=== PATIENT | female | born 1960 | race Caucasian/White ===

== ENCOUNTER 2022-11-25 16:50 | Emergency (ER) | payer OTHER, SELFPAY ==
[2022-11-25 17:00] VITALS: BP 151/87; PULSE 75; RESP 16; TEMP 36.4; O2SAT 99
--- NOTE | 2022-11-25 17:19 | ED.URI ---
HPI - URI/Sore Throat General Chief Complaint: Upper Respiratory Infection Stated Complaint: uri Time Seen by Provider: 11/25/22 17:20 Source: patient and RN notes reviewed Mode of arrival: ambulatory Limitations: no limitations History of Present Illness HPI Narrative: 62-year-old female presented for complaints of headache, fatigue, and tingling in the sinuses , onset today. Patient had COVID exposure on 11/20. Patient is positive for COVID today At home. She denies shortness of breath, wheezing, nausea, vomiting, diarrhea, fevers or chills. She has not taken anything for symptoms. MD elicited complaint: cough Related Data Home Medications Medication Instructions Recorded Confirmed diltiazem HCl 360 mg 360 mg PO DAILY 11/25/22 11/25/22 capsule,extended release 24 hr metoprolol succinate 50 mg 50 mg PO DAILY 11/25/22 11/25/22 tablet,extended release 24 hr omeprazole 20 mg capsule,delayed 20 mg PO DAILY 11/25/22 11/25/22 release rivaroxaban 20 mg tablet (Xarelto) 20 mg PO DAILY 11/25/22 11/25/22 Allergies Allergy/AdvReac Type Severity Reaction Status Date / Time morphine Allergy Intermediate Confusion Verified 11/25/22 16:58 sulfamethoxazole Allergy Intermediate Rash Verified 11/25/22 16:58 trimethoprim Allergy Intermediate Rash Verified 11/25/22 16:58 Review of Systems Review of Systems: Per [facility] Past Medical History Medical History Myxoma Exam Narrative: GENERAL: mildly ill-appearing, nontoxic EYES: PERRLA, conjunctivae clear ENT: Mucous membranes moist. TM pearly díaz with dull light reflex bilaterally; no tragal tenderness. Oropharynx without lesions or exudate, no drooling, no hoarseness, no trismus, uvula midline. CHEST: Clear to auscultation, breath sounds equal. No wheezing, rhonchi, rales, or stridor. No respiratory distress, speaks in full sentences. HEART: Regular rate and rhythm. No murmur heard. SKIN: Warm, dry, no rash. NEURO: Alert and oriented x3. PSYCH: Normal mood and affect Course Course Emergency Course: Patient is aware of diagnosis, understands and agrees to treatment plan. Anticipatory guidance given. Patient agrees to follow-up as directed and is aware of reasons to seek care at the emergency department. Portions of this record may have been created with voice recognition software Level of Care: Express Care Visit Vital Signs Vital signs: Vital Signs Temperature 97.6 F 11/25/22 17:00 Pulse Rate 75 11/25/22 17:00 Respiratory Rate 16 11/25/22 17:00 Blood Pressure 151/87 H 11/25/22 17:00 Pulse Oximetry 99 11/25/22 17:00 Oxygen Delivery Room Air 11/25/22 17:00 Temperature 97.6 F 11/25/22 17:00 Pulse Rate 75 11/25/22 17:00 Respiratory Rate 16 11/25/22 17:00 Blood Pressure 151/87 H 11/25/22 17:00 Pulse Oximetry 99 11/25/22 17:00 Oxygen Delivery Room Air 11/25/22 17:00 reviewed MDM - URI/Sore Throat MDM Narrative Medical decision making narrative: discussed at length positive home COVID test is sufficient to warrant quarantine for 5 days per CDC guidelines. She states she thinks she did the test incorrectly. Advised based on her exposure, symptoms and the positive test, she needs to adhere to quarantine. She can contact her PCP regarding antiviral medication. Advised supportive measures and signs/symptoms to go to the ER. Pt is appropriate for outpt treatment and f/u. Differential Diagnosis Differential diagnosis: Likely upper respiratory infection, sinusitis and viral infection Discharge Plan Discharge Clinical Impression: Viral infection Patient Disposition: Home, Self-Care Condition: Stable Instructions: COVID-19 (Coronavirus Disease 2019) (ED) Additional Instructions: Your home COVID test was positive today. This is sufficient to observe the quarantine guidelines. The following recommendations have been made by the CDC and local
== END 2022-11-25 17:35 | disposition home or self-care (01) ==
PROVIDERS: Emergency Provider Nurse Practitioner Family
DX: B34.9 Viral infection, unspecified (principal); Z20.822 Contact with and (suspected) exposure to COVID-19
CPT/HCPCS: 87426; 99213; C9803; G0463

== ENCOUNTER 2023-11-27 14:30 | Emergency (ER) | payer OTHER, SELFPAY ==
--- NOTE | ~2023-11-27 | CT_ITS ---
EXAMINATION: CT abdomen pelvis w con DATE: 11/27/2023 17:27 INDICATION: Abdominal pain. TECHNIQUE: Computed tomography (CT) of the abdomen and pelvis was performed with 100 mL Omnipaque 350 intravenous contrast. Automated exposure control and iterative reconstruction technique were employe d. The dose-length product was 1146.11 mGy-cm. COMPARISON: None. FINDINGS: The visualized portions of the lung bases demonstrate mild atelectasis. No pleural effusion . The heart size is normal. No pericardial effusion. There are pacer wires in right atrium and right ventricle. There are cysts in the liver measuring up to 15 mm . Calcifications in the spleen are cons istent with old granulomatous disease. The gallbladder, pancreas, and adrenal glands are normal. Ther e is cortical thinning of the kidneys. There are cysts in right kidney measuring up to 7 mm . There a re no dilated loops of bowel. The appendix is not visualized. There are no pathologically enlarged ly mph nodes. There is no free intraperitoneal fluid. There is severe lumbar spondylosis. IMPRESSION: 1. No etiology for the patient's symptoms. Reviewed, dictated and finalized at location E. TRICAL PROJECT ENGINEER
[2023-11-27 14:53] VITALS: BP 146/66; PULSE 82; RESP 16; TEMP 36.8; O2SAT 99
[2023-11-27 15:52] VITALS: BP 163/73; PULSE 79; RESP 16; O2SAT 100
[2023-11-27 16:07] LABS: Basophils Percent Auto 0.5 % (0.2-1.2); Eosinophils Absolute Auto 0.3 K/mm3 (0-0.3); Eosinophils Percent Auto 3.1 % (0-4.4); Hemoglobin 11.5 g/dL (12.0-15.0); Immature Granulocyte Absolute 0.02 K/mm3 (0.00-0.031); Immature Granulocyte Percent A 0.2 % (0-0.5); Lymphocytes Absolute Auto 2.67 K/mm3 (0.9-3.2); Lymphocytes Percent Auto 31.9 % (18.3-44.2); Mean Corpuscular HGB Conc 31.1 g/dl (32-36); Mean Corpuscular Hemoglobin 25.6 pg (26-34); Mean Corpuscular Volume 82.4 fl (80-100); Mean Platelet Volume 8.9 fl (7.4-10.4); Monocytes Absolute Auto 0.5 K/mm3 (0.1-0.6); Neutrophils Absolute Auto 4.9 K/mm3 (1.3-6.7); Neutrophils Percent Auto 58.3 % (45.5-73.1); Platelet Count Result 225 k/mm3 (150-375); Red Blood Count 4.49 M/mm3 (4.2-5.4); Red Cell Distribution Width 14.3 % (11.5-14.5); White Blood Count 8.4 K/mm3 (4.5-10.0)
[2023-11-27 16:16] LABS: Alanine Aminotransferase 19 U/L (6-35); Albumin Level 4.3 g/dL (3.5-5.1); Alkaline Phosphatase 93 U/L (38-126); Anion Gap 8 mmol/L (8-16); Aspartate Amino Transferase 26 U/L (14-36); Bilirubin,Total 0.4 mg/dL (0.2-1.3); Blood Urea Nitrogen 13 mg/dL (7-17); Carbon Dioxide 26 mmol/L (22-30); Chloride 105 mmol/L (98-107); Estimated CRCL calculation 96 ml/min; Estimated Glomerular Filt Rate > 60; Glucose 122 mg/dL (65-110); Lipase 74 U/L (23-300); Potassium 3.4 mmol/L (3.4-5.0); Sodium 139 mmol/L (137-145)
[2023-11-27 16:54] LABS: Appearance Urine Clear (Clear); Bacteria Urine 3+ /hpf; Bilirubin Urine Negative (Negative); Blood Urine 2+ (Negative); Color Urine Yellow (Yellow); Glucose Urine UA Negative (Negative); Ketones Urine Negative (Negative); Leukocyte Esterase Ur 1+ LEU/UL (Negative); Nitrate Urine Positive (Negative); Non Pathogenic Casts 0-2; Protein Urine 1+ mg/dL (Negative); RBC Urine 0-2 /hpf (0-2); Specific Grav Ur 1.021 (1.001-1.035); Squamous Epithelial Cell Urine None seen /hpf (Few); Urobilinogen Urine 0.2 mg/dL (<2.0); WBC Urine 51-100 /hpf
[2023-11-27 17:03] LABS: Add Urine Microscopic? YES
--- NOTE | 2023-11-27 17:16 | ED.ABDPAIN ---
HPI - Abdominal Pain General Chief Complaint: Abdominal Pain Stated Complaint: abdominal pain Time Seen by Provider: 11/27/23 16:42 Source: patient Mode of arrival: ambulatory Limitations: no limitations History of Present Illness HPI narrative: This is a 63 year old female that presents to the ER for abdominal pain. Ongoing over the last couple of hours. Reports sharp epigastric pain. No associated symptoms. Denies fever, vomiting, diarrhea, or dysuria. Related Data Home Medications Medication Instructions Recorded Confirmed diltiazem HCl 360 mg 360 mg PO DAILY 11/25/22 11/25/22 capsule,extended release 24 hr metoprolol succinate 50 mg 50 mg PO DAILY 11/25/22 11/25/22 tablet,extended release 24 hr omeprazole 20 mg capsule,delayed 20 mg PO DAILY 11/25/22 11/25/22 release rivaroxaban 20 mg tablet (Xarelto) 20 mg PO DAILY 11/25/22 11/25/22 Allergies Allergy/AdvReac Type Severity Reaction Status Date / Time morphine Allergy Intermediate Confusion Verified 11/27/23 15:41 sulfamethoxazole Allergy Intermediate Rash Verified 11/27/23 15:41 trimethoprim Allergy Intermediate Rash Verified 11/27/23 15:41 Review of Systems Review of Systems: CONSTITUTIONAL: Denies fever GASTROINTESTINAL: Reports abdominal pain. Denies nausea, vomiting, or diarrhea. GENITOURINARY: Denies dysuria or hematuria. All systems reviewed & are unremarkable except as noted in HPI and below PMFSH Past Medical History Medical History (Updated 11/27/23 @ 18:03 by Sushila Orlando PA-C) History of gastroesophageal reflux (GERD) History of pacemaker Myxoma Social History Social History (Updated 11/27/23 @ 17:21 by Sushila Orlando PA-C) Smoking status: Never smoker Exam Narrative: GENERAL: Well-appearing, well-nourished, and in no acute distress. HEAD: Normocephalic, atraumatic. EYES: EOMI. CHEST: Clear to auscultation. No respiratory distress. No wheezes rales or rhonchi HEART: Regular rate and rhythm. No murmur heard. Normal peripheral pulses. ABDOMEN: Soft, nondistended, normal active bowel sounds. Tender to palpation in the epigastrium, without guarding EXTREMITIES: Normal range of motion. No edema. SKIN: Warm, dry, no rash. NEURO: No focal deficits. Alert and oriented x3. PSYCH: Normal mood and affect Course Course Emergency Course: Patient resting comfortably after Zofran and Protonix. Updated on her workup. Agrees with plan of care Vital Signs Vital signs: Vital Signs Temperature 98.2 F 11/27/23 14:53 Pulse Rate 82 11/27/23 14:53 Respiratory Rate 16 11/27/23 14:53 Blood Pressure 146/66 H 11/27/23 14:53 Pulse Oximetry 99 11/27/23 14:53 Oxygen Delivery Room Air 11/27/23 14:53 Temperature 98.2 F 11/27/23 14:53 Pulse Rate 82 11/27/23 18:07 Respiratory Rate 21 H 11/27/23 18:07 Blood Pressure 146/70 H 11/27/23 18:07 Pulse Oximetry 99 11/27/23 18:07 Oxygen Delivery Room Air 11/27/23 14:53 MDM - Abdominal Pain MDM Narrative Medical decision making narrative: Patient presents to the emergency department for abdominal pain present over the last several hours. She is afebrile and nontoxic appearing. Her vitals are stable. CBC shows normocytic anemia hemoglobin of 11.5. Metabolic panel and lipase without concerning findings. UA with evidence of infection. This will be sent for culture. Patient given dose of antibiotics IV in the ED. Will be continued on oral antibiotics. She also wanted to be treated prophylactically for vulvovaginal candidiasis. CT abdomen and pelvis without acute findings. Patient resting comfortably after Zofran and Protonix. Updated on her workup. Agrees with plan of care. She was given warnings to return to the ER Differential Diagnosis Differential diagnosis: Likely calculus of kidney, constipation, diverticulitis, pancreatitis and other (biliary colic, GERD, UTI) Lab Data Attestation: I reviewed the patient's lab results. 11/27/23 16
[2023-11-27] MEDS: SODIUM CHLORIDE 0.9% IV 500 ML 999 ML IV CONT (17:39)
[2023-11-27] MEDS: ONDANSETRON INJ 4 MG/2 ML VIAL IV PUSH (17:40)
[2023-11-27] MEDS: PANTOPRAZOLE SODIUM IV 40 MG VIAL IV PUSH (17:41)
[2023-11-27 17:44] VITALS: BP 155/72; PULSE 83; RESP 16; O2SAT 98
[2023-11-27 18:07] VITALS: BP 146/70; PULSE 82; RESP 21; O2SAT 99
[2023-11-27 18:14] LABS: Troponin I < 0.012 ng/mL (0.000-0.034)
[2023-11-27] MEDS: FLUCONAZOLE 150 MG TABLET PO (18:58)
== END 2023-11-27 19:03 | disposition home or self-care (01) ==
PROVIDERS: Emergency Medicine; Emergency Provider Physician Assistant
DX: N39.0 Urinary tract infection, site not specified (principal); K21.9 Gastro-esophageal reflux disease without esophagitis; D21.9 Benign neoplasm of connective and other soft tissue, unspecified; Z95.0 Presence of cardiac pacemaker; Z79.01 Long term (current) use of anticoagulants
CPT/HCPCS: 36415; 74177; 80053; 81001; 83690; 84484; 85025; 87077; 87086; 87186; 96365; 96375; 99284; A9270; C9113; J0696; J2405; J7030; J7040; Q9967

== ENCOUNTER 2024-12-22 12:45 | Emergency (ER) | payer OTHER, SELFPAY ==
--- NOTE | ~2024-12-22 | CT_ITS ---
CT abdomen pelvis wo con Ordering provider: Breezy Garcia MD History: 64 years Female with . hematuria . Comparison: November 27, 2023 Technique: CT abdomen and pelvis without IV and without oral contrast. Automated exposure control and iterative reconstruction technique were employed. The dose-length product was 1233.42 mGy-cm. Findings: VISUALIZED LOWER CHEST: Normal. UPPER ABDOMINAL ORGANS: Liver: Fat infiltration of the liver. Hypodensity in the left lobe of the liver measuring 1.5 cm unch anged from previous examination and most likely a cyst.. Gallbladder: Normal. Spleen: Normal. Benign calcifications. Stomach/duodenum: Normal. Pancreas: Normal. Adrenals: Normal. Kidneys: Normal. PELVIC ORGANS: The bladder is underfilled. BOWEL AND MESENTERY: Colon: No evidence of diverticulitis. The appendix is not demonstrated. Small Bowel: Normal. No obstruction. Peritoneum/mesentery: No free air or free fluid. No mesenteric lymphadenopathy. Panniculitis is seen in the upper abdomen. Mesenteric lymph nodes are seen with the largest measures 1.1 cm. RETROPERITONEUM: Mild atheromatous disease of the abdominal aorta. No retroperitoneal lymphadenopat hy. MUSCULOSKELETAL: Superficial soft tissues: Soft tissue density seen near to the umbilicus. Clinical evaluation advised . Otherwise, The superficial soft tissues are normal. Bones: Age appropriate degenerative changes of the spine. IMPRESSION: 1. No evidence of appendicitis, diverticulitis or intestinal obstruction. 2. No renal stones. 3. Panniculitis in the upper abdomen. 4. Fat infiltration of the liver with a stable cyst. Reviewed, dictated and finalized at location A. R VEHICLE CLERK
[2024-12-22 13:29] VITALS: BP 122/55; PULSE 88; RESP 16; TEMP 36.6; O2SAT 98
--- OUTSIDE RECORDS SUMMARY | 2024-12-22 13:57 | XMS_ITS | Clinical Summary ---
Author Organization [facility] [address] Address [address] [place] [address] Phone Care Team Providers Care Hospital Cleaning Specialist Name Role Phone Rolly Davis MD Primary Care Provider Unav ailable Allergies Active Allergy Reactions Criticality Noted Date Comments Adhesive Other (See Comments) Low 03/15/2021 Tape pulls skin off and causes bleeding at site Morphine Unknown 01/22/2017 Ty Ty Anaphylaxis High 04/16/2009 Ty Ty Sherbert- lips swelled up, eyes swelled up, couldn't breathe Sulfamethoxazole-Trim ethoprim Unknown 01/22/2017 Medications celecoxib (CeleBREX) 200 mg capsule 10/26/2016 Active losartan (COZAAR) 50 mg tablet 11/24/2016 Active methocarbamoL (ROBAXIN) 750 mg tablet Take 750 mg by mouth. 10/16/2022 Active Xarelto 20 mg Tablet 10/26/2023 Active omeprazole (PriLOSEC) 20 mg Capsule, Delayed Release(E.C.) 06/02/2024 Activ e metoprolol succinate (TOPROL XL) 50 mg Extended Release 24 hour tablet Take 50 mg by mouth daily. 06/30/2024 Active diltiaZEM (CARDIZEM CD) 360 mg Controlled Delivery 24 hour capsule Take 360 mg by mouth daily. 12/25/2023 Active cholecalciferol, vitamin D3, 1,000 unit Take 2,000 Units by mouth daily. Active ascorbic acid (VITAMIN C) 500 mg Tablet, Chewable Take 500 mg by mouth daily. Active Active Problems Problem Noted Date Diagnosed Date Sprain of ligaments of cervical spine 01/22/2017 Encounters Date Type Department Care Team Description 12/20/2024 External Device Data [facility] ABSTRACTION Provider, Abstract 12/06/2024 External Device Data [facility] ABSTRACTION Provider, Abstract 11/10/2024 External Device Data [facility] ABSTRACTION Provider, Abstract 11/08/2024 External Device Data [facility] ABSTRACTION Provider, Abstract 11/01/2024 External Device Data [facility] ABSTRACTION Provider, Abstract from Last 3 Months Family History Medical History Relation Name Comments Arthritis-osteo Father Diabetes Father Hypertension Father Arthritis-osteo Mother Cancer Mother Heart Disease Mother Hypertension Mother Relation Name Status Comments Father Mother Social History Tobacco Use Types Packs/Day Years Used Date Smoking Tobacco: Never Smokeless Tobacco: Never Alcohol Use Standard Drinks/Week Comments No 0 (1 standard drink = 0.6 oz pur e alcohol) Comments No Sex and Gender Information Value Date Recorded Sex Assigned at Not on file Legal Sex Female 2:34 PM CDT Gender Identity Not on file Sexual Orientation Not on file Last Filed Vital Signs Vital Sign Reading Time Taken Comments Blood Pressure 134/66 08/05/2024 2:16 PM CDT Pulse 70 03/19/2017 3:21 PM CDT Temperature - - Respiratory Rate - - Oxygen Saturation - - Inhaled Oxygen Concentration - - Weight 104.3 kg (230 lb) 08/05/2024 2:16 PM CDT Height 167.6 cm (5' 6 ) 08/05/2024 2:16 PM CDT Body Mass Index 37.12 08/05/2024 2:16 PM CDT Plan of Treatment Health Maintenance Due Date Last Done Comments Pre-Diabetes and Diabetes Screening 1960 COLORECTAL SCREENING 2004 Colorectal Cancer Screening 2004 FIT-DNA Q 3 years 2004 FIT/FOBT Q 1 year 2004 Flex Sig/CT Colonography Q 5 years 2004 ZOSTER VACCINE (1 of 2) 2009 OSTEOPOROSIS SCREENING 2024 BREAST CANCER SCREENING 07/15/2025 07/15/2024 DTAP/TDAP/TD VACCINES (3 - T d or Tdap) 06/06/2034 06/06/2024, 10/19/2020 RSV VACCINE (60+ or ) (1 - 1-dose 75+ series) 2034 PNEUMOCOCCAL VACCINE 50+ YEARS Completed 10/16/2022 INFLUENZA VACCINE Completed 07/08/2024, , 09/02/2022, Additional history exists Insurance [facility] Care Teams Hospital Cleaning Specialist Relationship Specialty Start Date End Date Rolly Davis MD PCP - General Internal Medicine 01/22/17
--- OUTSIDE RECORDS SUMMARY | 2024-12-22 13:57 | XMS_ITS | Continuity of Care Document ---
Author Organization [facility] Address [address] [place] [address] Phone Care Team Providers Care Command Post Craftsman Name Role Phone David Don MD Unavailable Unavailable Allergies, Adverse Reactions, Alerts Substance Reaction Status Criticality trimethoprim Hives Active No Information sulfamethoxazole Hives Active No Informat ion morphine Hallucinations Active No Informatio n Medications Medication Instructions Dosage Effective Dates (start - stop) Status Comments LOSARTAN POTASSIUM (unknown strength) Not Available - Active Prilosec OTC 20 mg tablet,delayed release - Active ASPIRIN (unknown strength) Not Available - Active CELEBREX (unknown strength) Not Available - Active Procedures Procedure Date OFFICE/OUTPATIENT VISIT EST OFFICE/OUTPATIENT VISIT EST RADEX KNE COMPL 4/MORE VIEWS OFFICE/OUTPATIENT VISIT EST POSTOP FOLLOW-UP VISIT POSTOP FOLLOW-UP VISIT RADEX KNE COMPL 4/MORE VIEWS OFFICE/OUTPATIENT VISIT EST OFFICE/OUTPATIENT VISIT EST RADEX KNE COMPL 4/MORE VIEWS OFFICE/OUTPATIENT VISIT EST RADEX KNE 1/2 VIEWS OFFICE/OUTPATIENT VISIT EST POSTOP FOLLOW-UP VISIT POSTOP FOLLOW-UP VISIT RADEX KNE COMPL 4/MORE VIEWS OFFICE CONSULTATION Advance Directives Directive Yes / No Effective Date File Name No Information Encounters Encounter Description Practice Location Reason(s) For Visit Diagnoses Date Provider Providers Copied on Encounter OFFICE/OUTPAT IENT VISIT EST [facility], [address] [address], [place], [address], [place] tel:[phone] [facility] Status post total left knee replacement 9 D[address] David. [address] , [place], [place], [id number] . tel: [phone] [facility], [address] [facility] [address] [address], [place], [address], [place] tel:[phone] [facility] Status post total left knee replacementLeft knee pain 8 Dusek David. [address] , [place], [place], [address] . tel: [phone] OFFICE/OUTPAT IENT VISIT EST [facility], [address] [address], [place], [address], [place] tel:[phone] [facility] Status post total left knee replacement 8 Herrman[address] Nuñez. [address], [id number] . tel: [phone] OFFICE/OUTPAT IENT VISIT EST [facility], [address] [facility] [address] [address], [place], [address], [place] tel:[phone] [facility] Status post total left knee replacementBody mass index (BMI) 33.0-33.9, adult 8 [address]. [address] , [place], [place], [id number] . tel: [phone] [facility], [address] [address], [place], [address], [place] tel:[phone] [facility] Status post total left knee replacementBody mass index (BMI) 33.0-33.9, adult 8 [address] Nuñ[address]. [address] [facility], [place], [place], [id number] . tel: [phone] Referring Provider: Rolly Lugo, [address], [place], [address] . tel:[phone] [facility], [address] [facility], [place], [address], [place] tel:[phone] [facility] Body mass index (BMI) 33.0-33.9, adultStatus post total left knee replacement [address] [facility]. [address] [facility], [place], [place], [id number] . tel: [phone] OFFICE/OUTPAT IENT VISIT EST [facility], [address] [facility] [address] [address], [place], [address], [place] tel:[phone] [facility] Primary osteoarthritis of left knee 3[address] Dus[address] David. [address] , [place], [place], [address] . tel: [phone] [facility], [address] [address], [place], [address], [place] tel:[phone] [facility] Primary osteoarthritis of left knee [phone] 7 [facility]. [address] [facility], [place], [place], [id number] . tel: [phone] [facility], [address], [address], [place] tel:[phone] [facility] Primary osteoarthritis of left knee 0201 [address]us[address] David. [address] , [place], [place], [id number] . tel: [phone] OFFICE/OUTPAT IENT VISIT EST [facility], [address] [facility] [address] [address], [place], [address], [place] tel:[phone] [facility] Primary osteoarthritis of left knee 6 7 Dus[address] David. [address] , [place], [place], [id number] . tel: [phone] OFFICE/OUTPAT IENT VISIT EST [facility], [address], [address], [place] tel:[phone] [facility] Body mass index (BMI) 33.0-33.9, adultPrimary osteoarthritis of left knee February-0 7 Herrman[address] Nuñez. [address] [facility], [place], [place], [id number] . tel: [phone] [facility], [address] [address], [place], [address], [place] tel:[phone] [facility] Primary osteoarthritis of left knee 6 [address] Nuñez. [address] [facility], [place], [place], [id number] . tel: [phone] [facility], [address] [address], [place], [address], [place] tel:[phone] [facility] Medial meniscus tear, left, subsequent encounterPrimary osteoarthritis of left knee 6 Dus[address] David. [address] [facility] [address] , [place], [place], [id number] . tel: [phone] OFFICE/OUTPAT IENT VISIT EST [facility], [address] [facility] [address] [address], [place], [address], [place] tel:[phone] [facility] Primary osteoarthritis of left knee 6 [address] David. [address] , [place], [place], [address] . tel: [phone] [facility], [address] [address], [place], [address], [place] tel:[phone] [facility] Medial meniscus tear, left, subsequent encounter 0 6 [address] David. [address] , [place], [place], [address] . tel: [phone] [facility], [address] [address], [place], [address], [place] tel:[phone] [facility] Primary osteoarthritis of left kneeMedial meniscus tear, left, subsequent encounter 9 6 Dus[address] David. [address] , [place], [place], [id number] . tel: [phone] OFFICE CONSULTATION [facility], [address], [place], [address], [place] tel:[phone] [facility] Left knee pain (chief complaint) Tear of medial meniscus of left knee, initial encounterPrimary osteoarthritis of left knee 6 Monte[address] Nuñez. [address], [place], [place], [address] . tel:[phone] Referring Provider: Rolly Lugo, [address], [place], [address] . tel:[phone] Family History Family Member Type Diagnosis Age At Onset Father Problem (finding) rheumatoid arthritis Problem (finding) Family history of osteo arthritis Mother Problem (finding) congestive heart failur e Father Problem (finding) gout Payers Payer name Insurance type Covered republican ID Authoriza tion(s) No Information Social History Type Description Quantity Date Captured Comments Alcohol Use Details Unknown Caffeine Use Details Unknown Tobacco Use Status No Information Smoking Status No Information Sex Female Chief Complaint And Reason For Visit No Information Reason For Referral Reason For Referral No Information Plan Of Treatment Date Type Action Status Referral Ordered: RADEX KNE 1/2 VIEWS ordered Referral Ordered: INJECTION LT knee ordered Referral Ordered: RADEX KNE COMPL 4/MORE VIEWS LT ordered Future Order: Lab Order Sed rate ([id number]), Ordered on: Ordered Future Order: Lab Order C-Reacti ve Protein, Quant ([id number]), Ordered on: Ordered History Of Present Illness Encounter Date Complaint History Of Prese nt Illness Left knee pain Functional Status Date Functional Assessmen t No Information Instructions Date Instruction Additional Infor lukeion Call for increase in pain Relate d to Status post total left knee replacement Take medication as directed. Rel ated to Status post total left knee replacement Call for increase in pain Relate d to Status post total left knee replacement Take medication as directed. Rel ated to Status post total left knee replacement Take medication as directed. Rel ated to Status post total left knee replacement Call for increase in pain Relate d to Status post total left knee replacement Take medication as directed. Rel ated to Status post total left knee replacement Discussed treatment options Rela mackenzie to Status post total left knee replacement Call for increase in pain Relate d to Status post total left knee replacement Rest, ice and elevate. Related t o Medial meniscus tear, left, subsequent encounter Take medication as directed. Rel ated to Medial meniscus tear, left, subsequent encounter Call for increase in pain Relate d to Medial meniscus tear, left, subsequent encounter Discussed surgical options Relat ed to Primary osteoarthritis of left knee Take medication/NSAID as directe d. Related to Primary osteoarthritis of left knee Take medication/NSAID as directe d. Related to Primary osteoarthritis of left knee Take medication/NSAID as directe d. Related to Primary osteoarthritis of left knee Take medication/NSAID as directe d. Related to Primary osteoarthritis of left knee Discussed surgical options Relat ed to Primary osteoarthritis of left knee Weight loss from baseline weight Related to Body mass index (BMI) 33.0-33.9, adult Take medication/NSAID as directe d. Related to Primary osteoarthritis of left knee Weight loss reduces stress on joints. Related to Primary osteoarthritis of left knee Benefits of Glucosamine/Chondroi tin Related to Primary osteoarthritis of left knee Take medication/NSAID as directe d. Related to Primary osteoarthritis of left knee Call for increase in pain Relate d to Medial meniscus tear, left, subsequent encounter Take medication as directed. Rel ated to Medial meniscus tear, left, subsequent encounter Take medication/NSAID as directe d. Related to Primary osteoarthritis of left knee Benefits of Glucosamine/Chondroi tin Related to Primary osteoarthritis of left knee Take medication as directed. Rel ated to Medial meniscus tear, left, subsequent encounter Home exercise program. Related t o Medial meniscus tear, left, subsequent encounter Rest, ice and elevate. Related t o Medial meniscus tear, left, subsequent encounter Call for increase in pain Relate d to Medial meniscus tear, left, subsequent encounter Discussed treatment options Rela mackenzie to Medial meniscus tear, left, subsequent encounter Call for increase in pain Relate d to Medial meniscus tear, left, subsequent encounter Take medication as directed. Rel ated to Medial meniscus tear, left, subsequent encounter Call for increase in pain Relate d to Tear of medial meniscus of left knee, initial encounter Discussed treatment options Rela mackenzie to Tear of medial meniscus of left knee, initial encounter Assessments Type Assessment Date assessment Status post total left knee repl acement Patient Care Teams Name Effective Dates (start - stop) Status Members No Information
--- OUTSIDE RECORDS SUMMARY | 2024-12-22 13:57 | XMS_ITS | Encounter Summary ---
Author Organization [employer] Address [address] [place] [address] Care Team Providers Care [employer] Name Role Phone Rloly Davis MD Primary Care Provider Unav ailable Encounter Details Date Type Department Care Team (Late st Contact Info) Description 12/20/2024 External Device Data [facility] ABSTRACTION Provider, Abstract NO ADDRESS ON FILE Social History Tobacco Use Types Packs/Day Years Used Date Smoking Tobacco: Never Smokeless Tobacco: Never Alcohol Use Standard Drinks/Week Comments No 0 (1 standard drink = 0.6 oz pur e alcohol) Comments No Sex and Gender Information Value Date Recorded Sex Assigned at Not on file Legal Sex Female 2:34 PM CDT Gender Identity Not on file Sexual Orientation Not on file documented as of this encounter Plan of Treatment Not on file documented as of this encounter Visit Diagnoses Not on filedocumented in this encounter Care Teams [employer] Relationship Specialty Start Date End Date Rolly Davis MD PCP - General Internal Medicine 01/22/17 documented as of this encounter
[2024-12-22 15:12] LABS: Appearance Urine Turbid (Clear); Color Urine Red (Yellow)
[2024-12-22 15:13] LABS: Protein Urine 3+ mg/dL (Negative); Specific Grav Ur 1.015 (1.001-1.035)
[2024-12-22 15:16] LABS: Blood Urine 3+ (Negative); Glucose Urine UA Negative (Negative)
[2024-12-22 15:17] LABS: Nitrate Urine Negative (Negative)
[2024-12-22 15:18] LABS: Add Urine Microscopic? YES; RBC Urine >100 /hpf (0-2); Squamous Epithelial Cell Urine Few /hpf (Few); WBC Urine 0-5 /hpf (0-3)
[2024-12-22 15:19] LABS: Amorphous Sediment Urine Moderate; Bacteria Urine Trace /hpf
[2024-12-22 16:19] VITALS: BP 114/69; PULSE 77; RESP 16; O2SAT 98
--- OUTSIDE RECORDS SUMMARY | 2024-12-22 17:44 | XMS_ITS | Referral Summary ---
Author Organization [facility] Address [address] [place] [address] Care Team Providers Care Striper Machine Name Role Phone Prasanth Falk MD Unavailable [phone] Abdiel Gibbons MD Unavailable Pablo Lay MD, Morteza Goldman Primary Care Provide r Andreas Montoya DO Unavailable [phone] Encounters Date Type Department Care Team Description 12/18/2024 Orders Only [facility] [address] [place] [address] Advanced Medicine 13th [place] [address] Liam Nathan MD PhD 12/16/2024 9:00 AM JOCKEY ROOM CUSTODIAN [facility] Advanced Medicine Gynecologic Oncology [facility] ([facility]) [address] [place] [address] Malignant neoplasm of left ovary (HCC) (Primary Dx) 12/16/2024 8:10 AM JOCKEY ROOM CUSTODIAN Office Visit [facility] [address] [place] [address] Advanced Medicine 13th [place] [address] Patti Preston MD Encounter for antineoplastic chemotherapy (Primary Dx); Ovarian cancer, bilateral (HCC); Peri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; Malignant neoplasm of left ovary (HCC) 12/15/2024 Orders Only [facility] [address] [place] [address] Medicine 13th [place] [address] Jeanna Garcia RN Malignant neoplasm of left ovary (HCC) (Primary Dx) 12/14/2024 Orders Only [facility] ON[facility] Patti Preston MD 12/13/2024 2:22 PM JOCKEY ROOM CUSTODIAN - 12/13/2024 11:59 PM JOCKEY ROOM CUSTODIAN Hospital Encounter [address] [address] Malignant neoplasm of left ovary (HCC) Discharge Disposition: Discharge to home or self care 12/13/2024 8:15 AM JOCKEY ROOM CUSTODIAN Lab [facility] Outpatient Lab at [address] [address] 12/08/2024 Telephone [facility] [address] [place], [place] [address]th [place] [address] Jeanna Garcia RN 12/07/2024 1:08 PM JOCKEY ROOM CUSTODIAN - 12/07/2024 11:59 PM JOCKEY ROOM CUSTODIAN Hospital Encounter [address] [address] Ovarian cancer, bilateral (HCC); Dysuria Discharge Disposition: Discharge to home or self care 12/07/2024 1:15 PM JOCKEY ROOM CUSTODIAN Lab [facility] Medical Group Outpatient Lab at [address] [address] 12/07/2024 Orders Only [facility] [address] [place] [address] 13th [place] [address] Jeanna Garcia RN Ovarian cancer, bilateral (HCC) (Primary Dx); Dysuria 12/04/2024 9:00 AM JOCKEY ROOM CUSTODIAN Ancillary Procedure [facility] [address] [facility] [address], [place] [id number] Pacemaker (Primary Dx); SSS (sick sinus syndrome) (HCC) 11/30/2024 Treatment [facility] [address] [place] [address] Medicine 13th [place] [address] Patti Preston MD 11/28/2024 Telephone [facility] [address] [facility] 13th [place] [address] Jeanna Garcia, KALYANI 11/25/2024 Documentation [facility] [address] [place] [address] 13th [place] [address] Jeanna Garcia RN 11/25/2024 Orders Only [facility] [address] [place] [address] 13th [place] [address] Jeanna Garcia RN Ovarian cancer, bilateral (HCC) (Primary Dx); Encounter for antineoplastic chemotherapy; Malignant neoplasm of left ovary (HCC) 11/25/2024 9:30 AM JOCKEY ROOM CUSTODIAN [facility] Gy[facility] [address] [place] [address] Malignant neoplasm of left ovary (HCC) (Primary Dx) 11/25/2024 8:20 AM JOCKEY ROOM CUSTODIAN Office Visit [facility] [address] [place], [place] [address]th [place] [address] Patti Preston MD Encounter for antineoplastic chemotherapy (Primary Dx); Ovarian cancer, bilateral (HCC); Malignant neoplasm of left ovary (HCC) 11/24/2024 Orders Only [facility] [address] [place], [place] [address]th [place] [address] Jeanna Garcia, RN Malignant neoplasm of left ovary (HCC) (Primary Dx) 11/04/2024 1:22 PM JOCKEY ROOM CUSTODIAN - 11/04/2024 11:59 PM JOCKEY ROOM CUSTODIAN Hospital Encounter [facility] Cardiac Testing [address] [place] [address] Leg pain, bilateral Discharge Disposition: Discharge to home or self care 11/03/2024 11:38 PM JOCKEY ROOM CUSTODIAN - 11/04/2024 2:52 AM JOCKEY ROOM CUSTODIAN Emergency [address] [place] [address] Froylan Burton MD Leg pain, bilateral (Primary Dx) Discharge Disposition: Discharge to home or self care 11/01/2024 Orders Only [facility] [address] [facility] 13th [place] [address] Jeanna Garcia RN Malignant neoplasm of left ovary (HCC) (Primary Dx) 11/01/2024 6:35 AM JOCKEY ROOM CUSTODIAN Lab [facility] ([facility]) [address] [place] [address] Malignant neoplasm of left ovary (HCC) 11/01/2024 8:30 AM JOCKEY ROOM CUSTODIAN Infusion [facility] Gynecologic Oncology [facility] ([facility]) [address] [place] [address] Malignant neoplasm of left ovary (HCC) (Primary Dx) 11/01/2024 7:50 AM JOCKEY ROOM CUSTODIAN Office Visit [facility] [address] [place] [address] 13th [place] [address] Azael Garcia MD Malignant neoplasm of left ovary (HCC) (Primary Dx); Encounter for antineoplastic chemotherapy; Peri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 10/31/2024 Telephone [facility] [address] [place] [address] 13th [place] [address] Chrissy Maxwell RN 10/17/2024 Telephone [facility] 13th [place] [address] Chrissy Maxwell RN 10/17/2024 Orders Only [facility] [address] [place] [address] [place] [address] Azael Garcia MD Malignant neoplasm of left ovary (HCC) (Primary Dx); Alopecia due to cytotoxic drug 10/13/2024 Telephone [facility] 13th [place] [address] Chrissy Maxwell, RN 10/07/2024 10:30 AM JOCKEY ROOM CUSTODIAN [facility] Advanced Medicine Gynecologic On[facility] ([facility]) [address] [place] [address] Malignant neoplasm of left ovary (HCC) (Primary Dx) 10/07/2024 6:03 AM JOCKEY ROOM CUSTODIAN - 10/07/2024 11:59 PM JOCKEY ROOM CUSTODIAN Hospital Encounter [facility] [address] [place] [address] Andreas Celestin PA Ovarian cancer, bilateral (HCC) Discharge Disposition: Discharge to home or self care 10/04/2024 Telephone [facility] Radiology [address] [place] [address] Erica Yoon RN 10/04/2024 Telephone [facility] [address] [place] [address] 13th [place] [address] Kelly Abel, RN Med Management 10/04/2024 Telephone [facility] Radiology [facility] [address] [place] [address] Tonya Liang RN 09/30/2024 Telephone [facility] 13th [place] [address] Chrissy Maxwell, RN 09/29/2024 Orders Only [facility] [address] [facility] 13th [place] [address] Chrissy Maxwell, RN Ovarian cancer, bilateral (HCC) (Primary Dx) 09/27/2024 6:53 PM JOCKEY ROOM CUSTODIAN - 09/27/2024 11:59 PM JOCKEY ROOM CUSTODIAN Hospital Encounter [address] [address] Ovarian cancer, bilateral (HCC) Discharge Disposition: Discharge to home or self care 09/27/2024 Telephone [facility] Medicine 13th [place] [address] Chrissy Maxwell RN 09/27/2024 Orders Only [facility] [address] [place] [address] 13th [place] [address] Kelly Abel RN 09/27/2024 Telephone [facility] Primary Care [address] [place] [phone] Morteza Shah Jr., MD Med Refill 09/27/2024 2:00 PM JOCKEY ROOM CUSTODIAN Office Visit [facility] [address] [place] [address] 13th [place] [address] Azael Garcia MD Ovarian cancer, bilateral (HCC) (Primary Dx) 09/26/2024 3:00 PM JOCKEY ROOM CUSTODIAN Office Visit [facility] [address] [place] [phone] Morteza Shah Jr., MD Preventative health care (Primary Dx); Gastroesophageal reflux disease with esophagitis without hemorrhage; Asymptomatic menopause; Chronic diastolic congestive heart failure (HCC); Other primary thrombocytopenia (HCC); Rheumatoid arthritis involving multiple sites with positive rheumatoid factor (HCC); SSS (sick sinus syndrome) (HCC); PAF (paroxysmal atrial fibrillation) (HCC); History of CVA (cerebrovascular accident); Need for vaccination; Malignant neoplasm of left ovary (HCC) 09/23/2024 Orders Only [facility] [address] [place] [address] Azael Garcia MD Malignant neoplasm of ovary, unspecified laterality (HCC) 09/23/2024 Telephone [facility] [address] [place] [phone] Morteza Shah Jr., MD Medication Request 09/23/2024 Orders Only [facility] [address] [place] [address] 13th [place] [address] Azael Garcia MD Malignant neoplasm of ovary, unspecified laterality (HCC) (Primary Dx) from Last 3 Months Allergies Active Allergy Reactions Criticality Noted Date Comments Adhesive Other (See comments) Low 03/15/2021 Tape pulls skin off and causes bleeding at site Morphine Other (See comments),Hallucinatio ns Medium 01/22/2017 Reaction: Unknown, , Bremer Anaphylaxis High 04/16/2009 Bremer Sherbert- lips swelled up, eyes swelled up, couldn't breathe Paclitaxel Shortness of breath,Flushing (skin),Nausea only High 10/07/2024 Sulfa (Sulfonamide Antibiotics) Hives,Shortness of breath High 01/16/2019 Medications ascorbic acid (VITAMIN C) 500 mg tablet,chewable Take 1 tablet/chew tab (500 mg total) by mouth daily Active cholecalciferol (VITAMIN D-3) 25 mcg (1,000 unit) tablet Take 2 tablets (2,000 Units total) by mouth daily Active lidocaine (LIDODERM) 5 %Indications:Lumba r pain Place 1 patch on the skin daily Remove & discard patch within 12 hours or as directed by MD. 30 patch 10/16/20 22 025 Active Additional Information Patient taking differently:1 patch transdermalAs needed, Remove & discard patch within 12 hours or as directed by MD., Reported on 12/16/2024 methocarbamoL (ROBAXIN) 750 mg tabletIndications: Lumbar pain Take 1 tablet (750 mg total) by mouth 4 (four) times a day as needed for muscle spasms Only takes occasionally 30 tablet 3 10/16/20 22 Active atorvastatin (LIPITOR) 40 mg tablet TAKE 1 TABLET NIGHTLY (NEED TO SCHEDULE AN APPOINTMENT. DUE FOR OFFICE VISIT IN JANUARY) 90 tablet 3 04/13/20 23 Active Xarelto 20 mg tabletIndications: Paroxysmal atrial fibrillation (HCC) TAKE 1 TABLET DAILY WITH DINNER 90 tablet 3 10/26/19 24 Active losartan (COZAAR) 50 mg tabletIndications: Primary hypertension Take 1 tablet (50 mg total) by mouth daily 90 tablet 3 11/20/19 24 Active celecoxib (CeleBREX) 200 mg capsuleIndications :Rheumatoid arthritis, involving unspecified site, unspecified whether rheumatoid factor present (HCC) Take 1 capsule (200 mg total) by mouth 2 (two) times a day 180 capsule 3 04/06/20 24 025 Active metoprolol XL (TOPROL-XL) 50 mg extended release tabletIndications: PAF (paroxysmal atrial fibrillation) (HCC) Take 1 tablet (50 mg total) by mouth daily 90 tablet 3 06/30/20 24 025 Active famotidine (PEPCID) 40 mg tabletIndications: Gastroesophageal reflux disease with esophagitis without hemorrhage Take 1 tablet (40 mg total) by mouth daily 90 tablet 3 09/26/20 24 025 Active aspirin 81 mg chewable tabletIndications: prevention of thrombosis Take 1 tablet (81 mg total) by mouth daily 90 tablet 3 09/26/20 24 025 Active dexAMETHasone (DECADRON) 4 mg tabletIndications: Malignant neoplasm of left ovary (HCC) Take 2 tablets (8 mg) by mouth once daily on Day 2, 3, and 4 of each cycle. 20 tablet 3 10/03/20 24 Active prochlorperazine (Compazine) 10 mg tabletIndications: Malignant neoplasm of left ovary (HCC) Take 1 tablet (10 mg total) by mouth every 6 (six) hours as needed for nausea or vomiting 30 tablet 3 10/03/20 24 Active ondansetron (ZOFRAN) 8 mg tabletIndications: Malignant neoplasm of left ovary (HCC) Take 1 tablet (8 mg total) by mouth every 8 (eight) hours as needed for nausea or vomiting 30 tablet 3 10/03/20 24 Active LORazepam (ATIVAN) 0.5 mg tabletIndications: Malignant neoplasm of left ovary (HCC) Place 1 tablet (0.5 mg total) under the tongue every 6 (six) hours as needed (nausea or vomiting) 30 tablet 10/03/20 24 Active lidocaine-prilocai ne creamIndications:A dministration of Local Anesthesia Apply topically as needed for pain Apply 1 hour prior to IV access and cover. 30 g 1 10/05/20 24 Active diltiaZEM CD (Cardizem CD) 360 mg 24 hr capsule Take 1 capsule (360 mg total) by mouth daily 90 capsule 1 10/14/20 24 025 Active HYDROcodone-acetam inophen (NORCO) 5-325 mg per tabletIndications: Pain Take 1 tablet by mouth every 8 (eight) hours as needed for pain 12 tablet 11/04/19 25 Active gabapentin (NEURONTIN) 300 mg capsuleIndications :Neuropathy Take 1 capsule (300 mg total) by mouth 3 (three) times a day 270 capsule 4 11/09/19 25 026 Active al & mag hydroxide with simethicone-diphen hydramine-lidocain e (MAGIC MOUTHWASH) suspension 5-7-6Xyhwnjoghof:C hemotherapy-Induce d Mucositis Swish and swallow 15 mL every 4 (four) hours as needed (mucositis) 500 mL 3 11/14/19 25 Active pyridoxine (VITAMIN B-6) 100 mg tabletIndications: Encounter for antineoplastic chemotherapy,Perip heral neuropathy due to chemotherapy Take 1 tablet (100 mg total) by mouth daily 30 tablet 11 11/14/19 25 026 Active alpha lipoic acid 600 mg capsuleIndications :Encounter for antineoplastic chemotherapy,Perip heral neuropathy due to chemotherapy Take 1 capsule (600 mg total) by mouth daily 30 capsule 3 11/14/[address] (CYMBALTA) 30 mg capsuleIndications :Peri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 Take 1 capsule (30 mg total) by mouth daily 30 capsule 11 11/28/19 25 026 Active pregabalin (LYRICA) 75 mg capsuleIndications :peripheral neuropathy Take 1 capsule (75 mg total) by mouth 2 (two) times a day 60 capsule 11/30/19 25 025 Active nitrofurantoin monohydrate (MACROBID) 100 mg capsule Take 1 capsule (100 mg total) by mouth 2 (two) times a day for 7 days 14 capsule 12/19/19 25 025 Active loperamide (IMODIUM A-D) 2 mg tabletIndications: Encounter for antineoplastic chemotherapy,Chemo therapy induced diarrhea Take 1 tablet (2 mg total) by mouth 4 (four) times a day as needed for diarrhea for up to 10 days 30 tablet 11/14/19 25 025 Active Problems Problem Noted Date Diagnosed Date Malignant neoplasm of left ovary 09/26/2024 Assessment & Plan (09/26/2024 3:43 PM JOCKEY ROOM CUSTODIAN): S/p resection Following hem/onc, appreciate recommendations Class 2 severe obesity due t o excess calories with serious comorbidity and body mass index (BMI) of 37.0 to 37.9 in adult 07/14/2023 Assessment & Plan (07/14/2023 12:32 PM CDT): Will look into resources for timothy Chronic diastolic congestive heart failure 07/11 Assessment & Plan (09/26/2024 3:41 PM JOCKEY ROOM CUSTODIAN): Chronic stable Well controlled Continue current prescribed medications losartan metorpolol at current dose Follows cardiology Assessment & Plan (10/16/2022 4:07 PM JOCKEY ROOM CUSTODIAN): Chronic stable Well controlled Continue current medications at current dose Precordial pain 05/12/2022 Restless legs 05/01/2022 Benign neoplasm 02/03/2022 Other primary thrombocytopenia 01/22/2022 Assessment & Plan (09/26/2024 3:41 PM JOCKEY ROOM CUSTODIAN): Monitor levels Pacemaker 03/04/2019 Overview (03/04/2019): [employer] DDD [place] MRI pacemaker implanted on 03/04/19 for SSS/Afib. [place] [facility] PAF (paroxysmal atrial fibrillation) 02/18/2019 Overview (12/11/2021): 2011 in March- had sob- had stress test and myxoma on L side of the heart in 2012- had resesction- they thought it was showering off and causing stroke. Every 6 months monitoring to make sure it wasn't growing back. Linq was placed as she was having syncope-need ppm Then started having afib - had cardioversion 08/02/2021 On xarelto Assessment & Plan (09/26/2024 3:42 PM JOCKEY ROOM CUSTODIAN): Follows cardiology Paul lopezporarti,dilta and xarelto Assessment & Plan (12/11/2021 7:24 PM JOCKEY ROOM CUSTODIAN): On xarelto Referral requested for cards- placed for Dr. Preciado On metop XL, rhythm and rate controlled since cardioversion Assessment & Plan (02/18/2019 1:16 PM CDT): Paroxysmal atrial fibrillation. Anticoagulation management encounter 02/18/2019 Assessment & Plan (02/18/2019 1:16 PM CDT): She currently remains on Xarelto 20 mg daily. She remains compliant with her anticoagulation and denies any issues with bleeding. SSS (sick sinus syndrome) 02/18/2019 Overview (02/18/2019): Added automatically from request for surgery [id number] Assessment & Plan (09/26/2024 3:42 PM JOCKEY ROOM CUSTODIAN): Follows cardiology Continue dilt and metoprolol Assessment & Plan (12/11/2021 7:24 PM JOCKEY ROOM CUSTODIAN): S/p ppm History of CVA (cerebrovascular accident) 2014 Overview (01/23/2017): Stroke Assessment & Plan (09/26/2024 3:41 PM JOCKEY ROOM CUSTODIAN): Continue lipitor and aspirin Assessment & Plan (12/11/2021 7:26 PM JOCKEY ROOM CUSTODIAN): Is on statin Needs lipids checked Assessment & Plan (02/18/2019 1:16 PM CDT): Recent right MCA infarct, cardioembolic Myxoma 12/26/2014 Overview (12/11/2021): Left atrial myxoma- resected in 2012 Assessment & Plan (02/18/2019 1:16 PM CDT): History of left atrial myxoma resection in 2012 Primary hypertension Assessment & Plan (12/11/2021 7:24 PM JOCKEY ROOM CUSTODIAN): Controlled, cont losartan Rheumatoid arthritis involvi ng multiple sites with positive rheumatoid factor Assessment & Plan (09/26/2024 3:44 PM JOCKEY ROOM CUSTODIAN): Takes celebrax, well controlled Assessment & Plan (12/11/2021 7:25 PM JOCKEY ROOM CUSTODIAN): Never on mtx, celebrex prn. She is unsure of the dx but thinks in the '70s was told this Ordering RA labs, exam is unremarkable for signs of RA Preventative health care Assessment & Plan (09/26/2024 3:41 PM JOCKEY ROOM CUSTODIAN): Reviewed previous labs and diagnostic test results. Chronic medical problems evaluated and management plans discussed with the patient. Prescription medications, supplements, vitamins and immunizations reviewed. Wear seatbelts. Use sunscreen. Discussed healthy diet and disease prevention and controlling portions including alcohol Discussed importance of scheduling recommended screening tests. Discussed importance of regular physical examinations for health maintenance. Discussed importance of a living will, advanced directives and establishing or updating healthcare power of vba developer document and providing our office with a copy. Assessment & Plan (10/16/2022 4:07 PM JOCKEY ROOM CUSTODIAN): Discussed vaccines Labs will get drawn in January Will come back for a weight check Assessment & Plan (12/11/2021 7:27 PM JOCKEY ROOM CUSTODIAN): Recommend shingrix Recommend flu shot utd on cscope- she will try to find date and get this to us utd on covid vax mammo ordered Resolved Problems Problem Noted Date Diagnosed Date Resolved Date Other thrombophilia 09/26/2024 09/26/20 24 Mass of uterine adnexa 08/25/202409/26 Class 2 obesity due to exces s calories without serious comorbidity with body mass index (BMI) of 38.0 to 38.9 in adult 10/16/2022 Assessment & Plan (10/16/2022 4:07 PM JOCKEY ROOM CUSTODIAN): Wants to start wegovy, understands supply issue, will become available next month Abnormal stress test 07/11/2022 024 Left shoulder pain 06/10/2022 Sleep apnea 05/01/2022 09/26/2024 Fatigue 05/01/2022 10/16/2022 Teeth grinding 05/01/2022 10/16/2022 Thrombocytopenia, unspecified 01/22/2022 09/26/2024 Ileus 08/06/2021 10/16/2022 Sinus node dysfunction ([facility]) 02/18/2019 10/16/2022 Assessment & Plan (02/18/2019 1:25 PM CDT): On interrogation of her implantable loop recorder today she is found to have multiple episodes of up to 5 second pauses likely prolonged sinus node recovery times. During those episodes she has complaints of near-syncope. Her metoprolol was discontinued today by Dr. Falk. At this time I have discussed options for management with the patient at this time will plan to place dual-chamber pacemaker for symptomatic bradycardia as well as facilitation for medical therapy of her atrial fibrillation. The risks and benefits have been explained to the patient and she is agreeable to proceed. Will also check with her neurologist on timing of the holding of her anticoagulation as she had a recent CVA. Acute ischemic stroke ([facility]) 01/18/2019 10/16/2022 Overview (01/18/2019): Right parietal area Sprain of ligaments of cervical spine 01/22/2017 10/16/2022 Dysphonia 05/25/2015 10/16/2022 Vocal cord atrophy 05/25/2015 Throat clearing 05/17/2015 10/16/2022 Lumbar pain 04/17/2009 09/26/2024 Right ankle swelling 022 Assessment & Plan (12/11/2021 7:27 PM JOCKEY ROOM CUSTODIAN): Likely dependent, recommend compression stockings Podiatry referral placed as pt requested BMI 39.0-39.9,adult 10/16/20 22 Assessment & Plan (12/11/2021 7:28 PM JOCKEY ROOM CUSTODIAN): Diet and excercise Immunizations Immunization Administration Dates Next Due Hep B Vaccine 09/08/2017,04/08/2017,03/05/2017 Influenza, Quadrivalent, Spl it, Preservative Free, Intramuscular 08/27/2023,09/23/2021,07/19/2020,07/20,08/27/2018,07/21/2017 Influenza, Trivalent, Cell Culture-based MDCK, Preservative Free, Antibiotic Free, Intramuscular 09/02/2022 Influenza, Trivalent, Preser vative Free, Intramuscular 07/08/2024,07/15/2016,08/14/2015 Influenza, Unspecified 09/21/2022,2015,08/17/2014,07/06 Pneumococcal Conjugate Pcv20 09/26/2024,10/16/20 22 Tdap 06/06/2024,10/19/2020 Social History Tobacco Use Types Packs/Day Years Used Date Smoking Tobacco: Never Smokeless Tobacco: Never Tobacco Cessation:Counseling Given: Not Answered Alcohol Use Standard Drinks/Week Comments No 0 (1 standard drink = 0.6 oz pur e alcohol) AUDIT-C Answer Date Recorded Frequency of Alcohol Consumption Not on file 05/12/2024 Q2: How many drinks containi ng alcohol do you have on a typical day when you are drinking? Patient does not drink Frequency of Binge Drinking Not on file 04/19 PHQ-2 Answer Date Recorded PHQ-2 Total Score (If total score is 3 or more points, staff should administer the PHQ-9) 0 09/26/2024 PHQ-9 Answer Date Recorded PHQ-9 Total Score 0 09/26/2024 Personal Safety Answer Date Recorded Have you ever been in or are you currently in a harmful physical or emotional relationship or is someone making you feel afraid or unsafe? 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 Not on file Not on file Not on file Last Filed Vital Signs Vital Sign Reading Time Taken Comments Blood Pressure 153/81 12/16/2024 8:00 AM JOCKEY ROOM CUSTODIAN Pulse 86 12/16/2024 8:00 AM JOCKEY ROOM CUSTODIAN Temperature 36.4 C (97.6 F) 12/16/2024 8:00 AM JOCKEY ROOM CUSTODIAN Respiratory Rate 20 12/16/2024 8:00 AM JOCKEY ROOM CUSTODIAN Oxygen Saturation 97% 12/16/2024 8:00 AM JOCKEY ROOM CUSTODIAN Inhaled Oxygen Concentration - - Weight 107.3 kg (236 lb 8 oz) 12/16/2024 8:00 AM JOCKEY ROOM CUSTODIAN Height 165.1 cm (5' 5 ) 11/25/2024 8:22 AM JOCKEY ROOM CUSTODIAN Body Mass Index 39.36 11/25/2024 8:22 AM JOCKEY ROOM CUSTODIAN Plan of Treatment Not on file Medical Devices Implanted Type Area Optical Element Coater Device Identifier Shelf Expiration Date Model / Serial / Lot [employer] Inc [id number] System 6-12fr Mvp Venous Closure Vascade - [id number] - [id number] Implanted:Qty: 1 on 08/02/2021 by Abdiel Gibbons MD at [facility] Collagen [employer] 05/20/2023 800-612C- 10U / [id number] / [id number] [employer] [id number] System 6-12fr Mvp Venous Closure Vascade - [id number] - [id number] Implanted:Qty: 1 on 08/02/2021 by Abdiel Gibbons MD at [facility] Collagen [employer] 05/20/2023 800-612C- 10U / [id number] [id number] / [id number] [employer] [id number] Vascade 6/7fr Bioabsorbable Vascular System Compression Collagen - [id number] - [id number] Implanted:Qty: 1 on 08/02/2021 by Abdiel Gibbons MD at [facility] Collagen [employer] 05/20/2023 [id number]- 05U / [id number] / [id number] [id number] [employer] [id number] System 6-12fr Mvp Venous Closure Vascade - [id number] - [id number] Implanted:Qty: 1 on 08/02/2021 by Abdiel Gibbons MD at [facility] Collagen [employer] Inc 04/17/2023 800-612C- 10U / [id number] [id number] / [id number] [id number] Medtronic Cardiac Rhythm Mgmt 5076-52 Capsurefix Novus 6.2fr 2mm 52cm Bipolar Screw In Implantable Latex Free - [id number] - [id number] Implanted:Qty: 1 on 03/04/2019 by Abdiel Gibbons MD at [facility] Lead Medtronic Cardiac Rhythm Mgmt [id number] 01/07/2021 5076-52 / [id number] / Medtronic Cardiac Rhythm Mgmt 5076-45 Capsurefix Novus Od6.2 Fr; Odsec2 Mm L45 Cm Bipolar; Screw In; Im - [id number] - [id number] Implanted:Qty: 1 on 03/04/2019 by Abdiel Gibbons MD at [facility] Lead Medtronic Cardiac Rhythm Mgmt [id number] 01/11/2021 5076-45 / [id number] / Medtronic Cardiac Rhythm Mgmt [id number] [place] S Mri Surescan 50.8x46.6mm 2 Chamber 7.4mm Pacemaker 22.5gm - [id number] - [id number] Implanted:Qty: 1 on 03/04/2019 by Abdiel Gibbons MD at [facility] Pacemaker Medtronic Cardiac Rhythm Mgmt [id number] 07/02/2020 [id number] / [id number] / Ang[employer] Xcela Power Port 8fr [id number] - [id number] Implanted:Qty: 1 on 10/07/2024 at [facility] Angio Dynamics 04/03/2029 [id number] / / [id number] Explanted Type Area Optical Element Coater Device Identifier Shelf Expiration Date Model / Serial / Lot Medtronic Cardiac Rhythm Mgmt Linqsys Reveal Linq Mycarelink Insertable Loop Recorder Automatic - [id number] - [id number] Implanted:Qty : 1 on 01/18/2019 at [facility] Explanted:Qty : 1 on 03/04/2019 at [facility] Implantable Loop Recorder Left: Chest Wall Medtronic Cardiac Rhythm Mgmt [id number] 11/15/2019 LINQSYS / [id number] / Procedures Procedure Name Priority Date/Time Associated Diagnosis Comments SCAN - PATHOLOGY 12/14/2024 4:26 PM [facility]OC[facility] ROOM CUSTODIAN EGFR Routine 12/13/2024 2:22 PM JOC[facility] ROOM CUSTODIAN Malignant neoplasm of left ovary (HCC) DIFFERENTIAL AUTO Routine 12/13/2024 2:2 2 PM [facility]OC[facility] ROOM CUSTODIAN Malignant neoplasm of left ovary (HCC) CA 125 Routine 12/13/2024 2:22 PM JOC[facility] ROOM CUSTODIAN Malignant neoplasm of left ovary (HCC) MAGNESIUM Routine 12/13/2024 2:22 PM JOCKEY ROOM CUSTODIAN Malignant neoplasm of left ovary (HCC) COMPREHENSIVE METABOLIC PANEL Routine 12/13/2024 2:22 PM JOC[facility] ROOM CUSTODIAN Malignant neoplasm of left ovary (HCC) CBC WITH AUTO DIFFERENTIAL Routine 12/13/2024 2:22 PM JOCKEY ROOM CUSTODIAN Malignant neoplasm of left ovary (HCC) URINALYSIS, MICROSCOPIC ONLY STAT 12/07/2024 1:08 PM JOCKEY ROOM CUSTODIAN Ovarian cancer, bilateral (HCC) Dysuria URINALYSIS AND REFLEX TO MICROSCOPIC AND CULTURE STAT 12/07/2024 1:08 PM JOCKEY ROOM CUSTODIAN Ovarian cancer, bilateral (HCC) Dysuria DEVICE CHECK - REMOTE Routine 12/04/2024 12:45 PM JOCKEY ROOM CUSTODIAN SSS (sick sinus syndrome) (HCC) [facility] CANCER SEEK + ADDITIONAL TESTS Routine 11/25/2024 8:28 AM JOCKEY ROOM CUSTODIAN Ovarian cancer, bilateral (HCC) Encounter for antineoplastic chemotherapy CA 125 Routine 11/18/2024 7:46 AM JOCKEY ROOM CUSTODIAN Malignant neoplasm of left ovary (HCC) MAGNESIUM Routine 11/18/2024 7:46 AM JOCKEY ROOM CUSTODIAN Malignant neoplasm of left ovary (HCC) COMPREHENSIVE METABOLIC PANEL Routine 11/18/2024 7:46 AM JOC[facility] ROOM CUSTODIAN Malignant neoplasm of left ovary (HCC) CBC WITH AUTO DIFFERENTIAL Routine 11/18/2024 7:46 AM JOCKEY ROOM CUSTODIAN Malignant neoplasm of left ovary (HCC) US VEIN DUPLEX LOWER EXTREMITY BILATERAL COMPLETE Schedule NINFA, Read NINFA (Appt Today, Awaiting Results) 11/04/2024 2:15 PM JOCKEY ROOM CUSTODIAN Leg pain, bilateral CT LUMBAR SPINE WO CONTRAST ED 11/04/2024 12:51 AM JOCKEY ROOM CUSTODIAN D-DIMER, QUANTITATIVE Add-On 11/04/2024 12:24 AM JOC[facility] ROOM CUSTODIAN EGFR STAT 11/03/2024 11:25 PM JOCKEY ROOM CUSTODIAN DIFFERENTIAL AUTO STAT 11/03/2024 11:25 PM JOC[facility] ROOM CUSTODIAN COMPREHENSIVE METABOLIC PANEL STAT 11/03/2024 11:25 PM JOCKEY ROOM CUSTODIAN CBC WITH AUTO DIFFERENTIAL STAT 11/03/2024 11:25 PM JOC[facility] ROOM CUSTODIAN EGFR Routine 11/01/2024 6:48 AM JOC[facility] ROOM CUSTODIAN Malignant neoplasm of left ovary (HCC) DIFFERENTIAL AUTO Routine 11/01/2024 6:4 8 AM JOC[facility] ROOM CUSTODIAN Malignant neoplasm of left ovary (HCC) CBC WITH AUTO DIFFERENTIAL Routine 11/01/2024 6:48 AM JOCKEY ROOM CUSTODIAN Malignant neoplasm of left ovary (HCC) COMPREHENSIVE METABOLIC PANEL Routine 11/01/2024 6:48 AM JOC[facility] ROOM CUSTODIAN Malignant neoplasm of left ovary (HCC) MAGNESIUM Routine 11/01/2024 6:48 AM JOCKEY ROOM CUSTODIAN Malignant neoplasm of left ovary (HCC) CA 125 Routine 11/01/2024 6:48 AM JOCKEY ROOM CUSTODIAN Malignant neoplasm of left ovary (HCC) PORT PLACEMENT CHEST >5 YEARS Schedule Routine, Read Routine (OP Routine) 10/07/2024 9:08 AM JOC[facility] ROOM CUSTODIAN Ovarian cancer, bilateral (HCC) EGFR Routine 09/27/2024 6:53 PM JOC[facility] ROOM CUSTODIAN Ovarian cancer, bilateral (HCC) DIFFERENTIAL AUTO Routine 09/27/2024 6:5 3 PM [facility]OC[facility] ROOM CUSTODIAN Ovarian cancer, bilateral (HCC) APTT Routine 09/27/2024 6:53 PM JOC[facility] ROOM CUSTODIAN Ovarian cancer, bilateral (HCC) PROTIME-INR Routine 09/27/2024 6:53 PM JOCKEY ROOM CUSTODIAN Ovarian cancer, bilateral (HCC) COMPREHENSIVE METABOLIC PANEL Routine 09/27/2024 6:53 PM JOC[facility] ROOM CUSTODIAN Ovarian cancer, bilateral (HCC) CBC WITH AUTO DIFFERENTIAL Routine 09/27/2024 6:53 PM JOCKEY ROOM CUSTODIAN Ovarian cancer, bilateral (HCC) CA 125 Routine 09/27/2024 6:53 PM JOCKEY ROOM CUSTODIAN Ovarian cancer, bilateral (HCC) MYRIAD BRACANALYSIS AND MYRISK / NOTE 2 TESTS Routine 09/27/2024 4:19 PM JOC[facility] ROOM CUSTODIAN Ovarian cancer, bilateral (HCC) SURGICAL PATHOLOGY Routine 09/23/2024 4: 06 PM JOC[facility] ROOM CUSTODIAN Malignant neoplasm of ovary, unspecified laterality (HCC) SCREENING MAMMOGRAM BILATERAL W ALPHONSO Schedule Routine, Read Routine (OP Routine) 07/15/2024 4:19 PM CDT Screening mammogram, encounter for HEPATITIS C ANTIBODY Routine 01/18/2022 9:34 AM CDT Preventative health care from Last 3 Months or Most Recently Relevant to Health Maintenance Results * SCAN - PATHOLOGY (12/14/2024 4:26 PM JOCKEY ROOM CUSTODIAN) us Patti Preston MD Final R esult * eGFR (12/13/2024 2:22 PM JOCKEY ROOM CUSTODIAN) eGFR >90 >=60 mL/min/1. 73 m2 Comment: Interpretive Data Reference Interval Normal >/= 90 mL/min/1.73m2 Mildly decreased* 60 - 89 mL/min/1.73m2 Mildly to moderately decreased 45 - 59 mL/min/1.73m2 Moderately to severely decreased 30 - 44 mL/min/1.73m2 Severely decreased 15 - 29 mL/min/1.73m2 Kidney Failure < 15 mL/min/1.73m2 *Relative to young adult level Estimated glomerular filtration rate is determined by the 2020 CKD-EPI equation recommended by the National Kidney Foundation (A Unifying Approach to GFR Estimation: Recommendations of the NKF-ASK Task Force on Reassessing the Inclusion of Race in Diagnosing Kidney Disease, JASN 2020). The CKD-EPI equation should not be used for patients with unstable renal function and has not been validated in children and those over 70. Current interpretive data was last reviewed 2021. Blood 12/13/2024 2:22 PM JOCKEY ROOM CUSTODIAN 12/13/2024 9:24 PM JOCKEY ROOM CUSTODIAN Patti Preston MD LAB BLOOD ORDERABLES Fi nal Result [facility] [address] Department of Laboratories [place], [place] [id number] * Differential, auto (12/13/2024 2:22 PM JOCKEY ROOM CUSTODIAN) Neutrophil abs 3.5 1.5 - 6.5 K/cumm Imm gran abs 0.1 0.0 - 0.1 K/cumm [facility] Lymphocyte abs 2.1 0.8 - 3.3 K/cumm [facility] Monocyte abs 0.4 0.2 - 0.8 K/cumm [facility] Eosinophil abs 0.2 0.0 - 0.5 K/cumm [facility] Basophil abs 0.0 0.0 - 0.1 K/cumm [facility] Neutrophil pct 55.7 % [facility] Comment: Interpretive Data Percent cell count reference ranges are not reported, since discordance with absolute values may lead to misinterpretation of CBC data. Current Interpretive Data was last revised on 2018. Imm gran pct 0.8 % [facility] Comment: Interpretive Data Percent cell count reference ranges are not reported, since discordance with absolute values may lead to misinterpretation of CBC data. Current Interpretive Data was last revised on 2018. Lymphocyte pct 33.5 % [facility] Comment: Interpretive Data Percent cell count reference ranges are not reported, since discordance with absolute values may lead to misinterpretation of CBC data. Current Interpretive Data was last revised on 2018. Monocyte pct 6.1 % [facility] Comment: Interpretive Data Percent cell count reference ranges are not reported, since discordance with absolute values may lead to misinterpretation of CBC data. Current Interpretive Data was last revised on 2018. Eosinophil pct 3.7 % [facility] Comment: Interpretive Data Percent cell count reference ranges are not reported, since discordance with absolute values may lead to misinterpretation of CBC data. Current Interpretive Data was last revised on 2018. Basophil pct 0.2 % [facility] Comment: Interpretive Data Percent cell count reference ranges are not reported, since discordance with absolute values may lead to misinterpretation of CBC data. Current Interpretive Data was last revised on 2018. Blood 12/13/2024 2:22 PM JOC[facility] ROOM CUSTODIAN 12/13/2024 9:15 PM JOCKEY ROOM CUSTODIAN Patti Preston MD LAB BLOOD ORDERABLES nal Result [facility] [address] Department [place] [address] * (ABNORMAL) CBC with auto differential (12/13/2024 2:22 PM JOCKEY ROOM CUSTODIAN) WBC 6.2 3.8 - 9.9 K/cumm Hgb 9.2(L) 11.9 - 15.5 g/dL [facility] Hct 30.4(L) 35.6 - 45.5 % [facility] Plt 135(L) 150 - 400 K/cumm [facility] MPV 9.3 9.1 - 12.3 fL [facility] RBC 3.29(L) 3.90 - 5.20 M/cumm [facility] MCV 92.4 81.3 - 96.4 fL [facility] MCH 28.0 27.1 - 33.3 pg [facility] MCHC 30.3(L) 32.3 - 35.7 g/dL [facility] CH RDW CV 15.8(H) 11.1 - 14.9 % [facility] RDW SD 51.6(H) 35.7 - 48.1 fL [facility] NRBC abs 0.00 0.00 - 0.01 K/cumm [facility] Blood 12/13/2024 2:22 PM JOC[facility] ROOM CUSTODIAN 12/13/2024 9:15 PM JOC[facility] ROOM CUSTODIAN Patti Preston MD LAB BLOOD ORDERABLES Fi nal Result Performing Organization Address [facility] de Phone Number VIKRAM [id number] [facility] [place] [address] * CA 125 (12/13/2024 2:22 PM JOCKEY ROOM CUSTODIAN) CA 125 ag 8.0 1.0 - 35.0 units/mL Comment: Interpretive Data The Cristhian CA 125 assay procedure was used. Results from different manufacturers or methods may not be comparable. Serial testing should be performed using the same method. Blood 12/13/2024 2:22 PM JOCKEY ROOM CUSTODIAN 12/13/2024 9:15 PM JOCKEY ROOM CUSTODIAN Patti Preston MD LAB BLOOD ORDERABLES Fi nal Result Performing Organization Address [facility] de Phone Number FARRAHJENNIFER [address] [facility] [place] [address] * (ABNORMAL) Magnesium (12/13/2024 2:22 PM JOCKEY ROOM CUSTODIAN) Magnesium 1.3(L) 1.4 - 2.5 mg/dL Blood 12/13/2024 2:22 PM JOCKEY ROOM CUSTODIAN 12/13/2024 9:15 PM JOCKEY ROOM CUSTODIAN Patti Preston MD LAB BLOOD ORDERABLES Fi nal Result Performing Organization Address [facility] de Phone Number VIKRAM OSMAN [address] Department [place] [address] * Comprehensive metabolic panel (12/13/2024 2:22 PM JOCKEY ROOM CUSTODIAN) Sodium 143 135 - 145 mmol/L Potassium, pl 3.7 3.3 - 4.9 mmol/L [facility] Chloride 105 97 - 110 mmol/L [facility] CO2 24 22 - 32 mmol/L [facility] Anion gap 14 2 - 15 mmol/L [facility] BUN 11 6 - 25 mg/dL [facility] Creatinine 0.72 0.60 - 1.10 mg/dL [facility] Glucose 123 70 - 199 mg/dL [facility] Comment: Interpretive Data Fasting glucose >/= 126 mg/dl is diagnostic for diabetes. Fasting is defined as no caloric intake for at least 8 hours. Fasting glucose between 100 mg/dl to 125 mg/dl is diagnostic of prediabetes. In a patient with classic symptoms of hyperglycemia or hyperglycemic crisis, a random glucose >/= 200 mg/dl is diagnostic for diabetes. In the absence of unequivocal hyperglycemia, results should be confirmed by repeat testing. The classification and Diagnosis of Diabetes Diabetes Care 202; 46: S19-S40. Current interpretive data was last revised 2022. Calcium 9.0 8.5 - 10.3 mg/dL [facility] Bilirubin, total 0.2 0.1 - 1.2 mg/dL [facility] Protein, pl 6.8 6.5 - 8.5 g/dL [facility] Albumin 3.9 3.5 - 5.0 g/dL [facility] Alk phos 77 40 - 130 Units/L [facility] ALT 24 7 - 45 Units/L [facility] AST 22 10 - 45 Units/L [facility] Blood 12/13/2024 2:22 PM JOCKEY ROOM CUSTODIAN 12/13/2024 9:15 PM JOCKEY ROOM CUSTODIAN us Patti Preston MD LAB BLOOD ORDERABLES Fi nal Result [facility] OSMAN [address] Department [place] [address] * (ABNORMAL) Urinalysis reflex to microscopic and culture Urine, bladder (12/07/2024 1:08 PM JOCKEY ROOM CUSTODIAN) Color, ur Yellow Yellow Clarity, ur Clear Clear [facility] Specific gravity, ur 1.019 1.003 - 1.030 [facility] pH, urine 5.0 [facility] Comment: Interpretive Data U rine pH is affected by diet, medications, systemic acid-base disturbances, and renal tubular function. pH may affect urinary stone formation. For example, urine pH below 6.0 may help reduce the tendency for calcium phosphate stones and pH greater than 6.0 may reduce the tendency for uric acid stone formation. Source: [facility] Current Interpretive Data was last revised on 2017 Protein, ur ql Trace Negative [facility] Glucose, ur ql Negative Negative [facility] Ketones, ur Negative Negative [facility] Bilirubin, ur Negative Negative [facility] Blood, ur 1+(A) Negative [facility] Urobilinogen, ur <2.0 <2.0 mg/dL [facility] Nitrite, ur Negative Negative [facility] Leukocyte esterase, ur Negative Negative [facility] UA reflex comment Reflex to microscopic UA will be performed. [facility] Urine, bladder 12/07/2024 1: 08 PM JOCKEY ROOM CUSTODIAN 12/07/2024 9:56 PM JOCKEY ROOM CUSTODIAN Patti Preston MD LAB MICROBIOLOGY - GENE [facility] ORDERABLES Final Result [facility] [address] Department [place] [address] * (ABNORMAL) Urinalysis, microscopic only (12/07/2024 1:08 PM JOCKEY ROOM CUSTODIAN) WBC, ur 0-5 0 - 5 /HPF RBC, ur 3-5(A) 0 - 2 /HPF [facility] Mucous, ur Present(A) [facility] Culture Reflex Comment Reflex conditions for urine culture (WBC >10) not met. [facility] Urine, bladder 12/07/2024 1: 08 PM JOCKEY ROOM CUSTODIAN 12/07/2024 9:56 PM JOCKEY ROOM CUSTODIAN us Patti Preston MD LAB URINE ORDERABLES Fi nal Result [facility] OSMAN [address] Department [place] [address] * DEVICE CHECK - REMOTE (12/04/2024 12:45 PM JOCKEY ROOM CUSTODIAN) Anatomical Region Laterality Modality Other Narrative 12/07/2024 12:10 PM JOCKEY ROOM CUSTODIAN Table formatting from the original result was not included. PM CHECK (REMOTE) Patient ID: Esperanza Benavides is a 64 y.o. female This patient received a Medtronic Pacemaker. They had a routine remote transmission on 12/04/2024. Device implant indications: SSS, AF Interrogation of the patient's device demonstrates the following: Presenting EGM: A paced V sense @ 77 bpm Original Device Settings Right Atrium Right Ventricle Sensitivity (mV) 0.3 mV 1.2 mV Pacing Outputs 1.5 V @ 0.4 ms 2.0 V @ 0.4 ms Testing Measurements Right Atrium Right Ventricle Sensitivity (mV) 2 mV 9.9 mV Impedence (Ohms) 361 ohms 399 ohms Pace Threshold 0.625 V @ 0.4 ms 0.75 V @ 0.4 ms Pacing % 54.5 % <0.1 % Battery Status: 8.8 years to JUANITA Episodes last 90 days/Comments: AF [place] 0 % Fourteen ventricular episodes 1 episode appears to be nonsustained VT for 1 second at 162 beats per minute. All other reviewed EGMs show dual tachycardia in the 160s to 170s with the longest lasting 8 seconds. NORMAL DEVICE FUNCTION PROGRAMMED MEDICATIONS: Anti-coagulant(s): Aspirin 81 mg, Xarelto 20 mg daily Anti-arrhythmic(s): Toprol-XL 50 mg daily PLAN: 1) Medtronic Pacemaker evaluation 2) Medtronic remote transmission scheduled in 3 months. 3) Programming appropriate for device measurements Kelly Quiles RN us Abdiel Gibbons MD CV CARDIAC SERVICES PRO CEDURES Final Result * [facility] [place] Cancer Seek??? + Additional Tests (11/25/2024 8:28 AM JOCKEY ROOM CUSTODIAN) Pathologist [facility] CARIS PD-L1 (22C3) Negative 2024 12:23 PM JOCKEY ROOM CUSTODIAN CARIS [employer] CARIS Genomic Loss of Heterozygosity - [place] Low 9% 12/14/2024 12:23 PM JOCKEY ROOM CUSTODIAN [facility] [employer] CARIS Microsatellite Instability - [place] Stable 12/14/2024 12:23 PM JOCKEY ROOM CUSTODIAN [employer] CARIS Tumor Mutational [place] - Exome Low 2 per Mb 12/14/2024 12:23 PM JOCKEY ROOM CUSTODIAN [employer] CARIS Estrogen Receptor Negative 12/14/2024 12:23 PM JOCKEY ROOM CUSTODIAN CARIS [employer] CARIS Her2/Pricila Negative 12/14/2024 12:23 PM JOCKEY ROOM CUSTODIAN CARIS [employer] CARIS Progesterone Receptor Negative 12/14/2024 12:23 PM JOCKEY ROOM CUSTODIAN CARIS [employer] CARIS HLA-A - [place] -,A*02:01 12/14/2024 12:23 PM JOCKEY ROOM CUSTODIAN [employer] CARIS HLA-B - [place] -,B*07:02 12/14/2024 12:23 PM JOCKEY ROOM CUSTODIAN [employer] CARIS HLA-C - [place] -,C*07:02 12/14/2024 12:23 PM JOCKEY ROOM CUSTODIAN [employer] CARIS FOLR1 - [place] Positive 12/14/2024 12:23 PM JOCKEY ROOM CUSTODIAN [employer] CARIS HRD- [place] Negative 12/14/19 12:23 PM JOCKEY ROOM CUSTODIAN [employer] Tissue 11/25/2024 8:28 AM JOCKEY ROOM CUSTODIAN 12/01/2024 5:49 PM JOCKEY ROOM CUSTODIAN Narrative This result has genomic variants that were not included in this document. Patti Preston MD LAB GENETIC TESTING Fin al Result [employer] [address] [place] [address], [facility] [phone] * (ABNORMAL) CBC with auto differential (11/18/2024 7:46 AM JOCKEY ROOM CUSTODIAN) Pathologist [facility] WBC 7.1 3.8 - 10.8 Thousand/u L [facility] RBC, POC 3.36(L) 3.80 - 5.10 Million/uL [facility] Hgb 9.4(L) 11.7 - 15.5 g/dL [facility] Hct 30.4(L) 35.0 - 45.0 % [facility] MCV 90.5 80.0 - 100.0 fL [facility] MCH 28.0 27.0 - 33.0 pg [facility] MCHC 30.9(L) 32.0 - 36.0 g/dL [facility] Comment: For adults, a slight decrease in the calculated MCHC value (in the range of 30 to 32 g/dL) is most likely not clinically significant; however, it should be interpreted with caution in correlation with other red cell parameters and the patient's clinical condition. Rdw 15.0 11.0 - 15.0 % [facility] Platelets 150 140 - 400 Thousand/u L [facility] MPV 8.8 7.5 - 12.5 fL [facility] Neutrophils, abs 4,651 1,500 - 7,800 cells/uL [facility] Lymphocytes, abs 2,016 850 - 3,900 cells/uL [facility] Monocyte abs 348 200 - 950 cells/uL [facility] Eosinophils, abs 57 15 - 500 cells/uL [facility] Basophils, abs 28 0 - 200 cells/uL [facility] Neutrophils 65.5 % [facility] Lymphocyte pct 28.4 % [facility] Monocytes 4.9 % [facility] Eosinophils 0.8 % [facility] Basophils 0.4 % [facility] Blood 11/18/2024 7:46 AM JOCKEY ROOM CUSTODIAN 11/18/2024 7:47 AM JOCKEY ROOM CUSTODIAN us Patti Preston MD LAB BLOOD ORDERABLES Fi nal Result [facility] [address] [place] [address] * CA 125 (11/18/2024 7:46 AM JOCKEY ROOM CUSTODIAN) CA 125 ag 9 <35 U/mL [facility] Comment: This test was performed using the Siemens Chemiluminescent method. Values obtained from different assay methods cannot be used interchangeably. CA 125 levels, regardless of value, should not be interpreted as absolute evidence of the presence or absence of disease. Blood 11/18/2024 7:46 AM JOCKEY ROOM CUSTODIAN 11/18/2024 7:47 AM JOCKEY ROOM CUSTODIAN Patti Preston MD LAB BLOOD ORDERABLES Fi nal Result Performing Organization Address City/[facility]/ZIP Co de Phone Number [facility] [address] [address] [facility] [place] [address] * Magnesium (11/18/2024 7:46 AM JOCKEY ROOM CUSTODIAN) [facility] Magnesium 1.5 1.5 - 2.5 mg/dL [facility] Blood 11/18/2024 7:46 AM JOCKEY ROOM CUSTODIAN 11/18/2024 7:47 AM JOCKEY ROOM CUSTODIAN Patti Preston MD LAB BLOOD ORDERABLES Fi nal Result Performing Organization Address [facility] Co de Phone Number [facility] [address] [place] [address] * (ABNORMAL) Comprehensive metabolic panel (11/18/2024 7:46 AM JOCKEY ROOM CUSTODIAN) Glucose 121(H) 65 - 99 mg/dL [facility] Comment: Fasting reference interval For someone without known diabetes, a glucose value between 100 and 125 mg/dL is consistent with prediabetes and should be confirmed with a follow-up test. BUN 11 7 - 25 mg/dL [facility] Creatinine 0.58 0.50 - 1.05 mg/dL [facility] eGFR 100 > OR = 60 mL/min/1.7 3m2 [facility] BUN/creat ratio SEE NOTE: 6 22 (calc) [facility] Comment: Not Reported: BUN and Creatinine are within reference range. Sodium 141 135 - 146 mmol/L [facility] Potassium, pl 3.9 3.5 - 5.3 mmol/L [facility] Chloride 105 98 - 110 mmol/L [facility] CO2 27 20 - 32 mmol/L [facility] Calcium 8.6 8.6 - 10.4 mg/dL [facility] Protein, sr 6.0(L) 6.1 - 8.1 g/dL [facility] Albumin 3.7 3.6 - 5.1 g/dL [facility] GLOBULIN 2.3 1.9 - 3.7 g/dL (calc) [facility] Alb/glob ratio 1.6 1.0 - 2.5 (calc) [facility] Bilirubin, total 0.2 0.2 - 1.2 mg/dL [facility] [facility] Alk phos 67 37 - 153 U/L [facility] AST 16 10 - 35 U/L [facility] ALT (SGPT) 21 6 - 29 U/L [facility] Blood 11/18/2024 7:46 AM JOCKEY ROOM CUSTODIAN 11/18/2024 7:47 AM JOCKEY ROOM CUSTODIAN us Patti Preston MD LAB BLOOD ORDERABLES Fi nal Result [facility] [address] [place] [address] * Vein Duplex Lower Extremity Bilateral Complete (11/04/2024 2:15 PM JOCKEY ROOM CUSTODIAN) Anatomical Region Laterality Modality Vascular Bilateral Ultrasound 11/04/2024 Narrative 11/10/2024 7:09 AM JOCKEY ROOM CUSTODIAN [employer] Job ID: [id number] Ins[employer] Document ID: [id number] Dictated date/time: [id number] BILATERAL LOWER EXTREMITY VENOUS DUPLEX REASON FOR EXAM Edema. FINDINGS ON THE RIGHT The right common femoral, femoral, popliteal, posterior tibial, peroneal, and greater saphenous demonstrate spontaneous phasic flow that augment and are compressible. FINDINGS ON THE LEFT The left common femoral, femoral, popliteal, posterior tibial, peroneal, and greater saphenous demonstrate spontaneous phasic flow that augment and are compressible. INTERPRETATION No evidence of deep or superficial venous thrombosis in bilateral lower extremity. Job ID/Internal Job ID: [id number] us Froylan Burton MD [facility] [place] PROCEDURES Final Result * CT Lumbar Spine WO Contrast (11/04/2024 12:51 AM JOCKEY ROOM CUSTODIAN) Anatomical Region Laterality Modality Spine N/A Computed Tomogra phy 11/04/2024 12:5 4 AM JOCKEY ROOM CUSTODIAN Narrative 11/04/2024 12:59 AM JOCKEY ROOM CUSTODIAN EXAM DESCRIPTION: CT LUMBAR SPINE WO CONTRAST REASON FOR STUDY: Low back pain, increased fracture risk Esperanza Benavides is a 64 y.o. female w/ PMHx including CVA, TIA, paroxysmal A-fib, pacemaker in place, HTN, CHF, RA, ovarian CA and other PMHx as below presenting to the ED w/ c/o BLE pain. Pt states she recently had a new chemotherapy treatment, reports she is currently on abraxane. Pt notes this chemotherapy treatment was 2x days ago and had no complains immediately after. The following day, pt states she went to sleep and woke up w/ pain from the waste down. Pt describes that the entirety of her lower extremities are painful. Pt notes of a stinging/burning sensation that is prevalent in her knees bilaterally. Pt reports that the pain has progressively worsened, and notes the pain is particularly bad w/ ambulation. Pt notes of some mild-moderate intermittent nausea. Pt denies fever, chills, vomiting. Pt denies any fall, trauma, or injury. Pt denies bladder or bowel incontinence. TECHNIQUE: Axial images acquired through the lumbar spine without intravenous contrast. Reconstructed coronal and sagittal MPR images reviewed. All images stored on PACS. Automated exposure control was used as a dose optimization technique for this examination. COMPARISON: 11/12/2009 FINDINGS: SEGMENTATION: No transitional anatomy. The lowest well-developed disc space is labeled L5-S1. ALIGNMENT: Normal. VERTEBRAE: No fracture. Vertebral heights well-maintained. DISC HEIGHT: Diffuse intervertebral disc narrowing is evident. HARDWARE: None in the spine. INDIVIDUAL DISC LEVELS: Canal contents are not well seen by CT. Moderate circumferential bulging is seen L1-L2, L2-L3 and L4-L5 with some canal narrowing. Mild neural foraminal crowding is seen at these levels particularly at L4-L5. L5-S1 is relatively well preserved. Mild circumferential bulging is seen at L3-L4. VISUALIZED RIBS: No fractures. SOFT TISSUES: No significant or acute finding in adjacent soft tissues. OTHER: No other significant finding. IMPRESSION: No acute osseous abnormalities. Moderate diffuse degenerative changes. Canal contents are not well seen by CT. There is moderate circumferential bulging at L1-L2, L2-L3, and L4-L5 with some canal narrowing. Mild neural foraminal crowding is seen at these levels particularly at L4-L5. THIS IS AN ELECTRONICALLY VERIFIED FINAL REPORT 11/04/2024 12:59 AM - Electronically signed by Mane Méndez M.D. T: Report ID: [id number] Reading Location: [id number] Procedure Note Mane Méndez MD - 11/04/2024 EXAM DESCRIPTION: CT LUMBAR SPINE WO CONTRAST REASON FOR STUDY: Low back pain, increased fracture risk Esperanza Benavides is a 64 y.o. female w/ PMHx including CVA, TIA, paroxysmal A-fib, pacemaker in place, HTN, CHF, RA, ovarian CA and other PMHx asbelow presenting to the ED w/ c/o BLE pain. Pt states she recently had a new chemotherapy treatment, reports she is currently on abraxane. Pt notesthis chemotherapy treatment was 2x days ago and had no complains immediatelyafter. The following day, pt states she went to sleep and woke up w/ pain fromthe waste down. Pt describes that the entirety of her lower extremities are painful. Pt notes of a stinging/burning sensation that is prevalent in her knees bilaterally. Pt reports that the pain has progressively worsened,and notes the pain is particularly bad w/ ambulation. Pt notes of some mild-moderate intermittent nausea. Pt denies fever, chills, vomiting. Pt denies any fall, trauma, or injury. Pt denies bladder or bowelincontinence. TECHNIQUE: Axial images acquired through the lumbar spine withoutintravenous contrast. Reconstructed coronal and sagittal MPR images reviewed. Allimages stored on PACS. Automated exposure control was used as a dose optimization technique forthis examination. COMPARISON: 11/12/2009 FINDINGS: SEGMENTATION: No transitional anatomy. The lowestwell-developed disc space is labeled L5-S1. ALIGNMENT: Normal. VERTEBRAE: No fracture. Vertebral heights well-maintained. DISC HEIGHT: Diffuse intervertebral disc narrowing is evident. HARDWARE: None in the spine. INDIVIDUAL DISC LEVELS: Canal contents are not well seen by CT. Moderate circumferential bulgingis seen L1-L2, L2-L3 and L4-L5 with some canal narrowing. Mild neuralforaminal crowding is seen at these levels particularly at L4-L5. L5-S1 isrelatively well preserved. Mild circumferential bulging is seen at L3-L4. VISUALIZED RIBS: No fractures. SOFT TISSUES: No significant or acute finding in adjacent soft tissues. OTHER: No other significant finding. IMPRESSION: No acute osseous abnormalities. Moderate diffuse degenerative changes. Canal contents are not well seen by CT. There is moderate circumferential bulging at L1-L2, L2-L3, and L4-L5 with some canal narrowing. Mild neural foraminal crowding is seen at these levels particularly at L4-L5. THIS IS AN ELECTRONICALLY VERIFIED FINAL REPORT 11/04/2024 12:59 AM - Electronically signed by Mane Méndez M.D. T: Report ID: [id number] Reading Location: [place] [address] Froylan Burton MD [facility] [place] PROCEDURES Final Result * (ABNORMAL) D-dimer, quantitative (11/04/2024 12:24 AM JOCKEY ROOM CUSTODIAN) D-Dimer 960(H) <=499 ng/mL FEU Comment: Interpretive data FDA approved the D-dimer, in conjunction with a low or moderate pretest probability score, to exclude venous thromboembolic events (VTE) (PE and DVT) in outpatients when the D-dimer result is < 500 ng/ml FEU. Evidence supports using an age-adjusted D-dimer cut-off for outpatients older than 50 (age x 10) to improve specificity without sacrificing sensitivity. Example: age 68, VTE cut-off 680 ng/ml FEU. References; Carlos HT et al. Brit Med J. 2013;346:f2492. Kb et al. Annals Int Med. 2015;163:701-11. Current interpretive data was last revised on 2019. Blood 11/04/2024 12:2 4 AM JOCKEY ROOM CUSTODIAN 11/04/2024 12:26 AM JOCKEY ROOM CUSTODIAN us Froylan Burton MD LAB BLOOD ORDERABLES Final Resul t [facility] [address] [place] [address] * eGFR (11/03/2024 11:25 PM JOCKEY ROOM CUSTODIAN) Pathologist [facility] eGFR 71 >=60 mL/min/1. 73 m2 Comment: Interpretive Data Reference Interval Normal >/= 90 mL/min/1.73m2 Mildly decreased* 60 - 89 mL/min/1.73m2 Mildly to moderately decreased 45 - 59 mL/min/1.73m2 Moderately to severely decreased 30 - 44 mL/min/1.73m2 Severely decreased 15 - 29 mL/min/1.73m2 Kidney Failure < 15 mL/min/1.73m2 *Relative to young adult level Estimated glomerular filtration rate is determined by the 2020 CKD-EPI equation recommended by the National Kidney Foundation (A Unifying Approach to GFR Estimation: Recommendations of the NKF-ASK Task Force on Reassessing the Inclusion of Race in Diagnosing Kidney Disease, JASN 2020). The CKD-EPI equation should not be used for patients with unstable renal function and has not been validated in children and those over 70. Current interpretive data was last reviewed 2021. Blood 11/03/2024 11:2 5 PM JOCKEY ROOM CUSTODIAN 11/03/2024 11:29 PM JOCKEY ROOM CUSTODIAN us Kati KINGSLEY LAB BLOOD ORDERABLES Final Result [facility] [address] [place] [address] * (ABNORMAL) Differential, auto (11/03/2024 11:25 PM JOCKEY ROOM CUSTODIAN) [facility] Neutrophil abs 3.5 1.5 - 6.5 K/cumm Imm gran abs 0.0 0.0 - 0.1 K/cumm [facility] Lymphocyte abs 2.3 0.8 - 3.3 K/cumm [facility] Monocyte abs 0.1(L) 0.2 - 0.8 K/cumm [facility] Eosinophil abs 0.0 0.0 - 0.5 K/cumm [facility] Basophil abs 0.0 0.0 - 0.1 K/cumm [facility] Neutrophil pct 59.1 % [facility] Comment: Interpretive Data Percent cell count reference ranges are not reported, since discordance with absolute values may lead to misinterpretation of CBC data. Current Interpretive Data was last revised on 2018. Imm gran pct 0.2 % [facility] Comment: Interpretive Data Percent cell count reference ranges are not reported, since discordance with absolute values may lead to misinterpretation of CBC data. Current Interpretive Data was last revised on 2018. Lymphocyte pct 37.8 % [facility] Comment: Interpretive Data Percent cell count reference ranges are not reported, since discordance with absolute values may lead to misinterpretation of CBC data. Current Interpretive Data was last revised on 2018. Monocyte pct 2.2 % [facility] Comment: Interpretive Data Percent cell count reference ranges are not reported, since discordance with absolute values may lead to misinterpretation of CBC data. Current Interpretive Data was last revised on 2018. Eosinophil pct 0.5 % [facility] Comment: Interpretive Data Percent cell count reference ranges are not reported, since discordance with absolute values may lead to misinterpretation of CBC data. Current Interpretive Data was last revised on 2018. Basophil pct 0.2 % [facility] Comment: Interpretive Data Percent cell count reference ranges are not reported, since discordance with absolute values may lead to misinterpretation of CBC data. Current Interpretive Data was last revised on 2018. Blood 11/03/2024 11:2 5 PM JOCKEY ROOM CUSTODIAN 11/03/2024 11:29 PM JOCKEY ROOM CUSTODIAN Kati KINGSLEY LAB BLOOD ORDERABLES Final Result [facility] [address] [facility] [place] [address] * (ABNORMAL) CBC with auto differential (11/03/2024 11:25 PM JOCKEY ROOM CUSTODIAN) [facility] WBC 6.0 3.8 - 9.9 K/cumm Hgb 11.2(L) 11.9 - 15.5 g/dL [facility] Hct 33.6(L) 35.6 - 45.5 % [facility] Plt 260 150 - 400 K/cumm [facility] MPV 8.8(L) 9.1 - 12.3 fL [facility] RBC 4.08 3.90 - 5.20 M/cumm [facility] MCV 82.4 81.3 - 96.4 fL [facility] MCH 27.5 27.1 - 33.3 pg [facility] MCHC 33.3 32.3 - 35.7 g/dL [facility] RDW CV 14.6 11.1 - 14.9 % [facility] RDW SD 42.8 35.7 - 48.1 fL [facility] NRBC abs 0.00 0.00 - 0.01 K/cumm [facility] Blood 11/03/2024 11:2 5 PM JOCKEY ROOM CUSTODIAN 11/03/2024 11:29 PM JOCKEY ROOM CUSTODIAN Kati KINGSLEY LAB BLOOD ORDERABLES Final Result [facility] [address] [facility] [place] [address] * Comprehensive metabolic panel (11/03/2024 11:25 PM JOCKEY ROOM CUSTODIAN) [facility] Sodium 135 135 - 145 mmol/L Potassium, pl 3.4 3.3 - 4.9 mmol/L [facility] Chloride 99 97 - 110 mmol/L [facility] CO2 25 22 - 32 mmol/L [facility] Anion gap 11 2 - 15 mmol/L [facility] BUN 23 6 - 25 mg/dL [facility] Creatinine 0.90 0.60 - 1.10 mg/dL [facility] Glucose 114 70 - 199 mg/dL [facility] Comment: Interpretive Data Fasting glucose >/= 126 mg/dl is diagnostic for diabetes. Fasting is defined as no caloric intake for at least 8 hours. Fasting glucose between 100 mg/dl to 125 mg/dl is diagnostic of prediabetes. In a patient with classic symptoms of hyperglycemia or hyperglycemic crisis, a random glucose >/= 200 mg/dl is diagnostic for diabetes. In the absence of unequivocal hyperglycemia, results should be confirmed by repeat testing. The classification and Diagnosis of Diabetes Diabetes Care 202; 46: S19-S40. Current interpretive data was last revised 2022. Calcium 9.2 8.5 - 10.3 mg/dL [facility] Bilirubin, total 0.6 0.1 - 1.2 mg/dL [facility] Protein, pl 7.0 6.5 - 8.5 g/dL [facility] Albumin 4.0 3.5 - 5.0 g/dL [facility] Alk phos 82 40 - 130 Units/L [facility] ALT 45 7 - 45 Units/L [facility] AST 31 10 - 45 Units/L [facility] Blood 11/03/2024 11:2 5 PM JOCKEY ROOM CUSTODIAN 11/03/2024 11:29 PM JOCKEY ROOM CUSTODIAN Kati KINGSLEY LAB BLOOD ORDERABLES Final Result [facility] [address] [facility] [place] [address] * eGFR (11/01/2024 6:48 AM JOCKEY ROOM CUSTODIAN) eGFR 87 >=60 mL/min/1. 73 m2 Comment: Interpretive Data Reference Interval Normal >/= 90 mL/min/1.73m2 Mildly decreased* 60 - 89 mL/min/1.73m2 Mildly to moderately decreased 45 - 59 mL/min/1.73m2 Moderately to severely decreased 30 - 44 mL/min/1.73m2 Severely decreased 15 - 29 mL/min/1.73m2 Kidney Failure < 15 mL/min/1.73m2 *Relative to young adult level Estimated glomerular filtration rate is determined by the 2020 CKD-EPI equation recommended by the National Kidney Foundation (A Unifying Approach to GFR Estimation: Recommendations of the NKF-ASK Task Force on Reassessing the Inclusion of Race in Diagnosing Kidney Disease, JASN 2020). The CKD-EPI equation should not be used for patients with unstable renal function and has not been validated in children and those over 70. Current interpretive data was last reviewed 2021. Blood 11/01/2024 6:48 AM JOCKEY ROOM CUSTODIAN 11/01/2024 7:55 AM JOCKEY ROOM CUSTODIAN Azael Garcia MD LAB BLOOD ORDERABLES Final Result [facility] [address] [facility] [place] [address] * Differential, auto (11/01/2024 6:48 AM JOCKEY ROOM CUSTODIAN) Neutrophil abs 2.1 1.5 - 6.5 K/cumm Imm gran abs 0.0 0.0 - 0.1 K/cumm [facility] Lymphocyte abs 1.6 0.8 - 3.3 K/cumm [facility] Monocyte abs 0.5 0.2 - 0.8 K/cumm [facility] Eosinophil abs 0.2 0.0 - 0.5 K/cumm [facility] Basophil abs 0.0 0.0 - 0.1 K/cumm [facility] Neutrophil pct 46.8 % [facility] Comment: Interpretive Data Percent cell count reference ranges are not reported, since discordance with absolute values may lead to misinterpretation of CBC data. Current Interpretive Data was last revised on 2018. Imm gran pct 0.5 % [facility] Comment: Interpretive Data Percent cell count reference ranges are not reported, since discordance with absolute values may lead to misinterpretation of CBC data. Current Interpretive Data was last revised on 2018. Lymphocyte pct 37.0 % [facility] Comment: Interpretive Data Percent cell count reference ranges are not reported, since discordance with absolute values may lead to misinterpretation of CBC data. Current Interpretive Data was last revised on 2018. Monocyte pct 10.7 % [facility] Comment: Interpretive Data Percent cell count reference ranges are not reported, since discordance with absolute values may lead to misinterpretation of CBC data. Current Interpretive Data was last revised on 2018. Eosinophil pct 4.3 % [facility] Comment: Interpretive Data Percent cell count reference ranges are not reported, since discordance with absolute values may lead to misinterpretation of CBC data. Current Interpretive Data was last revised on 2018. Basophil pct 0.7 % [facility] Comment: Interpretive Data Percent cell count reference ranges are not reported, since discordance with absolute values may lead to misinterpretation of CBC data. Current Interpretive Data was last revised on 2018. Blood 11/01/2024 6:48 AM JOCKEY ROOM CUSTODIAN 11/01/2024 7:06 AM JOCKEY ROOM CUSTODIAN us Azael Garcia MD LAB BLOOD ORDERABLES Final Result [facility] [address] [facility] Department [place] [address] * (ABNORMAL) CBC with auto differential (11/01/2024 6:48 AM JOCKEY ROOM CUSTODIAN) WBC 4.4 3.8 - 9.9 K/cumm Hgb 10.3(L) 11.9 - 15.5 g/dL [facility] Hct 32.1(L) 35.6 - 45.5 % [facility] Plt 259 150 - 400 K/cumm [facility] MPV 8.8(L) 9.1 - 12.3 fL [facility] RBC 3.71(L) 3.90 - 5.20 M/cumm [facility] MCV 86.5 81.3 - 96.4 fL [facility] MCH 27.8 27.1 - 33.3 pg [facility] MCHC 32.1(L) 32.3 - 35.7 g/dL [facility] RDW CV 14.8 11.1 - 14.9 % [facility] RDW SD 46.3 35.7 - 48.1 fL [facility] NRBC abs 0.00 0.00 - 0.01 K/cumm [facility] Blood 11/01/2024 6:48 AM JOCKEY ROOM CUSTODIAN 11/01/2024 7:06 AM JOCKEY ROOM CUSTODIAN Azael Garcia MD LAB BLOOD ORDERABLES Final Result Performing Organization Address [facility] [place] [address] * CA 125 (11/01/2024 6:48 AM JOCKEY ROOM CUSTODIAN) [facility] CA 125 ag 8.1 0.0 - 38.1 units/mL Comment: Interpretive Data [employer] CA 125 assay procedure was used. Results from different manufacturers or methods may not be comparable. Serial testing should be performed using the same method. Blood 11/01/2024 6:48 AM JOCKEY ROOM CUSTODIAN 11/01/2024 7:06 AM JOCKEY ROOM CUSTODIAN Azael Garcia MD LAB BLOOD ORDERABLES Final Result Performing Organization Address [facility] [place] [place] [address] * Magnesium (11/01/2024 6:48 AM JOCKEY ROOM CUSTODIAN) [facility] Magnesium 1.5 1.4 - 2.5 mg/dL Blood 11/01/2024 6:48 AM JOCKEY ROOM CUSTODIAN 11/01/2024 7:06 AM JOCKEY ROOM CUSTODIAN Azael Garcia MD LAB BLOOD ORDERABLES Final Result Performing Organization Address [facility] Co de Phone Number [facility] [place] [address] * Comprehensive metabolic panel (11/01/2024 6:48 AM JOCKEY ROOM CUSTODIAN) [facility] Sodium 140 135 - 145 mmol/L Potassium, pl 3.7 3.3 - 4.9 mmol/L [facility] Chloride 105 97 - 110 mmol/L [facility] CO2 25 22 - 32 mmol/L [facility] Anion gap 10 2 - 15 mmol/L [facility] BUN 13 6 - 25 mg/dL [facility] Creatinine 0.76 0.60 - 1.10 mg/dL [facility] Glucose 90 70 - 199 mg/dL [facility] Comment: Interpretive Data Fasting glucose >/= 126 mg/dl is diagnostic for diabetes. Fasting is defined as no caloric intake for at least 8 hours. Fasting glucose between 100 mg/dl to 125 mg/dl is diagnostic of prediabetes. In a patient with classic symptoms of hyperglycemia or hyperglycemic crisis, a random glucose >/= 200 mg/dl is diagnostic for diabetes. In the absence of unequivocal hyperglycemia, results should be confirmed by repeat testing. The classification and Diagnosis of Diabetes Diabetes Care 202; 46: S19-S40. Current interpretive data was last revised 2022. Calcium 8.8 8.5 - 10.3 mg/dL [facility] Bilirubin, total 0.3 0.1 - 1.2 mg/dL [facility] Protein, pl 6.8 6.5 - 8.5 g/dL [facility] Albumin 3.8 3.5 - 5.0 g/dL [facility] Alk phos 83 40 - 130 Units/L [facility] ALT 25 7 - 45 Units/L [facility] AST 21 10 - 45 Units/L [facility] Blood 11/01/2024 6:48 AM JOCKEY ROOM CUSTODIAN 11/01/2024 7:06 AM JOCKEY ROOM CUSTODIAN Azael Garcia MD LAB BLOOD ORDERABLES Final Result [facility] [address] [facility] Department [place] [address] * IR Port Placement Chest > 5 Years (10/07/2024 9:08 AM JOCKEY ROOM CUSTODIAN) Anatomical Region Laterality Modality Chest N/A Radio Fluoroscop y 10/07/2024 10:3 1 AM JOCKEY ROOM CUSTODIAN Impressions 10/07/2024 10:31 AM JOCKEY ROOM CUSTODIAN Successful chest wall port placement. PLAN: The catheter is ready for immediate use. Please note that a power injectable port was placed. When treatment is completed, removal can be scheduled by calling [facility] - [phone] [facility] - [phone] Electronically signed by: Andreas Celestin PA-C Narrative 10/07/2024 10:31 AM JOCKEY ROOM CUSTODIAN EXAMINATION: PORT PLACEMENT USING ULTRASOUND GUIDANCE (STD TECHNIQUE) HISTORY: 64-year-old female with history of ovarian cancer presents for port please made for initiation of chemotherapy. PROVIDER PRESENCE: Andreas Celestin PA-C was present from the beginning to the end of the procedure. SEDATION: Conscious sedation was used for the procedure. TECHNIQUE: The risks, benefits and alternatives were discussed and informed consent was obtained. Prior to beginning the procedure, [place] Protocol was used to confirm the patient's identity and planned procedure. Fluoroscopy time has been recorded in the electronic medical record. Prior to the procedure, the central veins were evaluated by ultrasound, an image recorded and placed in the patient's chart. Maximum sterile barriers including cap, mask, hand hygiene, sterile gloves, sterile gown, large sterile drape and 2% chlorhexidine for cutaneous antisepsis were used. The patient's breast tissue and chest wall were taped down to provide a field that approximated the affect of gravity. The skin over the right internal jugular vein was sterilely prepped, draped and infiltrated with 1% buffered lidocaine. The vein was accessed with a 21 gauge needle using realtime ultrasound guidance. A guidewire and catheter were then passed centrally using fluoroscopic guidance. The intravascular length from the access site to the right atrium was then measured. After infiltrating the skin in the subclavicular region with 1% buffered lidocaine, a short transverse incision was made and the pocket for the power injectable reservoir was formed by blunt dissection. The catheter was tunneled to the IJ access site, cut to the appropriate length and inserted through a peel-away sheath. The catheter was flushed with 100U/ml heparin and the access needle removed or left in place. The deep tissues were approximated using 4-0 Monocryl and the incision closed using skin glue. The incision in the lower neck was closed in a similar fashion. ESTIMATED BLOOD LOSS: Minimal. CONDITION: Stable DISCHARGED TO: outpatient recovery. FINDINGS: Ultrasound image shows a patent vein in the lower neck. The final fluoroscopic image demonstrates the catheter with its tip at the cavoatrial junction. No complications are seen. Procedure Note Andreas Celestin PA - 10/07/2024 EXAMINATION: PORT PLACEMENT USING ULTRASOUND GUIDANCE (STD TECHNIQUE) HISTORY: 64-year-old female with history of ovarian cancer presents for port please made for initiation of chemotherapy. PROVIDER PRESENCE: Andreas Celestin PA-C was present from the beginning to the end of the procedure. SEDATION: Conscious sedation was used for the procedure. TECHNIQUE: The risks, benefits and alternatives were discussed and informed consent was obtained. Prior to beginning the procedure, [place] Protocol was used to confirm the patient's identity and planned procedure. Fluoroscopy time has been recorded in the electronic medical record. Prior to the procedure, the central veins were evaluated by ultrasound, an image recorded and placed in the patient's chart. Maximum sterile barriers including cap, mask, hand hygiene, sterile gloves, sterile gown, large sterile drape and 2% chlorhexidine for cutaneous antisepsis were used. The patient's breast tissue and chest wall were taped down to provide a field that approximated the affect of gravity. The skin over the right internal jugular vein was sterilely prepped, draped and infiltrated with 1% buffered lidocaine. The vein was accessed with a 21 gauge needle using realtime ultrasound guidance. A guidewire and catheter were then passed centrally using fluoroscopic guidance. The intravascular length from the access site to the right atrium was then measured. After infiltrating the skin in the subclavicular region with 1% buffered lidocaine, a short transverse incision was made and the pocket for the power injectable reservoir was formed by blunt dissection. The catheter was tunneled to the IJ access site, cut to the appropriate length and inserted through a peel-away sheath. The catheter was flushed with 100U/ml heparin and the access needle removed or left in place. The deep tissues were approximated using 4-0 Monocryl and the incision closed using skin glue. The incision in the lower neck was closed in a similar fashion. ESTIMATED BLOOD LOSS: Minimal. CONDITION: Stable DISCHARGED TO: outpatient recovery. FINDINGS: Ultrasound image shows a patent vein in the lower neck. The final fluoroscopic image demonstrates the catheter with its tip at the cavoatrial junction. No complications are seen. IMPRESSION: Successful chest wall port placement. PLAN: The catheter is ready for immediate use. Please note that a power injectable port was placed. When treatment is completed, removal can be scheduled by calling [facility] - [phone] [place] [address] - [phone] Electronically signed by: Andreas Celestin PA-C Azael Garcia MD IMG IR PROCEDURES Final Res ult * eGFR (09/27/2024 6:53 PM JOCKEY ROOM CUSTODIAN) eGFR >90 >=60 mL/min/1. 73 m2 Comment: Interpretive Data Reference Interval Normal >/= 90 mL/min/1.73m2 Mildly decreased* 60 - 89 mL/min/1.73m2 Mildly to moderately decreased 45 - 59 mL/min/1.73m2 Moderately to severely decreased 30 - 44 mL/min/1.73m2 Severely decreased 15 - 29 mL/min/1.73m2 Kidney Failure < 15 mL/min/1.73m2 *Relative to young adult level Estimated glomerular filtration rate is determined by the 2020 CKD-EPI equation recommended by the National Kid[employer] (A Unifying Approach to GFR Estimation: Recommendations of the NKF-ASK Task Force on Reassessing the Inclusion of Race in Diagnosing Kidney Disease, JASN 2020). The CKD-EPI equation should not be used for patients with unstable renal function and has not been validated in children and those over 70. Current interpretive data was last reviewed 2021. Blood 09/27/2024 6:53 PM JOCKEY ROOM CUSTODIAN 09/27/2024 8:06 PM JOCKEY ROOM CUSTODIAN Azael Garcia MD LAB BLOOD ORDERABLES Final Result [facility] Department [place] [address] * Differential, auto (09/27/2024 6:53 PM JOCKEY ROOM CUSTODIAN) Neutrophil abs 4.9 1.5 - 6.5 K/cumm Imm gran abs 0.0 0.0 - 0.1 K/cumm [facility] Lymphocyte abs 2.5 0.8 - 3.3 K/cumm [facility] Monocyte abs 0.6 0.2 - 0.8 K/cumm [facility] Eosinophil abs 0.5 0.0 - 0.5 K/cumm [facility] Basophil abs 0.1 0.0 - 0.1 K/cumm [facility] Neutrophil pct 57.6 % [facility] Comment: Interpretive Data Percent cell count reference ranges are not reported, since discordance with absolute values may lead to misinterpretation of CBC data. Current Interpretive Data was last revised on 2018. Imm gran pct 0.2 % [facility] Comment: Interpretive Data Percent cell count reference ranges are not reported, since discordance with absolute values may lead to misinterpretation of CBC data. Current Interpretive Data was last revised on 2018. Lymphocyte pct 28.9 % [facility] Comment: Interpretive Data Percent cell count reference ranges are not reported, since discordance with absolute values may lead to misinterpretation of CBC data. Current Interpretive Data was last revised on 2018. Monocyte pct 7.0 % [facility] Comment: Interpretive Data Percent cell count reference ranges are not reported, since discordance with absolute values may lead to misinterpretation of CBC data. Current Interpretive Data was last revised on 2018. Eosinophil pct 5.7 % [facility] Comment: Interpretive Data Percent cell count reference ranges are not reported, since discordance with absolute values may lead to misinterpretation of CBC data. Current Interpretive Data was last revised on 2018. Basophil pct 0.6 % [facility] Comment: Interpretive Data Percent cell count reference ranges are not reported, since discordance with absolute values may lead to misinterpretation of CBC data. Current Interpretive Data was last revised on 2018. Blood 09/27/2024 6:53 PM JOCKEY ROOM CUSTODIAN 09/27/2024 8:01 PM JOCKEY ROOM CUSTODIAN us Azael Garcia MD LAB BLOOD ORDERABLES Final Result [facility] [place] [address] * (ABNORMAL) CBC with auto differential (09/27/2024 6:53 PM JOCKEY ROOM CUSTODIAN) WBC 8.6 3.8 - 9.9 K/cumm Hgb 12.0 11.9 - 15.5 g/dL [facility] Hct 37.8 35.6 - 45.5 % [facility] Plt 243 150 - 400 K/cumm [facility] MPV 9.6 9.1 - 12.3 fL [facility] RBC 4.46 3.90 - 5.20 M/cumm [facility] MCV 84.8 81.3 - 96.4 fL [facility] MCH 26.9(L) 27.1 - 33.3 pg [facility] MCHC 31.7(L) 32.3 - 35.7 g/dL [facility] RDW CV 14.4 11.1 - 14.9 % [facility] RDW SD 44.1 35.7 - 48.1 fL [facility] NRBC abs 0.00 0.00 - 0.01 K/cumm [facility] Blood 09/27/2024 6:53 PM JOCKEY ROOM CUSTODIAN 09/27/2024 8:01 PM JOCKEY ROOM CUSTODIAN Azael Garcia MD LAB BLOOD ORDERABLES Final Result Performing Organization Address City/[facility]/ZIP Co de Phone Number [facility] [place] [address] * (ABNORMAL) aPTT (09/27/2024 6:53 PM JOCKEY ROOM CUSTODIAN) aPTT 48(H) 28 - 38 sec Comment: Interpretive Data Heparin therapeutic range: 66.0 - 100.0 seconds. Range based on correlation with therapeutic heparin activity range of 0.3 - 0.7 Units/mL. Current interpretive data was last revised on 2023. Blood 09/27/2024 6:53 PM JOCKEY ROOM CUSTODIAN 09/27/2024 8:01 PM JOCKEY ROOM CUSTODIAN Azael Garcia MD LAB BLOOD ORDERABLES Final Result [facility] [place] [address] * (ABNORMAL) Protime-INR (09/27/2024 6:53 PM JOCKEY ROOM CUSTODIAN) Pathologist [facility] PT 15.9(H) 9.7 - 13.0 sec INR 1.46(H) 0.90 - 1.20 [facility] Comment: Interpretive data Oral anticoagulant therapeutic ranges: Venous thromboembolism prophylaxis or treatment: 2.0-3.0 CARDIOLOGY Standard range: 2.0-3.0 High-intensity range: 2.5-3.5 Refer to indication-specific guidelines for appropriate target ranges for prosthetic heart valve replacement. Current interpretive data was last revised on 2019. Blood 09/27/2024 6:53 PM JOCKEY ROOM CUSTODIAN 09/27/2024 8:01 PM JOCKEY ROOM CUSTODIAN Azael Garcia MD LAB BLOOD ORDERABLES Final Result Performing Organization Address [facility] Co de Phone Number [facility] [place] [address] * CA 125 (09/27/2024 6:53 PM JOCKEY ROOM CUSTODIAN) Pathologist [facility] CA 125 ag 13.6 0.0 - 38.1 units/mL Comment: Interpretive Data The [employer] CA 125 assay procedure was used. Results from different manufacturers or methods may not be comparable. Serial testing should be performed using the same method. Blood 09/27/2024 6:53 PM JOCKEY ROOM CUSTODIAN 09/27/2024 8:01 PM JOCKEY ROOM CUSTODIAN Azael Garcia MD LAB BLOOD ORDERABLES Final Result Performing Organization Address [facility] Co de Phone Number [facility] [place] [address] * Comprehensive metabolic panel (09/27/2024 6:53 PM JOCKEY ROOM CUSTODIAN) [facility] Sodium 141 135 - 145 mmol/L Potassium, pl 4.0 3.3 - 4.9 mmol/L [facility] Chloride 104 97 - 110 mmol/L [facility] CO2 25 22 - 32 mmol/L [facility] Anion gap 12 2 - 15 mmol/L [facility] BUN 15 6 - 25 mg/dL [facility] Creatinine 0.68 0.60 - 1.10 mg/dL [facility] Glucose 94 70 - 199 mg/dL [facility] Comment: Interpretive Data Fasting glucose >/= 126 mg/dl is diagnostic for diabetes. Fasting is defined as no caloric intake for at least 8 hours. Fasting glucose between 100 mg/dl to 125 mg/dl is diagnostic of prediabetes. In a patient with classic symptoms of hyperglycemia or hyperglycemic crisis, a random glucose >/= 200 mg/dl is diagnostic for diabetes. In the absence of unequivocal hyperglycemia, results should be confirmed by repeat testing. The classification and Diagnosis of Diabetes Diabetes Care 2021; 46: S19-S40. Current interpretive data was last revised 2022. Calcium 9.6 8.5 - 10.3 mg/dL [facility] Bilirubin, total 0.2 0.1 - 1.2 mg/dL [facility] Protein, pl 7.6 6.5 - 8.5 g/dL [facility] Albumin 4.4 3.5 - 5.0 g/dL [facility] Alk phos 81 40 - 130 Units/L [facility] ALT 18 7 - 45 Units/L [facility] AST 23 10 - 45 Units/L [facility] Blood 09/27/2024 6:53 PM JOCKEY ROOM CUSTODIAN 09/27/2024 8:01 PM JOCKEY ROOM CUSTODIAN Azael Garcia MD LAB BLOOD ORDERABLES Final Result [facility] [place] [address] * [facility] BRACAnalysis and MyRisk / Note 2 Tests (M0001) (09/27/2024 4:19 PM JOCKEY ROOM CUSTODIAN) [facility] Bracanalysis and Myrisk / Note 2 Tests No Significant Finding 10/10/2024 10:52 AM JOCKEY ROOM CUSTODIAN [facility] Comment: BRACANALYSIS AND MYRISK / NOTE 2 TESTS See PDF for complete results. No Significant Genetic or Clinical History Finding NO VARIANT(S) OF UNCERTAIN SIGNIFICANCE (VUS) IDENTIFIED Blood specimen (specimen) Venous blood specimen / Unknown 09/27/2024 4:19 PM JOCKEY ROOM CUSTODIAN 09/28/2024 9:36 AM JOCKEY ROOM CUSTODIAN us Azael Garcia MD LAB GENETIC TESTING Final R esult [facility] [address] [place] [address] * Surgical pathology (09/23/2024 4:06 PM JOCKEY ROOM CUSTODIAN) Tissue (Miscellaneous) 09/23/2024 4:06 PM JOCKEY ROOM CUSTODIAN 09/23/2024 4:06 PM JOCKEY ROOM CUSTODIAN Narrative [facility] - 09/27/2024 12:29 PM JOCKEY ROOM CUSTODIAN EPIC results best viewed via link to PDF [facility] Pathology Consult Service [facility] [address], [address], [place] [address] Note to Patients: This report may contain a detailed description of human tissue sent by a health care provider to the laboratory for pathologic evaluation. The content of this report is essential for diagnosis and may provide important critical findings. This information may be unfamiliar to patients to review without a medical professional present. It is advised that the patient review this report in the presence of a health care provider who can answer questions and explain the details. SURGICAL PATHOLOGY REPORT * Consult Report * [facility] is providing an additional review of previously collected tissue. FINAL Patient Name: ESPERANZA BENAVIDES Address: [address] [place] [id number] Gender: F : 1960 (Age: 64) Hospital #: [id number] Patient Type: GWENDOLYN Location: UNKNOWN Taken: 09/23/2024 Received: 09/23/2024 Accessioned: 09/26/2024 Reported: 09/27/2024 Physician(s): Azael Garcia M.D. [facility] Department of Pathology [address] [place] [id number] P: [phone] F: [phone] Diagnosis: Consult material received from [place], [place] (OSC: [id number]; 2024) A. Ovary and fallopian tube, left, salpingo-oophorectomy - Fragments of high-grade serous carcinoma, 5 cm in aggregate per report - Fallopian tube with detached fragments of high-grade serous carcinoma - See comment B. Mesentery, rectosigmoid, biopsy (per report, slides not received for review) - No evidence of malignancy C. Peritoneum, left pelvic sidewall, excision - Metastatic high-grade serous carcinoma D. 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 Omentum, excision (per report, slides not received for review) - No evidence of carcinoma in three lymph nodes (0/3) - No evidence of malignancy sy/09/26/2024 16:38 By this signature, I attest that the above diagnosis is based upon my personal examination of the slides(and/or other material indicated in the diagnosis). Andrew Flannery M.D., Ph.D. Report Electronically Reviewed and Signed Out By Andrew Flannery M.D., Ph.D. 09/27/2024 12:29:10 Microscopic Description and Comment: Microscopic examination substantiates the above cited diagnosis. Part A: Per report, the left fallopian tube and left ovary are fragmented. One section representing the left tube shows detached fragments of carcinoma but these may be carryover rather than true involvement. Immunostains are performed at the outside institution and received for review. The tumor cells are positive for WT1, ER (10%, weak), KS (10%, weak), and GATA3 (weak focal) with mutant-type overexpression of p53, while negative for TTF1, napsin, and SF1. Part D: Per report, the right fallopian tube serosa is intact. Sections of the right fallopian tube show high-grade serous carcinoma involving the mucosal surface and stroma of the fallopian tube, with similar morphology to that seen in parts A and C. Outside immunostains received for review show these tumor cells as positive for WT1 with mutant overexpression of p53. Given the presence of a potential in situ component in the right tube, this cancer may be a right tubal cancer. Per report, the peritoneal fluid cytology is positive for malignant cells ([id number]). The overall findings would confer staging of pT2b, pN0, FIGO stage IIB (irrespective of whether tube or ovary is assigned as the primary site). Anai Waldron M.D. History: The patient is a 64-year-old woman with history of malignant neoplasm of ovary, unspecified laterality. Materials Received: Received for review are twenty-two slides labeled [id number], accompanied by a corresponding pathology report. The material originates from [facility], [place], [place]. Selected slide(s) may be digitally scanned for our files, and all materials are returned to the referring institution, along with a copy of our final report. Any testing required for diagnostic purposes was performed in the Department of Pathology and Immunology at [facility], [address] [place] [address] CLIA # [id number] The performance characteristics of the testing cited in this report (if any) were determined by the [facility] Department of Pathology and Immunology [facility], as part of an ongoing air quality manager program and in compliance with federally mandated regulations drawn from the Clinical Laboratory Improvement Act of 1988 (CLIA '88). Some of these tests rely on the use of analyte specific reagents (ASR) and are subject to specific labeling requirements by the US Food and Drug Administration. Such diagnostic tests may only be performed in a facility that is certified by the Department of Health and Human Services as a high complexity laboratory under CLIA '88. The FDA has determined that such clearance or approval is not necessary. ASRs should not be regarded as investigational or for research. ASRs were developed and the performance characteristics determined by the [facility], [facility] Department of Pathology and Immunology. It has not been cleared or approved by the U.S. Food and Drug Administration. Any test designated as LDT was developed and its performance characteristics determined by [facility]. It has not been cleared or approved by the FDA. This test is used for clinical purposes and should not be regarded as investigational or for research. Report images and/or scanned reports, if included, only viewable in PDF version of report. Azael Garcia MD LAB PATHOLOGY ORDERABLES Fi nal Result [facility] [address] [place] [address] * Screening Mammogram Bilateral W Alphonso (07/15/2024 4:19 PM CDT) Anatomical Region Laterality Modality Breast Bilateral Mammography Impressions 07/19/2024 1:14 PM CDT BI-RADS ATLAS category (overall): 1 - Negative There is no mammographic evidence of malignancy. A 1 year screening mammogram is recommended. The patient has been or will be contacted. We recommend annual screening mammography for women at average risk of breast cancer beginning at age 40, based on guidelines of the [employer] (ACR Practice Parameter for the Performance of Screening and Diagnostic Mammography) and [employer]. For women with and elevated risk of breast cancer, please refer to the ACR Practice Parameter for specific screening recommendations. The patient will be entered into a reminder system with a target due date of 1 year for her next screening exam. Narrative 07/19/2024 1:14 PM CDT Screening Mammogram Bilateral W Alphonso: 07/15/24 The study was acquired using full field digital technology and interpreted from soft copy. 2D digital mammographic views, as well as 3D digital tomosynthesis were performed in the CC and MLO projections. CLINICAL: Screening mammogram, encounter for. No relevant medical history has been documented for this patient. History of breast cancer in Mother. COMPARISONS: 01/24/2022 Breast Imaging Screening Outside Reference BREAST TISSUE: There are scattered areas of fibroglandular density. FINDINGS: There is no new suspicious finding in either breast on mammogram. us Self Screening Mammogram IMG MAMMO PROCEDURES Fi nal Result * Hepatitis C antibody (01/18/2022 9:34 AM CDT) Hep C Ab Nonreactive Nonreactive [facility] Comment: Interpretive Data Nonreactive: Antibodies to HCV not detected. Does NOT exclude the possibility of recent exposure to HCV. Equivocal: Equivocal for HCV antibodies. Supplemental molecular testing will be automatically performed to determine infection status in accordance with current CDC screening recommendations. Reactive: Positive for HCV antibodies. This may represent current or past HCV infection. Supplemental molecular testing will be automatically performed to determine current infection status in accordance with current CDC screening recommendations. Interpretive data was last revised on 2020. Blood 01/18/2022 9:34 AM CDT 01/18/2022 12:23 PM CDT Stephany Rosales MD LAB MICROBIOLOGY - GENERAL CASSANDRA LOVE Final Result [facility] [address] [facility] [place] [address] from Last 3 Months or Most Recently Relevant to Health Maintenance Insurance MEDICARE SOL[employer]IONS [employer] MEDICARE SOL[employer]IONS FOR LIFE FOR LIFE Advance Directives For more information, please contact: [phone] * Full Code (Latest Code Status on File) Date Activated Date Inactivated Comments 10/07/2024 7:34 AM 10/08/2024 5:09 AM * Full Code Date Activated Date Inactivated Comments 08/06/2021 7:32 AM 08/06/2021 1:54 PM * Full Code Date Activated Date Inactivated Comments 01/18/2019 9:07 AM 01/19/2019 8:13 PM * Full Code Date Activated Date Inactivated Comments 01/16/2019 2:40 PM 01/18/2019 9:07 AM Care Teams Striper Machine Relationship Specialty Start Date End Date Morteza Shah Jr., MD [address] [place] [id number] PCP - General Internal Medicine 08/01/22 Prasanth Falk MD Cardiology 01/19/19 Abdiel Gibbons MD Consulting Physician Cardiology 01/19/19 Andreas Montoya DO [address] [place] [id number] Consulting Physician Gastroenterology 10/16/22
--- OUTSIDE RECORDS SUMMARY | 2024-12-22 17:44 | XMS_ITS | Clinical Summary ---
Author Organization [facility] [address] [place] [address] Phone Care Team Providers Care Presser Automatic Name Role Phone Rolly Davis MD Primary Care Provider Unav ailable Allergies Active Allergy Reactions Criticality Noted Date Comments Adhesive Other (See Comments) Low 03/15/2021 Tape pulls skin off and causes bleeding at site Morphine Unknown 01/22/2017 [place] Anaphylaxis High 04/16/2009 [place] Sherbert- lips swelled up, eyes swelled up, [...] 07/08/2024, , 09/02/2022, Additional history exists Insurance [facility] Care Teams Presser Automatic Relationship Specialty Start Date End Date Rolly Davis MD PCP - General Internal Medicine 01/22/17
--- OUTSIDE RECORDS SUMMARY | 2024-12-22 17:44 | XMS_ITS ---
Author Organization [facility] Address [address] [place] [address] Care Team Providers Care Access Control Specialist Name Role Phone Prasanth Falk MD Unavailable [phone] Abdiel Gibbons MD Unavailable [phone] Pablo Lay MD, Morteza Goldman Primary Care Provide r Andreas Montoya DO Unavailable Active Problems Problem Noted Date Diagnosed Date Malignant neoplasm of left ovary 09/26/2024 Assessment & Plan (09/26/2024 3:43 PM BAIL ATTACHER): S/p resection Following hem/onc, appreciate recommendations Class 2 severe obesity due t o excess calories with serious comorbidity and body mass index (BMI) of 37.0 to 37.9 in adult 07/14/2023 Assessment & Plan (07/14/2023 12:32 PM CDT): Will look into resources for wegovy Chronic diastolic congestive heart failure 07/11 Assessment & Plan (09/26/2024 3:41 PM BAIL ATTACHER): Chronic stable Well controlled Continue current prescribed medications losartan metorpolol at current dose Follows cardiology Assessment & Plan (10/16/2022 4:07 PM BAIL ATTACHER): Chronic stable Well controlled Continue current medications at current dose Precordial pain 05/12/2022 Restless legs 05/01/2022 Benign neoplasm 02/03/2022 Other primary thrombocytopenia 01/22/2022 Assessment & Plan (09/26/2024 3:41 PM BAIL ATTACHER): Monitor levels Pacemaker 03/04/2019 Overview (03/04/2019): [employer] DDD Stephanie MRI pacemaker implanted on 03/04/19 for SSS/Afib. [place] - [facility] PAF (paroxysmal atrial fibrillation) 02/18/2019 Overview (12/11/2021): 2010 in March- had sob- had stress test [...] xarelto Assessment & Plan (09/26/2024 3:42 PM BAIL ATTACHER): Follows cardiology Paul lopezporlol,dilta and xarelto Assessment & Plan (12/11/2021 7:24 PM BAIL ATTACHER): On xarelto Referral requested for cards- placed [...] [id number] Assessment & Plan (09/26/2024 3:42 PM BAIL ATTACHER): Follows cardiology Continue dilt and metoprolol Assessment & Plan (12/11/2021 7:24 PM BAIL ATTACHER): S/p ppm History of CVA (cerebrovascular accident) 2014 Overview (01/23/2017): Stroke Assessment & Plan (09/26/2024 3:41 PM BAIL ATTACHER): Continue lipitor and aspirin Assessment & Plan (12/11/2021 7:26 PM BAIL ATTACHER): Is on statin Needs lipids checked Assessment & Plan (02/18/2019 1:16 PM CDT): Recent right MCA infarct, cardioembolic Myxoma 12/26/2014 Overview (12/11/2021): Left atrial myxoma- resected in 2012 Assessment & Plan (02/18/2019 1:16 PM CDT): History of left atrial myxoma resection in 2012 Primary hypertension Assessment & Plan (12/11/2021 7:24 PM BAIL ATTACHER): Controlled, cont losartan Rheumatoid arthritis involvi ng multiple sites with positive rheumatoid factor Assessment & Plan (09/26/2024 3:44 PM BAIL ATTACHER): Takes celebrax, well controlled Assessment & Plan (12/11/2021 7:25 PM BAIL ATTACHER): Never on mtx, celebrex prn. She is unsure of the dx but thinks in the '70s was told this Ordering RA labs, exam is unremarkable for signs of RA Preventative health care Assessment & Plan (09/26/2024 3:41 PM BAIL ATTACHER): Reviewed previous labs and diagnostic test results. [...] and establishing or updating healthcare power of computer science teacher document and providing our office with a copy. Assessment & Plan (10/16/2022 4:07 PM BAIL ATTACHER): Discussed vaccines Labs will get drawn in January Will come back for a weight check Assessment & Plan (12/11/2021 7:27 PM BAIL ATTACHER): Recommend shingrix Recommend flu shot utd on cscope- she will try to find date and get this to us utd on covid vax mammo ordered Current Treatment and Therapy Plans Albumin-bound PACLItaxel (Abraxane) / CARBOplatin 21 Day Cycles - PORT PATROL OFFICER* Plan Start Date:10/31/2024 Plan Provider:Patti Preston MD Linked Problems Malignant neoplasm of left o vary (HCC) Treatment Medications Current Day (Day 1 , Cycle 5 - Planned for 01/06/2025) Next Day (Day 1, Cycle 6 - Planned for 01/27/2025) albumin-bound PACLItaxel (ABRAXANE)albumin-bound PACLItaxel (ABRAXANE) 5 mg/mLCARBOplatin (by AUC:GOG) (PARAPLATIN)CARBOplatin (PARAPLATIN) IVPB in 250 mL (by AUC: GOG) albumin-bound PACLItaxel (ABRAXANE) 5 mg/mL IVPB in empty container 435 mgCARBOplatin (PARAPLATIN) 588 mg in sodium chloride 0.9% 250 mL IVPB (BY AUC GOG) albumin-bound PACLItaxel (ABRAXANE) 5 mg/mL IVPB in empty container 435 mgCARBOplatin (PARAPLATIN) 601 mg in sodium chloride 0.9% 250 mL IVPB (BY AUC GOG) IV Maintenance Therapy Plan* Plan Start Date:10/07/2024 Plan Provider:Aisha Peres RN Linked Problems Malignant neoplasm of left o vary (HCC) Treatment Medications No medications scheduled. Past Treatment and Therapy Plans Oncology Chemotherapy Treatment Plan Name Start Date Discontinue Date Treatment Medications Discontinue Reason Plan Provider Cycles PACLItaxel / CARBOplatin (AUC 5) 21 Day Cycles - PORT PATROL OFFICER 10/04/20 24 10/17/2024 CARBOplatin (by AUC:GOG) (PARAPLATIN)CA RBOplatin (PARAPLATIN) IVPB in 250 mL (by AUC: GOG)PACLitaxel (TAXOL)PACLIta xel (TAXOL) IVPB in 500 mL Change in Level of Care Azael Garcia MD 1 of 6 cycles started Lifetime Dose Tracking * Chemical Lifetime Dose Automatic Entry Manual Entr y Fluoro Time 0.4 minutes 0.4 minutes 0 minutes Air kerma at the reference point (Ka,r) 700.87 mGy 2 mGy 698.87 mGy DLP 1,748 mGycm 1,748 mGycm 0 mGycm Resolved Problems Problem Noted Date Diagnosed Date Resolved Date Other thrombophilia 09/26/2024 09/26/20 24 Mass of uterine adnexa 08/25/202409/26 Class 2 obesity due to exces s calories without serious comorbidity with body mass index (BMI) of 38.0 to 38.9 in adult 10/16/2022 Assessment & Plan (10/16/2022 4:07 PM BAIL ATTACHER): Wants to start timothy, understands supply issue, will become available next month Abnormal stress test 07/11/2022 024 Left shoulder pain 06/10/2022 Sleep apnea 05/01/2022 09/26/2024 Fatigue 05/01/2022 10/16/2022 Teeth grinding 05/01/2022 10/16/2022 Thrombocytopenia, unspecified 01/22/2022 09/26/2024 Ileus 08/06/2021 10/16/2022 Sinus node dysfunction (CMS/HCC) 02/18/2019 10/16/2022 Assessment & Plan (02/18/2019 1:25 [...] had a recent CVA. 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
--- OUTSIDE RECORDS SUMMARY | 2024-12-22 17:44 | XMS_ITS | Encounter Summary ---
Author Organization [facility] [employer] Address [address] [place] [address] Care Team Providers Care Financial Reporting Specialist Name Role Phone Rolly Davis MD [...] on filedocumented in this encounter Care Teams Financial Reporting Specialist Relationship Specialty Start Date End Date Rolly Davis MD PCP - General Internal Medicine 01/22/17 documented as of this encounter
--- OUTSIDE RECORDS SUMMARY | 2024-12-22 17:44 | XMS_ITS | Encounter Summary ---
Author Organization [facility] Address [address] [place] [address] Phone Care Team Providers Care Weight Engineer Name Role Phone Prasanth Falk MD Unavailable [phone] Abdiel Gibbons MD Unavailable Pablo Lay MD, Moretza Goldman Primary Care Provide r Andreas Montoya DO Unavailable [phone] Encounter Details Date Type Department Care Team (Late st Contact Info) Description 11/30/2024 Treatment [facility] Obstetrics and Gynecology [address] [facility] [address] [place] [address] [place] [id number] Patti Preston MD [address] [place] [id number] [place] [address] Social History Tobacco Use Types Packs/Day Years [...] on file Legal Sex Female 2:56 AM 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 Gender Identity Female 03/07/2021 1:17 PM CDT Sexual Orientation Straight 03/07/2021 1: 17 PM CDT 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 Not on file Not on file Not on file documented as of this encounter Ordered Prescriptions Prescription Sig Dispense Quantity Refills Last Filled Start Date End Date pregabalin (LYRICA) 75 mg capsuleIndications :peripheral neuropathy Take 1 capsule (75 mg total) by mouth 2 (two) times a day 60 capsule 11/30/2024 5 documented in this encounter Plan of Treatment Not on file documented as of this encounter Visit Diagnoses Not on filedocumented in this encounter Care Teams Weight Engineer Relationship Specialty Start Date End Date Morteza Shah Jr., MD [address] [place] [id number] PCP - General Internal Medicine 08/01/22 Prasanth Falk MD Cardiology 01/19/19 Abdiel Gibbons MD Consulting Physician Cardiology 01/19/19 Andreas Montoya DO [address] [place] [id number] Consulting Physician Gastroenterology 10/16/22 documented as of this encounter
--- OUTSIDE RECORDS SUMMARY | 2024-12-22 17:44 | XMS_ITS | Clinical Summary ---
Author Organization [facility] Address [address] [place] [address] Care Team Providers Care Chief Design Engineer Name Role Phone Prasanth Falk MD Unavailable [phone] Abdiel Gibbons MD Unavailable Pablo Lay MD, Morteza Goldman Primary Care Provide r Andreas Montoya DO Unavailable [phone] Allergies Active Allergy Reactions Criticality Noted Date Comments Adhesive Other (See comments) Low 03/15/2021 Tape pulls skin off and causes bleeding at site Morphine Other (See comments),Hallucinatio ns Medium 01/22/2017 Reaction: Unknown, , Chambers Anaphylaxis High 04/16/2009 Chambers Sherbert- lips swelled up, eyes swelled up, [...] within 12 hours or as directed by . 30 patch 10/16/20 22 025 Active Additional [...] with simethicone-diphen hydramine-lidocain e (MAGIC MOUTHWASH) suspension 9-3-8Tcbkxqrnoxz:C hemotherapy-Induce d Mucositis Swish and swallow 15 [...] 09/26/2024 Assessment & Plan (09/26/2024 3:43 PM AIRPORT OPERATIONS SUPERVISOR): S/p resection Following hem/onc, appreciate recommendations Class 2 severe obesity due t o excess calories with serious comorbidity and body mass index (BMI) of 37.0 to 37.9 in adult 07/14/2023 Assessment & Plan (07/14/2023 12:32 PM CDT): Will look into resources for wegovy Chronic diastolic congestive heart failure 07/11 Assessment & Plan (09/26/2024 3:41 PM AIRPORT OPERATIONS SUPERVISOR): Chronic stable Well controlled Continue current prescribed medications losartan metorpolol at current dose Follows cardiology Assessment & Plan (10/16/2022 4:07 PM AIRPORT OPERATIONS SUPERVISOR): Chronic stable Well controlled Continue current medications at current dose Precordial pain 05/12/2022 Restless legs 05/01/2022 Benign neoplasm 02/03/2022 Other primary thrombocytopenia 01/22/2022 Assessment & Plan (09/26/2024 3:41 PM AIRPORT OPERATIONS SUPERVISOR): Monitor levels Pacemaker 03/04/2019 Overview (03/04/2019): Medtronic [...] xarelto Assessment & Plan (09/26/2024 3:42 PM AIRPORT OPERATIONS SUPERVISOR): Follows cardiology Paul dean,dilta and xarelto Assessment & Plan (12/11/2021 7:24 PM AIRPORT OPERATIONS SUPERVISOR): On xarelto Referral requested for cards- placed [...] [id number] Assessment & Plan (09/26/2024 3:42 PM AIRPORT OPERATIONS SUPERVISOR): Follows cardiology Continue dilt and metoprolol Assessment & Plan (12/11/2021 7:24 PM AIRPORT OPERATIONS SUPERVISOR): S/p ppm History of CVA (cerebrovascular accident) 2014 Overview (01/23/2017): Stroke Assessment & Plan (09/26/2024 3:41 PM AIRPORT OPERATIONS SUPERVISOR): Continue lipitor and aspirin Assessment & Plan (12/11/2021 7:26 PM AIRPORT OPERATIONS SUPERVISOR): Is on statin Needs lipids checked Assessment & Plan (02/18/2019 1:16 PM CDT): Recent right MCA infarct, 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 She is unsure of the dx but thinks in the '70s was told this Ordering RA labs, exam is unremarkable for signs of RA Preventative health care Assessment & Plan (09/26/2024 3:41 PM AIRPORT OPERATIONS SUPERVISOR): Reviewed previous labs and diagnostic test results. [...] and establishing or updating healthcare power of claims adjuster document and providing our office with a copy. Assessment & Plan (10/16/2022 4:07 PM AIRPORT OPERATIONS SUPERVISOR): Discussed vaccines Labs will get drawn in January Will come back for a weight check Assessment & Plan (12/11/2021 7:27 PM AIRPORT OPERATIONS SUPERVISOR): Recommend shingrix Recommend flu shot utd on [...] 10/16/2022 Assessment & Plan (10/16/2022 4:07 PM AIRPORT OPERATIONS SUPERVISOR): Wants to start wegovy, understands supply issue, [...] had a recent CVA. Acute ischemic stroke (CMS/HCC) 01/18/2019 10/16/2022 Overview (01/18/2019): Right parietal area Sprain of ligaments of cervical spine 01/22/2017 10/16/2022 Dysphonia 05/25/2015 10/16/2022 Vocal cord atrophy 05/25/2015 Throat clearing 05/17/2015 10/16/2022 Lumbar pain 04/17/2009 09/26/2024 Right ankle swelling 022 Assessment & Plan (12/11/2021 7:27 PM AIRPORT OPERATIONS SUPERVISOR): Likely dependent, recommend compression stockings Podiatry referral placed as pt requested BMI 39.0-39.9,adult 10/16/20 22 Assessment & Plan (12/11/2021 7:28 PM AIRPORT OPERATIONS SUPERVISOR): Diet and excercise Encounters Date Type Department Care Team Description 12/18/2024 Orders Only [facility] Obstetrics and Gynecology [address] [place] [address] Advanced Medicine 13th [place] [address] Liam Nathan MD PhD 12/16/2024 9:00 AM AIRPORT OPERATIONS SUPERVISOR Infusion [facility] Advanced Medicine Gynecologic Oncology [facility] ([facility] [address] [place] [address] Malignant neoplasm of left ovary (HCC) (Primary Dx) 12/16/2024 8:10 AM AIRPORT OPERATIONS SUPERVISOR Office Visit [facility] Obstetrics and Gynecology [address] [place] [address] Advanced Medicine 13th [place] [address] Patti Preston MD Encounter for antineoplastic chemotherapy (Primary Dx); Ovarian cancer, bilateral (HCC); Peri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; Malignant neoplasm of left ovary (HCC) 12/15/2024 Orders Only [facility] Obstetrics and Gynecology [facility] Advanced Medicine 13th [place] [address] Franey, Jeanna M., RN Malignant neoplasm of left ovary (HCC) (Primary Dx) 12/14/2024 Orders Only [facility] ONCOLOGY Patti Preston MD 12/13/2024 2:22 PM AIRPORT OPERATIONS SUPERVISOR - 12/13/2024 11:59 PM AIRPORT OPERATIONS SUPERVISOR Hospital Encounter [address] [phone] Malignant neoplasm of left ovary (HCC) Discharge Disposition: Discharge to home or self care 12/13/2024 8:15 AM AIRPORT OPERATIONS SUPERVISOR Lab [facility] Outpatient Lab at [address] [address] 12/08/2024 Telephone [facility] Obstetrics and Gynecology [address] [place] [address] 13th [place] [phone] Jeanna Garcia RN 12/07/2024 1:15 PM AIRPORT OPERATIONS SUPERVISOR Lab [facility] Outpatient Lab at [address] [address] 12/07/2024 1:08 PM AIRPORT OPERATIONS SUPERVISOR - 12/07/2024 11:59 PM AIRPORT OPERATIONS SUPERVISOR Hospital Encounter [address] [address] Ovarian cancer, bilateral (HCC); Dysuria Discharge Disposition: Discharge to home or self care 12/07/2024 Orders Only [facility] Obstetrics and Gynecology [address] [place] [address] 13th [place] [phone] Jeanna Garcia RN Ovarian cancer, bilateral (HCC) (Primary Dx); Dysuria 12/04/2024 9:00 AM AIRPORT OPERATIONS SUPERVISOR Ancillary Procedure [facility] [address] [facility] [address], [place] [phone] Pacemaker (Primary Dx); SSS (sick sinus syndrome) (HCC) 11/30/2024 Treatment [facility] Obstetrics and Gynecology [address] [place] [address] Advanced Medicine 13th [place] [phone] Patti Preston MD 11/28/2024 Telephone [facility] Obstetrics and Gynecology [address] [place] [address] Medicine 13th [place] [address] Jeanna Garcia RN 11/25/2024 9:30 AM AIRPORT OPERATIONS SUPERVISOR [facility] Gy[facility] Oncology [facility] Advanced [facility] ([facility]) [address] [place] [address] Malignant neoplasm of left ovary (HCC) (Primary Dx) 11/25/2024 8:20 AM AIRPORT OPERATIONS SUPERVISOR Office Visit [facility] Obstetrics and Gynecology [address] [place] [address] 13th [place] [address] Patti Preston MD Encounter for antineoplastic chemotherapy (Primary Dx); Ovarian cancer, bilateral (HCC); Malignant neoplasm of left ovary (HCC) 11/25/2024 Documentation [facility] Obstetrics and Gynecology [address] [place], [place] [address]th [place] [address] Jeanna Garcia RN 11/25/2024 Orders Only [facility] Obstetrics and Gynecology [address] [place], [place] [address]th [place] [address] Jeanna Garcia RN Ovarian cancer, bilateral (HCC) (Primary Dx); Encounter for antineoplastic chemotherapy; Malignant neoplasm of left ovary (HCC) 11/24/2024 Orders Only [facility] Obstetrics and Gynecology [address] [place], [place] [address]th [place] [address] Jeanna Garcia, RN Malignant neoplasm of left ovary (HCC) (Primary Dx) 11/04/2024 1:22 PM AIRPORT OPERATIONS SUPERVISOR - 11/04/2024 11:59 PM AIRPORT OPERATIONS SUPERVISOR Hospital Encounter [facility] Cardiac Testing [address] [place] [address] Leg pain, bilateral Discharge Disposition: Discharge to home or self care 11/03/2024 11:38 PM AIRPORT OPERATIONS SUPERVISOR - 11/04/2024 2:52 AM AIRPORT OPERATIONS SUPERVISOR Emergency [address] [address] Froylan Burton MD Leg pain, bilateral (Primary Dx) Discharge Disposition: Discharge to home or self care 11/01/2024 8:30 AM AIRPORT OPERATIONS SUPERVISOR Infusion [facility] Advanced Medicine Gynecologic [facility] ([facility]) [address] [place] [address] Malignant neoplasm of left ovary (HCC) (Primary Dx) 11/01/2024 7:50 AM AIRPORT OPERATIONS SUPERVISOR Office Visit [facility] Obstetrics and Gynecology [address] [facility] Advanced Medicine 13th [place] [address] Azael Garcia MD Malignant neoplasm of left ovary (HCC) (Primary Dx); Encounter for antineoplastic chemotherapy; Peri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 11/01/2024 6:35 AM AIRPORT OPERATIONS SUPERVISOR Lab [facility] Advanced Medicine ([facility]) [address] [place] [phone] Malignant neoplasm of left ovary (HCC) 11/01/2024 Orders Only [facility] Obstetrics and Gynecology [address] [place] [address] 13th [place] [address] Jeanna Garcia RN Malignant neoplasm of left ovary (HCC) (Primary Dx) 10/31/2024 Telephone [facility] Obstetrics and Gynecology [address] [facility] 13th [place] [address] Chrissy Maxwell RN 10/17/2024 Telephone [facility] Obstetrics and Gynecology [address] [place] [address] 13th [place] [address] hCrissy Maxwell RN 10/17/2024 Orders Only [facility] Obstetrics and Gynecology [address] [place] [address] Advanced Medicine 13th [place] [address] Azael Garcia MD Malignant neoplasm of left ovary (HCC) (Primary Dx); Alopecia due to cytotoxic drug 10/13/2024 Telephone [facility] Obstetrics and Gynecology [address] [facility] 13th [place] [address] Chrissy Maxwell RN 10/07/2024 10:30 AM AIRPORT OPERATIONS SUPERVISOR Infusion [facility] Advanced [facility] Gynecologic Oncology [facility] ([facility]) [address] [place] [address] Malignant neoplasm of left ovary (HCC) (Primary Dx) 10/07/2024 6:03 AM AIRPORT OPERATIONS SUPERVISOR - 10/07/2024 11:59 PM AIRPORT OPERATIONS SUPERVISOR Hospital Encounter [facility] [address] [place] [address] Andreas Celestin PA Ovarian cancer, bilateral (HCC) Discharge Disposition: Discharge to home or self care 10/04/2024 Telephone [facility] Radiology [address] [place] [address] Erica Yoon, KALYANI 10/04/2024 Telephone [facility] Obstetrics and Gynecology [facility] Advanced Medicine 13th [place] [address] Kelly Abel, RN Med Management 10/04/2024 Telephone [facility] Radiology [facility] [address] [place] [address] Tonya Liang RN 09/30/2024 Telephone [facility] Obstetrics and Gynecology [address] [place] [address] 13th [place] [phone] Chrissy Maxwell, KALYANI 09/29/2024 Orders Only [facility] Obstetrics and Gynecology [address] [place] [address] 13th [place] [address] Chrissy Maxwell, RN Ovarian cancer, bilateral (HCC) (Primary Dx) 09/27/2024 6:53 PM AIRPORT OPERATIONS SUPERVISOR - 09/27/2024 11:59 PM AIRPORT OPERATIONS SUPERVISOR Hospital Encounter [address] [address] Ovarian cancer, bilateral (HCC) Discharge Disposition: Discharge to home or self care 09/27/2024 2:00 PM AIRPORT OPERATIONS SUPERVISOR Office Visit [facility] Obstetrics and Gynecology [address] [facility] 13th [place] [address] Azael Garcia MD Ovarian cancer, bilateral (HCC) (Primary Dx) 09/27/2024 Telephone [facility] Obstetrics and Gynecology [facility] 13th [place] [address] Chrissy Maxwell, KALYANI 09/27/2024 Orders Only [facility] Obstetrics and Gynecology [facility] 13th [place] [address] Kelly Abel, KALYANI 09/27/2024 Telephone [facility] Primary Care [address] [place] [phone] Morteza Shah Jr., MD Med Refill 09/26/2024 3:00 PM AIRPORT OPERATIONS SUPERVISOR Office Visit [facility] Care [address] [place] [phone] Morteza Shah Jr., MD [facility] care (Primary Dx); Gastroesophageal reflux disease with esophagitis without hemorrhage; Asymptomatic menopause; Chronic diastolic congestive heart failure (HCC); Other primary thrombocytopenia (HCC); Rheumatoid arthritis involving multiple sites with positive rheumatoid factor (HCC); SSS (sick sinus syndrome) (HCC); PAF (paroxysmal atrial fibrillation) (HCC); History of CVA (cerebrovascular accident); Need for vaccination; Malignant neoplasm of left ovary (HCC) 09/23/2024 Orders Only [facility] [address] [address] Azael Garcia MD Malignant neoplasm of ovary, unspecified laterality (HCC) 09/23/2024 Telephone [facility] Care [address] [place] [phone] Morteza Shah Jr., MD Medication Request 09/23/2024 Orders Only [facility] Obstetrics and Gynecology [facility] 13th [place] [address] Azael Garcia MD Malignant neoplasm of ovary, unspecified laterality (HCC) (Primary Dx) from Last 3 Months Immunizations Immunization Administration Dates Next Due Hep B Vaccine 09/08/2017,04/08/2017,03/05/2017 Influenza, Quadrivalent, Spl it, Preservative Free, Intramuscular 08/27/2023,09/23/2021,07/19/2020,07/20,08/27/2018,07/21/2017 Influenza, Trivalent, Cell Culture-based MDCK, Preservative Free, Antibiotic Free, Intramuscular 09/02/2022 Influenza, Trivalent, Preser vative Free, Intramuscular 07/08/2024,07/15/2016,08/14/2015 Influenza, Unspecified 09/21/2022,2015,08/17/2014,07/06 Pneumococcal Conjugate Pcv20 09/26/2024,10/16/20 22 Tdap 06/06/2024,10/19/2020 Surgical History Surgery Date Site/Laterality Comments APPENDECTOMY Appendectomy TONSILLECTOMY Tonsillectomy HYSTERECTOMY hysterectomy HEART SURGERY open heart surgery BACK SURGERY back surgery SECTION JOINT REPLACEMENT SPINE SURGERY ABDOMINAL SURGERY 2024 OOPHORECTOMY PORT PLACEMENT CHEST >5 YEARS 10/07/2024 N/A Medical History Medical History Date Comments Rheumatoid arthritis (HCC) Benign tumor of heart Hypertension TIA (transient ischemic attack) Atrial fibrillation (HCC) Osteoarthritis Heart disease Ovarian cancer (HCC) Family History Medical History Relation Name Comments Cancer Brother Stanleyviji Obrien Jr Heart disease Brother Stanleyviji Obrien Jr Arthritis Father Stanley Micah Diabetes Father Stanley Micah Gout Father Stanley Obrien Hearing loss Father Stanley Micah Hypertension Father Stanley Obrien Learning disabilities Father Stanley Obrien Memory loss Father Stanley Micah Prostate cancer Father Stanley Obrien Vision loss Father Stanley Obrien Cancer Maternal Grandfather Costa francois Arthritis Mother Hood Obrien Breast cancer Mother Hood Obrien CHF Mother Hood Westler Cancer Mother Hood Obrien Depression Mother Hood Obrien Heart disease Mother Hood Westler Heart failure Mother Hood Obrien Family hist ory of congestive heart failure - (Added by TW Conv) Hypertension Mother Waunedeandra Obrien Osteoporosis Mother Hood Obrien Thyroid disease Mother Hood Obrien Varicose Veins Mother Hood Obrien Cancer Mother's Brother Damir Alessandro Cancer Mother's Sister Miley Johnson Cancer Other Family history of Cancer, unknown; Stroke Paternal Grandmother Melanie Ambrose Mental illness Sister Jyoti Smart Asthma Son Jeffry sosa Relation Name Status Comments Brother Stanley Micah Jr Father Stanley Micah Alive Maternal Grandfather Costa alessandro Mother Hood Obrien Alive Mother's Brother Damir Alessandro Mother's Sister Miley Johnson Other Paternal Grandmother Melanie Ambrose Sister Jyoti Benavides Son Jeffry sosa Social History Tobacco Use Types Packs/Day Years [...] on file Legal Sex Female 2:56 AM AIRPORT OPERATIONS SUPERVISOR Gender Identity Female 03/07/2021 1:17 PM CDT Sexual Orientation Straight 03/07/2021 1: 17 PM CDT 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 Not on file Not on file Not on file Obstetrics History Para Term AB IAB SAB Ectopic Multiple Livin g Live Births 4 2 2 1 1 2 Date Outcome GA Total Labor Labor/2nd/3rd Weight Sex Type Anes PTL Haley A1 A5 Name Clin Term Term SAB Last Filed Vital Signs Vital Sign Reading Time Taken Comments Blood Pressure 153/81 12/16/2024 8:00 AM AIRPORT OPERATIONS SUPERVISOR Pulse 86 12/16/2024 8:00 AM AIRPORT OPERATIONS SUPERVISOR Temperature 36.4 C (97.6 F) 12/16/2024 8:00 AM AIRPORT OPERATIONS SUPERVISOR Respiratory Rate 20 12/16/2024 8:00 AM AIRPORT OPERATIONS SUPERVISOR Oxygen Saturation 97% 12/16/2024 8:00 AM AIRPORT OPERATIONS SUPERVISOR Inhaled Oxygen Concentration - - Weight 107.3 kg (236 lb 8 oz) 12/16/2024 8:00 AM AIRPORT OPERATIONS SUPERVISOR Height 165.1 cm (5' 5 ) 11/25/2024 8:22 AM AIRPORT OPERATIONS SUPERVISOR Body Mass Index 39.36 11/25/2024 8:22 AM AIRPORT OPERATIONS SUPERVISOR Plan of Treatment Health Maintenance Due Date Last Done Comments Osteoporosis Screening-Bone Density Scan 1959 Zoster Vaccine (1 of 2) 1978 Breast Cancer Screening-Mammogram 07/15/2025 024, 01/24/2022 Depression Screening 09/26/2025 09/26/2024, 08/19/2024, 05/12/2024, Additional history exists Well Visit 65+ 09/26/2025 09/26/2024, 10/16/2022 Fall Risk Assessment 10/07/2025 10/07/2024, 09/26/20 Colon Cancer Screening-Colonoscopy 10/02/20302019 DTaP/Tdap/Td Vaccine (3 - Td or Tdap) 06/06/2034 06/06/2024, 10/19/2020 Hepatitis B Screening Completed 09/08/2017 , 04/08/2017, 03/05/2017 Hepatitis C Screening Completed 01/18/2022 Influenza Vaccine Completed 07/08/2024, , 09/21/2022, Additional history exists Pneumococcal vaccine 65+ Completed 09/26/2024, 09/19 Medical Devices Implanted Type Area Small Appliance Assembly Supervisor Device Identifier Shelf Expiration Date Model / Serial / Lot [employer] [id number] System 6-12fr Mvp Venous Closure Vascade - [id number] - [id number] Implanted:Qty: 1 on 08/02/2021 by Abdiel Gibbons MD at [facility] Collagen [employer] 05/20/2023 800-612C- 10U / [id number] 09A / [id number] 09A [employer] [id number] System 6-12fr Mvp Venous Closure Vascade - [id number] - [id number] Implanted:Qty: 1 on 08/02/2021 by Abdiel Gibbons MD at [facility] Collagen [employer] 05/20/2023 800-612C- 10U / [id number] 09A / [id number] 09A [employer] [id number] Vascade 6/7fr Bioabsorbable Vascular System Compression Collagen - [id number] - [id number] Implanted:Qty: 1 on 08/02/2021 by Abdiel Gibbons MD at [facility] Collagen [employer] 05/20/2023 700-580I- 05U / [id number] 04A / [id number] [employer] [id number] System 6-12fr Mvp Venous Closure Vascade - [id number] - [id number] Implanted:Qty: 1 on 08/02/2021 by Abdiel Gibbons MD at [facility] Collagen [employer] 04/17/2023 800-612C- 10U / [id number] 07A / [id number] 07A Medtronic Cardiac Rhythm Mgmt 5076-52 Capsurefix Novus 6.2fr 2mm 52cm Bipolar Screw In Implantable Latex Free - [id number] - [id number] Implanted:Qty: 1 on 03/04/2019 by Abdiel Gibbons MD at [facility] Lead Medtronic Cardiac Rhythm Mgmt [id number] 01/07/2021 5076-52 / [id number] / Medtronic Cardiac Rhythm Mgmt 5076-45 Capsurefix Novus Od6.2 Fr; Odsec2 Mm L45 Cm Bipolar; Screw In; Im - [id number] - [id number] Implanted:Qty: 1 on 03/04/2019 by Abdiel Gibbons MD at [facility] Lead Medtronic Cardiac Rhythm Mgmt [id number] 01/11/2021 5076-45 / [id number] / Medtronic Cardiac Rhythm Mgmt [id number] Acequia S Mri Surescan 50.8x46.6mm 2 Chamber 7.4mm Pacemaker 22.5gm - [id number] - [id number] Implanted:Qty: 1 on 03/04/2019 by Abdiel Gibbons MD at [facility] Pacemaker Medtronic Cardiac Rhythm Mgmt [id number] 07/02/2020 [id number] / [id number] / [employer] Xcela Power Port 8fr [id number] - [id number] Implanted:Qty: 1 on 10/07/2024 at [facility] Ang[employer] 04/03/2029 [id number] / / [id number] Explanted Type Area Small Appliance Assembly Supervisor Device Identifier Shelf Expiration Date Model / Serial / Lot Medtronic Cardiac Rhythm Mgmt Linqsys Reveal Linq Mycarelink Insertable Loop Recorder Automatic - [id number] - [id number] Implanted:Qty : 1 on 01/18/2019 at [facility] Explanted:Qty : 1 on 03/04/2019 at [facility] Implantable Loop Recorder Left: Chest Wall Medtronic Cardiac Rhythm Mgmt [id number] 11/15/2019 LINQSYS / [id number] / Procedures Procedure Name Priority Date/Time Associated Diagnosis Comments SCAN - PATHOLOGY 12/14/2024 4:26 PM AIRPORT OPERATIONS SUPERVISOR EGFR Routine 12/13/2024 2:22 PM AIRPORT OPERATIONS SUPERVISOR Malignant neoplasm of left ovary (HCC) DIFFERENTIAL AUTO Routine 12/13/2024 2:2 2 PM AIRPORT OPERATIONS SUPERVISOR Malignant neoplasm of left ovary (HCC) CA 125 Routine 12/13/2024 2:22 PM AIRPORT OPERATIONS SUPERVISOR Malignant neoplasm of left ovary (HCC) MAGNESIUM Routine 12/13/2024 2:22 PM AIRPORT OPERATIONS SUPERVISOR Malignant neoplasm of left ovary (HCC) COMPREHENSIVE METABOLIC PANEL Routine 12/13/2024 2:22 PM AIRPORT OPERATIONS SUPERVISOR Malignant neoplasm of left ovary (HCC) CBC WITH AUTO DIFFERENTIAL Routine 12/13/2024 2:22 PM AIRPORT OPERATIONS SUPERVISOR Malignant neoplasm of left ovary (HCC) URINALYSIS, MICROSCOPIC ONLY STAT 12/07/2024 1:08 PM AIRPORT OPERATIONS SUPERVISOR Ovarian cancer, bilateral (HCC) Dysuria URINALYSIS AND REFLEX TO MICROSCOPIC AND CULTURE STAT 12/07/2024 1:08 PM AIRPORT OPERATIONS SUPERVISOR Ovarian cancer, bilateral (HCC) Dysuria DEVICE CHECK - REMOTE Routine 12/04/2024 12:45 PM AIRPORT OPERATIONS SUPERVISOR SSS (sick sinus syndrome) (HCC) LUISITO KAMARA CANCER SEEK + ADDITIONAL TESTS Routine 11/25/2024 8:28 AM AIRPORT OPERATIONS SUPERVISOR Ovarian cancer, bilateral (HCC) Encounter for antineoplastic chemotherapy CA 125 Routine 11/18/2024 7:46 AM AIRPORT OPERATIONS SUPERVISOR Malignant neoplasm of left ovary (HCC) MAGNESIUM Routine 11/18/2024 7:46 AM AIRPORT OPERATIONS SUPERVISOR Malignant neoplasm of left ovary (HCC) COMPREHENSIVE METABOLIC PANEL Routine 11/18/2024 7:46 AM AIRPORT OPERATIONS SUPERVISOR Malignant neoplasm of left ovary (HCC) CBC WITH AUTO DIFFERENTIAL Routine 11/18/2024 7:46 AM AIRPORT OPERATIONS SUPERVISOR Malignant neoplasm of left ovary (HCC) US VEIN DUPLEX LOWER EXTREMITY BILATERAL COMPLETE Schedule NINFA, Read NINFA (Appt Today, Awaiting Results) 11/04/2024 2:15 PM AIRPORT OPERATIONS SUPERVISOR Leg pain, bilateral CT LUMBAR SPINE WO CONTRAST ED 11/04/2024 12:51 AM AIRPORT OPERATIONS SUPERVISOR D-DIMER, QUANTITATIVE Add-On 11/04/2024 12:24 AM AIRPORT OPERATIONS SUPERVISOR EGFR STAT 11/03/2024 11:25 PM AIRPORT OPERATIONS SUPERVISOR DIFFERENTIAL AUTO STAT 11/03/2024 11:25 PM AIRPORT OPERATIONS SUPERVISOR COMPREHENSIVE METABOLIC PANEL STAT 11/03/2024 11:25 PM AIRPORT OPERATIONS SUPERVISOR CBC WITH AUTO DIFFERENTIAL STAT 11/03/2024 11:25 PM AIRPORT OPERATIONS SUPERVISOR EGFR Routine 11/01/2024 6:48 AM AIRPORT OPERATIONS SUPERVISOR Malignant neoplasm of left ovary (HCC) DIFFERENTIAL AUTO Routine 11/01/2024 6:4 8 AM AIRPORT OPERATIONS SUPERVISOR Malignant neoplasm of left ovary (HCC) CBC WITH AUTO DIFFERENTIAL Routine 11/01/2024 6:48 AM AIRPORT OPERATIONS SUPERVISOR Malignant neoplasm of left ovary (HCC) COMPREHENSIVE METABOLIC PANEL Routine 11/01/2024 6:48 AM AIRPORT OPERATIONS SUPERVISOR Malignant neoplasm of left ovary (HCC) MAGNESIUM Routine 11/01/2024 6:48 AM AIRPORT OPERATIONS SUPERVISOR Malignant neoplasm of left ovary (HCC) CA 125 Routine 11/01/2024 6:48 AM AIRPORT OPERATIONS SUPERVISOR Malignant neoplasm of left ovary (HCC) PORT PLACEMENT CHEST >5 YEARS Schedule Routine, Read Routine (OP Routine) 10/07/2024 9:08 AM AIRPORT OPERATIONS SUPERVISOR Ovarian cancer, bilateral (HCC) EGFR Routine 09/27/2024 6:53 PM AIRPORT OPERATIONS SUPERVISOR Ovarian cancer, bilateral (HCC) DIFFERENTIAL AUTO Routine 09/27/2024 6:5 3 PM AIRPORT OPERATIONS SUPERVISOR Ovarian cancer, bilateral (HCC) APTT Routine 09/27/2024 6:53 PM AIRPORT OPERATIONS SUPERVISOR Ovarian cancer, bilateral (HCC) PROTIME-INR Routine 09/27/2024 6:53 PM AIRPORT OPERATIONS SUPERVISOR Ovarian cancer, bilateral (HCC) COMPREHENSIVE METABOLIC PANEL Routine 09/27/2024 6:53 PM AIRPORT OPERATIONS SUPERVISOR Ovarian cancer, bilateral (HCC) CBC WITH AUTO DIFFERENTIAL Routine 09/27/2024 6:53 PM AIRPORT OPERATIONS SUPERVISOR Ovarian cancer, bilateral (HCC) CA 125 Routine 09/27/2024 6:53 PM AIRPORT OPERATIONS SUPERVISOR Ovarian cancer, bilateral (HCC) MYRIAD BRACANALYSIS AND MYRISK / NOTE 2 TESTS Routine 09/27/2024 4:19 PM AIRPORT OPERATIONS SUPERVISOR Ovarian cancer, bilateral (HCC) SURGICAL PATHOLOGY Routine 09/23/2024 4: 06 PM AIRPORT OPERATIONS SUPERVISOR Malignant neoplasm of ovary, unspecified laterality (HCC) SCREENING MAMMOGRAM BILATERAL W ALPHONSO Schedule Routine, Read Routine (OP Routine) 07/15/2024 4:19 PM CDT Screening mammogram, encounter for HEPATITIS C ANTIBODY Routine 01/18/2022 9:34 AM CDT Preventative health care from Last 3 Months or Most Recently Relevant to Health Maintenance Results * SCAN - PATHOLOGY (12/14/2024 4:26 PM AIRPORT OPERATIONS SUPERVISOR) us Patti Preston MD Final R esult * eGFR (12/13/2024 2:22 PM AIRPORT OPERATIONS SUPERVISOR) eGFR >90 >=60 mL/min/1. 73 m2 Comment: [...] last reviewed 2021. Blood 12/13/2024 2:22 PM AIRPORT OPERATIONS SUPERVISOR 12/13/2024 9:24 PM AIRPORT OPERATIONS SUPERVISOR us Patti Preston MD LAB BLOOD ORDERABLES Fi nal Result VIKRAM [address] [address] [place] [address] * Differential, auto (12/13/2024 2:22 PM AIRPORT OPERATIONS SUPERVISOR) Neutrophil abs 3.5 1.5 - 6.5 K/cumm Imm gran abs 0.1 0.0 - 0.1 K/cumm [facility] Lymphocyte abs 2.1 0.8 - 3.3 K/cumm [facility] Monocyte abs 0.4 0.2 - 0.8 K/cumm [facility] Eosinophil abs 0.2 0.0 - 0.5 K/cumm [facility] Basophil abs 0.0 0.0 - 0.1 K/cumm [facility] Neutrophil pct 55.7 % [facility] Comment: Interpretive Data Percent cell count reference ranges are not reported, since discordance with absolute values may lead to misinterpretation of CBC data. Current Interpretive Data was last revised on 2018. Imm gran pct 0.8 % [facility] Comment: Interpretive Data Percent cell count reference ranges are not reported, since discordance with absolute values may lead to misinterpretation of CBC data. Current Interpretive Data was last revised on 2018. Lymphocyte pct 33.5 % [facility] Comment: Interpretive Data Percent cell count reference ranges are not reported, since discordance with absolute values may lead to misinterpretation of CBC data. Current Interpretive Data was last revised on 2018. Monocyte pct 6.1 % [facility] Comment: Interpretive Data Percent cell count reference ranges are not reported, since discordance with absolute values may lead to misinterpretation of CBC data. Current Interpretive Data was last revised on 2018. Eosinophil pct 3.7 % [facility] Comment: Interpretive Data Percent cell count reference ranges are not reported, since discordance with absolute values may lead to misinterpretation of CBC data. Current Interpretive Data was last revised on 2018. Basophil pct 0.2 % [facility] Comment: Interpretive Data Percent cell count reference ranges are not reported, since discordance with absolute values may lead to misinterpretation of CBC data. Current Interpretive Data was last revised on 2018. Blood 12/13/2024 2:22 PM AIRPORT OPERATIONS SUPERVISOR 12/13/2024 9:15 PM AIRPORT OPERATIONS SUPERVISOR Patti Preston MD LAB BLOOD ORDERABLES Fi nal Result Performing Organization Address City/[facility] Co de Phone Number VIKRAM [address] [place] [address] * (ABNORMAL) CBC with auto differential (12/13/2024 2:22 PM AIRPORT OPERATIONS SUPERVISOR) [facility] WBC 6.2 3.8 - 9.9 K/cumm Hgb 9.2(L) 11.9 - 15.5 g/dL [facility] Hct 30.4(L) 35.6 - 45.5 % [facility] Plt 135(L) 150 - 400 K/cumm [facility] MPV 9.3 9.1 - 12.3 fL [facility] RBC 3.29(L) 3.90 - 5.20 M/cumm [facility] MCV 92.4 81.3 - 96.4 fL [facility] MCH 28.0 27.1 - 33.3 pg [facility] MCHC 30.3(L) 32.3 - 35.7 g/dL [facility] CH RDW CV 15.8(H) 11.1 - 14.9 % [facility] CH RDW SD 51.6(H) 35.7 - 48.1 fL [facility] NRBC abs 0.00 0.00 - 0.01 K/cumm [facility] Blood 12/13/2024 2:22 PM AIRPORT OPERATIONS SUPERVISOR 12/13/2024 9:15 PM AIRPORT OPERATIONS SUPERVISOR Patti Preston MD LAB BLOOD ORDERABLES Fi nal Result VIKRAM OSMAN [address] [address] [facility] [place] [address] * CA 125 (12/13/2024 2:22 PM AIRPORT OPERATIONS SUPERVISOR) [facility] CA 125 ag 8.0 1.0 - 35.0 units/mL Comment: Interpretive Data [employer] CA 125 assay procedure was used. Results from different manufacturers or methods may not be comparable. Serial testing should be performed using the same method. Blood 12/13/2024 2:22 PM AIRPORT OPERATIONS SUPERVISOR 12/13/2024 9:15 PM AIRPORT OPERATIONS SUPERVISOR Patti Preston MD LAB BLOOD ORDERABLES Fi nal Result Performing Organization Address City/[facility]/ZIP Co de Phone Number VIKRAM OSMAN [address] [address] [facility] [place] [address] * (ABNORMAL) Magnesium (12/13/2024 2:22 PM AIRPORT OPERATIONS SUPERVISOR) Pathologist [facility] Magnesium 1.3(L) 1.4 - 2.5 mg/dL Blood 12/13/2024 2:22 PM AIRPORT OPERATIONS SUPERVISOR 12/13/2024 9:15 PM AIRPORT OPERATIONS SUPERVISOR Patti Preston MD LAB BLOOD ORDERABLES Fi nal Result Performing Organization Address [facility] de Phone Number VIKRAM OSMAN [address] [address] [place] [address] * Comprehensive metabolic panel (12/13/2024 2:22 PM AIRPORT OPERATIONS SUPERVISOR) Pathologist [facility] Sodium 143 135 - 145 mmol/L Potassium, pl 3.7 3.3 - 4.9 mmol/L [facility] Chloride 105 97 - 110 mmol/L [facility] CO2 24 22 - 32 mmol/L [facility] Anion gap 14 2 - 15 mmol/L [facility] BUN 11 6 - 25 mg/dL [facility] Creatinine 0.72 0.60 - 1.10 mg/dL [facility] Glucose 123 70 - 199 mg/dL [facility] Comment: Interpretive Data Fasting glucose >/= [...] Units/L [facility] Blood 12/13/2024 2:22 PM AIRPORT OPERATIONS SUPERVISOR 12/13/2024 9:15 PM AIRPORT OPERATIONS SUPERVISOR us Patti Preston MD LAB [place]LOOD [place] [address] [address] Department [place] [address] * (ABNORMAL) Urinalysis reflex to microscopic and culture Urine, bladder (12/07/2024 1:08 PM AIRPORT OPERATIONS SUPERVISOR) Color, ur Yellow Yellow Clarity, ur Clear Clear [facility] Specific gravity, ur 1.019 1.003 - 1.030 [...] tendency for uric acid stone formation. Source: [facility] Current Interpretive Data was last revised on [...] to microscopic UA will be performed. [facility] Urine, bladder 12/07/2024 1: 08 PM AIRPORT OPERATIONS SUPERVISOR 12/07/2024 9:56 PM AIRPORT OPERATIONS SUPERVISOR Patti Preston MD LAB MICROBIOLOGY - GENE RAL ORDERABLES Final Result Performing Organization Address [facility] Co de Phone Number VIKRAM OSMAN [address] [address] [facility] [place] [address] * (ABNORMAL) Urinalysis, microscopic only (12/07/2024 1:08 PM AIRPORT OPERATIONS SUPERVISOR) WBC, ur 0-5 0 - 5 /HPF RBC, ur 3-5(A) 0 - 2 /HPF [facility] Mucous, ur Present(A) [facility] Culture Reflex Comment Reflex conditions for urine culture (WBC >10) not met. [facility] Urine, bladder 12/07/2024 1: 08 PM AIRPORT OPERATIONS SUPERVISOR 12/07/2024 9:56 PM AIRPORT OPERATIONS SUPERVISOR Patti Preston MD LAB URINE ORDERABLES Fi nal Result Performing Organization Address [facility] Co de Phone Number VIKRAM OSMAN [address] [address] [facility] [place] [address] * DEVICE CHECK - REMOTE (12/04/2024 12:45 PM AIRPORT OPERATIONS SUPERVISOR) Anatomical Region Laterality Modality Other Narrative 12/07/2024 12:10 PM AIRPORT OPERATIONS SUPERVISOR Table formatting from the original result was [...] to JUANITA Episodes last 90 days/Comments: AF [place] 0 % Fourteen ventricular episodes 1 episode [...] SERVICES PRO CEDURES Final Result * [facility] [place] Cancer Se[facility]??? + Additional Tests (11/25/2024 8:28 AM AIRPORT OPERATIONS SUPERVISOR) CARIS PD-L1 (22C3) Negative 2024 12:23 PM AIRPORT OPERATIONS SUPERVISOR [employer] CARIS Genomic Loss of Heterozygosity - [place] Low 9% 12/14/2024 12:23 PM AIRPORT OPERATIONS SUPERVISOR [employer] CARIS Microsatellite Instability - [place] Stable 12/14/2024 12:23 PM AIRPORT OPERATIONS SUPERVISOR [employer] CARIS Tumor Mutational [place] - [place] Low 2 per Mb 12/14/2024 12:23 PM AIRPORT OPERATIONS SUPERVISOR [employer] CARIS Estrogen Receptor Negative 12/14/2024 12:23 PM AIRPORT OPERATIONS SUPERVISOR [employer] CARIS Her2/Pricila Negative 12/14/2024 12:23 PM AIRPORT OPERATIONS SUPERVISOR [employer] CARIS Progesterone Receptor Negative 12/14/2024 12:23 PM AIRPORT OPERATIONS SUPERVISOR [employer] CARIS HLA-A - [place] -,A*02:01 12/14/2024 12:23 PM AIRPORT OPERATIONS SUPERVISOR [employer] CARIS HLA-B - [place] -,B*07:02 12/14/2024 12:23 PM AIRPORT OPERATIONS SUPERVISOR [employer] CARIS HLA-C - [place] -,C*07:02 12/14/2024 12:23 PM AIRPORT OPERATIONS SUPERVISOR [employer] CARIS FOLR1 - [place] Positive 12/14/2024 12:23 PM AIRPORT OPERATIONS SUPERVISOR [employer] CARIS HRD- [place] Negative 12/14/19 12:23 PM AIRPORT OPERATIONS SUPERVISOR [employer] Tissue 11/25/2024 8:28 AM AIRPORT OPERATIONS SUPERVISOR 12/01/2024 5:49 PM AIRPORT OPERATIONS SUPERVISOR Narrative This result has genomic variants that were not included in this document. Patti Preston MD LAB GENETIC TESTING Fin al Result [employer] [id number], [facility] [phone] * (ABNORMAL) CBC with auto differential (11/18/2024 7:46 AM AIRPORT OPERATIONS SUPERVISOR) WBC 7.1 3.8 - 10.8 Thousand/u L [...] 140 - 400 Thousand/u L [facility] MPV 8.8 7.5 - 12.5 fL [...] [facility] Blood 11/18/2024 7:46 AM AIRPORT OPERATIONS SUPERVISOR 11/18/2024 7:47 AM AIRPORT OPERATIONS SUPERVISOR Patti Preston MD LAB BLOOD ORDERABLES Fi nal Result [facility] [address] [place] [address] * CA 125 (11/18/2024 7:46 AM AIRPORT OPERATIONS SUPERVISOR) CA 125 ag 9 <35 U/mL [facility] Comment: This test was performed using the Siemens Chemiluminescent method. Values obtained from different assay methods cannot be used interchangeably. CA 125 levels, regardless of value, should not be interpreted as absolute evidence of the presence or absence of disease. Blood 11/18/2024 7:46 AM AIRPORT OPERATIONS SUPERVISOR 11/18/2024 7:47 AM AIRPORT OPERATIONS SUPERVISOR Patti Preston MD LAB BLOOD ORDERABLES Fi nal Result Performing Organization Address City/[facility]/ZIP Co de Phone Number [facility] [address] [place] [address] * Magnesium (11/18/2024 7:46 AM AIRPORT OPERATIONS SUPERVISOR) Pathologist [facility] Magnesium 1.5 1.5 - 2.5 mg/dL [facility] Blood 11/18/2024 7:46 AM AIRPORT OPERATIONS SUPERVISOR 11/18/2024 7:47 AM AIRPORT OPERATIONS SUPERVISOR Patti Preston MD LAB BLOOD ORDERABLES Fi nal Result Performing Organization Address City/[facility]/ZIP Co de Phone Number [facility] [employer] [facility] [address] [place] [address] * (ABNORMAL) Comprehensive metabolic panel (11/18/2024 7:46 AM AIRPORT OPERATIONS SUPERVISOR) Glucose 121(H) 65 - 99 mg/dL [facility] Comment: Fasting reference interval For someone without known diabetes, a glucose value between 100 and 125 mg/dL is consistent with prediabetes and should be confirmed with a follow-up test. BUN 11 7 - 25 mg/dL [facility] Creatinine 0.58 0.50 - 1.05 mg/dL [facility] eGFR 100 > OR = 60 mL/min/1.7 3m2 [facility] BUN/creat ratio SEE NOTE: 6 - 22 (calc) [facility] Comment: Not Reported: BUN and Creatinine are within reference range. Sodium 141 135 - 146 mmol/L [facility] [facility] Potassium, pl 3.9 3.5 - 5.3 mmol/L [facility] [employer] [facility] Chloride 105 98 - 110 mmol/L [facility] [facility] CO2 27 20 - 32 mmol/L [facility] [employer] [facility] Calcium 8.6 8.6 - 10.4 mg/dL [facility] Protein, sr 6.0(L) 6.1 - 8.1 g/dL [facility] Albumin 3.7 3.6 - 5.1 g/dL [facility] GLOBULIN 2.3 1.9 - 3.7 g/dL (calc) [facility] [employer] [facility] Alb/glob ratio 1.6 1.0 - 2.5 (calc) [facility] Bilirubin, total 0.2 0.2 - 1.2 mg/dL [facility] Alk phos 67 37 - 153 U/L [facility] AST 16 10 - 35 U/L [facility] ALT (SGPT) 21 6 - 29 U/L [facility] Blood 11/18/2024 7:46 AM AIRPORT OPERATIONS SUPERVISOR 11/18/2024 7:47 AM AIRPORT OPERATIONS SUPERVISOR us Patti Preston MD LAB BLOOD ORDERABLES Fi nal Result [facility] [address] [place] [address] * [place] Vein Duplex Lower Extremity Bilateral Complete (11/04/2024 2:15 PM AIRPORT OPERATIONS SUPERVISOR) Anatomical Region Laterality Modality Vascular Bilateral Ultrasound 11/04/2024 Narrative 11/10/2024 7:09 AM AIRPORT OPERATIONS SUPERVISOR [employer] Job ID: [id number] [employer] Document ID: [id number] Dictated date/time: [id number] BILATERAL LOWER EXTREMITY VENOUS DUPLEX REASON FOR [...] bilateral lower extremity. Job ID/Internal Job ID: [id number] Froylan Burton MD [facility] PROCEDURES Final Result * CT Lumbar Spine WO Contrast (11/04/2024 12:51 AM AIRPORT OPERATIONS SUPERVISOR) Anatomical Region Laterality Modality Spine N/A Computed Tomogra phy 11/04/2024 12:5 4 AM AIRPORT OPERATIONS SUPERVISOR Narrative 11/04/2024 12:59 AM AIRPORT OPERATIONS SUPERVISOR EXAM DESCRIPTION: CT LUMBAR SPINE WO CONTRAST [...] by Mane Méndez M.D. T: Report ID: [id number] Reading Location: [id number] Procedure Note Mane Méndez MD - 11/04/2024 [...] by Mane Méndez M.D. T: Report ID: [id number] Reading Location: [place] [address] us Froylan Burton MD IMG CT PROCEDURES Final Result * (ABNORMAL) D-dimer, quantitative (11/04/2024 12:24 AM AIRPORT OPERATIONS SUPERVISOR) D-Dimer 960(H) <=499 ng/mL FEU Comment: Interpretive [...] 68, VTE cut-off 680 ng/ml FEU. References; Schouten HT et al. Brit Med J. 2013;346:f2492. Kb et al. Annals Int Med. 2015;163:701-11. Current interpretive data was last revised on 2019. Blood 11/04/2024 12:2 4 AM AIRPORT OPERATIONS SUPERVISOR 11/04/2024 12:26 AM AIRPORT OPERATIONS SUPERVISOR us Froylan Burton MD LAB BLOOD ORDERABLES Final Resul t [facility] [address] [facility] Department [place] [address] * eGFR (11/03/2024 11:25 PM AIRPORT OPERATIONS SUPERVISOR) eGFR 71 >=60 mL/min/1. 73 m2 Comment: [...] reviewed 2021. Blood 11/03/2024 11:2 5 PM AIRPORT OPERATIONS SUPERVISOR 11/03/2024 11:29 PM AIRPORT OPERATIONS SUPERVISOR Kati KINGSLEY LAB BLOOD ORDERABLES Final Result [facility] [address] [facility] Department [place] [address] * (ABNORMAL) Differential, auto (11/03/2024 11:25 PM AIRPORT OPERATIONS SUPERVISOR) Pathologist [facility] Neutrophil abs 3.5 1.5 - 6.5 K/cumm Imm gran abs 0.0 0.0 - 0.1 K/cumm [facility] Lymphocyte abs 2.3 0.8 - 3.3 K/cumm [facility] Monocyte abs 0.1(L) 0.2 - 0.8 K/cumm [facility] Eosinophil abs 0.0 0.0 - 0.5 K/cumm [facility] Basophil abs 0.0 0.0 - 0.1 K/cumm [facility] Neutrophil pct 59.1 % [facility] Comment: Interpretive Data Percent cell count reference ranges are not reported, since discordance with absolute values may lead to misinterpretation of CBC data. Current Interpretive Data was last revised on 2018. Imm gran pct 0.2 % [facility] Comment: Interpretive Data Percent cell count reference ranges are not reported, since discordance with absolute values may lead to misinterpretation of CBC data. Current Interpretive Data was last revised on 2018. Lymphocyte pct 37.8 % [facility] Comment: Interpretive Data Percent cell count reference ranges are not reported, since discordance with absolute values may lead to misinterpretation of CBC data. Current Interpretive Data was last revised on 2018. Monocyte pct 2.2 % [facility] Comment: Interpretive Data Percent cell count reference ranges are not reported, since discordance with absolute values may lead to misinterpretation of CBC data. Current Interpretive Data was last revised on 2018. Eosinophil pct 0.5 % [facility] Comment: Interpretive Data Percent cell count reference ranges are not reported, since discordance with absolute values may lead to misinterpretation of CBC data. Current Interpretive Data was last revised on 2018. Basophil pct 0.2 % [facility] Comment: Interpretive Data Percent cell count reference ranges are not reported, since discordance with absolute values may lead to misinterpretation of CBC data. Current Interpretive Data was last revised on 2018. Blood 11/03/2024 11:2 5 PM AIRPORT OPERATIONS SUPERVISOR 11/03/2024 11:29 PM AIRPORT OPERATIONS SUPERVISOR Kati KINGSLEY LAB BLOOD ORDERABLES Final Result [place] [id number] [facility] Department [place] [address] * (ABNORMAL) CBC with auto differential (11/03/2024 11:25 PM AIRPORT OPERATIONS SUPERVISOR) WBC 6.0 3.8 - 9.9 K/cumm Hgb 11.2(L) 11.9 - 15.5 g/dL [facility] Hct 33.6(L) 35.6 - 45.5 % [facility] Plt 260 150 - 400 K/cumm [facility] MPV 8.8(L) 9.1 - 12.3 fL [facility] RBC 4.08 3.90 - 5.20 M/cumm [facility] MCV 82.4 81.3 - 96.4 fL [facility] MCH 27.5 27.1 - 33.3 pg [facility] MCHC 33.3 32.3 - 35.7 g/dL [facility] RDW CV 14.6 11.1 - 14.9 % [facility] RDW SD 42.8 35.7 - 48.1 fL [facility] NRBC abs 0.00 0.00 - 0.01 K/cumm [facility] Blood 11/03/2024 11:2 5 PM AIRPORT OPERATIONS SUPERVISOR 11/03/2024 11:29 PM AIRPORT OPERATIONS SUPERVISOR Kati KINGSLEY LAB BLOOD ORDERABLES Final Result Performing Organization Address City/[facility]/ZIP Co de Phone Number VIKRAM [address] [facility] [employer] [place] [address] * Comprehensive metabolic panel (11/03/2024 11:25 PM AIRPORT OPERATIONS SUPERVISOR) Sodium 135 135 - 145 mmol/L Potassium, pl 3.4 3.3 - 4.9 mmol/L [facility] Chloride 99 97 - 110 mmol/L [facility] CO2 25 22 - 32 mmol/L [facility] Anion gap 11 2 - 15 mmol/L [facility] BUN 23 6 - 25 mg/dL [facility] Creatinine 0.90 0.60 - 1.10 mg/dL [facility] Glucose 114 70 - 199 mg/dL [facility] Comment: Interpretive Data Fasting glucose >/= 126 [...] 2022. Calcium 9.2 8.5 - 10.3 mg/dL [facility] Bilirubin, total 0.6 0.1 - 1.2 mg/dL [facility] Protein, pl 7.0 6.5 - 8.5 g/dL [facility] Albumin 4.0 3.5 - 5.0 g/dL [facility] Alk phos 82 40 - 130 Units/L [facility] ALT 45 7 - 45 Units/L [facility] AST 31 10 - 45 Units/L [facility] Blood 11/03/2024 11:2 5 PM AIRPORT OPERATIONS SUPERVISOR 11/03/2024 11:29 PM AIRPORT OPERATIONS SUPERVISOR Kati KINGSLEY LAB BLOOD ORDERABLES Final Result Performing Organization Address City/[facility]/ZIP Co de Phone Number VIKRAM [address] [facility] [place] [address] * eGFR (11/01/2024 6:48 AM AIRPORT OPERATIONS SUPERVISOR) Pathologist [facility] eGFR 87 >=60 mL/min/1. 73 m2 Comment: [...] last reviewed 2021. Blood 11/01/2024 6:48 AM AIRPORT OPERATIONS SUPERVISOR 11/01/2024 7:55 AM AIRPORT OPERATIONS SUPERVISOR us Azael Garcia MD LAB BLOOD ORDERABLES Final Result [facility] [address] [facility] [place] [address] * Differential, auto (11/01/2024 6:48 AM AIRPORT OPERATIONS SUPERVISOR) [facility] Neutrophil abs 2.1 1.5 - 6.5 K/cumm Imm gran abs 0.0 0.0 - 0.1 K/cumm [facility] Lymphocyte abs 1.6 0.8 - 3.3 K/cumm [facility] Monocyte abs 0.5 0.2 - 0.8 K/cumm [facility] Eosinophil abs 0.2 0.0 - 0.5 K/cumm [facility] Basophil abs 0.0 0.0 - 0.1 K/cumm [facility] Neutrophil pct 46.8 % [facility] Comment: Interpretive Data Percent cell count reference ranges are not reported, since discordance with absolute values may lead to misinterpretation of CBC data. Current Interpretive Data was last revised on 2018. Imm gran pct 0.5 % [facility] Comment: Interpretive Data Percent cell count reference ranges are not reported, since discordance with absolute values may lead to misinterpretation of CBC data. Current Interpretive Data was last revised on 2018. Lymphocyte pct 37.0 % [facility] Comment: Interpretive Data Percent cell count reference ranges are not reported, since discordance with absolute values may lead to misinterpretation of CBC data. Current Interpretive Data was last revised on 2018. Monocyte pct 10.7 % [facility] Comment: Interpretive Data Percent cell count reference ranges are not reported, since discordance with absolute values may lead to misinterpretation of CBC data. Current Interpretive Data was last revised on 2018. Eosinophil pct 4.3 % [facility] Comment: Interpretive Data Percent cell count reference ranges are not reported, since discordance with absolute values may lead to misinterpretation of CBC data. Current Interpretive Data was last revised on 2018. Basophil pct 0.7 % [facility] Comment: Interpretive Data Percent cell count reference ranges are not reported, since discordance with absolute values may lead to misinterpretation of CBC data. Current Interpretive Data was last revised on 2018. Blood 11/01/2024 6:48 AM AIRPORT OPERATIONS SUPERVISOR 11/01/2024 7:06 AM AIRPORT OPERATIONS SUPERVISOR us Azael Garcia MD LAB BLOOD ORDERABLES Final Result [facility] [place] [address] * (ABNORMAL) CBC with auto differential (11/01/2024 6:48 AM AIRPORT OPERATIONS SUPERVISOR) WBC 4.4 3.8 - 9.9 K/cumm Hgb 10.3(L) 11.9 - 15.5 g/dL [facility] Hct 32.1(L) 35.6 - 45.5 % [facility] Plt 259 150 - 400 K/cumm [facility] MPV 8.8(L) 9.1 - 12.3 fL [facility] RBC 3.71(L) 3.90 - 5.20 M/cumm [facility] MCV 86.5 81.3 - 96.4 fL [facility] MCH 27.8 27.1 - 33.3 pg [facility] MCHC 32.1(L) 32.3 - 35.7 g/dL [facility] RDW CV 14.8 11.1 - 14.9 % [facility] RDW SD 46.3 35.7 - 48.1 fL [facility] NRBC abs 0.00 0.00 - 0.01 K/cumm [facility] Blood 11/01/2024 6:48 AM AIRPORT OPERATIONS SUPERVISOR 11/01/2024 7:06 AM AIRPORT OPERATIONS SUPERVISOR Azael Garcia MD LAB BLOOD ORDERABLES Final Result Performing Organization Address City/[facility] Co de Phone Number [facility] [place] [address] * CA 125 (11/01/2024 6:48 AM AIRPORT OPERATIONS SUPERVISOR) CA 125 ag 8.1 0.0 - 38.1 units/mL Comment: Interpretive Data [employer] CA 125 assay procedure was used. Results from different manufacturers or methods may not be comparable. Serial testing should be performed using the same method. Blood 11/01/2024 6:48 AM AIRPORT OPERATIONS SUPERVISOR 11/01/2024 7:06 AM AIRPORT OPERATIONS SUPERVISOR Azael Garcia MD LAB BLOOD ORDERABLES Final Result [facility] [place] [address] * Magnesium (11/01/2024 6:48 AM AIRPORT OPERATIONS SUPERVISOR) Magnesium 1.5 1.4 - 2.5 mg/dL Blood 11/01/2024 6:48 AM AIRPORT OPERATIONS SUPERVISOR 11/01/2024 7:06 AM AIRPORT OPERATIONS SUPERVISOR us Azael Garcia MD LAB BLOOD ORDERABLES Final Result [facility] Department [place] [address] * Comprehensive metabolic panel (11/01/2024 6:48 AM AIRPORT OPERATIONS SUPERVISOR) Sodium 140 135 - 145 mmol/L Potassium, pl 3.7 3.3 - 4.9 mmol/L [facility] Chloride 105 97 - 110 mmol/L [facility] CO2 25 22 - 32 mmol/L [facility] Anion gap 10 2 - 15 mmol/L [facility] BUN 13 6 - 25 mg/dL [facility] Creatinine 0.76 0.60 - 1.10 mg/dL [facility] Glucose 90 70 - 199 mg/dL [facility] Comment: Interpretive Data Fasting glucose >/= [...] 2022. Calcium 8.8 8.5 - 10.3 mg/dL [facility] Bilirubin, total 0.3 0.1 - 1.2 mg/dL [facility] Protein, pl 6.8 6.5 - 8.5 g/dL [facility] Albumin 3.8 3.5 - 5.0 g/dL [facility] Alk phos 83 40 - 130 Units/L [facility] ALT 25 7 - 45 Units/L [facility] AST 21 10 - 45 Units/L [facility] Blood 11/01/2024 6:48 AM AIRPORT OPERATIONS SUPERVISOR 11/01/2024 7:06 AM AIRPORT OPERATIONS SUPERVISOR us Azael Garcia MD LAB BLOOD ORDERABLES Final Result [facility] Department [place] [address] * IR Port Placement Chest > 5 Years (10/07/2024 9:08 AM AIRPORT OPERATIONS SUPERVISOR) Anatomical Region Laterality Modality Chest N/A Radio Fluoroscop y 10/07/2024 10:3 1 AM AIRPORT OPERATIONS SUPERVISOR Impressions 10/07/2024 10:31 AM AIRPORT OPERATIONS SUPERVISOR Successful chest wall port placement. PLAN: The catheter is ready for immediate use. Please note that a power injectable port was placed. When treatment is completed, removal can be scheduled by calling [facility] - [phone] [facility] - [phone] Electronically signed by: Andreas Celestin PA-C Narrative 10/07/2024 10:31 AM AIRPORT OPERATIONS SUPERVISOR EXAMINATION: PORT PLACEMENT USING ULTRASOUND GUIDANCE (STD [...] was obtained. Prior to beginning the procedure, [place] Protocol was used to confirm the patient's [...] was obtained. Prior to beginning the procedure, [place] Protocol was used to confirm the patient's [...] completed, removal can be scheduled by calling [facility] - [phone] [facility] - [phone] Electronically signed by: Andreas Celestin PA-C us Azael Garcia MD IMG IR PROCEDURES Final Res ult * eGFR (09/27/2024 6:53 PM AIRPORT OPERATIONS SUPERVISOR) eGFR >90 >=60 mL/min/1. 73 m2 Comment: [...] last reviewed 2021. Blood 09/27/2024 6:53 PM AIRPORT OPERATIONS SUPERVISOR 09/27/2024 8:06 PM AIRPORT OPERATIONS SUPERVISOR us Azael Garcia MD LAB BLOOD ORDERABLES Final Result [facility] Department [place] [address] * Differential, auto (09/27/2024 6:53 PM AIRPORT OPERATIONS SUPERVISOR) Neutrophil abs 4.9 1.5 - 6.5 K/cumm Imm gran abs 0.0 0.0 - 0.1 K/cumm [facility] Lymphocyte abs 2.5 0.8 - 3.3 K/cumm [facility] Monocyte abs 0.6 0.2 - 0.8 K/cumm [facility] Eosinophil abs 0.5 0.0 - 0.5 K/cumm [facility] Basophil abs 0.1 0.0 - 0.1 K/cumm [facility] Neutrophil pct 57.6 % [facility] Comment: Interpretive Data Percent cell count reference ranges are not reported, since discordance with absolute values may lead to misinterpretation of CBC data. Current Interpretive Data was last revised on 2018. Imm gran pct 0.2 % [facility] Comment: Interpretive Data Percent cell count reference ranges are not reported, since discordance with absolute values may lead to misinterpretation of CBC data. Current Interpretive Data was last revised on 2018. Lymphocyte pct 28.9 % [facility] Comment: Interpretive Data Percent cell count reference ranges are not reported, since discordance with absolute values may lead to misinterpretation of CBC data. Current Interpretive Data was last revised on 2018. Monocyte pct 7.0 % [facility] Comment: Interpretive Data Percent cell count reference ranges are not reported, since discordance with absolute values may lead to misinterpretation of CBC data. Current Interpretive Data was last revised on 2018. Eosinophil pct 5.7 % [facility] Comment: Interpretive Data Percent cell count reference ranges are not reported, since discordance with absolute values may lead to misinterpretation of CBC data. Current Interpretive Data was last revised on 2018. Basophil pct 0.6 % [facility] Comment: Interpretive Data Percent cell count reference ranges are not reported, since discordance with absolute values may lead to misinterpretation of CBC data. Current Interpretive Data was last revised on 2018. Blood 09/27/2024 6:53 PM AIRPORT OPERATIONS SUPERVISOR 09/27/2024 8:01 PM AIRPORT OPERATIONS SUPERVISOR Azael Garcia MD LAB BLOOD ORDERABLES Final Result Performing Organization Address City/[facility]/ZIP Co de Phone Number [facility] Department [place] [address] * (ABNORMAL) CBC with auto differential (09/27/2024 6:53 PM AIRPORT OPERATIONS SUPERVISOR) WBC 8.6 3.8 - 9.9 K/cumm Hgb 12.0 11.9 - 15.5 g/dL [facility] Hct 37.8 35.6 - 45.5 % [facility] Plt 243 150 - 400 K/cumm [facility] MPV 9.6 9.1 - 12.3 fL [facility] RBC 4.46 3.90 - 5.20 M/cumm [facility] MCV 84.8 81.3 - 96.4 fL [facility] MCH 26.9(L) 27.1 - 33.3 pg [facility] MCHC 31.7(L) 32.3 - 35.7 g/dL [facility] RDW CV 14.4 11.1 - 14.9 % [facility] RDW SD 44.1 35.7 - 48.1 fL [facility] NRBC abs 0.00 0.00 - 0.01 K/cumm [facility] Blood 09/27/2024 6:53 PM AIRPORT OPERATIONS SUPERVISOR 09/27/2024 8:01 PM AIRPORT OPERATIONS SUPERVISOR Azael Garcia MD LAB BLOOD ORDERABLES Final Result Performing Organization Address City/[facility]/ZIP Co de Phone Number [facility] Department [place] [address] * (ABNORMAL) aPTT (09/27/2024 6:53 PM AIRPORT OPERATIONS SUPERVISOR) aPTT 48(H) 28 - 38 sec Comment: Interpretive Data Heparin therapeutic range: 66.0 - 100.0 seconds. Range based on correlation with therapeutic heparin activity range of 0.3 - 0.7 Units/mL. Current interpretive data was last revised on 2023. Blood 09/27/2024 6:53 PM AIRPORT OPERATIONS SUPERVISOR 09/27/2024 8:01 PM AIRPORT OPERATIONS SUPERVISOR Azael Garcia MD LAB BLOOD ORDERABLES Final Result Performing Organization Address [facility] de [place] [address] * (ABNORMAL) Protime-INR (09/27/2024 6:53 PM AIRPORT OPERATIONS SUPERVISOR) PT 15.9(H) 9.7 - 13.0 sec INR 1.46(H) 0.90 - 1.20 [facility] Comment: Interpretive data Oral anticoagulant therapeutic ranges: Venous thromboembolism prophylaxis or treatment: 2.0-3.0 CARDIOLOGY Standard range: 2.0-3.0 High-intensity range: 2.5-3.5 Refer to indication-specific guidelines for appropriate target ranges for prosthetic heart valve replacement. Current interpretive data was last revised on 2019. Blood 09/27/2024 6:53 PM AIRPORT OPERATIONS SUPERVISOR 09/27/2024 8:01 PM AIRPORT OPERATIONS SUPERVISOR Azael Garcia MD LAB BLOOD ORDERABLES Final Result Performing Organization Address [facility] [place] [address] * CA 125 (09/27/2024 6:53 PM AIRPORT OPERATIONS SUPERVISOR) CA 125 ag 13.6 0.0 - 38.1 units/mL Comment: Interpretive Data [employer] CA 125 assay procedure was used. Results from different manufacturers or methods may not be comparable. Serial testing should be performed using the same method. Blood 09/27/2024 6:53 PM AIRPORT OPERATIONS SUPERVISOR 09/27/2024 8:01 PM AIRPORT OPERATIONS SUPERVISOR us Azael Garcia MD LAB BLOOD ORDERABLES Final Result [facility] Department [place] [address] * Comprehensive metabolic panel (09/27/2024 6:53 PM AIRPORT OPERATIONS SUPERVISOR) Sodium 141 135 - 145 mmol/L Potassium, pl 4.0 3.3 - 4.9 mmol/L [facility] Chloride 104 97 - 110 mmol/L [facility] CO2 25 22 - 32 mmol/L [facility] Anion gap 12 2 - 15 mmol/L [facility] BUN 15 6 - 25 mg/dL [facility] Creatinine 0.68 0.60 - 1.10 mg/dL [facility] Glucose 94 70 - 199 mg/dL [facility] Comment: Interpretive Data Fasting glucose >/= [...] 2022. Calcium 9.6 8.5 - 10.3 mg/dL [facility] Bilirubin, total 0.2 0.1 - 1.2 mg/dL [facility] Protein, pl 7.6 6.5 - 8.5 g/dL [facility] Albumin 4.4 3.5 - 5.0 g/dL [facility] Alk phos 81 40 - 130 Units/L [facility] ALT 18 7 - 45 Units/L [facility] AST 23 10 - 45 Units/L [facility] Blood 09/27/2024 6:53 PM AIRPORT OPERATIONS SUPERVISOR 09/27/2024 8:01 PM AIRPORT OPERATIONS SUPERVISOR Azael Garcia MD LAB BLOOD ORDERABLES Final Result Performing Organization Address [facility] Co de Phone Number [facility] Department [place] [address] * [employer] BRACAnalysis and MyRisk / Note 2 Tests (M0001) (09/27/2024 4:19 PM AIRPORT OPERATIONS SUPERVISOR) Bracanalysis and Myrisk / Note 2 Tests No Significant Finding 10/10/2024 10:52 AM AIRPORT OPERATIONS SUPERVISOR [facility] Comment: BRACANALYSIS AND MYRISK / NOTE 2 TESTS See PDF for complete results. No Significant Genetic or Clinical History Finding NO VARIANT(S) OF UNCERTAIN SIGNIFICANCE (VUS) IDENTIFIED Blood specimen (specimen) Venous blood specimen / Unknown 09/27/2024 4:19 PM AIRPORT OPERATIONS SUPERVISOR 09/28/2024 9:36 AM AIRPORT OPERATIONS SUPERVISOR Azael Garcia MD LAB GENETIC TESTING Final R esult Performing Organization Address City/[facility] Co de Phone Number [facility] [address] [place] [address] * Surgical pathology (09/23/2024 4:06 PM AIRPORT OPERATIONS SUPERVISOR) Tissue (Miscellaneous) 09/23/2024 4:06 PM AIRPORT OPERATIONS SUPERVISOR 09/23/2024 4:06 PM AIRPORT OPERATIONS SUPERVISOR Narrative [facility] - 09/27/2024 12:29 PM AIRPORT OPERATIONS SUPERVISOR EPIC results best viewed via link to PDF [facility] Pathology Consult Service [address], [place] [address] Note to Patients: This report may contain [...] SURGICAL PATHOLOGY REPORT * Consult Report * [facility] is providing an additional review of previously collected tissue. FINAL Patient Name: ESPERANZA BENAVIDES Address: [address] [place], [place] [id number] Gender: F : 1960 (Age: 64) [facility] #: [id number] Patient Type: YULISSA Location: UNKNOWN Taken: 09/23/2024 Received: 09/23/2024 Accessioned: 09/26/2024 Reported: 09/27/2024 Physician(s): Azael Garcia M.D. [facility] Department of Pathology [address] [place] [address] P: [phone] F: [phone] Diagnosis: Consult material received from [place], [place] (OSC: [id number]; 2024) A. Ovary and [...] nodes (0/3) - No evidence of malignancy syja/09/26/2024 16:38 By this signature, I attest that [...] are positive for WT1, ER (10%, weak), AK (10%, weak), and GATA3 (weak focal) with [...] fluid cytology is positive for malignant cells ([id number]). The overall findings would confer staging of [...] report. The material originates from [facility], [place], [place]. Selected slide(s) may be digitally scanned for our files, and all materials are returned to the referring institution, along with a copy of our final report. Any testing required for diagnostic purposes was performed in the Department of Pathology and Immunology at [facility], [address] [place] [address] [place] [address] CLIA # [id number] The performance characteristics of the testing cited in this report (if any) were determined by the [facility] Department of Pathology and Immunology [facility], as part of an ongoing senior quality manager program and in compliance with [...] and the performance characteristics determined by the [facility], [facility] Department of Pathology and Immunology. It has not been cleared or approved by the U.S. Food and Drug Administration. Any test designated as LDT was developed and its performance characteristics determined by [facility]. It has not been cleared or approved by the FDA. This test is used for clinical purposes and should not be regarded as investigational or for research. Report images and/or scanned reports, if included, only viewable in PDF version of report. us Azael Garcia MD LAB PATHOLOGY ORDERABLES nal Result [facility] [address] [address] * Screening Mammogram Bilateral W Alphonso (07/15/2024 [...] age 39, based on guidelines of the [employer] (ACR Practice Parameter for the Performance of Screening and Diagnostic Mammography) and [employer] [employer]. For women [...] suspicious finding in either breast on mammogram. Self Screening Mammogram IMG MAMMO PROCEDURES Fi [...] CDT Stephany Rosales MD LAB MICROBIOLOGY - [facility] Final Result [facility] [address] [facility] Department [place] [address] from Last 3 Months or Most Recently Relevant to Health Maintenance Insurance MED[employer]ARE [employer] FOR LIFE MED[employer]ARE [employer] LIFE FOR LIFE Advance Directives For more information, please contact: [phone] * Full Code (Latest Code Status on File) Date Activated Date Inactivated Comments 10/07/2024 7:34 AM 10/08/2024 5:09 AM * Full Code Date Activated Date Inactivated Comments 08/06/2021 7:32 AM 08/06/2021 1:54 PM * Full Code Date Activated Date Inactivated Comments 01/18/2019 9:07 AM 01/19/2019 8:13 PM * Full Code Date Activated Date Inactivated Comments 01/16/2019 2:40 PM 01/18/2019 9:07 AM Care Teams Chief Design Engineer Relationship Specialty Start Date End Date Morteza Shah Jr., MD [address] [place] [id number] PCP - General Internal Medicine 08/01/22 Prasanth Falk MD Cardiology 01/19/19 Abdiel Gibbons MD Consulting Physician Cardiology 01/19/19 Andreas Montoya DO [address] [place] [id number] Consulting Physician Gastroenterology 10/16/22
--- OUTSIDE RECORDS SUMMARY | 2024-12-22 17:44 | XMS_ITS | Encounter Summary ---
Author Organization [facility] Address [address] [place] [address] Phone Care Team Providers Care Legal Secretary Name Role Phone Prasanth Falk MD Unavailable [phone] Abdiel Gibbons MD Unavailable Pablo Lay MD, Morteza Goldman Primary Care Provide r Andreas Montoya DO Unavailable [phone] Encounter Details Date Type Department Care Team (Late st Contact Info) Description 12/18/2024 Orders Only [facility] Obstetrics and Gynecology [address] [facility] Advanced Medicine 13th [place] [address] [place] [id number] Liam Nathan MD PhD [address] [address] Social History Tobacco Use Types Packs/Day Years [...] on file Legal Sex Female 2:56 AM EXPERIMENTAL PSYCHOLOGIST Gender Identity Female 03/07/2021 1:17 PM CDT Sexual Orientation Straight 03/07/2021 1: 17 PM CDT 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 Not on file Not on file Not on file documented as of this encounter Ordered Prescriptions Prescription Sig Dispense Quantity Refills Last Filled Start Date End Date nitrofurantoin monohydrate (MACROBID) 100 mg capsule Take 1 capsule (100 mg total) by mouth 2 (two) times a day for 7 days 14 capsule 12/18/2024 5 documented in this encounter Plan of Treatment Not on file documented as of this encounter Visit Diagnoses Not on filedocumented in this encounter Care Teams Legal Secretary Relationship Specialty Start Date End Date Morteza Shah Jr., MD [address] [place] [id number] PCP - General Internal Medicine 08/01/22 Prasanth Falk MD Cardiology 01/19/19 Abdiel Gibbons MD Consulting Physician Cardiology 01/19/19 Andreas Montoya DO [address] [place] [address] Consulting Physician Gastroenterology 10/16/22 documented as of this encounter
--- OUTSIDE RECORDS SUMMARY | 2024-12-22 17:44 | XMS_ITS | Continuity of Care Document ---
Author Organization [facility] Address [address] [place] [address] Phone Care Team Providers Care Enterprise Engineer Name Role Phone David Don MD Unavailable [...] OFFICE/OUTPAT IENT VISIT EST [facility], [address] [address], [place], [address], [place] tel:[phone] [facility] Status post total left knee replacement 9 D[address]. [address] , [place], [place], [id number] . tel: [phone] [facility], [address] [facility] [address] [address], [place], [address], [place] tel:[phone] [facility] Status post total left knee replacementLeft knee pain 8 Dus[address] David. [address] , [place], [place], [id number] . tel: [phone] OFFICE/OUTPAT IENT VISIT EST [facility], [address] [address], [place], [address], [place] tel:[phone] [facility] Status post total left knee replacement 8 Herrmanneugene Nuñez. [address], [id number] . tel: [phone] OFFICE/OUTPAT IENT VISIT EST [facility], [address] [facility] [address] [address], [place], [address], [place] tel:[phone] [facility] Status post total left knee replacementBody mass index (BMI) 33.0-33.9, adult 8 [address]. [address] , [place], [place], [id number] . tel: [phone] [facility], [address] [address], [place], [address], [place] tel:[phone] [facility] Status post total left knee replacementBody mass index (BMI) 33.0-33.9, adult 8 [address] Nu[address]. [address] [facility], [place], [place], [id number] . tel: [phone] Referring Provider: Rolly Lugo, [address], [place], [address] . tel:[phone] [facility], [address] [facility], [place], [address], [place] tel:[phone] [facility] Body mass index (BMI) 33.0-33.9, adultStatus post total left knee replacement 4201 7 [facility]. [address] [facility], [place], [place], [id number] . tel: [phone] OFFICE/OUTPAT IENT VISIT EST [facility], [address] [facility] [address] [address], [place], [address], [place] tel:[phone] [facility] Primary osteoarthritis of left knee 3201 7 Dus[address] David. [address] , [place], [place], [id number] . tel: [phone] [facility], [address] [address], [place], [address], [place] tel:[phone] [facility] Primary osteoarthritis of left knee 7-201 7 [facility]. [address] [facility], [place], [place], [id number] . tel: [phone] [facility], [address], [address], [place] tel:[phone] [facility] Primary osteoarthritis of left knee 0201 7 Dus[address] David. [address] , [place], [place], [id number] . tel: [phone] OFFICE/OUTPAT IENT VISIT EST [facility], [address] [facility] [address] [address], [place], [address], [place] tel:[phone] [facility] Primary osteoarthritis of left knee 6 7 Dus[address] David. [address] , [place], [place], [id number] . tel: [phone] OFFICE/OUTPAT IENT VISIT EST [facility], [address], [address], [place] tel:[phone] [facility] Body mass index (BMI) 33.0-33.9, adultPrimary osteoarthritis of left knee February-0 7 Herr[address] Nuñez. [address] [facility], [place], [place], [id number] . tel: [phone] [facility], [address] [address], [place], [address], [place] tel:[phone] [facility] Primary osteoarthritis of left knee 6 Herr[address] Nuñez. [address] [facility], [place], [place], [address] . tel: [phone] [facility], [address] [address], [place], [address], [place] tel:[phone] [facility] Medial meniscus tear, left, subsequent encounterPrimary osteoarthritis of left knee 6 D[address] David. [address] [facility] [address] , [place], [place], [address] . tel: [phone] OFFICE/OUTPAT IENT VISIT EST [facility], [address] [facility] [address] [address], [place], [address], [place] tel:[phone] [facility] Primary osteoarthritis of left knee 6 [address]. [address] , [place], [place], [address] . tel: [phone] [facility], [address] [address], [place], [address], [place] tel:[phone] [facility] Medial meniscus tear, left, subsequent encounter 0 6 [address] David. [address] , [place], [place], [address] . tel: [phone] [facility], [address] [address], [place], [address], [place] tel:[phone] [facility] Primary osteoarthritis of left kneeMedial meniscus tear, left, subsequent encounter 9 6 [address]us[address] David. [address] , [place], [place], [address] . tel: [phone] OFFICE CONSULTATION [facility], [address], [place], [address], [place] tel:[phone] [facility] Left knee pain (chief complaint) Tear of medial meniscus of left knee, initial encounterPrimary osteoarthritis of left knee 6 Monte[address] Nuñez. [address], [place], [place], [id number] . tel:[phone] Referring Provider: Rolly Lugo, [address], [place], [address] . tel:[phone] Family History Family Member Type Diagnosis Age At Onset Father Problem (finding) rheumatoid arthritis Problem (finding) Family history of osteo arthritis Mother Problem (finding) congestive heart failur e Father Problem (finding) gout Payers Payer name Insurance type Covered democrat ID Authoriza tion(s) No Information Social History [...] ordered Future Order: Lab Order Sed rate ([id number]), Ordered on: Ordered Future Order: Lab Order C-Reacti ve Protein, Quant ([id number]), Ordered on: Ordered History Of Present Illness Encounter Date Complaint History Of Prese nt Illness Left knee pain Functional Status Date Functional Assessmen t No Information Instructions Date Instruction Additional Infor mation Take medication as directed. Rel ated to [...] Related to Primary osteoarthritis of left knee Rest, ice and elevate. Related t o Medial meniscus tear, left, subsequent encounter Home [...] medial meniscus of left knee, initial encounter Call for increase in pain Relate d to Tear of medial meniscus of left knee, initial encounter Assessments Type Assessment Date assessment Status post total left knee repl acement Patient Care Teams Name Effective Dates (start - stop) Status Members No Information
[2024-12-22 18:08] LABS: Basophils Percent Auto 0.5 % (0.2-1.2); Eosinophils Absolute Auto 0.1 K/mm3 (0-0.3); Eosinophils Percent Auto 2.3 % (0-4.4); Hematocrit 27.1 % (37.0-47.0); Hemoglobin 8.9 g/dL (12.0-15.0); Immature Granulocyte Absolute 0.03 K/mm3 (0.00-0.031); Immature Granulocyte Percent A 0.7 % (0-0.5); Lymphocytes Absolute Auto 2.22 K/mm3 (0.9-3.2); Lymphocytes Percent Auto 50.7 % (18.3-44.2); Mean Corpuscular HGB Conc 32.8 g/dl (32-36); Mean Corpuscular Hemoglobin 28.4 pg (26-34); Mean Corpuscular Volume 86.6 fl (80-100); Mean Platelet Volume 9.6 fl (7.4-10.4); Monocytes Absolute Auto 0.1 K/mm3 (0.1-0.6); Monocytes Percent Auto 2.5 % (2.6-8.5); Neutrophils Absolute Auto 1.9 K/mm3 (1.3-6.7); Neutrophils Percent Auto 43.3 % (45.5-73.1); Platelet Count Result 121 k/mm3 (150-375); Red Blood Count 3.13 M/mm3 (4.2-5.4); White Blood Count 4.4 K/mm3 (4.5-10.0)
[2024-12-22 18:18] LABS: Alanine Aminotransferase 43 U/L (6-35); Albumin Level 4.1 g/dL (3.5-5.1); Alkaline Phosphatase 78 U/L (38-126); Anion Gap 12 mmol/L (4-12); Aspartate Amino Transferase 26 U/L (14-36); Bilirubin,Total 0.6 mg/dL (0.2-1.3); Blood Urea Nitrogen 24 mg/dL (7-17); Calcium 8.6 mg/dL (8.4-10.2); Carbon Dioxide 25 mmol/L (22-30); Chloride 100 mmol/L (98-107); Estimated CRCL calculation 75 ml/min; Estimated Glomerular Filt Rate > 60; Glucose 103 mg/dL (65-110); Potassium 3.8 mmol/L (3.4-5.0); Sodium 137 mmol/L (137-145)
--- NOTE | 2024-12-22 18:29 | ED_ITS ---
HPI - General Adult General Chief complaint: Urogenital-Female Stated complaint: DARK URINE TREATING FOR UTI Time Seen by Provider: 12/22/24 17:05 History of Present Illness HPI narrative: 64-year-old female being treated for urinary tract infection will also being treated for ovarian cancer presents the emergency department for evaluation for hematuria. Patient does complain of increased urinary symptoms and did have a darkening of her urine today. Patient is being followed by Oncology for low platelets. Patient has been on of Macrobid for the past 2 days Patient's recent labs as outpatient showed hemoglobin of 9.2, platelets of 135 and a creatinine clearance of 0.72 Related Data Home Medications ?Medication ?Instructions ?Recorded ?Confirmed ?Last Taken ?Type diltiazem HCl 360 mg 360 mg PO DAILY 11/25/22 07/19/24 Unknown History capsule,extended release 24 hr metoprolol succinate 50 mg 50 mg PO DAILY 11/25/22 07/19/24 Unknown History tablet,extended release 24 hr rivaroxaban 20 mg tablet (Xarelto) 20 mg PO DAILY 11/25/22 07/19/24 Unknown History ascorbic acid (vitamin C) 500 mg mg PO DAILY 07/19/24 07/19/24 Unknown History capsule celecoxib 200 mg capsule 200 mg PO BID 07/19/24 07/19/24 Unknown History cholecalciferol (vitamin D3) 62.5 mcg PO DAILY 07/19/24 07/19/24 Unknown History mcg (2,500 unit) capsule losartan 50 mg tablet 50 mg PO DAILY 07/19/24 07/19/24 Unknown History Allergies Allergy/AdvReac Type Severity Reaction Status Date / Time morphine Allergy Intermediate Confusion Verified 12/22/24 12:46 sulfamethoxazole Allergy Intermediate Rash Verified 12/22/24 12:46 trimethoprim Allergy Intermediate Rash Verified 12/22/24 12:46 Review of Systems 2 Review of Systems: All systems reviewed & are unremarkable except as noted in HPI and below PMFSH Past Medical History Medical History History of gastroesophageal reflux (GERD) History of pacemaker Myxoma Social History Social History Smoking status: Never smoker Exam 2 Narrative: APPEARANCE: Well appearing, no pain, no distress, well-nourished. HEAD: normocephalic, atraumatic. EYES: PERRLA/EOMI, conjunctivae clear. NOSE: Normal no drainage EARS:TMS clear with good light reflex. THROAT: Pharynx clear, no exudate. NECK: Supple. No adenopathy, no masses. RESPIRATORY: Airway patent, respirations nonlabored. Clear to auscultation bilaterally, no rales, rhonchi, wheezing. CARDIOVASCULAR: Regular rate and rhythm without murmurs rubs or gallops. ABDOMINAL: Soft, nontender, nondistended, normal bowel sounds MUSCULOSKELETAL: Moves all extremities. Strength/ROM intact, No edema, No calf tenderness. NEURO: Alert. Cranial nerves II through XII intact. SKIN: Warm, dry. Normal Color Course Vital Signs Vital signs: Vital Signs Temperature 97.9 F 12/22/24 13:29 Pulse Rate 88 12/22/24 13:29 Respiratory Rate 16 12/22/24 13:29 Blood Pressure 122/55 L 12/22/24 13:29 Pulse Oximetry 98 12/22/24 13:29 Oxygen Delivery Room Air 12/22/24 13:29 Temperature 97.9 F 12/22/24 13:29 Pulse Rate 72 12/22/24 18:58 Respiratory Rate 15 12/22/24 18:58 Blood Pressure 118/62 12/22/24 18:58 Pulse Oximetry 100 12/22/24 18:58 Oxygen Delivery Room Air 12/22/24 13:29 Medical Decision Making MDM Narrative Medical decision making narrative: Patient's hemoglobin was 9.2 and is down to 8.9, patient's platelets were 135 and are 121, patient's creatinine clearance was 0.72 is now 0.77. UA was negative for infection but did show hematuria. CT scan showed no acute abnormalities no hematoma and the bladder and no evidence of ureteral calculi. Patient was advised to continue her antibiotic and also advised have close follow-up with her physicians for recheck of her labs. Suspect the hematuria may be secondary to the urinary tract infection but patient was advised that she will need to have close follow-up Differential Diagnosis Differential Diagnosis: Hematuria, colitis, diverticulitis, ureteral calculi Vital Signs Vital Signs: Vital Signs Temperature 97.9 F 12/22/24 13:29 Pulse Rate 88 12/22/24 13:29 Respiratory Rate 16 12/22/24 13:29 Blood Pressure 122/55 L 12/22/24 13:29 Pulse Oximetry 98 12/22/24 13:29 Oxygen Delivery Room Air 12/22/24 13:29 Temperature 97.9 F 12/22/24 13:29 Pulse Rate 72 12/22/24 18:58 Respiratory Rate 15 12/22/24 18:58 Blood Pressure 118/62 12/22/24 18:58 Pulse Oximetry 100 12/22/24 18:58 Oxygen Delivery Room Air 12/22/24 13:29 Lab Data Lab results reviewed: Yes I reviewed the patient's lab results. 12/22/24 18:00 12/22/24 18:00 Labs: Lab Results 12/22/24 12/22/24 Range/Units 14:36 18:00 WBC 4.4 L (4.5-10.0) K/mm3 RBC 3.13 L (4.2-5.4) M/mm3 Hgb 8.9 L (12.0-15.0) g/dL Hct 27.1 L (37.0-47.0) % MCV 86.6 (80-100) fl MCH 28.4 (26-34) pg MCHC 32.8 (32-36) g/dl RDW 15.0 H (11.5-14.5) % Plt Count 121 L (150-375) k/mm3 MPV 9.6 (7.4-10.4) fl Immature Gran % (Auto) 0.7 H (0-0.5) % Neut % (Auto) 43.3 L (45.5-73.1) % Lymph % (Auto) 50.7 H (18.3-44.2) % [place] % (Auto) 2.5 L (2.6-8.5) % Eos % (Auto) 2.3 (0-4.4) % Baso % (Auto) 0.5 (0.2-1.2) % Lymph # (Auto) 2.22 (0.9-3.2) K/mm3 [place] # (Auto) 0.1 (0.1-0.6) K/mm3 Eos # (Auto) 0.1 (0-0.3) K/mm3 Baso # (Auto) 0.0 (0.0-0.1) K/mm3 Abs Immat Gran (auto) 0.03 (0.00-0.031) K/mm3 Absolute Neuts (auto) 1.9 (1.3-6.7) K/mm3 Absolute Nucleated RBC 0.000 (0.0-0.012) K/mm3 Nucleated RBC % 0.0 (0.0-0.2) % Sodium 137 (137-145) mmol/L Potassium 3.8 (3.4-5.0) mmol/L Chloride 100 (98-107) mmol/L Carbon Dioxide 25 (22-30) mmol/L Anion Gap 12 (4-12) mmol/L BUN 24 H D (7-17) mg/dL Creatinine 0.77 (0.7-1.0) mg/dL Estim Creat Clear Calc 75 ml/min Estimated GFR > 60 (59 - ) Glucose 103 (65-110) mg/dL Calcium 8.6 (8.4-10.2) mg/dL Total Bilirubin 0.6 (0.2-1.3) mg/dL AST 26 (14-36) U/L ALT 43 H (6-35) U/L Alkaline Phosphatase 78 (38-126) U/L Total Protein 7.0 (6.3-8.2) g/dL Albumin 4.1 (3.5-5.1) g/dL Urine Color Red H (Yellow) Urine Appearance Turbid H (Clear) Urine pH 5.0 (5.0-9.0) Ur Specific [place] 1.015 (1.001-1.035) Urine Protein 3+ H (Negative) mg/dL Urine Glucose (UA) Negative (Negative) mg/dL Urine Ketones TNP Ur Blood (Man) 3+ H (Negative) Urine Nitrate Negative (Negative) Urine Bilirubin TNP Urine Urobilinogen TNP Leukocyte Esterase Rfl TNP Urine RBC >100 H (0-2) /hpf Urine WBC 0-5 (0-3) /hpf Ur Squamous Epith Cells Few (Few) /hpf Amorphous Sediment Moderate H (None) Urine Bacteria Trace (None) /hpf Imaging Data Radiologist's impression: Impressions Abdomen/Pelvis CT 12/22/24 17:29 IMPRESSION: 1. No evidence of appendicitis, diverticulitis or intestinal obstruction. 2. No renal stones. 3. Panniculitis in the upper abdomen. 4. Fat infiltration of the liver with a stable cyst. Discharge Plan Discharge Clinical Impression: Hematuria Patient Disposition: Home, Self-Care Condition: Stable Instructions: Antibiotic Form Additional Instructions: Your hemoglobin today was decreased to 8.9, your platelets were decreased to 121. Urine showed no evidence of a urinary tract infection but did show hematuria. Have close follow-up with Urology and with your primary care physician. If you have any worsening symptoms then please call or return to the emergency department. Patient Language: Divehi Prescriptions: No Action metoprolol succinate 50 mg tablet extended release 24 hr 50 mg PO DAILY diltiazem HCl 360 mg capsule,extended release 24hr 360 mg PO DAILY Xarelto 20 mg tablet 20 mg PO DAILY losartan 50 mg tablet 50 mg PO DAILY celecoxib 200 mg capsule 200 mg PO BID ascorbic acid (vitamin C) 500 mg capsule PO DAILY cholecalciferol (vitamin D3) 62.5 mcg (2,500 unit) capsule PO DAILY eszopiclone [Lunesta] 2 mg tablet 2 mg PO ONCE Qty: 1 0RF Rx Instructions: Take with you to sleep lab on the night of sleep study. Follow-up/Referrals: Saul Olivares MD [Physician] - [facility],Morteza Goldman Jr., MD [Primary Care Provider] -
[2024-12-22 18:58] VITALS: BP 118/62; PULSE 72; RESP 15; O2SAT 100
== END 2024-12-22 18:59 | disposition home or self-care (01) ==
PROVIDERS: Emergency Medicine; Emergency Provider Emergency Medicine; PCP Hospitalist
DX: R31.9 Hematuria, unspecified (principal); C56.9 Malignant neoplasm of unspecified ovary; D69.6 Thrombocytopenia, unspecified; K76.0 Fatty (change of) liver, not elsewhere classified; K76.89 Other specified diseases of liver; M79.3 Panniculitis, unspecified; K21.9 Gastro-esophageal reflux disease without esophagitis
CPT/HCPCS: 36415; 74176; 80053; 81001; 85025; 99284

== ENCOUNTER 2024-12-30 13:45 | Outpatient (CLI) | payer MEDICARE, OTHER, SELFPAY ==
--- NOTE | ~2024-12-30 | CT_ITS ---
CT of the Abdomen and Pelvis: Indication: Hematuria Technique: 2.5 mm axial scans were obtained through the abdomen and pelvis following intravenous adm inistration of 100 cc of Omnipaque 350. Dose reduction technique was used on this scan by utilizing a utomated exposure control and iterative reconstruction technique. The dose-length product (DLP) was 3 015.25 mGy-cm. COMPARISON: 12/22/2024 Findings: Scans through the lung bases are unremarkable. Probable cardiomegaly. There is diffuse hepatic steatosis. The spleen, pancreas, gallbladder, adrenals and kidneys are withi n normal limits. There are atherosclerotic calcifications of the aorta. No lymphadenopathy. No bowel obstruction or bowel wall thickening. There is no evidence to suggest acute appendicitis. Th ere is haziness in the central mesentery with shotty lymph nodes, compatible with mesenteric pannicul itis. Images through the pelvis were performed. Urinary bladder unremarkable. No pelvic mass seen. No ascit es. Impression: No etiology for hematuria identified. Mesenteric panniculitis. Diffuse hepatic steatosis. Reviewed, dictated and finalized at [facility]. Impression: No etiology for hematuria identified. Mesenteric panniculitis. Diffuse hepatic steatosis.
--- OUTSIDE RECORDS SUMMARY | 2024-12-30 13:47 | XMS_ITS | Encounter Summary ---
Author Organization [facility] Address [address] [place] [address] Phone Care Team Providers Care Product Grader Name Role Phone Prasanth Falk MD Unavailable [phone] Abdiel Gibbons MD Unavailable [phone] Pablo Lay MD, Morteza Goldman Primary Care Provide r Andreas Montoya DO Unavailable [phone] Encounter Details Date Type Department Care Team (Late st Contact Info) Description 11/30/2024 Treatment [facility] Obstetrics and Gynecology [address] [facility] 13th [place] [address] [place] [id number] Patti Preston MD [address] [place] [id number] [place] [address] Social History Tobacco Use Types [...] on file Legal Sex Female 2:56 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 CLERK Gender Identity Female 03/07/2021 1:17 PM CDT Sexual Orientation Straight 03/07/2021 1: 17 PM CDT 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
--- OUTSIDE RECORDS SUMMARY | 2024-12-30 13:47 | XMS_ITS | Referral Summary ---
Author Organization [facility] Address [address] [place] [address] Care Team Providers Care Certified Ophthalmic Medical Technician Name Role Phone Prasanth Falk MD Unavailable [phone] Abdiel Gibbons MD Unavailable Pablo Lay MD, Morteza Goldman Primary Care Provide r Andreas Montoya DO Unavailable [phone] Encounters Date Type Department Care Team Description 12/22/2024 Orders Only [facility] Health Information Management [address] [place] [id number] Scanning, Provider 12/18/2024 Orders Only [facility] Obstetrics and Gynecology [address] [place] [address] Advanced Medicine 13th [place] [address] Liam Nathan MD PhD 12/16/2024 9:00 AM MARKET SURVEY REPRESENTATIVE Infusion [facility] Advanced Medicine Gynecologic Oncology [place] [facility] ([facility]) [address] [place] [address] Malignant neoplasm of left ovary (HCC) (Primary Dx) 12/16/2024 8:10 AM MARKET SURVEY REPRESENTATIVE Office Visit [facility] Obstetrics and Gynecology [address] [place] [address] Advanced Medicine 13th [place] [address] Patti Preston MD Encounter for antineoplastic chemotherapy (Primary Dx); Ovarian cancer, bilateral (HCC); Peri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; Malignant neoplasm of left ovary (HCC) 12/15/2024 Orders Only [facility] Obstetrics and Gynecology [address] [place] [address] Advanced Medicine 13th [place] [address] Jeanna Garcia RN Malignant neoplasm of left ovary (HCC) (Primary Dx) 12/14/2024 Orders Only [facility] ONCOLOGY Patti Preston MD 12/13/2024 2:22 PM MARKET SURVEY REPRESENTATIVE - 12/13/2024 11:59 PM MARKET SURVEY REPRESENTATIVE Hospital Encounter [address] [address] Malignant neoplasm of left ovary (HCC) Discharge Disposition: Discharge to home or self care 12/13/2024 8:15 AM MARKET SURVEY REPRESENTATIVE Lab [facility] Outpatient Lab at [address] [address] 12/08/2024 Telephone [facility] Obstetrics and Gynecology [address] [place] [address] 13th [place] [address] Jeanna Garcia RN 12/07/2024 1:08 PM MARKET SURVEY REPRESENTATIVE - 12/07/2024 11:59 PM MARKET SURVEY REPRESENTATIVE Hospital Encounter [address] [address] Ovarian cancer, bilateral (HCC); Dysuria Discharge Disposition: Discharge to home or self care 12/07/2024 1:15 PM MARKET SURVEY REPRESENTATIVE Lab [facility] Medical [facility] Outpatient Lab at [address] [address] 12/07/2024 Orders Only [facility] Obstetrics and Gynecology [address] [place] [address] Advanced Medicine 13th [place] [address] Jeanna Garcia RN Ovarian cancer, bilateral (HCC) (Primary Dx); Dysuria 12/04/2024 9:00 AM MARKET SURVEY REPRESENTATIVE Ancillary Procedure [facility] [address] [facility] [address], [place] [id number] Pacemaker (Primary Dx); SSS (sick sinus syndrome) (HCC) 11/30/2024 Treatment [facility] Obstetrics and Gynecology [address] [facility] Advanced Medicine 13th [place] [address] Patti Preston MD 11/28/2024 Telephone [facility] Obstetrics and Gynecology [address] [facility] 13th [place] [address] Jeanna Garcia RN 11/25/2024 Documentation [facility] Obstetrics and Gynecology [address] [facility] Advanced Medicine 13th [place] [address] Jeanna Garcia RN 11/25/2024 Orders Only [facility] Obstetrics and Gynecology [address] [place] [address] 13th [place] [address] Jeanna Garcia RN Ovarian cancer, bilateral (HCC) (Primary Dx); Encounter for antineoplastic chemotherapy; Malignant neoplasm of left ovary (HCC) 11/25/2024 9:30 AM MARKET SURVEY REPRESENTATIVE [facility] Gynecologic On[facility] [address] [place] [address] Malignant neoplasm of left ovary (HCC) (Primary Dx) 11/25/2024 8:20 AM MARKET SURVEY REPRESENTATIVE Office Visit [facility] Obstetrics and Gynecology [address] [place] [address] 13th [place] [address] Patti Preston MD Encounter for antineoplastic chemotherapy (Primary Dx); Ovarian cancer, bilateral (HCC); Malignant neoplasm of left ovary (HCC) 11/24/2024 Orders Only [facility] Obstetrics and Gynecology [address] [place] [address] 13th [place] [address] Jeanna Garcia RN Malignant neoplasm of left ovary (HCC) (Primary Dx) 11/04/2024 1:22 PM MARKET SURVEY REPRESENTATIVE - 11/04/2024 11:59 PM MARKET SURVEY REPRESENTATIVE Hospital Encounter [facility] Cardiac Testing [address] [place] [address] Leg pain, bilateral Discharge Disposition: Discharge to home or self care 11/03/2024 11:38 PM MARKET SURVEY REPRESENTATIVE - 11/04/2024 2:52 AM MARKET SURVEY REPRESENTATIVE Emergency [address] [address] Froylan Burton MD Leg pain, bilateral (Primary Dx) Discharge Disposition: Discharge to home or self care 11/01/2024 Orders Only [facility] Obstetrics and Gynecology [address] [place] [address] 13th [place] [address] Jeanna Garcia RN Malignant neoplasm of left ovary (HCC) (Primary Dx) 11/01/2024 6:35 AM MARKET SURVEY REPRESENTATIVE [facility] Advanced [facility] ([facility]) [address] [place] [address] Malignant neoplasm of left ovary (HCC) 11/01/2024 8:30 AM MARKET SURVEY REPRESENTATIVE [facility] Gynecologic Oncology [facility] ([facility]) [address] [place] [address] Malignant neoplasm of left ovary (HCC) (Primary Dx) 11/01/2024 7:50 AM MARKET SURVEY REPRESENTATIVE Office Visit [facility] Obstetrics and Gynecology [address] [place] [address] 13th [place] [address] Azael Garcia MD Malignant neoplasm of left ovary (HCC) (Primary Dx); Encounter for antineoplastic chemotherapy; Peri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 10/31/2024 Telephone [facility] Obstetrics and Gynecology [address] [place] [address] Advanced [facility] 13th [place] [address] Chrissy Maxwell RN 10/17/2024 Telephone [facility] Obstetrics and Gynecology [address] [place] [address] 13th [place] [address] Chrissy Maxwell RN 10/17/2024 Orders Only [facility] Obstetrics and Gynecology [address] [place] [address] 13th [place] [address] Azael Garcia MD Malignant neoplasm of left ovary (HCC) (Primary Dx); Alopecia due to cytotoxic drug 10/13/2024 Telephone [facility] Obstetrics and Gynecology [address] [facility] Advanced Medicine 13th [place] [phone] Chrissy Maxwell RN 10/07/2024 10:30 AM MARKET SURVEY REPRESENTATIVE Infusion [facility] Advanced Medicine Gynecologic Oncology [facility] ([facility]) [address] [place] [address] Malignant neoplasm of left ovary (HCC) (Primary Dx) 10/07/2024 6:03 AM MARKET SURVEY REPRESENTATIVE - 10/07/2024 11:59 PM MARKET SURVEY REPRESENTATIVE Hospital Encounter [facility] [address] [place] [address] Andreas Celestin PA Ovarian cancer, bilateral (HCC) Discharge Disposition: Discharge to home or self care 10/04/2024 Telephone [facility] Radiology [address] [place] [address] Erica Yoon RN 10/04/2024 Telephone [facility] Obstetrics and Gynecology [address] [facility] Advanced Medicine 13th [place] [address] Kelly Abel, KALYANI Med Management 10/04/2024 Telephone [facility] Radiology [facility] [address] [place] [address] Tonya Liang RN from Last 3 Months Allergies Active Allergy Reactions Criticality Noted Date Comments Adhesive Other (See comments) Low 03/15/2021 Tape pulls skin off and causes bleeding at site Morphine Other (See comments),Hallucinatio ns Medium 01/22/2017 Reaction: Unknown, , [place] Anaphylaxis High 04/16/2009 [place] Sherbert- lips swelled up, eyes swelled up, [...] by mouth daily Active lidocaine (LIDODERM) 5 %Indications:Lumb ar pain Place 1 patch on the skin daily Remove & discard patch within 12 hours or as directed by . 30 patch 022 2024 Active Additional Information Patient taking differently:1 patch transdermalAs needed, Remove & discard patch within 12 hours or as directed by ., Reported on 12/16/2024 methocarbamoL (ROBAXIN) 750 mg tabletIndications :Lumbar pain Take 1 tablet (750 mg total) by mouth 4 (four) times a day as needed for muscle spasms Only takes occasionally 30 tablet 3 022 Active atorvastatin (LIPITOR) 40 mg tablet TAKE 1 TABLET NIGHTLY (NEED TO SCHEDULE AN APPOINTMENT. DUE FOR OFFICE VISIT IN JANUARY) 90 tablet 3 023 Active Xarelto 20 mg tabletIndications :Paroxysmal atrial fibrillation (HCC) TAKE 1 TABLET DAILY WITH DINNER 90 tablet 3 024 Active losartan (COZAAR) 50 mg tabletIndications :Primary hypertension Take 1 tablet (50 mg total) by mouth daily 90 tablet 3 024 Active celecoxib (CeleBREX) 200 mg capsuleIndication s:Rheumatoid arthritis, involving unspecified site, unspecified whether rheumatoid factor present (HCC) Take 1 capsule (200 mg total) by mouth 2 (two) times a day 180 capsule 3 024 2024 Active metoprolol XL (TOPROL-XL) 50 mg extended release tabletIndications :PAF (paroxysmal atrial fibrillation) (HCC) Take 1 tablet (50 mg total) by mouth daily 90 tablet 3 024 2024 Active famotidine (PEPCID) 40 mg tabletIndications :Gastroesophageal reflux disease with esophagitis without hemorrhage Take 1 tablet (40 mg total) by mouth daily 90 tablet 3 024 2024 Active aspirin 81 mg chewable tabletIndications :prevention of thrombosis Take 1 tablet (81 mg total) by mouth daily 90 tablet 3 024 2024 Active dexAMETHasone (DECADRON) 4 mg tabletIndications :Malignant neoplasm of left ovary (HCC) Take 2 tablets (8 mg) by mouth once daily on Day 2, 3, and 4 of each cycle. 20 tablet 3 024 Active prochlorperazine (Compazine) 10 mg tabletIndications :Malignant neoplasm of left ovary (HCC) Take 1 tablet (10 mg total) by mouth every 6 (six) hours as needed for nausea or vomiting 30 tablet 3 024 Active ondansetron (ZOFRAN) 8 mg tabletIndications :Malignant neoplasm of left ovary (HCC) Take 1 tablet (8 mg total) by mouth every 8 (eight) hours as needed for nausea or vomiting 30 tablet 3 024 Active LORazepam (ATIVAN) 0.5 mg tabletIndications :Malignant neoplasm of left ovary (HCC) Place 1 tablet (0.5 mg total) under the tongue every 6 (six) hours as needed (nausea or vomiting) 30 tablet 024 Active lidocaine-priloca ine creamIndications: Administration of Local Anesthesia Apply topically as needed for pain Apply 1 hour prior to IV access and cover. 30 g 1 024 Active diltiaZEM CD (Cardizem CD) 360 mg 24 hr capsule Take 1 capsule (360 mg total) by mouth daily 90 capsule 1 024 2024 Active HYDROcodone-aceta minophen (NORCO) 5-325 mg per tabletIndications :Pain Take 1 tablet by mouth every 8 (eight) hours as needed for pain 12 tablet Active gabapentin (NEURONTIN) 300 mg capsuleIndication s:Neuropathy Take 1 capsule (300 mg total) by mouth 3 (three) times a day 270 capsule 4 025 2025 Active al & mag hydroxide with simethicone-diphe nhydramine-lidoca ine (MAGIC MOUTHWASH) suspension [id number]: Chemotherapy-Ilana ramon Mucositis Swish and swallow 15 mL every 4 (four) hours as needed (mucositis) 500 mL 3 Active pyridoxine (VITAMIN B-6) 100 mg tabletIndications :Encounter for antineoplastic chemotherapy,Claudia 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 Take 1 tablet (100 mg total) by mouth daily 30 tablet 11 025 2025 Active alpha lipoic acid 600 mg capsuleIndication s:Encounter for antineoplastic chemotherapy,Claudia 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 Take 1 capsule (600 mg total) by mouth daily 30 capsule [address] (CYMBALTA) 30 mg capsuleIndication s:Peri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 Take 1 capsule (30 mg total) by mouth daily 30 capsule 11 025 2025 Active pregabalin (LYRICA) 75 mg capsuleIndication s:chemotherapy asscociated peripheral neuropathy Take 1 capsule (75 mg total) by mouth 2 (two) times a day 60 capsule 3 025 Active pregabalin (LYRICA) 75 mg capsuleIndication s:peripheral neuropathy Take 1 capsule (75 mg total) by mouth 2 (two) times a day 60 capsule 025 2024 Discontinued nitrofurantoin monohydrate (MACROBID) 100 mg capsule Take 1 capsule (100 mg total) by mouth 2 (two) times a day for 7 days 14 capsule 025 2024 pregabalin (LYRICA) 75 mg capsule TAKE 1 CAPSULE(75 MG) BY MOUTH TWICE DAILY 60 capsule 3 025 2024 Discontinued(R eorder) pregabalin (LYRICA) 75 mg capsuleIndication s:chemotherapy asscociated peripheral neuropathy Take 1 capsule (75 mg total) by mouth 2 (two) times a day 60 capsule 3 025 2024 Discontinued(R eorder) Active Problems Problem Noted Date Diagnosed Date Malignant neoplasm of left ovary 09/26/2024 Assessment & Plan (09/26/2024 3:43 PM MARKET SURVEY REPRESENTATIVE): S/p resection Following hem/onc, appreciate recommendations Class 2 severe obesity due t o excess calories with serious comorbidity and body mass index (BMI) of 37.0 to 37.9 in adult 07/14/2023 Assessment & Plan (07/14/2023 12:32 PM CDT): Will look into resources for wegovy Chronic diastolic congestive heart failure 07/11 Assessment & Plan (09/26/2024 3:41 PM MARKET SURVEY REPRESENTATIVE): Chronic stable Well controlled Continue current prescribed medications losartan metorpolol at current dose Follows cardiology Assessment & Plan (10/16/2022 4:07 PM MARKET SURVEY REPRESENTATIVE): Chronic stable Well controlled Continue current medications at current dose Precordial pain 05/12/2022 Restless legs 05/01/2022 Benign neoplasm 02/03/2022 Other primary thrombocytopenia 01/22/2022 Assessment & Plan (09/26/2024 3:41 PM MARKET SURVEY REPRESENTATIVE): Monitor levels Pacemaker 03/04/2019 Overview (03/04/2019): Medtronic [...] xarelto Assessment & Plan (09/26/2024 3:42 PM MARKET SURVEY REPRESENTATIVE): Follows cardiology Paul lopezporarti,dilta and xarelto Assessment & Plan (12/11/2021 7:24 PM MARKET SURVEY REPRESENTATIVE): On xarelto Referral requested for cards- placed [...] [id number] Assessment & Plan (09/26/2024 3:42 PM MARKET SURVEY REPRESENTATIVE): Follows cardiology Continue dilt and metoprolol Assessment & Plan (12/11/2021 7:24 PM MARKET SURVEY REPRESENTATIVE): S/p ppm History of CVA (cerebrovascular accident) 2014 Overview (01/23/2017): Stroke Assessment & Plan (09/26/2024 3:41 PM MARKET SURVEY REPRESENTATIVE): Continue lipitor and aspirin Assessment & Plan (12/11/2021 7:26 PM MARKET SURVEY REPRESENTATIVE): Is on statin Needs lipids checked Assessment & Plan (02/18/2019 1:16 PM CDT): Recent right MCA infarct, 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 She is unsure of the dx but thinks in the '70s was told this Ordering RA labs, exam is unremarkable for signs of RA Preventative health care Assessment & Plan (09/26/2024 3:41 PM MARKET SURVEY REPRESENTATIVE): Reviewed previous labs and diagnostic test results. [...] and establishing or updating healthcare power of assistant county attorney document and providing our office with a copy. Assessment & Plan (10/16/2022 4:07 PM MARKET SURVEY REPRESENTATIVE): Discussed vaccines Labs will get drawn in January Will come back for a weight check Assessment & Plan (12/11/2021 7:27 PM MARKET SURVEY REPRESENTATIVE): Recommend shingrix Recommend flu shot utd on [...] 10/16/2022 Assessment & Plan (10/16/2022 4:07 PM MARKET SURVEY REPRESENTATIVE): Wants to start wegovy, understands supply issue, [...] had a recent CVA. Acute ischemic stroke ([facility]) 01/18/2019 10/16/2022 Overview (01/18/2019): Right parietal area Sprain of ligaments of cervical spine 01/22/2017 10/16/2022 Dysphonia 05/25/2015 10/16/2022 Vocal cord atrophy 05/25/2015 Throat clearing 05/17/2015 10/16/2022 Lumbar pain 04/17/2009 09/26/2024 Right ankle swelling 022 Assessment & Plan (12/11/2021 7:27 PM MARKET SURVEY REPRESENTATIVE): Likely dependent, recommend compression stockings Podiatry referral placed as pt requested BMI 39.0-39.9,adult 10/16/20 22 Assessment & Plan (12/11/2021 7:28 PM MARKET SURVEY REPRESENTATIVE): Diet and excercise Immunizations Immunization Administration Dates [...] on file Legal Sex Female 2:56 AM MARKET SURVEY REPRESENTATIVE Gender Identity Female 03/07/2021 1:17 PM CDT Sexual Orientation Straight 03/07/2021 1: 17 PM CDT 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 Not on file Not on file Not on file Last Filed Vital Signs Vital Sign Reading Time Taken Comments Blood Pressure 153/81 12/16/2024 8:00 AM MARKET SURVEY REPRESENTATIVE Pulse 86 12/16/2024 8:00 AM MARKET SURVEY REPRESENTATIVE Temperature 36.4 C (97.6 F) 12/16/2024 8:00 AM MARKET SURVEY REPRESENTATIVE Respiratory Rate 20 12/16/2024 8:00 AM MARKET SURVEY REPRESENTATIVE Oxygen Saturation 97% 12/16/2024 8:00 AM MARKET SURVEY REPRESENTATIVE Inhaled Oxygen Concentration - - Weight 107.3 kg (236 lb 8 oz) 12/16/2024 8:00 AM MARKET SURVEY REPRESENTATIVE Height 165.1 cm (5' 5 ) 11/25/2024 8:22 AM MARKET SURVEY REPRESENTATIVE Body Mass Index 39.36 11/25/2024 8:22 AM MARKET SURVEY REPRESENTATIVE Plan of Treatment Not on file Medical Devices Implanted Type Area Animal Rehabilitator Device Identifier Shelf Expiration Date Model / Serial / Lot [employer] [id number] System 6-12fr Mvp Venous Closure Vascade - [id number] - [id number] Implanted:Qty: 1 on 08/02/2021 by Abdiel Gibbons MD at [facility] Collagen [employer] 05/20/2023 800-612C- 10U / [id number] / [id number] [employer] [id number] System 6-12fr Mvp Venous Closure Vascade - [id number] - [id number] Implanted:Qty: 1 on 08/02/2021 by Abdiel Gibbons MD at [facility] Collagen [employer] 05/20/2023 800-612C- 10U / [id number] [id number] / [id number] [employer] [id number] Vascade 6/7fr Bioabsorbable Vascular System Compression Collagen - [id number] - [id number] Implanted:Qty: 1 on 08/02/2021 by Abdiel Gibbons MD at [facility] Collagen [employer] 05/20/2023 700-580I- 05U / [id number] / [id number] [employer] [id number] System 6-12fr Mvp Venous Closure Vascade - [id number] - [id number] Implanted:Qty: 1 on 08/02/2021 by Abdiel Gibbons MD at [facility] Collagen [employer] 04/17/2023 800-612C- 10U / [id number] [id number] / [id number] Medtronic Cardiac Rhythm Mgmt 5076-52 Capsurefix Novus 6.2fr 2mm 52cm Bipolar Screw In Implantable Latex Free - [id number] - [id number] Implanted:Qty: 1 on 03/04/2019 by Abdiel Gibbons MD at [facility] Lead Medtronic Cardiac Rhythm Mgmt [id number] 01/07/2021 5076-52 / [id number] / Medtronic Cardiac Rhythm Mgmt 5076-45 Capsurefix Novus Od6.2 Fr; Odsec2 Mm L45 Cm Bipolar; Screw In; Im - [id number] - [id number] Implanted:Qty: 1 on 03/04/2019 by Abdiel Gibbons MD at [facility] Lead Medtronic Cardiac Rhythm Mgmt [id number] 01/11/2021 5076-45 / [id number] / Medtronic Cardiac Rhythm Mgmt [id number] [place] S Mri Surescan 50.8x46.6mm 2 Chamber 7.4mm Pacemaker 22.5gm - [id number] - [id number] Implanted:Qty: 1 on 03/04/2019 by Abdiel Gibbons MD at [facility] Pacemaker Medtronic Cardiac Rhythm Mgmt [id number] 07/02/2020 W3DR01 / [id number] / [employer] Xcela Power Port 8fr [id number] - [id number] Implanted:Qty: 1 on 10/07/2024 at [facility] Ang[employer] 04/03/2029 [id number] / / [id number] Explanted Type Area Animal Rehabilitator Device Identifier Shelf Expiration Date Model / Serial / Lot Medtronic Cardiac Rhythm Mgmt Linqsys Reveal Linq Mycarelink Insertable Loop Recorder Automatic - [id number] - [id number] Implanted:Qty : 1 on 01/18/2019 at [facility] Explanted:Qty : 1 on 03/04/2019 at [facility] Implantable Loop Recorder Left: Chest Wall Medtronic Cardiac Rhythm Mgmt [id number] 11/15/2019 LINQSYS / [id number] / Procedures Procedure Name Priority Date/Time Associated Diagnosis Comments SCAN - RADIOLOGY/IMAGING 12/22/2024 SCAN - PATHOLOGY 12/14/2024 4:26 PM MARKET SURVEY REPRESENTATIVE EGFR Routine 12/13/2024 2:22 PM MARKET SURVEY REPRESENTATIVE Malignant neoplasm of left ovary (HCC) DIFFERENTIAL AUTO Routine 12/13/2024 2:2 2 PM MARKET SURVEY REPRESENTATIVE Malignant neoplasm of left ovary (HCC) CA 125 Routine 12/13/2024 2:22 PM MARKET SURVEY REPRESENTATIVE Malignant neoplasm of left ovary (HCC) MAGNESIUM Routine 12/13/2024 2:22 PM MARKET SURVEY REPRESENTATIVE Malignant neoplasm of left ovary (HCC) COMPREHENSIVE METABOLIC PANEL Routine 12/13/2024 2:22 PM MARKET SURVEY REPRESENTATIVE Malignant neoplasm of left ovary (HCC) CBC WITH AUTO DIFFERENTIAL Routine 12/13/2024 2:22 PM MARKET SURVEY REPRESENTATIVE Malignant neoplasm of left ovary (HCC) URINALYSIS, MICROSCOPIC ONLY STAT 12/07/2024 1:08 PM MARKET SURVEY REPRESENTATIVE Ovarian cancer, bilateral (HCC) Dysuria URINALYSIS AND REFLEX TO MICROSCOPIC AND CULTURE STAT 12/07/2024 1:08 PM MARKET SURVEY REPRESENTATIVE Ovarian cancer, bilateral (HCC) Dysuria DEVICE CHECK - REMOTE Routine 12/04/2024 12:45 PM MARKET SURVEY REPRESENTATIVE SSS (sick sinus syndrome) (HCC) [facility] CANCER SEEK + ADDITIONAL TESTS Routine 11/25/2024 8:28 AM MARKET SURVEY REPRESENTATIVE Ovarian cancer, bilateral (HCC) Encounter for antineoplastic chemotherapy CA 125 Routine 11/18/2024 7:46 AM MARKET SURVEY REPRESENTATIVE Malignant neoplasm of left ovary (HCC) MAGNESIUM Routine 11/18/2024 7:46 AM MARKET SURVEY REPRESENTATIVE Malignant neoplasm of left ovary (HCC) COMPREHENSIVE METABOLIC PANEL Routine 11/18/2024 7:46 AM MARKET SURVEY REPRESENTATIVE Malignant neoplasm of left ovary (HCC) CBC WITH AUTO DIFFERENTIAL Routine 11/18/2024 7:46 AM MARKET SURVEY REPRESENTATIVE Malignant neoplasm of left ovary (HCC) US VEIN DUPLEX LOWER EXTREMITY BILATERAL COMPLETE Schedule NINFA, Read NINFA (Appt Today, Awaiting Results) 11/04/2024 2:15 PM MARKET SURVEY REPRESENTATIVE Leg pain, bilateral CT LUMBAR SPINE WO CONTRAST ED 11/04/2024 12:51 AM MARKET SURVEY REPRESENTATIVE D-DIMER, QUANTITATIVE Add-On 11/04/2024 12:24 AM MARKET SURVEY REPRESENTATIVE EGFR STAT 11/03/2024 11:25 PM MARKET SURVEY REPRESENTATIVE DIFFERENTIAL AUTO STAT 11/03/2024 11:25 PM MARKET SURVEY REPRESENTATIVE COMPREHENSIVE METABOLIC PANEL STAT 11/03/2024 11:25 PM MARKET SURVEY REPRESENTATIVE CBC WITH AUTO DIFFERENTIAL STAT 11/03/2024 11:25 PM MARKET SURVEY REPRESENTATIVE EGFR Routine 11/01/2024 6:48 AM MARKET SURVEY REPRESENTATIVE Malignant neoplasm of left ovary (HCC) DIFFERENTIAL AUTO Routine 11/01/2024 6:4 8 AM MARKET SURVEY REPRESENTATIVE Malignant neoplasm of left ovary (HCC) CBC WITH AUTO DIFFERENTIAL Routine 11/01/2024 6:48 AM MARKET SURVEY REPRESENTATIVE Malignant neoplasm of left ovary (HCC) COMPREHENSIVE METABOLIC PANEL Routine 11/01/2024 6:48 AM MARKET SURVEY REPRESENTATIVE Malignant neoplasm of left ovary (HCC) MAGNESIUM Routine 11/01/2024 6:48 AM MARKET SURVEY REPRESENTATIVE Malignant neoplasm of left ovary (HCC) CA 125 Routine 11/01/2024 6:48 AM MARKET SURVEY REPRESENTATIVE Malignant neoplasm of left ovary (HCC) PORT PLACEMENT CHEST >5 YEARS Schedule Routine, Read Routine (OP Routine) 10/07/2024 9:08 AM MARKET SURVEY REPRESENTATIVE Ovarian cancer, bilateral (HCC) SCREENING MAMMOGRAM BILATERAL W ALPHONSO Schedule Routine, Read Routine (OP Routine) 07/15/2024 4:19 PM CDT Screening mammogram, encounter for HEPATITIS C ANTIBODY Routine 01/18/2022 9:34 AM CDT Preventative health care from Last 3 Months or Most Recently Relevant to Health Maintenance Results * SCAN - RADIOLOGY/IMAGING (12/22/2024) Anatomical Region Laterality Modality Other Provider Scanning Final Result * SCAN - PATHOLOGY (12/14/2024 4:26 PM MARKET SURVEY REPRESENTATIVE) Patti Preston MD Final R esult * eGFR (12/13/2024 2:22 PM MARKET SURVEY REPRESENTATIVE) eGFR >90 >=60 mL/min/1. 73 m2 Comment: [...] last reviewed 2021. Blood 12/13/2024 2:22 PM MARKET SURVEY REPRESENTATIVE 12/13/2024 9:24 PM MARKET SURVEY REPRESENTATIVE Patti Preston MD LAB BLOOD ORDERABLES Fi nal Result VIKRAM [address] Department [place] [address] * Differential, auto (12/13/2024 2:22 PM MARKET SURVEY REPRESENTATIVE) Neutrophil abs 3.5 1.5 - 6.5 K/cumm Imm gran abs 0.1 0.0 - 0.1 K/cumm [facility] Lymphocyte abs 2.1 0.8 - 3.3 K/cumm [facility] Monocyte abs 0.4 0.2 - 0.8 K/cumm [facility] Eosinophil abs 0.2 0.0 - 0.5 K/cumm [facility] Basophil abs 0.0 0.0 - 0.1 K/cumm [facility] Neutrophil pct 55.7 % [facility] Comment: Interpretive Data Percent cell count reference ranges are not reported, since discordance with absolute values may lead to misinterpretation of CBC data. Current Interpretive Data was last revised on 2018. Imm gran pct 0.8 % [facility] [place] Comment: Interpretive Data Percent cell count reference ranges are not reported, since discordance with absolute values may lead to misinterpretation of CBC data. Current Interpretive Data was last revised on 2018. Lymphocyte pct 33.5 % [facility] Comment: Interpretive Data Percent cell count reference ranges are not reported, since discordance with absolute values may lead to misinterpretation of CBC data. Current Interpretive Data was last revised on 2018. Monocyte pct 6.1 % [facility] Comment: Interpretive Data Percent cell count reference ranges are not reported, since discordance with absolute values may lead to misinterpretation of CBC data. Current Interpretive Data was last revised on 2018. Eosinophil pct 3.7 % [facility] Comment: Interpretive Data Percent cell count reference ranges are not reported, since discordance with absolute values may lead to misinterpretation of CBC data. Current Interpretive Data was last revised on 2018. Basophil pct 0.2 % [facility] Comment: Interpretive Data Percent cell count reference ranges are not reported, since discordance with absolute values may lead to misinterpretation of CBC data. Current Interpretive Data was last revised on 2018. Blood 12/13/2024 2:22 PM MARKET SURVEY REPRESENTATIVE 12/13/2024 9:15 PM MARKET SURVEY REPRESENTATIVE us Patti Preston MD LAB BLOOD ORDERABLES Fi nal Result VIKRAM [id number] [place] [place] [address] * (ABNORMAL) CBC with auto differential (12/13/2024 2:22 PM MARKET SURVEY REPRESENTATIVE) [facility] WBC 6.2 3.8 - 9.9 K/cumm Hgb 9.2(L) 11.9 - 15.5 g/dL [facility] Hct 30.4(L) 35.6 - 45.5 % [facility] Plt 135(L) 150 - 400 K/cumm [facility] MPV 9.3 9.1 - 12.3 fL [facility] RBC 3.29(L) 3.90 - 5.20 M/cumm [facility] MCV 92.4 81.3 - 96.4 fL [facility] MCH 28.0 27.1 - 33.3 pg [facility] MCHC 30.3(L) 32.3 - 35.7 g/dL [facility] RDW CV 15.8(H) 11.1 - 14.9 % [facility] RDW SD 51.6(H) 35.7 - 48.1 fL [facility] NRBC abs 0.00 0.00 - 0.01 K/cumm [facility] Blood 12/13/2024 2:22 PM MARKET SURVEY REPRESENTATIVE 12/13/2024 9:15 PM MARKET SURVEY REPRESENTATIVE Patti Preston MD LAB BLOOD ORDERABLES Fi nal Result [facility] [address] Department [place] [address] * CA 125 (12/13/2024 2:22 PM MARKET SURVEY REPRESENTATIVE) [facility] CA 125 ag 8.0 1.0 - 35.0 units/mL Comment: Interpretive Data The [employer] CA 125 assay procedure was used. Results from different manufacturers or methods may not be comparable. Serial testing should be performed using the same method. Blood 12/13/2024 2:22 PM MARKET SURVEY REPRESENTATIVE 12/13/2024 9:15 PM MARKET SURVEY REPRESENTATIVE Patti Preston MD LAB BLOOD ORDERABLES Fi nal Result VIKRAM OSMAN [address] Department [place] [place] [address] * (ABNORMAL) Magnesium (12/13/2024 2:22 PM MARKET SURVEY REPRESENTATIVE) Magnesium 1.3(L) 1.4 - 2.5 mg/dL Blood 12/13/2024 2:22 PM MARKET SURVEY REPRESENTATIVE 12/13/2024 9:15 PM MARKET SURVEY REPRESENTATIVE us Patti Preston MD LAB BLOOD ORDERABLES Fi nal Result Performing Organization Address City/[facility] Co de Phone Number VIKRAM OSMAN [address] Department [place] [place] [address] * Comprehensive metabolic panel (12/13/2024 2:22 PM MARKET SURVEY REPRESENTATIVE) Sodium 143 135 - 145 mmol/L Potassium, pl 3.7 3.3 - 4.9 mmol/L [facility] Chloride 105 97 - 110 mmol/L [facility] CO2 24 22 - 32 mmol/L [facility] Anion gap 14 2 - 15 mmol/L [facility] BUN 11 6 - 25 mg/dL [facility] [place] Creatinine 0.72 0.60 - 1.10 mg/dL [facility] Glucose 123 70 - 199 mg/dL [facility] Comment: Interpretive Data Fasting glucose >/= 126 [...] Units/L [facility] Blood 12/13/2024 2:22 PM MARKET SURVEY REPRESENTATIVE 12/13/2024 9:15 PM MARKET SURVEY REPRESENTATIVE Patti Preston MD LAB BLOOD ORDERABLES Fi nal Result Performing Organization Address City/[facility]/ZIP Co de Phone Number [facility] [address] Department [place] [address] * (ABNORMAL) Urinalysis reflex to microscopic and culture Urine, bladder (12/07/2024 1:08 PM MARKET SURVEY REPRESENTATIVE) Color, ur Yellow Yellow Clarity, ur Clear [...] tendency for uric acid stone formation. Source: [facility] Current Interpretive Data was last revised on [...] CH Urine, bladder 12/07/2024 1: 08 PM MARKET SURVEY REPRESENTATIVE 12/07/2024 9:56 PM MARKET SURVEY REPRESENTATIVE Patti Preston MD LAB MICROBIOLOGY - GENE RAL ORDERABLES Final Result [facility] [address] Department [place] [address] * (ABNORMAL) Urinalysis, microscopic only (12/07/2024 1:08 PM MARKET SURVEY REPRESENTATIVE) WBC, ur 0-5 0 - 5 /HPF RBC, ur 3-5(A) 0 - 2 /HPF [facility] Mucous, ur Present(A) [facility] Culture Reflex Comment Reflex conditions for urine culture (WBC >10) not met. [facility] Urine, bladder 12/07/2024 1: 08 PM MARKET SURVEY REPRESENTATIVE 12/07/2024 9:56 PM MARKET SURVEY REPRESENTATIVE Patti Preston MD LAB URINE ORDERABLES Fi nal Result Performing Organization Address City/State/[facility] Co de Phone Number VIKRAM [address] [address] Department [place] [address] * DEVICE CHECK - REMOTE (12/04/2024 12:45 PM MARKET SURVEY REPRESENTATIVE) Anatomical Region Laterality Modality Other Narrative 12/07/2024 12:10 PM MARKET SURVEY REPRESENTATIVE Table formatting from the original result was [...] to JUANITA Episodes last 90 days/Comments: AF Faison 0 % Fourteen ventricular episodes 1 episode [...] SERVICES PRO CEDURES Final Result * [facility] [place] [facility]??? + Additional Tests (11/25/2024 8:28 AM MARKET SURVEY REPRESENTATIVE) CARIS PD-L1 (22C3) Negative 2024 12:23 PM [facility] [employer] CARIS Genomic Loss of Heterozygosity - [place] Low 9% 12/14/2024 12:23 PM [facility] [employer] CARIS Microsatellite Instability - [place] Stable 12/14/2024 12:23 PM MARKET SURVEY REPRESENTATIVE [employer] CARIS Tumor Mutational Faison - [place] Low 2 per Mb 12/14/2024 12:23 PM MARKET SURVEY REPRESENTATIVE [employer] CARIS Estrogen Receptor Negative 12/14/2024 12:23 PM MARKET SURVEY REPRESENTATIVE [employer] CARIS Her2/Pricila Negative 12/14/2024 12:23 PM MARKET SURVEY REPRESENTATIVE [employer] CARIS Progesterone Receptor Negative 12/14/2024 12:23 PM MARKET SURVEY REPRESENTATIVE [employer] CARIS HLA-A - [place] -,A*02:01 12/14/2024 12:23 PM MARKET SURVEY REPRESENTATIVE [employer] CARIS HLA-B - [place] -,B*07:02 12/14/2024 12:23 PM MARKET SURVEY REPRESENTATIVE [employer] CARIS HLA-C - [place] -,C*07:02 12/14/2024 12:23 PM MARKET SURVEY REPRESENTATIVE [employer] CARIS FOLR1 - [place] Positive 12/14/2024 12:23 PM MARKET SURVEY REPRESENTATIVE [employer] CARIS HRD- [place] Negative 12/14/19 12:23 PM MARKET SURVEY REPRESENTATIVE [employer] Tissue 11/25/2024 8:28 AM MARKET SURVEY REPRESENTATIVE 12/01/2024 5:49 PM MARKET SURVEY REPRESENTATIVE Narrative This result has genomic variants that were not included in this document. Patti Preston MD LAB GENETIC TESTING Fin al Result [facility] [employer] [id number], [facility] [phone] * (ABNORMAL) CBC with auto differential (11/18/2024 7:46 AM MARKET SURVEY REPRESENTATIVE) Pathologist [facility] WBC 7.1 3.8 - 10.8 Thousand/u L [...] [facility] Blood 11/18/2024 7:46 AM MARKET SURVEY REPRESENTATIVE 11/18/2024 7:47 AM MARKET SURVEY REPRESENTATIVE Patti Preston MD LAB BLOOD ORDERABLES Fi nal Result Performing Organization Address City/[facility]/ZIP Co de Phone Number [facility] [address] [place] [address] * CA 125 (11/18/2024 7:46 AM MARKET SURVEY REPRESENTATIVE) CA 125 ag 9 <35 U/mL [facility] Comment: This test was performed using the Siemens Chemiluminescent method. Values obtained from different assay methods cannot be used interchangeably. CA 125 levels, regardless of value, should not be interpreted as absolute evidence of the presence or absence of disease. Blood 11/18/2024 7:46 AM MARKET SURVEY REPRESENTATIVE 11/18/2024 7:47 AM MARKET SURVEY REPRESENTATIVE Patti Preston MD LAB BLOOD ORDERABLES Fi nal Result Performing Organization Address City/[facility] Co de Phone Number [facility] [address] [place] [address] * Magnesium (11/18/2024 7:46 AM MARKET SURVEY REPRESENTATIVE) Magnesium 1.5 1.5 - 2.5 mg/dL [facility] Blood 11/18/2024 7:46 AM MARKET SURVEY REPRESENTATIVE 11/18/2024 7:47 AM MARKET SURVEY REPRESENTATIVE Patti Preston MD LAB BLOOD ORDERABLES Fi nal Result Performing Organization Address City/[facility] Co de Phone Number [facility] [address] [place] [address] * (ABNORMAL) Comprehensive metabolic panel (11/18/2024 7:46 AM MARKET SURVEY REPRESENTATIVE) Glucose 121(H) 65 - 99 mg/dL [facility] Comment: Fasting reference interval For someone without known diabetes, a glucose value between 100 and 125 mg/dL is consistent with prediabetes and should be confirmed with a follow-up test. BUN 11 7 - 25 mg/dL [facility] Creatinine 0.58 0.50 - 1.05 mg/dL [facility] eGFR 100 > OR = 60 mL/min/1.7 3m2 [facility] BUN/creat ratio SEE NOTE: 6 - 22 (calc) [facility] Comment: Not Reported: BUN and Creatinine are within reference range. Sodium 141 135 - 146 mmol/L [facility] Potassium, pl 3.9 3.5 - 5.3 mmol/L [facility] Chloride 105 98 - 110 mmol/L [facility] CO2 27 20 - 32 mmol/L [facility] Calcium 8.6 8.6 - 10.4 mg/dL [facility] Protein, sr 6.0(L) 6.1 - 8.1 g/dL [facility] Albumin 3.7 3.6 - 5.1 g/dL [facility] GLOBULIN 2.3 1.9 - 3.7 g/dL (calc) [facility] Alb/glob ratio 1.6 1.0 - 2.5 (calc) [facility] Bilirubin, total 0.2 0.2 - 1.2 mg/dL [facility] Alk phos 67 37 - 153 U/L [facility] AST 16 10 - 35 U/L [facility] ALT (SGPT) 21 6 - 29 U/L [facility]go[facility] Blood 11/18/2024 7:46 AM MARKET SURVEY REPRESENTATIVE 11/18/2024 7:47 AM MARKET SURVEY REPRESENTATIVE us Patti Preston MD LAB BLOOD ORDERABLES Fi nal Result K[facility]ILA [facility]ila [facility] [address] [place] [address] * US Vein Duplex Lower Extremity Bilateral Complete (11/04/2024 2:15 PM MARKET SURVEY REPRESENTATIVE) Anatomical Region Laterality Modality Vascular Bilateral Ultrasound 11/04/2024 Narrative 11/10/2024 7:09 AM MARKET SURVEY REPRESENTATIVE [employer] Job ID: [id number] [employer] Document ID: [id number] Dictated date/time: [id number] BILATERAL LOWER EXTREMITY VENOUS DUPLEX REASON FOR [...] bilateral lower extremity. Job ID/Internal Job ID: [id number] us Froylan Burton MD IMG US PROCEDURES Final Result * CT Lumbar Spine WO Contrast (11/04/2024 12:51 AM MARKET SURVEY REPRESENTATIVE) Anatomical Region Laterality Modality Spine N/A Computed Tomogra phy 11/04/2024 12:5 4 AM MARKET SURVEY REPRESENTATIVE Narrative 11/04/2024 12:59 AM MARKET SURVEY REPRESENTATIVE EXAM DESCRIPTION: CT LUMBAR SPINE WO CONTRAST [...] by Mane Méndez M.D. T: Report ID: [id number] Reading Location: [place] [address] Procedure Note Mane Méndez MD - 11/04/2024 [...] by Mane Méndez M.D. T: Report ID: [id number] Reading Location: [id number] us Froylan Burton MD [facility] [place] PROCEDURES Final Result * (ABNORMAL) D-dimer, quantitative (11/04/2024 12:24 AM MARKET SURVEY REPRESENTATIVE) D-Dimer 960(H) <=499 ng/mL FEU Comment: Interpretive [...] on 2019. Blood 11/04/2024 12:2 4 AM MARKET SURVEY REPRESENTATIVE 11/04/2024 12:26 AM MARKET SURVEY REPRESENTATIVE us Froylan Burton MD LAB BLOOD ORDERABLES Final Resul t [facility] [address] [facility] Department of Laboratories [place], [place] [id number] * eGFR (11/03/2024 11:25 PM MARKET SURVEY REPRESENTATIVE) eGFR 71 >=60 mL/min/1. 73 m2 Comment: [...] reviewed 2021. Blood 11/03/2024 11:2 5 PM MARKET SURVEY REPRESENTATIVE 11/03/2024 11:29 PM MARKET SURVEY REPRESENTATIVE Kati KINGSLEY LAB BLOOD ORDERABLES Final Result [facility] [address] [facility] Department [place] [address] * (ABNORMAL) Differential, auto (11/03/2024 11:25 PM MARKET SURVEY REPRESENTATIVE) Pathologist [facility] Neutrophil abs 3.5 1.5 - 6.5 K/cumm Imm gran abs 0.0 0.0 - 0.1 K/cumm [facility] Lymphocyte abs 2.3 0.8 - 3.3 K/cumm [facility] Monocyte abs 0.1(L) 0.2 - 0.8 K/cumm [facility] Eosinophil abs 0.0 0.0 - 0.5 K/cumm [facility] Basophil abs 0.0 0.0 - 0.1 K/cumm [facility] Neutrophil pct 59.1 % [facility] Comment: Interpretive Data Percent cell count reference ranges are not reported, since discordance with absolute values may lead to misinterpretation of CBC data. Current Interpretive Data was last revised on 2018. Imm gran pct 0.2 % [facility] Comment: Interpretive Data Percent cell count reference ranges are not reported, since discordance with absolute values may lead to misinterpretation of CBC data. Current Interpretive Data was last revised on 2018. Lymphocyte pct 37.8 % [facility] Comment: Interpretive Data Percent cell count reference ranges are not reported, since discordance with absolute values may lead to misinterpretation of CBC data. Current Interpretive Data was last revised on 2018. Monocyte pct 2.2 % [facility] Comment: Interpretive Data Percent cell count reference ranges are not reported, since discordance with absolute values may lead to misinterpretation of CBC data. Current Interpretive Data was last revised on 2018. Eosinophil pct 0.5 % [facility] Comment: Interpretive Data Percent cell count reference ranges are not reported, since discordance with absolute values may lead to misinterpretation of CBC data. Current Interpretive Data was last revised on 2018. Basophil pct 0.2 % [facility] Comment: Interpretive Data Percent cell count reference ranges are not reported, since discordance with absolute values may lead to misinterpretation of CBC data. Current Interpretive Data was last revised on 2018. Blood 11/03/2024 11:2 5 PM MARKET SURVEY REPRESENTATIVE 11/03/2024 11:29 PM MARKET SURVEY REPRESENTATIVE Kati KINGSLEY LAB BLOOD ORDERABLES Final Result Performing Organization Address [facility] de Phone Number [address] [place] [address] * (ABNORMAL) CBC with auto differential (11/03/2024 11:25 PM MARKET SURVEY REPRESENTATIVE) Pathologist [facility] WBC 6.0 3.8 - 9.9 K/cumm Hgb 11.2(L) 11.9 - 15.5 g/dL [facility] Hct 33.6(L) 35.6 - 45.5 % [facility] Plt 260 150 - 400 K/cumm [facility] MPV 8.8(L) 9.1 - 12.3 fL [facility] RBC 4.08 3.90 - 5.20 M/cumm [facility] MCV 82.4 81.3 - 96.4 fL [facility] MCH 27.5 27.1 - 33.3 pg [facility] MCHC 33.3 32.3 - 35.7 g/dL [facility] RDW CV 14.6 11.1 - 14.9 % [facility] RDW SD 42.8 35.7 - 48.1 fL [facility] NRBC abs 0.00 0.00 - 0.01 K/cumm [facility] Blood 11/03/2024 11:2 5 PM MARKET SURVEY REPRESENTATIVE 11/03/2024 11:29 PM MARKET SURVEY REPRESENTATIVE Kati KINGSLEY LAB BLOOD ORDERABLES Final Result Performing Organization Address [facility] de Phone Number [address] [place] [address] * Comprehensive metabolic panel (11/03/2024 11:25 PM MARKET SURVEY REPRESENTATIVE) Sodium 135 135 - 145 mmol/L Potassium, pl 3.4 3.3 - 4.9 mmol/L [facility] Chloride 99 97 - 110 mmol/L [facility] CO2 25 22 - 32 mmol/L [facility] Anion gap 11 2 - 15 mmol/L [facility] BUN 23 6 - 25 mg/dL [facility] Creatinine 0.90 0.60 - 1.10 mg/dL [facility] Glucose 114 70 - 199 mg/dL [facility] Comment: Interpretive Data Fasting glucose >/= [...] 2022. Calcium 9.2 8.5 - 10.3 mg/dL [facility] Bilirubin, total 0.6 0.1 - 1.2 mg/dL [facility] Protein, pl 7.0 6.5 - 8.5 g/dL [facility] Albumin 4.0 3.5 - 5.0 g/dL [facility] Alk phos 82 40 - 130 Units/L [facility] ALT 45 7 - 45 Units/L [facility] AST 31 10 - 45 Units/L [facility] Blood 11/03/2024 11:2 5 PM MARKET SURVEY REPRESENTATIVE 11/03/2024 11:29 PM MARKET SURVEY REPRESENTATIVE us Kati KINGSLEY LAB BLOOD ORDERABLES Final Result [facility] [address] [facility] Department of Laboratories [place], [place] [id number] * eGFR (11/01/2024 6:48 AM MARKET SURVEY REPRESENTATIVE) Pathologist [facility] eGFR 87 >=60 mL/min/1. 73 m2 Comment: [...] last reviewed 2021. Blood 11/01/2024 6:48 AM MARKET SURVEY REPRESENTATIVE 11/01/2024 7:55 AM MARKET SURVEY REPRESENTATIVE Azael Garcia MD LAB BLOOD ORDERABLES Final Result [facility] Department [place] [address] * Differential, auto (11/01/2024 6:48 AM MARKET SURVEY REPRESENTATIVE) Neutrophil abs 2.1 1.5 - 6.5 K/cumm Imm gran abs 0.0 0.0 - 0.1 K/cumm [facility] Lymphocyte abs 1.6 0.8 - 3.3 K/cumm [facility] Monocyte abs 0.5 0.2 - 0.8 K/cumm [facility] Eosinophil abs 0.2 0.0 - 0.5 K/cumm [facility] Basophil abs 0.0 0.0 - 0.1 K/cumm [facility] Neutrophil pct 46.8 % [facility] Comment: Interpretive Data Percent cell count reference ranges are not reported, since discordance with absolute values may lead to misinterpretation of CBC data. Current Interpretive Data was last revised on 2018. Imm gran pct 0.5 % [facility] Comment: Interpretive Data Percent cell count reference ranges are not reported, since discordance with absolute values may lead to misinterpretation of CBC data. Current Interpretive Data was last revised on 2018. Lymphocyte pct 37.0 % [facility] Comment: Interpretive Data Percent cell count reference ranges are not reported, since discordance with absolute values may lead to misinterpretation of CBC data. Current Interpretive Data was last revised on 2018. Monocyte pct 10.7 % [facility] Comment: Interpretive Data Percent cell count reference ranges are not reported, since discordance with absolute values may lead to misinterpretation of CBC data. Current Interpretive Data was last revised on 2018. Eosinophil pct 4.3 % [facility] Comment: Interpretive Data Percent cell count reference ranges are not reported, since discordance with absolute values may lead to misinterpretation of CBC data. Current Interpretive Data was last revised on 2018. Basophil pct 0.7 % [facility] Comment: Interpretive Data Percent cell count reference ranges are not reported, since discordance with absolute values may lead to misinterpretation of CBC data. Current Interpretive Data was last revised on 2018. Blood 11/01/2024 6:48 AM MARKET SURVEY REPRESENTATIVE 11/01/2024 7:06 AM MARKET SURVEY REPRESENTATIVE us Azael Garcia MD LAB BLOOD ORDERABLES Final Result [facility] Department [place] [address] * (ABNORMAL) CBC with auto differential (11/01/2024 6:48 AM MARKET SURVEY REPRESENTATIVE) WBC 4.4 3.8 - 9.9 K/cumm Hgb 10.3(L) 11.9 - 15.5 g/dL [facility] Hct 32.1(L) 35.6 - 45.5 % [facility] Plt 259 150 - 400 K/cumm [facility] MPV 8.8(L) 9.1 - 12.3 fL [facility] RBC 3.71(L) 3.90 - 5.20 M/cumm [facility] MCV 86.5 81.3 - 96.4 fL [facility] MCH 27.8 27.1 - 33.3 pg [facility] MCHC 32.1(L) 32.3 - 35.7 g/dL [facility] RDW CV 14.8 11.1 - 14.9 % [facility] RDW SD 46.3 35.7 - 48.1 fL [facility] NRBC abs 0.00 0.00 - 0.01 K/cumm [facility] Blood 11/01/2024 6:48 AM MARKET SURVEY REPRESENTATIVE 11/01/2024 7:06 AM MARKET SURVEY REPRESENTATIVE Azael Garcia MD LAB BLOOD ORDERABLES Final Result Performing Organization Address [facility] de Phone Number [facility] [place] [address] * CA 125 (11/01/2024 6:48 AM MARKET SURVEY REPRESENTATIVE) CA 125 ag 8.1 0.0 - 38.1 units/mL Comment: Interpretive Data [employer] CA 125 assay procedure was used. Results from different manufacturers or methods may not be comparable. Serial testing should be performed using the same method. Blood 11/01/2024 6:48 AM MARKET SURVEY REPRESENTATIVE 11/01/2024 7:06 AM MARKET SURVEY REPRESENTATIVE Azael Garcia MD LAB BLOOD ORDERABLES Final Result Performing Organization Address [facility] de Phone Number [facility] [facility] [place] [address] * Magnesium (11/01/2024 6:48 AM MARKET SURVEY REPRESENTATIVE) Magnesium 1.5 1.4 - 2.5 mg/dL Blood 11/01/2024 6:48 AM MARKET SURVEY REPRESENTATIVE 11/01/2024 7:06 AM MARKET SURVEY REPRESENTATIVE Azael Garcia MD LAB BLOOD ORDERABLES Final Result [facility] Department [place] [address] * Comprehensive metabolic panel (11/01/2024 6:48 AM MARKET SURVEY REPRESENTATIVE) Sodium 140 135 - 145 mmol/L Potassium, pl 3.7 3.3 - 4.9 mmol/L [facility] Chloride 105 97 - 110 mmol/L [facility] CO2 25 22 - 32 mmol/L [facility] Anion gap 10 2 - 15 mmol/L [facility] BUN 13 6 - 25 mg/dL [facility] Creatinine 0.76 0.60 - 1.10 mg/dL [facility] Glucose 90 70 - 199 mg/dL [facility] Comment: Interpretive Data Fasting glucose >/= [...] 2022. Calcium 8.8 8.5 - 10.3 mg/dL [facility] Bilirubin, total 0.3 0.1 - 1.2 mg/dL [facility] Protein, pl 6.8 6.5 - 8.5 g/dL [facility] Albumin 3.8 3.5 - 5.0 g/dL [facility] Alk phos 83 40 - 130 Units/L [facility] ALT 25 7 - 45 Units/L [facility] AST 21 10 - 45 Units/L [facility] Blood 11/01/2024 6:48 AM MARKET SURVEY REPRESENTATIVE 11/01/2024 7:06 AM MARKET SURVEY REPRESENTATIVE us Azael Garcia MD LAB BLOOD ORDERABLES Final Result [facility] [place] [address] * IR Port Placement Chest > 5 Years (10/07/2024 9:08 AM MARKET SURVEY REPRESENTATIVE) Anatomical Region Laterality Modality Chest N/A Radio Fluoroscop y 10/07/2024 10:3 1 AM MARKET SURVEY REPRESENTATIVE Impressions 10/07/2024 10:31 AM MARKET SURVEY REPRESENTATIVE Successful chest wall port placement. PLAN: The catheter is ready for immediate use. Please note that a power injectable port was placed. When treatment is completed, removal can be scheduled by calling [facility] - [phone] [facility] - [phone] Electronically signed by: Andreas Celestin PA-C Narrative 10/07/2024 10:31 AM MARKET SURVEY REPRESENTATIVE EXAMINATION: PORT PLACEMENT USING ULTRASOUND GUIDANCE (STD [...] was obtained. Prior to beginning the procedure, [place] Protocol was used to confirm the patient's [...] was obtained. Prior to beginning the procedure, [place] Protocol was used to confirm the patient's [...] completed, removal can be scheduled by calling [facility] - [phone] [facility] - [phone] Electronically signed by: Andreas Celestin PA-C us Azael Garcia MD IMG IR PROCEDURES Final Res ult * Screening Mammogram Bilateral W Alphonso (07/15/2024 [...] age 39, based on guidelines of the [place] [employer] (ACR Practice Parameter for the Performance of Screening and Diagnostic Mammography) and [place] [employer]. For women [...] - GENERAL CASSANDRA LOVE Final Result [facility] [address] [facility] Department [place] [address] from Last 3 Months or Most Recently Relevant to Health Maintenance [place] [address] [facility]ICARE [facility]IC[facility] Address: [facility] [address] [place] [address] FOR LIFE MEDICARE [facility] MEDICARE Address: [address] [address] [place] [address] [place] [address] FOR LIFE Advance Directives For more information, please contact: [phone] * Full Code (Latest Code Status on File) Date Activated Date Inactivated Comments 10/07/2024 7:34 AM 10/08/2024 5:09 AM * Full Code Date Activated Date Inactivated Comments 08/06/2021 7:32 AM 08/06/2021 1:54 PM * Full Code Date Activated Date Inactivated Comments 01/18/2019 9:07 AM 01/19/2019 8:13 PM * Full Code Date Activated Date Inactivated Comments 01/16/2019 2:40 PM 01/18/2019 9:07 AM Care Teams Certified Ophthalmic Medical Technician Relationship Specialty Start Date End Date Morteza Shah Jr., MD [address] [place] [id number] PCP - General Internal Medicine 08/01/22 Prasanth Falk MD Cardiology 01/19/19 Abdiel Gibbons MD Consulting Physician Cardiology 01/19/19 Andreas Montoya DO [address] [place] [id number] Consulting Physician Gastroenterology 10/16/22
--- OUTSIDE RECORDS SUMMARY | 2024-12-30 13:47 | XMS_ITS | Continuity of Care Document ---
Author Organization [facility] Address [address] [place] [address] [place] [address] Phone Care Team Providers Care Feed Mill Manager Name Role Phone David Don MD Unavailable [...] OFFICE/OUTPAT IENT VISIT EST [facility], [address] [place] [address] [address], [place], [address], [place] tel:[phone] [facility] Status post total left knee replacement [address]. [address] , [place], [place], [address] . tel: [phone] [facility], [address] [facility] [address] [address], [place], [address], [place] tel:[phone] [facility] Status post total left knee replacementLeft knee pain 8 [address]. [address] , [place], [place], [address] . tel: [phone] OFFICE/OUTPAT IENT VISIT EST [facility], [address] [address], [place], [address], [place] tel:[phone] [facility] Status post total left knee replacement 8 [address] Nu[address]ez. [address], [id number] . tel: [phone] OFFICE/OUTPAT IENT VISIT EST [facility], [address] [facility] [address] [address], [place], [address], [place] tel:[phone] [facility] Status post total left knee replacementBody mass index (BMI) 33.0-33.9, adult [address]. [address] , [place], [place], [id number] . tel: [phone] [facility], [address] [address], [place], [address], [place] tel:[phone] [facility] Status post total left knee replacementBody mass index (BMI) 33.0-33.9, adult 8 [address]. [address] [facility], [place], [place], [address] . tel: [phone] Referring Provider: Rolly Lugo, [address], [place], [address] . tel:[phone] [facility], [address] [facility], [place], [address], [place] tel:[phone] [facility] Body mass index (BMI) 33.0-33.9, adultStatus post total left knee replacement 4201 7 [facility]. [address] [facility], [place], [place], [address] . tel: [phone] OFFICE/OUTPAT IENT VISIT EST [facility], [address] [facility] [address] [address], [place], [address], [place] tel:[phone] [facility] Primary osteoarthritis of left knee 3[address]. [address] , [place], [place], [address] . tel: [phone] [facility], [address] [address], [place], [address], [place] tel:[phone] [facility] Primary osteoarthritis of left knee 7-201 7 [facility]. [address] [facility], [place], [place], [address] . tel: [phone] [facility], [address], [address], [place] tel:[phone] [facility] Primary osteoarthritis of left knee [address]. [address] , [place], [place], [address] . tel: [phone] OFFICE/OUTPAT IENT VISIT EST [facility], [address] [facility] [address] [address], [place], [address], [place] tel:[phone] [facility] Primary osteoarthritis of left knee 6 7 [address]. [address] , [place], [place], [address] . tel: [phone] OFFICE/OUTPAT IENT VISIT EST [facility], [address], [address], [place] tel:[phone] [facility] Body mass index (BMI) 33.0-33.9, adultPrimary osteoarthritis of left knee February-0 7 [address] Nu[address]ez. [address] [facility], [place], [place], [address] . tel: [phone] [facility], [address] [address], [place], [address], [place] tel:[phone] [facility] Primary osteoarthritis of left knee 6 [address]. [address] [facility], [place], [place], [address] . tel: [phone] [facility], [address] [address], [place], [address], [place] tel:[phone] [facility] Medial meniscus tear, left, subsequent encounterPrimary osteoarthritis of left knee 6 [address] David. [address] [facility] [address] , [place], [place], [address] . tel: [phone] OFFICE/OUTPAT IENT VISIT EST [facility], [address] [facility] [address] [address], [place], [address], [place] tel:[phone] [facility] Primary osteoarthritis of left knee 6 [address]. [address] , [place], [place], [address] . tel: [phone] [facility], [address] [address], [place], [address], [place] tel:[phone] [facility] Medial meniscus tear, left, subsequent encounter 0 6 [address]. [address] , [place], [place], [address] . tel: [phone] [facility], [address] [address], [place], [address], [place] tel:[phone] [facility] Primary osteoarthritis of left kneeMedial meniscus tear, left, subsequent encounter 9 6 [address]. [address] , [place], [place], [address] . tel: [phone] OFFICE CONSULTATION [facility], [address], [place], [address], [place] tel:[phone] [facility] Left knee pain (chief complaint) Tear of medial meniscus of left knee, initial encounterPrimary osteoarthritis of left knee 6 [address] Nu[address]ez. [address], [place], [place], [address] . tel:[phone] Referring Provider: Rolly Lugo, [address], [place], [address] . tel:[phone] Family History Family Member Type Diagnosis Age At Onset Father Problem (finding) rheumatoid arthritis Problem (finding) Family history of osteo arthritis Mother Problem (finding) congestive heart failur e Father Problem (finding) gout Payers Payer name Insurance type Covered alliance party ID Authoriza tion(s) No Information Social History [...] ordered Future Order: Lab Order Sed rate ([id number]), Ordered on: Ordered Future Order: Lab Order C-Reacti ve Protein, Quant ([id number]), Ordered on: Ordered History Of Present Illness [...]
--- OUTSIDE RECORDS SUMMARY | 2024-12-30 13:47 | XMS_ITS | Clinical Summary ---
Author Organization [facility] [address] Address [address] [place] [address] Phone Care Team Providers Care Pediatrics Hospitalist Name Role Phone Rolly Davis MD Primary Care Provider Unav ailable Allergies Active Allergy Reactions Criticality Noted Date Comments Adhesive Other (See Comments) Low 03/15/2021 Tape pulls skin off and causes bleeding at site Morphine Unknown 01/22/2017 [facility] Anaphylaxis High 04/16/2009 [facility] Sherbert- lips swelled up, eyes swelled up, [...] Encounters Date Type Department Care Team Description 12/24/2024 External Device Data [facility] Provider, Abstract 12/23/2024 External Device Data [facility] Provider, Abstract 12/20/2024 External Device Data [facility] Provider, [...] 07/08/2024, , 09/02/2022, Additional history exists Insurance [facility] Care Teams Pediatrics Hospitalist Relationship Specialty Start Date End Date Rolly Davis MD PCP - General Internal Medicine 01/22/17
--- OUTSIDE RECORDS SUMMARY | 2024-12-30 13:47 | XMS_ITS | Clinical Summary ---
Author Organization [facility] Address [address] [place] [address] Care Team Providers Care Broadcast News Producer Name Role Phone Prasanth Falk MD Unavailable [phone] Abdiel Gibbons MD Unavailable Pablo Lay MD, Morteza Goldman Primary Care Provide r Andreas Montoya DO Unavailable [phone] Allergies Active Allergy Reactions Criticality Noted Date Comments Adhesive Other (See comments) Low 03/15/2021 Tape pulls skin off and causes bleeding at site Morphine Other (See comments),Hallucinatio ns Medium 01/22/2017 Reaction: Unknown, , [place] Anaphylaxis High 04/16/2009 [place] Sherbert- lips swelled up, eyes swelled up, [...] 4 of each cycle. 20 tablet 3 Active prochlorperazine (Compazine) 10 mg tabletIndications :Malignant [...] as needed (nausea or vomiting) 30 tablet Active lidocaine-priloca ine creamIndications: Administration of Local Anesthesia Apply topically as needed for pain Apply 1 hour prior to IV access and cover. 30 g 1 Active diltiaZEM CD (Cardizem CD) 360 mg [...] with simethicone-diphe nhydramine-lidoca ine (MAGIC MOUTHWASH) suspension 4-6-9Bwtoiwkoevw: Chemotherapy-Ilana ramon Mucositis Swish and swallow 15 [...] 09/26/2024 Assessment & Plan (09/26/2024 3:43 PM AGITATOR OPERATOR): S/p resection Following hem/onc, appreciate recommendations Class 2 severe obesity due t o excess calories with serious comorbidity and body mass index (BMI) of 37.0 to 37.9 in adult 07/14/2023 Assessment & Plan (07/14/2023 12:32 PM CDT): Will look into resources for wegovy Chronic diastolic congestive heart failure 07/11 Assessment & Plan (09/26/2024 3:41 PM AGITATOR OPERATOR): Chronic stable Well controlled Continue current prescribed medications losartan metorpolol at current dose Follows cardiology Assessment & Plan (10/16/2022 4:07 PM AGITATOR OPERATOR): Chronic stable Well controlled Continue current medications at current dose Precordial pain 05/12/2022 Restless legs 05/01/2022 Benign neoplasm 02/03/2022 Other primary thrombocytopenia 01/22/2022 Assessment & Plan (09/26/2024 3:41 PM AGITATOR OPERATOR): Monitor levels Pacemaker 03/04/2019 Overview (03/04/2019): Medtronic DDD [place] MRI pacemaker implanted on 03/04/19 for SSS/Afib. [...] xarelto Assessment & Plan (09/26/2024 3:42 PM AGITATOR OPERATOR): Follows cardiology Cotn[place]ue metporlol,dilta and xarelto Assessment & Plan (12/11/2021 7:24 PM AGITATOR OPERATOR): On xarelto Referral requested for cards- placed [...] [id number] Assessment & Plan (09/26/2024 3:42 PM AGITATOR OPERATOR): Follows cardiology Continue dilt and metoprolol Assessment & Plan (12/11/2021 7:24 PM AGITATOR OPERATOR): S/p ppm History of CVA (cerebrovascular accident) 2014 Overview (01/23/2017): Stroke Assessment & Plan (09/26/2024 3:41 PM AGITATOR OPERATOR): Continue lipitor and aspirin Assessment & Plan (12/11/2021 7:26 PM AGITATOR OPERATOR): Is on statin Needs lipids checked Assessment & Plan (02/18/2019 1:16 PM CDT): Recent right MCA infarct, cardioembolic Myxoma 12/26/2014 Overview (12/11/2021): Left atrial myxoma- resected in 2012 Assessment & Plan (02/18/2019 1:16 PM CDT): History of left atrial myxoma resection in 2012 Primary hypertension Assessment & Plan (12/11/2021 7:24 PM AGITATOR OPERATOR): Controlled, cont losartan Rheumatoid arthritis involvi ng multiple sites with positive rheumatoid factor Assessment & Plan (09/26/2024 3:44 PM AGITATOR OPERATOR): Takes celebrax, well controlled Assessment & Plan (12/11/2021 7:25 PM AGITATOR OPERATOR): Never on mtx, celebrex prn. She is unsure of the dx but thinks in the '70s was told this Ordering RA labs, exam is unremarkable for signs of RA Preventative health care Assessment & Plan (09/26/2024 3:41 PM AGITATOR OPERATOR): Reviewed previous labs and diagnostic test results. [...] and establishing or updating healthcare power of tax attorney document and providing our office with a copy. Assessment & Plan (10/16/2022 4:07 PM AGITATOR OPERATOR): Discussed vaccines Labs will get drawn in January Will come back for a weight check Assessment & Plan (12/11/2021 7:27 PM AGITATOR OPERATOR): Recommend shingrix Recommend flu shot utd on [...] 10/16/2022 Assessment & Plan (10/16/2022 4:07 PM AGITATOR OPERATOR): Wants to start wegovy, understands supply issue, [...] 022 Assessment & Plan (12/11/2021 7:27 PM AGITATOR OPERATOR): Likely dependent, recommend compression stockings Podiatry referral placed as pt requested BMI 39.0-39.9,adult 10/16/20 22 Assessment & Plan (12/11/2021 7:28 PM AGITATOR OPERATOR): Diet and excercise Encounters Date Type Department Care Team Description 12/22/2024 Orders Only [facility] [place] Management [address] [place] [address] Scanning, Provider 12/18/2024 Orders Only [facility] Obstetrics and Gynecology [address] [facility] 13th [place] [address] [place] [address] Liam Nathan MD PhD 12/16/2024 9:00 AM AGITATOR OPERATOR Infusion [facility] Gynecologic Oncology [facility] [address] [place] [address] Malignant neoplasm of left ovary (HCC) (Primary Dx) 12/16/2024 8:10 AM AGITATOR OPERATOR Office Visit [facility] Obstetrics and Gynecology [address] [facility] 13th [place] [address] Patti Preston MD Encounter for antineoplastic chemotherapy (Primary Dx); Ovarian cancer, bilateral (HCC); Peri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; Malignant neoplasm of left ovary (HCC) 12/15/2024 Orders Only [facility] Obstetrics and Gynecology [address] [facility] 13th [place] [address] Jeanna Garcia RN Malignant neoplasm of left ovary (HCC) (Primary Dx) 12/14/2024 Orders Only [facility] ONCOLOGY Patti Preston MD 12/13/2024 2:22 PM AGITATOR OPERATOR - 12/13/2024 11:59 PM AGITATOR OPERATOR Hospital Encounter [address] [address] Malignant neoplasm of left ovary (HCC) Discharge Disposition: Discharge to home or self care 12/13/2024 8:15 AM AGITATOR OPERATOR Lab [facility] Outpatient Lab at [address] [phone] 12/08/2024 Telephone [facility] Obstetrics and Gynecology [address] [place] [address] Medicine 13th [place] [address] Jeanna Garcia RN 12/07/2024 1:15 PM AGITATOR OPERATOR Lab [facility] Outpatient Lab at [address] [address] 12/07/2024 1:08 PM AGITATOR OPERATOR - 12/07/2024 11:59 PM AGITATOR OPERATOR Hospital Encounter [address] [address] Ovarian cancer, bilateral (HCC); Dysuria Discharge Disposition: Discharge to home or self care 12/07/2024 Orders Only [facility] Obstetrics and Gynecology [facility] Medicine 13th [place] [address] Jeanna Garcia RN Ovarian cancer, bilateral (HCC) (Primary Dx); Dysuria 12/04/2024 9:00 AM AGITATOR OPERATOR Ancillary Procedure [facility] [address] [facility] [address], [place] [address] Pacemaker (Primary Dx); SSS (sick sinus syndrome) (HCC) 11/30/2024 Treatment [facility] Obstetrics and Gynecology [address] [place] [address] 13th [place] [address] Patti Preston MD 11/28/2024 Telephone [facility] Obstetrics and Gynecology [address] [place], [place] [address]th [place] [address] Jeanna Garcia RN 11/25/2024 9:30 AM AGITATOR OPERATOR Infusion [facility] Gynecologic Oncology [facility] ([facility]) [address] [place] [address] Malignant neoplasm of left ovary (HCC) (Primary Dx) 11/25/2024 8:20 AM AGITATOR OPERATOR Office Visit [facility] Obstetrics and Gynecology [address] [place] [address] [place] [address] Patti Preston MD Encounter for antineoplastic chemotherapy (Primary Dx); Ovarian cancer, bilateral (HCC); Malignant neoplasm of left ovary (HCC) 11/25/2024 Documentation [facility] Obstetrics and Gynecology [address] [place] [address] [place] [address] Jeanna Garcia RN 11/25/2024 Orders Only [facility] Obstetrics and Gynecology [address] [place] [address] [place] [address] Jeanna Garcia RN Ovarian cancer, bilateral (HCC) (Primary Dx); Encounter for antineoplastic chemotherapy; Malignant neoplasm of left ovary (HCC) 11/24/2024 Orders Only [facility] Obstetrics and Gynecology [address] [place] [address] [place] [address] Jeanna Garcia RN Malignant neoplasm of left ovary (HCC) (Primary Dx) 11/04/2024 1:22 PM AGITATOR OPERATOR - 11/04/2024 11:59 PM AGITATOR OPERATOR Hospital Encounter [facility] Cardiac Testing [address] [place] [address] Leg pain, bilateral Discharge Disposition: Discharge to home or self care 11/03/2024 11:38 PM AGITATOR OPERATOR - 11/04/2024 2:52 AM AGITATOR OPERATOR Emergency [address] [address] Froylan Burton MD Leg pain, bilateral (Primary Dx) Discharge Disposition: Discharge to home or self care 11/01/2024 8:30 AM AGITATOR OPERATOR [facility] Gynecologic Oncology [facility] [address] [place] [address] Malignant neoplasm of left ovary (HCC) (Primary Dx) 11/01/2024 7:50 AM AGITATOR OPERATOR Office Visit [facility] Obstetrics and Gynecology [address] [facility] 13th [place] [address] Azael Garcia MD Malignant neoplasm of left ovary (HCC) (Primary Dx); Encounter for antineoplastic chemotherapy; Peri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 11/01/2024 6:35 AM AGITATOR OPERATOR Lab [facility] ([facility]) [address] [place] [address] Malignant neoplasm of left ovary (HCC) 11/01/2024 Orders Only [facility] Obstetrics and Gynecology [facility] 13th [place] [address] Jeanna Garcia, RN Malignant neoplasm of left ovary (HCC) (Primary Dx) 10/31/2024 Telephone [facility] Obstetrics and Gynecology [address] [facility] 13th [place] [address] Chrissy Maxwell, KALYANI 10/17/2024 Telephone [facility] Obstetrics and Gynecology [address] [facility] 13th [place] [address] Chrissy Maxwell RN 10/17/2024 Orders Only [facility] Obstetrics and Gynecology [address] [facility] 13th [place] [address] Azael Garcia MD Malignant neoplasm of left ovary (HCC) (Primary Dx); Alopecia due to cytotoxic drug 10/13/2024 Telephone [facility] Obstetrics and Gynecology [address] [facility] Medicine 13th [place] [address] Chrissy Maxwell RN 10/07/2024 10:30 AM AGITATOR OPERATOR Infusion [facility] Gynecologic Oncology [facility] [address] [place] [address] Malignant neoplasm of left ovary (HCC) (Primary Dx) 10/07/2024 6:03 AM AGITATOR OPERATOR - 10/07/2024 11:59 PM [facility] [address] [place] [address] Andreas Celestin PA Ovarian cancer, bilateral (HCC) Discharge Disposition: Discharge to home or self care 10/04/2024 Telephone [facility] Radiology [address] [place] [address] Erica Yoon RN 10/04/2024 Telephone [facility] Obstetrics and Gynecology [facility] 13th [place] [address] Kelly Abel, RN Med Management 10/04/[address] [address] Tonya Liang RN from Last 3 Months Immunizations Immunization Administration [...] Medical History Relation Name Comments Cancer Brother Stanley Micah Jr Heart disease Brother Stanley Micah Jr Arthritis Father Stanley Micah Diabetes Father Stanley Micah Gout Father Satnley Micah Hearing loss Father Stanley Micah Hypertension Father Stanleyviji Obrien Learning disabilities Father Stanley Obrien Memory loss Father Stanley Obrien Prostate cancer Father Stanley Micah Vision loss Father Stanley Obrien Cancer Maternal Grandfather Costa francois Arthritis Mother Hood Obrien Breast cancer Mother Hood Obrien CHF Mother Hood Obrien Cancer Mother Hood Ob[place] Depression Mother Hood Ob[place] Heart disease Mother Joséunedeandra Westler Heart failure Mother Hood Obrien Family hist ory of congestive heart failure - (Added by TW Conv) Hypertension Mother Waunedeandra Obrien Osteoporosis Mother Waunedeandra Obrien Thyroid disease Mother [place] Varicose Veins Mother [place] Cancer Mother's Brother Damir Francois Cancer Mother's Sister Miley Johnson Cancer Other Family history of Cancer, unknown; Stroke Paternal Grandmother Melanie Ambrose Mental illness Sister Jyoti Smart Asthma Son Jeffry sosa Relation Name Status Comments Brother Stanley Obrien Jr Father Stanley Obrien Alive Maternal Grandfather Costa alessandro Mother Hood Obrien Alive Mother's Brother Damir Alessandro Mother's Sister Miley Johnson Other Paternal Grandmother Melanie Ambrose Sister Jyoti Smart Son Jeffry sosa Social History Tobacco Use [...] on file Legal Sex Female 2:56 AM AGITATOR OPERATOR Gender Identity Female 03/07/2021 1:17 PM CDT Sexual Orientation Straight 03/07/2021 1: 17 PM CDT 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 Not on file Not on file [...] Comments Blood Pressure 153/81 12/16/2024 8:00 AM AGITATOR OPERATOR Pulse 86 12/16/2024 8:00 AM AGITATOR OPERATOR Temperature 36.4 C (97.6 F) 12/16/2024 8:00 AM AGITATOR OPERATOR Respiratory Rate 20 12/16/2024 8:00 AM AGITATOR OPERATOR Oxygen Saturation 97% 12/16/2024 8:00 AM AGITATOR OPERATOR Inhaled Oxygen Concentration - - Weight 107.3 kg (236 lb 8 oz) 12/16/2024 8:00 AM AGITATOR OPERATOR Height 165.1 cm (5' 5 ) 11/25/2024 8:22 AM AGITATOR OPERATOR Body Mass Index 39.36 11/25/2024 8:22 AM AGITATOR OPERATOR Plan of Treatment Health Maintenance Due Date [...] 09/26/2024, 09/19 Medical Devices Implanted Type Area Mold Finisher Device Identifier Shelf Expiration Date Model / Serial / Lot [employer] [id number]-10m System 6-12fr Mvp Venous Closure Vascade - [id number] - [id number] Implanted:Qty: 1 on 08/02/2021 by Abdiel Gibbons MD at [facility] Collagen [employer] 05/20/2023 800-612C- 10U / [id number] / [id number] [employer] [id number]-05u System 6-12fr Mvp Venous Closure Vascade - [id number] - [id number] Implanted:Qty: 1 on 08/02/2021 by Abdiel Gibbons MD at [facility] Collagen [employer] 05/20/2023 800-612C- 10U / [id number] 09A / [id number] [employer] 942-600x-60m Vascade 6/7fr Bioabsorbable Vascular System Compression Collagen - [id number] - [id number] Implanted:Qty: 1 on 08/02/2021 by Abdiel Gibbons MD at [facility] Collagen [employer] 05/20/2023 700-580I- 05U / [id number] [id number] / [id number] [employer] 934-027h-60v System 6-12fr Mvp Venous Closure Vascade - [id number] - [id number] Implanted:Qty: 1 on 08/02/2021 by Abdiel Gibbons MD at [facility] Collagen [employer] 04/17/2023 800-612C- 10U / [id number] [id number] / [id number] Medtronic Cardiac Rhythm Mgmt 5076-52 Capsurefix Novus 6.2fr 2mm 52cm Bipolar Screw In Implantable Latex Free - [id number] - [id number] Implanted:Qty: 1 on 03/04/2019 by Abdiel Gibbons MD at [facility] Lead Medtronic Cardiac Rhythm Mgmt [id number] 01/07/2021 5076-52 / [id number] / Medtronic Cardiac Rhythm Mgmt 5076-45 Capsurefix Novus Od6.2 Fr; Odsec2 Mm L45 Cm Bipolar; Screw In; Im - [id number] - [id number] Implanted:Qty: 1 on 03/04/2019 by Abdiel Gibbons MD at [facility] Lead Medtronic Cardiac Rhythm Mgmt [id number] 01/11/2021 5076-45 / [id number] / Medtronic Cardiac Rhythm Mgmt [id number] [place] S Mri Surescan 50.8x46.6mm 2 Chamber 7.4mm Pacemaker 22.5gm - [id number] - [id number] Implanted:Qty: 1 on 03/04/2019 by Abdiel Gibbons MD at [facility] Pacemaker Medtronic Cardiac Rhythm Mgmt [id number] 07/02/2020 W3DR01 / [id number] / [employer] Xcela Power Port 8fr [id number] - [id number] Implanted:Qty: 1 on 10/07/2024 at [facility] Ang[employer] 04/03/2029 [id number] / / [id number] Explanted Type Area Mold Finisher Device Identifier Shelf Expiration Date Model / Serial / Lot Medtronic Cardiac Rhythm Mgmt Linqsys Reveal Linq Mycarelink Insertable Loop Recorder Automatic - [id number] - [id number] Implanted:Qty : 1 on 01/18/2019 at [facility] Explanted:Qty : 1 on 03/04/2019 at [facility] Implantable Loop Recorder Left: Chest Wall Medtronic Cardiac Rhythm Mgmt [id number] 11/15/2019 LINQSYS / [id number] / Procedures Procedure Name Priority Date/Time Associated Diagnosis Comments SCAN - RADIOLOGY/IMAGING 12/22/2024 SCAN - PATHOLOGY 12/14/2024 4:26 PM AGITATOR OPERATOR EGFR Routine 12/13/2024 2:22 PM AGITATOR OPERATOR Malignant neoplasm of left ovary (HCC) DIFFERENTIAL AUTO Routine 12/13/2024 2:2 2 PM AGITATOR OPERATOR Malignant neoplasm of left ovary (HCC) CA 125 Routine 12/13/2024 2:22 PM AGITATOR OPERATOR Malignant neoplasm of left ovary (HCC) MAGNESIUM Routine 12/13/2024 2:22 PM AGITATOR OPERATOR Malignant neoplasm of left ovary (HCC) COMPREHENSIVE METABOLIC PANEL Routine 12/13/2024 2:22 PM AGITATOR OPERATOR Malignant neoplasm of left ovary (HCC) CBC WITH AUTO DIFFERENTIAL Routine 12/13/2024 2:22 PM AGITATOR OPERATOR Malignant neoplasm of left ovary (HCC) URINALYSIS, MICROSCOPIC ONLY STAT 12/07/2024 1:08 PM AGITATOR OPERATOR Ovarian cancer, bilateral (HCC) Dysuria URINALYSIS AND REFLEX TO MICROSCOPIC AND CULTURE STAT 12/07/2024 1:08 PM AGITATOR OPERATOR Ovarian cancer, bilateral (HCC) Dysuria DEVICE CHECK - REMOTE Routine 12/04/2024 12:45 PM AGITATOR OPERATOR SSS (sick sinus syndrome) (HCC) CARIS MT CANCER SEEK + ADDITIONAL TESTS Routine 11/25/2024 8:28 AM AGITATOR OPERATOR Ovarian cancer, bilateral (HCC) Encounter for antineoplastic chemotherapy CA 125 Routine 11/18/2024 7:46 AM AGITATOR OPERATOR Malignant neoplasm of left ovary (HCC) MAGNESIUM Routine 11/18/2024 7:46 AM AGITATOR OPERATOR Malignant neoplasm of left ovary (HCC) COMPREHENSIVE METABOLIC PANEL Routine 11/18/2024 7:46 AM AGITATOR OPERATOR Malignant neoplasm of left ovary (HCC) CBC WITH AUTO DIFFERENTIAL Routine 11/18/2024 7:46 AM AGITATOR OPERATOR Malignant neoplasm of left ovary (HCC) US VEIN DUPLEX LOWER EXTREMITY BILATERAL COMPLETE Schedule NINFA, Read NINFA (Appt Today, Awaiting Results) 11/04/2024 2:15 PM AGITATOR OPERATOR Leg pain, bilateral CT LUMBAR SPINE WO CONTRAST ED 11/04/2024 12:51 AM AGITATOR OPERATOR D-DIMER, QUANTITATIVE Add-On 11/04/2024 12:24 AM AGITATOR OPERATOR EGFR STAT 11/03/2024 11:25 PM AGITATOR OPERATOR DIFFERENTIAL AUTO STAT 11/03/2024 11:25 PM AGITATOR OPERATOR COMPREHENSIVE METABOLIC PANEL STAT 11/03/2024 11:25 PM AGITATOR OPERATOR CBC WITH AUTO DIFFERENTIAL STAT 11/03/2024 11:25 PM AGITATOR OPERATOR EGFR Routine 11/01/2024 6:48 AM AGITATOR OPERATOR Malignant neoplasm of left ovary (HCC) DIFFERENTIAL AUTO Routine 11/01/2024 6:4 8 AM AGITATOR OPERATOR Malignant neoplasm of left ovary (HCC) CBC WITH AUTO DIFFERENTIAL Routine 11/01/2024 6:48 AM AGITATOR OPERATOR Malignant neoplasm of left ovary (HCC) COMPREHENSIVE METABOLIC PANEL Routine 11/01/2024 6:48 AM AGITATOR OPERATOR Malignant neoplasm of left ovary (HCC) MAGNESIUM Routine 11/01/2024 6:48 AM AGITATOR OPERATOR Malignant neoplasm of left ovary (HCC) CA 125 Routine 11/01/2024 6:48 AM AGITATOR OPERATOR Malignant neoplasm of left ovary (HCC) PORT PLACEMENT CHEST >5 YEARS Schedule Routine, Read Routine (OP Routine) 10/07/2024 9:08 AM AGITATOR OPERATOR Ovarian cancer, bilateral (HCC) SCREENING MAMMOGRAM BILATERAL W ALPHONSO Schedule Routine, Read Routine (OP Routine) 07/15/2024 4:19 PM CDT Screening mammogram, encounter for HEPATITIS C ANTIBODY Routine 01/18/2022 9:34 AM CDT Preventative health care from Last 3 Months or Most Recently Relevant to Health Maintenance Results * SCAN - RADIOLOGY/IMAGING (12/22/2024) Anatomical Region Laterality Modality Other us Provider Scanning Final Result * SCAN - PATHOLOGY (12/14/2024 4:26 PM AGITATOR OPERATOR) us Patti Preston MD Final R esult * eGFR (12/13/2024 2:22 PM AGITATOR OPERATOR) eGFR >90 >=60 mL/min/1. 73 m2 Comment: [...] of Race in Diagnosing Kidney Disease, JASN 202). The CKD-EPI equation should not be used for patients with unstable renal function and has not been validated in children and those over 70. Current interpretive data was last reviewed 2021. Blood 12/13/2024 2:22 PM AGITATOR OPERATOR 12/13/2024 9:24 PM AGITATOR OPERATOR us Patti Preston MD LAB BLOOD ORDERABLES Fi nal Result [facility] [id number] Department [place] [address] * Differential, auto (12/13/2024 2:22 PM AGITATOR OPERATOR) Neutrophil abs 3.5 1.5 - 6.5 K/cumm Imm gran abs 0.1 0.0 - 0.1 K/cumm [facility] Lymphocyte abs 2.1 0.8 - 3.3 K/cumm [facility] Monocyte abs 0.4 0.2 - 0.8 K/cumm [facility] Eosinophil abs 0.2 0.0 - 0.5 K/cumm [facility] Basophil abs 0.0 0.0 - 0.1 K/cumm [facility] Neutrophil pct 55.7 % [facility] Comment: Interpretive Data Percent cell count reference ranges are not reported, since discordance with absolute values may lead to misinterpretation of CBC data. Current Interpretive Data was last revised on 2018. Imm gran pct 0.8 % [facility] Comment: Interpretive Data Percent cell count reference ranges are not reported, since discordance with absolute values may lead to misinterpretation of CBC data. Current Interpretive Data was last revised on 2018. Lymphocyte pct 33.5 % [facility] Comment: Interpretive Data Percent cell count reference ranges are not reported, since discordance with absolute values may lead to misinterpretation of CBC data. Current Interpretive Data was last revised on 2018. Monocyte pct 6.1 % [facility] Comment: Interpretive Data Percent cell count reference [...] revised on 2018. Blood 12/13/2024 2:22 PM AGITATOR OPERATOR 12/13/2024 9:15 PM AGITATOR OPERATOR Patti Preston MD LAB BLOOD ORDERABLES Fi nal Result [facility] [address] Department [place] [address] * (ABNORMAL) CBC with auto differential (12/13/2024 2:22 PM AGITATOR OPERATOR) WBC 6.2 3.8 - 9.9 K/cumm Hgb 9.2(L) 11.9 - 15.5 g/dL [facility] Hct 30.4(L) 35.6 - 45.5 % [facility] Plt 135(L) 150 - 400 K/cumm [facility] MPV 9.3 9.1 - 12.3 fL [facility] RBC 3.29(L) 3.90 - 5.20 M/cumm [facility] MCV 92.4 81.3 - 96.4 fL [facility] MCH 28.0 27.1 - 33.3 pg [facility] MCHC 30.3(L) 32.3 - 35.7 g/dL [facility] RDW CV 15.8(H) 11.1 - 14.9 % [facility] RDW SD 51.6(H) 35.7 - 48.1 fL [facility] NRBC abs 0.00 0.00 - 0.01 K/cumm [facility] Blood 12/13/2024 2:22 PM AGITATOR OPERATOR 12/13/2024 9:15 PM AGITATOR OPERATOR Patti Preston MD LAB BLOOD ORDERABLES Fi nal Result Performing Organization Address [facility] de Phone Number VIKRAM OSMAN [address] [facility] [employer] [place], [place] [address] * CA 125 (12/13/2024 2:22 PM AGITATOR OPERATOR) Pathologist [facility] CA 125 ag 8.0 1.0 - 35.0 units/mL Comment: Interpretive Data [facility] [place] 125 assay procedure was used. Results from different manufacturers or methods may not be comparable. Serial testing should be performed using the same method. Blood 12/13/2024 2:22 PM AGITATOR OPERATOR 12/13/2024 9:15 PM AGITATOR OPERATOR Patti Preston MD LAB BLOOD ORDERABLES Fi nal Result Performing Organization Address [facility] Phone Number FARRAHJENNIFER OSMAN [address] [place] [address] * (ABNORMAL) Magnesium (12/13/2024 2:22 PM AGITATOR OPERATOR) [facility] Magnesium 1.3(L) 1.4 - 2.5 mg/dL Blood 12/13/2024 2:22 PM AGITATOR OPERATOR 12/13/2024 9:15 PM AGITATOR OPERATOR Patti Preston MD LAB BLOOD ORDERABLES Fi nal Result Performing Organization Address [facility] de Phone Number VIKRAM OSMAN [address] [facility] [place] [address] * Comprehensive metabolic panel (12/13/2024 2:22 PM AGITATOR OPERATOR) Pathologist [facility] Sodium 143 135 - 145 mmol/L Potassium, pl 3.7 3.3 - 4.9 mmol/L [facility] Chloride 105 97 - 110 mmol/L [facility] CO2 24 22 - 32 mmol/L [facility] Anion gap 14 2 - 15 mmol/L [facility] BUN 11 6 - 25 mg/dL [facility]ER [...] Units/L [facility] Blood 12/13/2024 2:22 PM AGITATOR OPERATOR 12/13/2024 9:15 PM AGITATOR OPERATOR us Patti Preston MD LAB BLOOD ORDERABLES Fi nal Result [facility] [address] Department [place] [address] * (ABNORMAL) Urinalysis reflex to microscopic and culture Urine, bladder (12/07/2024 1:08 PM AGITATOR OPERATOR) Color, ur Yellow Yellow Clarity, ur Clear Clear [facility] Specific gravity, ur 1.019 1.003 - 1.030 [facility] pH, urine 5.0 [facility] Comment: Interpretive Data U rine pH is affected by diet, medications, systemic acid-base disturbances, and renal tubular function. pH may affect urinary stone formation. For example, urine pH below 6.0 may help reduce the tendency for calcium phosphate stones and pH greater than 6.0 may reduce the tendency for uric acid stone formation. Source: [facility] Current Interpretive Data was last [...] [facility] Urine, bladder 12/07/2024 1: 08 PM AGITATOR OPERATOR 12/07/2024 9:56 PM AGITATOR OPERATOR Patti Preston MD LAB MICROBIOLOGY - GENE RAL ORDERABLES Final Result Performing Organization Address [facility] Co de Phone Number VIKRAM OSMAN [address] [place] [address] * (ABNORMAL) Urinalysis, microscopic only (12/07/2024 1:08 PM AGITATOR OPERATOR) WBC, ur 0-5 0 - 5 /HPF RBC, ur 3-5(A) 0 - 2 /HPF [facility] Mucous, ur Present(A) [facility] Culture Reflex Comment Reflex conditions for urine culture (WBC >10) not met. [facility] Urine, bladder 12/07/2024 1: 08 PM AGITATOR OPERATOR 12/07/2024 9:56 PM AGITATOR OPERATOR Patti Preston MD LAB URINE ORDERABLES Fi nal Result Performing Organization Address [facility]/ZIP Co de Phone Number VIKRAM OSMAN [address] [facility] [place] [address] * DEVICE CHECK - REMOTE (12/04/2024 12:45 PM AGITATOR OPERATOR) Anatomical Region Laterality Modality Other Narrative 12/07/2024 12:10 PM AGITATOR OPERATOR Table formatting from the original result was [...] to JUANITA Episodes last 90 days/Comments: AF [place] 0 % Fourteen ventricular episodes 1 episode [...] appropriate for device measurements Kelly Quiles RN Abdiel Gibbons MD CV CARDIAC SERVICES PRO CEDURES Final Result * [facility] [place] Cancer Seek??? + Additional Tests (11/25/2024 8:28 AM AGITATOR OPERATOR) CARIS PD-L1 (22C3) Negative 2024 12:23 PM AGITATOR OPERATOR [facility] CARIS Genomic Loss of Heterozygosity - [place] Low 9% 12/14/2024 12:23 PM AGITATOR OPERATOR [facility] CARIS Microsatellite Instability - [place] Stable 12/14/2024 12:23 PM AGITATOR OPERATOR [facility] CARIS Tumor Mutational [place] - [place] Low 2 per Mb 12/14/2024 12:23 PM AGITATOR OPERATOR [facility] CARIS Estrogen Receptor Negative 12/14/2024 12:23 PM AGITATOR OPERATOR [facility] CARIS Her2/Pricila Negative 12/14/2024 12:23 PM AGITATOR OPERATOR [facility] CARIS Progesterone Receptor Negative 12/14/2024 12:23 PM AGITATOR OPERATOR [facility] ELIDIAIS HLA-A - [place] -,A*02:01 12/14/2024 12:23 PM AGITATOR OPERATOR [facility] CARIS HLA-B - [place] -,B*07:02 12/14/2024 12:23 PM AGITATOR OPERATOR [facility] ELIDIAIS HLA-C - [place] -,C*07:02 12/14/2024 12:23 PM AGITATOR OPERATOR [facility] CARALISSA FOLR1 - [place] Positive 12/14/2024 12:23 PM AGITATOR OPERATOR [facility] LUISITO HRD- [place] Negative 12/14/19 12:23 PM [facility] Fieldbook Tissue 11/25/2024 8:28 AM AGITATOR OPERATOR 12/01/2024 5:49 PM AGITATOR OPERATOR Narrative This result has genomic variants that were not included in this document. us Patti Preston MD LAB GENETIC TESTING Fin al Result [facility] [address] [place] [address], [facility] [phone] * (ABNORMAL) CBC with auto differential (11/18/2024 7:46 AM AGITATOR OPERATOR) WBC 7.1 3.8 - 10.8 Thousand/u L [...] [facility] Blood 11/18/2024 7:46 AM AGITATOR OPERATOR 11/18/2024 7:47 AM AGITATOR OPERATOR Patti Preston MD LAB BLOOD ORDERABLES Fi nal Result [facility] [address] [place] [address] * CA 125 (11/18/2024 7:46 AM AGITATOR OPERATOR) [facility] Signature CA 125 ag 9 <35 U/mL [facility] Comment: This test was performed using the Siemens Chemiluminescent method. Values obtained from different assay methods cannot be used interchangeably. CA 125 levels, regardless of value, should not be interpreted as absolute evidence of the presence or absence of disease. Blood 11/18/2024 7:46 AM AGITATOR OPERATOR 11/18/2024 7:47 AM AGITATOR OPERATOR Patti Preston MD LAB BLOOD ORDERABLES Fi nal Result [facility] [address] [address] * Magnesium (11/18/2024 7:46 AM AGITATOR OPERATOR) Magnesium 1.5 1.5 - 2.5 mg/dL [facility] Blood 11/18/2024 7:46 AM AGITATOR OPERATOR 11/18/2024 7:47 AM AGITATOR OPERATOR us Patti Preston MD LAB BLOOD ORDERABLES Fi nal Result [facility] [address] [place] [address] * (ABNORMAL) Comprehensive metabolic panel (11/18/2024 7:46 AM AGITATOR OPERATOR) Glucose 121(H) 65 - 99 mg/dL [facility] Comment: Fasting reference interval For someone without known diabetes, a glucose value between 100 and 125 mg/dL is consistent with prediabetes and should be confirmed with a follow-up test. BUN 11 7 - 25 mg/dL [facility] Creatinine 0.58 0.50 - 1.05 mg/dL [facility] eGFR 100 > OR = 60 mL/min/1.7 3m2 [facility] BUN/creat ratio SEE NOTE: 6 - 22 (calc) [facility] Comment: Not Reported: BUN and Creatinine are within reference range. Sodium 141 135 - 146 mmol/L [facility] Potassium, pl 3.9 3.5 - 5.3 mmol/L [facility] Chloride 105 98 - 110 mmol/L [facility] CO2 27 20 - 32 mmol/L [facility] Calcium 8.6 8.6 - 10.4 mg/dL [facility] Protein, sr 6.0(L) 6.1 - 8.1 g/dL [facility] Albumin 3.7 3.6 - 5.1 g/dL [facility] GLOBULIN 2.3 1.9 - 3.7 g/dL (calc) [facility] Alb/glob ratio 1.6 1.0 - 2.5 (calc) [facility] Bilirubin, total 0.2 0.2 - 1.2 mg/dL [facility] Alk phos 67 37 - 153 U/L [facility] AST 16 10 - 35 U/L [facility] ALT (SGPT) 21 6 - 29 U/L [facility] Blood 11/18/2024 7:46 AM AGITATOR OPERATOR 11/18/2024 7:47 AM AGITATOR OPERATOR us Patti Preston MD LAB BLOOD ORDERABLES Fi nal Result [facility] [address] [place] [address] * US Vein Duplex Lower Extremity Bilateral Complete (11/04/2024 2:15 PM AGITATOR OPERATOR) Anatomical Region Laterality Modality Vascular Bilateral Ultrasound 11/04/2024 Narrative 11/10/2024 7:09 AM AGITATOR OPERATOR Am[employer] Job ID: [id number] MONOQI Document ID: [id number] Dictated date/time: BILATERAL LOWER EXTREMITY VENOUS DUPLEX REASON FOR [...] bilateral lower extremity. Job ID/Internal Job ID: [id number] Froylan Burton MD [facility] US PROCEDURES Final Result * CT Lumbar Spine WO Contrast (11/04/2024 12:51 AM AGITATOR OPERATOR) Anatomical Region Laterality Modality Spine N/A Computed Tomogra phy 11/04/2024 12:5 4 AM AGITATOR OPERATOR Narrative 11/04/2024 12:59 AM AGITATOR OPERATOR EXAM DESCRIPTION: CT LUMBAR SPINE WO CONTRAST [...] - Electronically signed by Mane Méndez M.D. KH T: Report ID: [id number] Reading Location: [id number] Procedure Note Mane Méndez MD - 11/04/2024 [...] by Mane Méndez M.D. T: Report ID: [id number] Reading Location: [place] [address] Froylan Burton MD IMG CT PROCEDURES Final Result * (ABNORMAL) D-dimer, quantitative (11/04/2024 12:24 AM AGITATOR OPERATOR) Pathologist [facility] D-Dimer 960(H) <=499 ng/mL FEU Comment: Interpretive [...] on 2019. Blood 11/04/2024 12:2 4 AM AGITATOR OPERATOR 11/04/2024 12:26 AM AGITATOR OPERATOR Froylan Burton MD LAB BLOOD ORDERABLES Final Resul t [facility] [address] [facility] Department [place] [address] * eGFR (11/03/2024 11:25 PM AGITATOR OPERATOR) Pathologist [facility] eGFR 71 >=60 mL/min/1. 73 [...] reviewed 2021. Blood 11/03/2024 11:2 5 PM AGITATOR OPERATOR 11/03/2024 11:29 PM AGITATOR OPERATOR Kati KINGSLEY LAB BLOOD ORDERABLES Final Result [facility] [address] [facility] Department [place] [address] * (ABNORMAL) Differential, auto (11/03/2024 11:25 PM AGITATOR OPERATOR) [facility] Neutrophil abs 3.5 1.5 - 6.5 K/cumm Imm gran abs 0.0 0.0 - 0.1 K/cumm [facility] Lymphocyte abs 2.3 0.8 - 3.3 K/cumm [facility] Monocyte abs 0.1(L) 0.2 - 0.8 K/cumm [facility] Eosinophil abs 0.0 0.0 - 0.5 K/cumm [facility] Basophil abs 0.0 0.0 - 0.1 K/cumm [facility] Neutrophil pct 59.1 % [facility] Comment: Interpretive Data Percent cell count reference ranges are not reported, since discordance with absolute values may lead to misinterpretation of CBC data. Current Interpretive Data was last revised on 2018. Imm gran pct 0.2 % [facility] Comment: Interpretive Data Percent cell count reference ranges are not reported, since discordance with absolute values may lead to misinterpretation of CBC data. Current Interpretive Data was last revised on 2018. Lymphocyte pct 37.8 % [facility] Comment: Interpretive Data Percent cell count reference ranges are not reported, since discordance with absolute values may lead to misinterpretation of CBC data. Current Interpretive Data was last revised on 2018. Monocyte pct 2.2 % [facility] Comment: Interpretive Data Percent cell count reference ranges are not reported, since discordance with absolute values may lead to misinterpretation of CBC data. Current Interpretive Data was last revised on 2018. Eosinophil pct 0.5 % [facility] Comment: Interpretive Data Percent cell count reference ranges are not reported, since discordance with absolute values may lead to misinterpretation of CBC data. Current Interpretive Data was last revised on 2018. Basophil pct 0.2 % [facility] Comment: Interpretive Data Percent cell count reference ranges are not reported, since discordance with absolute values may lead to misinterpretation of CBC data. Current Interpretive Data was last revised on 2018. Blood 11/03/2024 11:2 5 PM AGITATOR OPERATOR 11/03/2024 11:29 PM AGITATOR OPERATOR Kati KINGSLEY LAB BLOOD ORDERABLES Final Result [facility] [address] [facility] Department of Laboratories [place], [place] [id number] * (ABNORMAL) CBC with auto differential (11/03/2024 11:25 PM AGITATOR OPERATOR) WBC 6.0 3.8 - 9.9 K/cumm Hgb 11.2(L) 11.9 - 15.5 g/dL [facility] Hct 33.6(L) 35.6 - 45.5 % [facility] Plt 260 150 - 400 K/cumm [facility] MPV 8.8(L) 9.1 - 12.3 fL [facility] RBC 4.08 3.90 - 5.20 M/cumm [facility] MCV 82.4 81.3 - 96.4 fL [facility] MCH 27.5 27.1 - 33.3 pg [facility] MCHC 33.3 32.3 - 35.7 g/dL [facility] RDW CV 14.6 11.1 - 14.9 % [facility] RDW SD 42.8 35.7 - 48.1 fL [facility] NRBC abs 0.00 0.00 - 0.01 K/cumm [facility] Blood 11/03/2024 11:2 5 PM AGITATOR OPERATOR 11/03/2024 11:29 PM AGITATOR OPERATOR Kati KINGSLEY LAB BLOOD ORDERABLES Final Result [facility] [address] [facility] Department [place] [address] * Comprehensive metabolic panel (11/03/2024 11:25 PM AGITATOR OPERATOR) Sodium 135 135 - 145 mmol/L Potassium, pl 3.4 3.3 - 4.9 mmol/L [facility] Chloride 99 97 - 110 mmol/L [facility] CO2 25 22 - 32 mmol/L [facility] Anion gap 11 2 - 15 mmol/L [facility] BUN 23 6 - 25 mg/dL [facility] Creatinine 0.90 0.60 - 1.10 mg/dL [facility] Glucose 114 70 - 199 mg/dL [facility] Comment: Interpretive Data Fasting glucose >/= [...] 2022. Calcium 9.2 8.5 - 10.3 mg/dL [facility] Bilirubin, total 0.6 0.1 - 1.2 mg/dL [facility] Protein, pl 7.0 6.5 - 8.5 g/dL [facility] Albumin 4.0 3.5 - 5.0 g/dL [facility] Alk phos 82 40 - 130 Units/L [facility] ALT 45 7 - 45 Units/L [facility] AST 31 10 - 45 Units/L [facility] Blood 11/03/2024 11:2 5 PM AGITATOR OPERATOR 11/03/2024 11:29 PM AGITATOR OPERATOR us Kati KINGSLEY LAB BLOOD ORDERABLES Final Result [facility] [address] [facility] Department [place] [address] * eGFR (11/01/2024 6:48 AM AGITATOR OPERATOR) eGFR 87 >=60 mL/min/1. 73 m2 Comment: [...] last reviewed 2021. Blood 11/01/2024 6:48 AM AGITATOR OPERATOR 11/01/2024 7:55 AM AGITATOR OPERATOR us Azael Garcia MD LAB BLOOD ORDERABLES Final Result [facility] [address] [place] [address] * Differential, auto (11/01/2024 6:48 AM AGITATOR OPERATOR) Neutrophil abs 2.1 1.5 - 6.5 K/cumm Imm gran abs 0.0 0.0 - 0.1 K/cumm [facility] Lymphocyte abs 1.6 0.8 - 3.3 K/cumm [facility] Monocyte abs 0.5 0.2 - 0.8 K/cumm [facility] Eosinophil abs 0.2 0.0 - 0.5 K/cumm [facility] Basophil abs 0.0 0.0 - 0.1 K/cumm [facility] Neutrophil pct 46.8 % [facility] Comment: Interpretive Data Percent cell count reference ranges are not reported, since discordance with absolute values may lead to misinterpretation of CBC data. Current Interpretive Data was last revised on 2018. Imm gran pct 0.5 % [facility] Comment: Interpretive Data Percent cell count reference ranges are not reported, since discordance with absolute values may lead to misinterpretation of CBC data. Current Interpretive Data was last revised on 2018. Lymphocyte pct 37.0 % [facility] Comment: Interpretive Data Percent cell count reference ranges are not reported, since discordance with absolute values may lead to misinterpretation of CBC data. Current Interpretive Data was last revised on 2018. Monocyte pct 10.7 % [facility] Comment: Interpretive Data Percent cell count reference ranges are not reported, since discordance with absolute values may lead to misinterpretation of CBC data. Current Interpretive Data was last revised on 2018. Eosinophil pct 4.3 % [facility] Comment: Interpretive Data Percent cell count reference ranges are not reported, since discordance with absolute values may lead to misinterpretation of CBC data. Current Interpretive Data was last revised on 2018. Basophil pct 0.7 % [facility] Comment: Interpretive Data Percent cell count reference ranges are not reported, since discordance with absolute values may lead to misinterpretation of CBC data. Current Interpretive Data was last revised on 2018. Blood 11/01/2024 6:48 AM AGITATOR OPERATOR 11/01/2024 7:06 AM AGITATOR OPERATOR Azael Garcia MD LAB BLOOD ORDERABLES Final Result Performing Organization Address City/[facility]/ZIP Co de Phone Number [facility] Department [place] [address] * (ABNORMAL) CBC with auto differential (11/01/2024 6:48 AM AGITATOR OPERATOR) [facility] WBC 4.4 3.8 - 9.9 K/cumm Hgb 10.3(L) 11.9 - 15.5 g/dL [facility] Hct 32.1(L) 35.6 - 45.5 % [facility] Plt 259 150 - 400 K/cumm [facility] MPV 8.8(L) 9.1 - 12.3 fL [facility] RBC 3.71(L) 3.90 - 5.20 M/cumm [facility] MCV 86.5 81.3 - 96.4 fL [facility] MCH 27.8 27.1 - 33.3 pg [facility] MCHC 32.1(L) 32.3 - 35.7 g/dL [facility] RDW CV 14.8 11.1 - 14.9 % [facility] RDW SD 46.3 35.7 - 48.1 fL [facility] NRBC abs 0.00 0.00 - 0.01 K/cumm [facility] Blood 11/01/2024 6:48 AM AGITATOR OPERATOR 11/01/2024 7:06 AM AGITATOR OPERATOR Azael Garcia MD LAB BLOOD ORDERABLES Final Result [facility] [address] [place] [address] * CA 125 (11/01/2024 6:48 AM AGITATOR OPERATOR) [facility] CA 125 ag 8.1 0.0 - 38.1 units/mL Comment: Interpretive Data [employer] CA 125 assay procedure was used. Results from different manufacturers or methods may not be comparable. Serial testing should be performed using the same method. Blood 11/01/2024 6:48 AM AGITATOR OPERATOR 11/01/2024 7:06 AM AGITATOR OPERATOR Azael Garcia MD LAB BLOOD ORDERABLES Final Result Performing Organization Address City/[facility]/ZIP Co de Phone Number [facility] [place] [address] * Magnesium (11/01/2024 6:48 AM AGITATOR OPERATOR) Pathologist [facility] Magnesium 1.5 1.4 - 2.5 mg/dL Blood 11/01/2024 6:48 AM AGITATOR OPERATOR 11/01/2024 7:06 AM AGITATOR OPERATOR Azael Garcia MD LAB BLOOD ORDERABLES Final Result Performing Organization Address [facility] Co de Phone Number [facility] [place] [address] * Comprehensive metabolic panel (11/01/2024 6:48 AM AGITATOR OPERATOR) Pathologist [facility] Sodium 140 135 - 145 mmol/L Potassium, pl 3.7 3.3 - 4.9 mmol/L [facility] Chloride 105 97 - 110 mmol/L [facility] CO2 25 22 - 32 mmol/L [facility] Anion gap 10 2 - 15 mmol/L [facility] BUN 13 6 - 25 mg/dL [facility] Creatinine 0.76 0.60 - 1.10 mg/dL [facility] Glucose 90 70 - 199 mg/dL [facility] Comment: Interpretive Data Fasting glucose [...] 2022. Calcium 8.8 8.5 - 10.3 mg/dL [facility] Bilirubin, total 0.3 0.1 - 1.2 mg/dL [facility] Protein, pl 6.8 6.5 - 8.5 g/dL [facility] Albumin 3.8 3.5 - 5.0 g/dL [facility] Alk phos 83 40 - 130 Units/L [facility] ALT 25 7 - 45 Units/L [facility] AST 21 10 - 45 Units/L [facility] Blood 11/01/2024 6:48 AM AGITATOR OPERATOR 11/01/2024 7:06 AM AGITATOR OPERATOR us Azael Garcia MD LAB BLOOD ORDERABLES Final Result [facility] [address] Department [place] [address] * IR Port Placement Chest > 5 Years (10/07/2024 9:08 AM AGITATOR OPERATOR) Anatomical Region Laterality Modality Chest N/A Radio Fluoroscop y 10/07/2024 10:3 1 AM AGITATOR OPERATOR Impressions 10/07/2024 10:31 AM AGITATOR OPERATOR Successful chest wall port placement. PLAN: The catheter is ready for immediate use. Please note that a power injectable port was placed. When treatment is completed, removal can be scheduled by calling [facility] - [phone] [facility] - [phone] Electronically signed by: Andreas Celestin PA-C Narrative 10/07/2024 10:31 AM AGITATOR OPERATOR EXAMINATION: PORT PLACEMENT USING ULTRASOUND GUIDANCE (STD [...] was obtained. Prior to beginning the procedure, [place] Protocol was used to confirm the patient's [...] was obtained. Prior to beginning the procedure, [place] Protocol was used to confirm the patient's [...] completed, removal can be scheduled by calling [facility] - [phone] [facility] - [phone] Electronically signed by: Andreas Celestin PA-C us [...] age 40, based on guidelines of the [place] [employer] (ACR Practice Parameter for the Performance of Screening and Diagnostic Mammography) and [place] [employer]. For women [...] CDT Stephany Rosales MD LAB MICROBIOLOGY - [facility] Final Result [facility] [address] [facility] Department [place] [employer] [address] from Last 3 Months or Most Recently Relevant to Health Maintenance Insurance MEDICARE AB [employer] MEDICARE SOLUTIONS FOR LIFE FOR LIFE Advance Directives For more information, please contact: [phone] * Full Code (Latest Code Status on File) Date Activated Date Inactivated Comments 10/07/2024 7:34 AM 10/08/2024 5:09 AM * Full Code Date Activated Date Inactivated Comments 08/06/2021 7:32 AM 08/06/2021 1:54 PM * Full Code Date Activated Date Inactivated Comments 01/18/2019 9:07 AM 01/19/2019 8:13 PM * Full Code Date Activated Date Inactivated Comments 01/16/2019 2:40 PM 01/18/2019 9:07 AM Care Teams Broadcast News Producer Relationship Specialty Start Date End Date Morteza Shah Jr., MD [address] [place] [id number] PCP - General Internal Medicine 08/01/22 Prasanth Falk MD Cardiology 01/19/19 Abdiel Gibbons MD Consulting Physician Cardiology 01/19/19 Andreas Montoya DO [address] [place] [address] Consulting Physician Gastroenterology 10/16/22
--- OUTSIDE RECORDS SUMMARY | 2024-12-30 13:47 | XMS_ITS | Encounter Summary ---
Author Organization [facility] Address [address] [place] [address] Phone Care Team Providers Care Natural [employer] Field Processing Supervisor Name Role Phone Prasanth Falk MD Unavailable [phone] Abdiel Gibbons MD Unavailable Pablo Lay MD, Morteza Goldman Primary Care Provide r Andreas Montoya DO Unavailable [phone] Encounter Details Date Type Department Care Team (Late st Contact Info) Description 12/18/2024 Orders Only [facility] Obstetrics and Gynecology [address] [facility] Advanced Medicine 13th [place] [address] [place] [id number] Liam Nathan MD PhD [address] [address] Social History Tobacco Use Types Packs/Day Years [...] on file Legal 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 Gender Identity Female 03/07/2021 1:17 PM CDT Sexual Orientation Straight 03/07/2021 1: 17 PM CDT 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
--- OUTSIDE RECORDS SUMMARY | 2024-12-30 13:47 | XMS_ITS ---
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 Assessment & Plan (09/26/2024 3:43 PM RADIO DIRECTOR): S/p resection Following hem/onc, appreciate recommendations Class 2 severe obesity due t o excess calories with serious comorbidity and body mass index (BMI) of 37.0 to 37.9 in adult 07/14/2023 Assessment & Plan (07/14/2023 12:32 PM CDT): Will look into resources for wegovy Chronic diastolic congestive heart failure 07/11 Assessment & Plan (09/26/2024 3:41 PM RADIO DIRECTOR): Chronic stable Well controlled Continue current prescribed medications losartan metorpolol at current dose Follows cardiology Assessment & Plan (10/16/2022 4:07 PM RADIO DIRECTOR): Chronic stable Well controlled Continue current medications at current dose Precordial pain 05/12/2022 Restless legs 05/01/2022 Benign neoplasm 02/03/2022 Other primary thrombocytopenia 01/22/2022 Assessment & Plan (09/26/2024 3:41 PM RADIO DIRECTOR): Monitor levels Pacemaker 03/04/2019 Overview (03/04/2019): [employer] DDD [place] MRI pacemaker implanted on 03/04/19 for SSS/Afib. [...] xarelto Assessment & Plan (09/26/2024 3:42 PM RADIO DIRECTOR): Follows cardiology Paul lopezporlol,dilta and xarelto Assessment & Plan (12/11/2021 7:24 PM RADIO DIRECTOR): On xarelto Referral requested for cards- placed [...] [id number] Assessment & Plan (09/26/2024 3:42 PM RADIO DIRECTOR): Follows cardiology Continue dilt and metoprolol Assessment & Plan (12/11/2021 7:24 PM RADIO DIRECTOR): S/p ppm History of CVA (cerebrovascular accident) 2014 Overview (01/23/2017): Stroke Assessment & Plan (09/26/2024 3:41 PM RADIO DIRECTOR): Continue lipitor and aspirin Assessment & Plan (12/11/2021 7:26 PM RADIO DIRECTOR): Is on statin Needs lipids checked Assessment & Plan (02/18/2019 1:16 PM CDT): Recent right MCA infarct, cardioembolic Myxoma 12/26/2014 Overview (12/11/2021): Left atrial myxoma- resected in 2012 Assessment & Plan (02/18/2019 1:16 PM CDT): History of left atrial myxoma resection in 2012 Primary hypertension Assessment & Plan (12/11/2021 7:24 PM RADIO DIRECTOR): Controlled, cont losartan Rheumatoid arthritis involvi ng multiple sites with positive rheumatoid factor Assessment & Plan (09/26/2024 3:44 PM RADIO DIRECTOR): Takes celebrax, well controlled Assessment & Plan (12/11/2021 7:25 PM RADIO DIRECTOR): Never on mtx, celebrex prn. She is unsure of the dx but thinks in the '70s was told this Ordering RA labs, exam is unremarkable for signs of RA Preventative health care Assessment & Plan (09/26/2024 3:41 PM RADIO DIRECTOR): Reviewed previous labs and diagnostic test results. [...] establishing or updating healthcare power of assistant attorney general document and providing our office with a copy. Assessment & Plan (10/16/2022 4:07 PM RADIO DIRECTOR): Discussed vaccines Labs will get drawn in January Will come back for a weight check Assessment & Plan (12/11/2021 7:27 PM RADIO DIRECTOR): Recommend shingrix Recommend flu shot utd on cscope- she will try to find date and get this to us utd on covid vax mammo ordered Current Treatment and Therapy Plans Albumin-bound PACLItaxel (Abraxane) / CARBOplatin 21 Day Cycles - SLABBER* Plan Start Date:10/31/2024 Plan Provider:Patti Preston MD [...] CARBOplatin (AUC 5) 21 Day Cycles - SLABBER 10/04/20 24 10/17/2024 CARBOplatin (by AUC:GOG) (PARAPLATIN)CA [...] 10/16/2022 Assessment & Plan (10/16/2022 4:07 PM RADIO DIRECTOR): Wants to start timothy, understands supply issue, [...] had a recent CVA. Acute ischemic stroke ([facility]) 01/18/2019 10/16/2022 Overview (01/18/2019): Right parietal area Sprain of ligaments of cervical spine 01/22/2017 10/16/2022 Dysphonia 05/25/2015 10/16/2022 Vocal cord atrophy 05/25/2015 Throat clearing 05/17/2015 10/16/2022 Lumbar pain 04/17/2009 09/26/2024 Right ankle swelling 022 Assessment & Plan (12/11/2021 7:27 PM RADIO DIRECTOR): Likely dependent, recommend compression stockings Podiatry referral placed as pt requested BMI 39.0-39.9,adult 10/16/20 22 Assessment & Plan (12/11/2021 7:28 PM RADIO DIRECTOR): Diet and excercise
== END 2024-12-30 13:46 | disposition home or self-care (01) ==
LOC: ANHIMG 13:45
PROVIDERS: PCP Hospitalist; Visit Provider Urology
DX: R31.0 Gross hematuria (principal); K76.0 Fatty (change of) liver, not elsewhere classified
CPT/HCPCS: 74177; Q9967

== ENCOUNTER 2025-03-31 02:03 | Day surgery (SDC) | payer MEDICARE, OTHER, SELFPAY ==
--- NOTE | 2025-03-20 09:23 | PC.NURSE ---
Report to the Outpatient Waiting Room, entrance under the green pavilion located off [facility], at time _7 AM on date __03/31/25 . Planned Procedure Time: ___9 AM .? Time changes happen often and if your time is changed the preop area will call you the afternoon before. - You and your visitor will be asked to self-screen and do not enter if you have any COVID symptoms. Please call surgeon if you need to reschedule. - A mask is optional within the hospital at this time. Patients may have clear liquids (water, carbonated beverages, clear teas, apple juice) until 3 hours prior to surgery ( 6AM ) with a maximum of 20 ounces. - No food from midnight until time of surgery and no smoking, or chewing tobacco (or any form of nicotine). No chewing gum, candy or mints. - Take only the following medications with a SIP of water on the morning of surgery: _DILTIAZEM,METOPROLOL, DO NOT STOP ANY OF YOUR OTHER PRESCRIPTION MEDICATIONS PRIOR TO SURGERY EXCEPT THE FOLLOWING Hold all vitamins and supplements for 3 days per anesthesiologist.LAST DOSE 03/27/25 Medications to discontinue per physician ___HOLD ASPIRIN 7 DAYS PRE OP PER DR ROMERO LAST DOSE 03/23/[address] ROMERO Please no make-up, nail mongolian, hairspray, perfume, deodorant, or body powder the day of surgery.? No jewelry (including any body piercings) or valuables the day of surgery, leave them at home.? Please take a shower or bath the night before, or the morning of, surgery with an antibacterial soap.? Wear comfortable, loose fitting clothing.? Children are encouraged to wear pajamas. - Jewelry must be removed prior to entering the operating room.? Rings and piercings that are not removed may be cut off. - The hospital will not accept responsibility for valuables.? - Please leave all valuables, including medications, at home the day of surgery. If you are going home after surgery, a licensed taxi truck driver must drive you home.? - NO public transportation without another adult if you receive anesthesia. - We recommend that an adult stay with you for 24 hours following discharge. - We also recommend that you do not drive, make important decision, drink alcoholic beverages, or take any drugs that were not prescribed by your health care provider for at least 24 hours after your discharge time. For Pediatric surgeries, we recommend two adults accompany the child home. Follow any additional instructions given to you from your surgeon. Telephone instructions given to _PATIENT and asked if any additional questions and then verbalized understanding. Patient advised to call surgeon office or pre surgery nurse liaison [phone] if any additional questions.
[2025-03-20 09:52] VITALS: BMI 38.2
--- NOTE | 2025-03-26 20:17 | PM.IMHP ---
H&P: HPI History of Present Illness Date/Time: 03/26/25 20:17 Chief Complaint: Gross Hematuria Narrative: Gross hematuria Review of Systems Review of Systems: All systems reviewed & are unremarkable except as noted in HPI and below PMFSH Past Medical History Medical History History of pacemaker History of gastroesophageal reflux (GERD) Myxoma Social History Social History Smoking status: Never smoker Living arrangements: with family Spiritual care concerns: No Meds Home Medications and Allergies Home Medications ?Medication ?Instructions ?Recorded ?Confirmed ?Type diltiazem HCl 360 mg 360 mg PO DAILY 11/25/22 03/20/25 History capsule,extended release 24 hr metoprolol succinate 50 mg 50 mg PO DAILY 11/25/22 03/20/25 History tablet,extended release 24 hr rivaroxaban 20 mg tablet (Xarelto) 20 mg PO DAILY 11/25/22 03/20/25 History ascorbic acid (vitamin C) 500 mg 500 mg PO DAILY 07/19/24 03/20/25 History capsule celecoxib 200 mg capsule 200 mg PO BID 07/19/24 03/20/25 History cholecalciferol (vitamin D3) 62.5 62.5 mcg PO DAILY 07/19/24 03/20/25 History mcg (2,500 unit) capsule losartan 50 mg tablet 50 mg PO DAILY 07/19/24 03/20/25 History aspirin 81 mg capsule 81 mg PO DAILY 03/20/25 03/20/25 History eszopiclone 2 mg tablet (Lunesta) 2 mg PO HS 03/20/25 03/20/25 History pyridoxine (vitamin B6) 50 mg 25 mg PO DAILY 03/20/25 03/20/25 History tablet Allergies Allergy/AdvReac Type Severity Reaction Status Date / Time paclitaxel (From Taxol) Allergy Severe Anaphylactic Verified 03/20/25 09:19 Shock morphine Allergy Intermediate Hallucinati Verified 03/20/25 09:17 ng sulfamethoxazole Allergy Intermediate Rash Verified 03/20/25 09:17 trimethoprim Allergy Intermediate Rash Verified 03/20/25 09:17 Exam Narrative: NAD A+O x3 Assessment and Plan Assessment and plan (1) Gross hematuria: Code(s): R31.0 - Gross hematuria Status: Acute Assessment and Plan: cystoscopy and treatment as needed. Possible bladder biospy
--- NOTE | ~2025-03-31 | XR_ITS ---
EXAMINATION: XR retrograde pyelogram LT DATE: 03/31/2025 10:37 INDICATION: Left retrograde pyelogram. TECHNIQUE: 3 fluoroscopic images of the left abdomen and pelvis were obtained during procedure perfor med by Dr. Olivares. Radiologist was not present for the imaging or procedure. The amount of fluorosco py time used during this procedure was 0.4 minutes. Total DAP was 0.409 mGym^2. COMPARISON: None. FINDINGS: Fireboat Operator image demonstrates a wire advanced through the left ureter into an upper pole calyx of the left kidney. No stones identified. Subsequent images demonstrate retrograde contrast opacification of the left ureter and renal collecting system which appear normal and advancement of a catheter into the l eft renal pelvis. IMPRESSION: 1. Fluoroscopy utilized during left retrograde pyelogram with normal appearance of the left renal col lecting system. See procedure note for further detail. Reviewed, dictated and finalized at location A. IMPRESSION: 1. Fluoroscopy utilized during left retrograde pyelogram with normal appearance of the left renal collecting system. See procedure note for further detail.
--- OUTSIDE RECORDS SUMMARY | 2025-03-31 02:08 | XMS_ITS | Encounter Summary ---
Author Organization [facility] Address [address] [place] [address] Phone Care Team Providers Care Clinical Program Manager Name Role Phone Prasanth Falk MD Unavailable [phone] Abdiel Gibbons MD Unavailable Pablo Lay MD, Morteza Goldman Primary Care Provide r Andreas Montoya DO Unavailable [phone] Encounter Details Date Type Department Care Team (Late st Contact Info) Description 12/18/2024 Orders Only [facility] Obstetrics and Gynecology [address] [facility] Advanced Medicine 13th [place] [address] [place] [id number] Liam Nathan MD PhD [address] [address] Social History Tobacco Use Types Packs/Day Years [...] on file 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 difficile suspected 01/10/2025 01/10/202501/11 3:05 AM CDT documented as of this encounter Care Teams Clinical Program Manager Relationship Specialty Start Date End Date Morteza Shah Jr., MD [address] [place] [address] PCP - General Internal Medicine 08/01/22 Prasanth Falk MD Cardiology 01/19/19 Abdiel Gibbons MD Consulting Physician Cardiology 01/19/19 Andreas Montoya DO [address] [place] [address] Consulting Physician Gastroenterology 10/16/22 documented as of this encounter
--- OUTSIDE RECORDS SUMMARY | 2025-03-31 02:08 | XMS_ITS | Clinical Summary ---
Author Organization [facility] Address [address] [place] [address] Care Team Providers Care Gluer And Slicer Hand Name Role Phone Prasanth Flak MD Unavailable [phone] Abdiel Gibbons MD Unavailable [phone] Pablo Lay MD, Morteza Goldman Primary Care Provide r Andreas Montoya DO Unavailable [phone] Allergies Active Allergy Reactions Criticality Noted Date Comments Adhesive Other (See comments) Low 03/15/2021 Tape pulls skin off and causes bleeding at site Morphine Other (See comments),Hallucinatio ns Medium 01/22/2017 Reaction: Unknown, , [place] Anaphylaxis High 04/16/2009 [place] Sherbert- lips swelled up, eyes swelled up, [...] or as directed by . 30 patch 2024 Active methocarbamoL (ROBAXIN) 750 mg tabletIndications :Lumbar pain Take 1 tablet (750 mg total) by mouth 4 (four) times a day as needed for muscle spasms Only takes occasionally 30 tablet 3 022 Active Additional Information Patient not taking.Reported on 03/30/2025 atorvastatin (LIPITOR) 40 mg tablet TAKE 1 TABLET NIGHTLY (NEED TO SCHEDULE AN APPOINTMENT. DUE FOR OFFICE VISIT IN JANUARY) 90 tablet 3 023 Active celecoxib (CeleBREX) 200 mg capsuleIndication s:Rheumatoid arthritis, involving unspecified site, unspecified whether rheumatoid factor present (HCC) Take 1 capsule (200 mg total) by mouth 2 (two) times a day 180 capsule 3 024 2024 Active aspirin 81 mg chewable tabletIndications :prevention of thrombosis Take 1 tablet (81 mg total) by mouth daily 90 tablet 3 024 2024 Active dexAMETHasone (DECADRON) 4 mg tabletIndications :Malignant neoplasm of left ovary (HCC) Take 2 tablets (8 mg) by mouth once daily on Day 2, 3, and 4 of each cycle. 20 tablet 3 Active Additional Information Patient not taking.Reported on 03/30/2025 prochlorperazine (Compazine) 10 mg tabletIndications :Malignant neoplasm [...] and cover. 30 g 1 024 Active Additional Information Patient not taking.Reported on 03/30/2025 diltiaZEM CD (Cardizem CD) 360 mg 24 hr capsule Take 1 capsule (360 mg total) by mouth daily 90 capsule 1 024 2024 Active al & mag hydroxide with simethicone-diphe nhydramine-lidoca ine (MAGIC MOUTHWASH) suspension 3-2-5Bidzclbblsa: Chemotherapy-Ilana ramon Mucositis Swish and swallow 15 mL every 4 (four) hours as needed (mucositis) 500 mL 3 Active pyridoxine (VITAMIN B-6) 100 mg tabletIndications :Encounter for antineoplastic chemotherapy,Claudia 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 Take 1 tablet (100 mg total) by mouth daily 30 tablet 025 2025 Active alpha lipoic acid 600 mg capsuleIndication s:Encounter for antineoplastic chemotherapy,Claudia 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 Take 1 capsule (600 mg total) by mouth daily 30 capsule 3 025 Active Additional Information Patient not taking.Reported on 02/08/2025 potassium chloride ER (KLOR-CON) 20 mEq CR tabletIndications :Hypomagnesemia,H ypokalemia Take 1 tablet (20 mEq total) by mouth 2 (two) times a day 60 tablet 025 Active losartan (COZAAR) 50 mg tabletIndications :Primary hypertension TAKE 1 TABLET(50 MG) BY MOUTH DAILY 90 tablet 3 025 Active rivaroxaban (Xarelto) 20 mg tabletIndications :Paroxysmal atrial fibrillation (HCC) Take 1 tablet (20 mg total) by mouth daily with dinner 90 tablet [address] (CYMBALTA) 30 mg capsuleIndication s:Peri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 Take 1 capsule (30 mg total) by mouth daily 30 capsule 11 025 2025 Active famotidine (PEPCID) 40 mg tabletIndications :Gastroesophageal reflux disease with esophagitis without hemorrhage Take 1 tablet (40 mg total) by mouth daily 90 tablet 3 025 2025 Active tirzepatide, weight loss, (ZEPBOUND) 2.5 mg/0.5 mL pen injectorIndicatio ns:Class 2 severe obesity due to excess calories with serious comorbidity and body mass index (BMI) of 38.0 to 38.9 in adult ([facility]) Inject 0.5 mL (2.5 mg total) under the skin every 7 days 2 mL 025 Active pregabalin (LYRICA) 100 mg capsuleIndication s:chemotherapy asscociated peripheral neuropathy Take 1 capsule (100 mg total) by mouth 3 (three) times a day 90 capsule 025 Active metoprolol XL (TOPROL-XL) 25 mg extended release tabletIndications :PAF (paroxysmal atrial fibrillation) ([facility]) Take 2 tablets (50 mg total) by mouth daily 180 tablet 3 025 2025 Active famotidine (PEPCID) 40 mg tabletIndications :Gastroesophageal reflux disease with esophagitis without hemorrhage Take 1 tablet (40 mg total) by mouth daily 90 tablet 3 024 2024 Discontinued(R eorder) pregabalin (LYRICA) 75 mg capsuleIndication s:chemotherapy asscociated peripheral neuropathy Take 1 capsule (75 mg total) by mouth 2 (two) times a day 60 capsule 3 025 2024 Discontinued metoprolol XL (TOPROL-XL) 25 mg extended release tabletIndications :PAF (paroxysmal atrial fibrillation) ([facility]) Take 1 tablet (25 mg total) by mouth daily 90 tablet 3 025 2024 Discontinued nitrofurantoin monohydrate (MACROBID) 100 mg capsuleIndication s:Urinary Tract/Genitourina ry Infection Take 1 capsule (100 mg total) by mouth 2 (two) times a day 14 capsule 025 2024 Discontinued Active Problems Problem Noted Date Diagnosed Date ROBIN (obstructive sleep apnea) 03/30/2025 Assessment & Plan (03/30/2025 3:07 PM CDT): Following pulm for this and has been dx for years about this Uses CPAP Will try to get zepbound Hypomagnesemia 03/03/2025 History of atrial myxoma 02/08/2025 Anemia associated with chemotherapy 01/05/2025 Malignant neoplasm of left ovary 09/26/2024 Assessment & Plan (09/26/2024 3:43 PM AVIATION ORDNANCE OFFICER): S/p resection Following hem/onc, appreciate recommendations Class 2 severe obesity due t o excess calories with serious comorbidity and body mass index (BMI) of 38.0 to 38.9 in adult 07/14/2023 Assessment & Plan (03/30/2025 3:07 PM CDT): Trtying to get zepbound approve for ROBIN Assessment & Plan (07/14/2023 12:32 PM CDT): Will look into resources for wegovy Chronic diastolic congestive heart failure 07/11 Assessment & Plan (03/30/2025 3:07 PM CDT): Chronic stable Well controlled Continue current prescribed medications losartan metorpolol at current dose Follows cardiology Assessment & Plan (09/26/2024 3:41 PM AVIATION ORDNANCE OFFICER): Chronic stable Well controlled Continue current prescribed medications losartan metorpolol at current dose Follows cardiology Assessment & Plan (10/16/2022 4:07 PM AVIATION ORDNANCE OFFICER): Chronic stable Well controlled Continue current medications at current dose Precordial pain 05/12/2022 Restless legs 05/01/2022 Benign neoplasm 02/03/2022 Other primary thrombocytopenia 01/22/2022 Assessment & Plan (03/30/2025 3:07 PM CDT): Monitor levels Assessment & Plan (09/26/2024 3:41 PM AVIATION ORDNANCE OFFICER): Monitor levels Pacemaker 03/04/2019 Overview (03/04/2019): Medtronic [...] cardioversion 08/02/2021 On xarelto Assessment & Plan (03/30/2025 3:07 PM CDT): Follows cardiology [place]ue metporlol,dilta and xarelto Assessment & Plan (09/26/2024 3:42 PM AVIATION ORDNANCE OFFICER): Follows cardiology [place]ue metporlol,dilta and xarelto Assessment & Plan (12/11/2021 7:24 PM AVIATION ORDNANCE OFFICER): On xarelto Referral requested for cards- placed [...] request for surgery [id number] Assessment & Plan (03/30/2025 3:07 PM CDT): Follows cardiology Continue dilt and metoprolol Assessment & Plan (09/26/2024 3:42 PM AVIATION ORDNANCE OFFICER): Follows cardiology Continue dilt and metoprolol Assessment & Plan (12/11/2021 7:24 PM AVIATION ORDNANCE OFFICER): S/p ppm History of CVA (cerebrovascular accident) 2014 Overview (01/23/2017): Stroke Assessment & Plan (03/30/2025 3:08 PM CDT): Continue lipitor and aspirin Assessment & Plan (09/26/2024 3:41 PM AVIATION ORDNANCE OFFICER): Continue lipitor and aspirin Assessment & Plan (12/11/2021 7:26 PM AVIATION ORDNANCE OFFICER): Is on statin Needs lipids checked Assessment & Plan (02/18/2019 1:16 PM CDT): Recent right MCA infarct, cardioembolic Myxoma 12/26/2014 Overview (12/11/2021): Left atrial myxoma- resected in 2012 Assessment & Plan (02/18/2019 1:16 PM CDT): History of left atrial myxoma resection in 2012 Primary hypertension Assessment & Plan (12/11/2021 7:24 PM AVIATION ORDNANCE OFFICER): Controlled, cont losartan Rheumatoid arthritis involvi ng multiple sites with positive rheumatoid factor Assessment & Plan (03/30/2025 3:08 PM CDT): Takes celebrax, well controlled Assessment & Plan (09/26/2024 3:44 PM AVIATION ORDNANCE OFFICER): Takes celebrax, well controlled Assessment & Plan (12/11/2021 7:25 PM AVIATION ORDNANCE OFFICER): Never on mtx, celebrex prn. She is unsure of the dx but thinks in the '70s was told this Ordering RA labs, exam is unremarkable for signs of RA Preventative health care Assessment & Plan (09/26/2024 3:41 PM AVIATION ORDNANCE OFFICER): Reviewed previous labs and diagnostic test results. [...] and establishing or updating healthcare power of real estate associate attorney document and providing our office with a copy. Assessment & Plan (10/16/2022 4:07 PM AVIATION ORDNANCE OFFICER): Discussed vaccines Labs will get drawn in January Will come back for a weight check Assessment & Plan (12/11/2021 7:27 PM AVIATION ORDNANCE OFFICER): Recommend shingrix Recommend flu shot utd on cscope- she will try to find date and get this to us utd on covid vax mammo ordered Resolved Problems Problem Noted Date Diagnosed Date Resolved Date CEVALLOS (dyspnea on exertion) 02/08/2025 Other thrombophilia 09/26/2024 09/26/20 24 Mass of uterine adnexa 08/25/202409/26 Class 2 obesity due to exces s calories without serious comorbidity with body mass index (BMI) of 38.0 to 38.9 in adult 10/16/2022 Assessment & Plan (10/16/2022 4:07 PM AVIATION ORDNANCE OFFICER): Wants to start wegovy, understands supply issue, [...] had a recent CVA. Acute ischemic stroke ([facility]) 01/18/2019 10/16/2022 Overview (01/18/2019): Right parietal area Sprain of ligaments of cervical spine 01/22/2017 10/16/2022 Dysphonia 05/25/2015 10/16/2022 Vocal cord atrophy 05/25/2015 Throat clearing 05/17/2015 10/16/2022 Lumbar pain 04/17/2009 09/26/2024 Right ankle swelling 022 Assessment & Plan (12/11/2021 7:27 PM AVIATION ORDNANCE OFFICER): Likely dependent, recommend compression stockings Podiatry referral placed as pt requested BMI 39.0-39.9,adult 10/16/20 22 Assessment & Plan (12/11/2021 7:28 PM AVIATION ORDNANCE OFFICER): Diet and excercise Encounters Date Type Department Care Team Description 03/30/2025 2:30 PM CDT Office Visit [facility] Primary Care [address] [place] [phone] Morteza Shah Jr., MD ROBIN (obstructive sleep apnea) (Primary Dx); Gastroesophageal reflux disease with esophagitis without hemorrhage; Chronic diastolic congestive heart failure (HCC); Rheumatoid arthritis involving multiple sites with positive rheumatoid factor (HCC); Other primary thrombocytopenia (HCC); Class 2 severe obesity due to excess calories with serious comorbidity and body mass index (BMI) of 38.0 to 38.9 in adult (HCC); PAF (paroxysmal atrial fibrillation) (HCC); SSS (sick sinus syndrome) (HCC); Malignant neoplasm of left ovary (HCC); Ovarian cancer, bilateral (HCC); Peri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; History of CVA (cerebrovascular accident) 03/30/2025 Orders Only [facility] [address] [place] [address] [place] [phone] Abdiel Gibbons MD 03/30/2025 Telephone [facility] [address] [place] [address] [place] [phone] Abdiel Gibbons MD Medtronic alert for fast v rates during AT/AF 03/28/2025 2:00 PM CDT Clinical Support [address] 1st [place] [phone] Belinda Costello, PhD 03/20/2025 7:15 AM CDT Ancillary Procedure [facility] [address] [place] [address] [place] [phone] Pacemaker (Primary Dx); SSS (sick sinus syndrome) (HCC) 03/20/2025 Orders Only [facility] [address] [place] [address] [place] [phone] Abdiel Gibbons MD SSS (sick sinus syndrome) ([facility]) (Primary Dx) 03/09/2025 3:30 PM CDT Lab [facility] Outpatient Lab at [address] [phone] 03/09/2025 3:26 PM CDT - 03/09/2025 11:59 PM CDT Hospital Encounter [facility] [id number] [place] [address] Dysuria Discharge Disposition: Discharge to home or self care 03/09/2025 Orders Only [facility] Obstetrics and Gynecology [facility] Advanced Medicine 13th [place] [phone] Jeanna Garcia RN Dysuria (Primary Dx) 03/03/2025 1:00 PM CDT Office Visit [facility] Obstetrics and Gynecology [facility] Advanced Medicine 13th [place] [phone] Patti Preston MD Malignant neoplasm of left ovary (HCC) (Primary Dx); Peri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; Anemia due to chemotherapy; Chemotherapy-induced thrombocytopenia 03/03/2025 12:00 PM CDT Infusion Center [facility] Advanced Medicine Gynecologic [facility] ([facility]) [address] [place] [address] Hypomagnesemia (Primary Dx); Malignant neoplasm of left ovary (HCC); Anemia due to chemotherapy; Anemia associated with chemotherapy 03/03/2025 9:47 AM CDT - 03/03/2025 11:59 PM CDT Hospital [facility] Radiology [facility] ([facility]) [address] [place] [address] Patti Preston MD Malignant neoplasm of left ovary (HCC) Discharge Disposition: Discharge to home or self care 03/03/2025 Documentation [facility] Obstetrics and Gynecology [address] [place] [address] Medicine 13th [place] [address] Jeanna Garcia RN 03/03/2025 Orders Only [facility] Obstetrics and Gynecology [address] [place] [address] Medicine 13th [place] [address] Jeanna Garcia, RN Malignant neoplasm of left ovary (HCC) (Primary Dx); Anemia due to chemotherapy 03/03/2025 Results Follow-Up [facility] Cardiology [address] [facility] [address] [place] [address] Jaylyn Ibarra MD Transthoracic Echo (TTE) Complete W Doppler/CF 03/02/2025 11:30 AM CDT Clinical Support [facility] [address] [place] [address] Advanced [facility] 1st [place] [address] Belinda Costello, PhD 03/01/2025 Results Follow-Up [facility] Obstetrics and Gynecology [address] [place] [address] Medicine 13th [place] [address] [place] [address] Patti Preston MD CBC with auto differential, Comprehensive metabolic panel, Magnesium, CA 125 02/27/2025 Telephone [facility] Cardiology [address] [facility] [address] [place] [phone] Jaylyn Ibarra MD 02/24/2025 8:15 AM CDT Ancillary Procedure [facility] Cardiology at [address] [place] [phone] PAF (paroxysmal atrial fibrillation) (HCC); CEVALLOS (dyspnea on exertion); History of atrial myxoma 02/17/2025 10:00 AM CDT Clinical Support [facility] [address] [facility] 1st [place] [address] Belinda Costello, PhD Malignant neoplasm of left ovary (HCC) 02/10/2025 10:00 AM CDT [facility] Gynecologic Oncology [facility] Advanced [facility] ([facility]) [address] [place] [address] Malignant neoplasm of left ovary (HCC) (Primary Dx) 02/10/2025 Orders Only [facility] Obstetrics and Gynecology [address] [place] [address] 13th [place] [address] [place] [address] Patti Preston MD Malignant neoplasm of left ovary (HCC) (Primary Dx) 02/09/2025 Orders Only [facility] Obstetrics and Gynecology [facility] 13th [place] [address] Jeanna Garcia RN Malignant neoplasm of left ovary (HCC) (Primary Dx) 02/08/2025 3:15 PM CDT Office Visit [facility] Medical [facility] Cardiology [address] [facility] [address] [place] [address] Jaylyn Ibarra MD PAF (paroxysmal atrial fibrillation) (HCC) (Primary Dx); Chronic diastolic congestive heart failure (HCC); Pacemaker; Primary hypertension; Anticoagulation management encounter; CEVALLOS (dyspnea on exertion); History of atrial myxoma; Lipid screening 02/08/2025 Results Follow-Up [facility] Obstetrics and Gynecology [address] [place] [address] 13th [place] [address] [place] [address] Patti Preston MD CBC with auto differential, Comprehensive metabolic panel, Magnesium, CA 125 01/30/2025 Orders Only [facility] Obstetrics and Gynecology [address] [facility] Medicine 13th [place] [address] Jeanna Garcia RN Malignant neoplasm of left ovary (HCC) (Primary Dx) 01/27/2025 8:20 AM CDT Office Visit [facility] Obstetrics and Gynecology [address] [place] [address] Medicine 13th [place] [address] Patti Preston MD Encounter for antineoplastic chemotherapy (Primary Dx); Ovarian cancer, bilateral (HCC); Peri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; Anemia due to chemotherapy; Malignant neoplasm of left ovary (HCC) 01/27/2025 6:25 AM CDT Lab [facility] Advanced [facility] ([facility]) [address] [place] [phone] Malignant neoplasm of left ovary (HCC); Anemia due to chemotherapy 01/27/2025 Orders Only [facility] Obstetrics and Gynecology [address] [place] [address] 13th [place] [address] Jeanna Garcia RN Malignant neoplasm of left ovary (HCC) (Primary Dx) 01/26/2025 Telephone [facility] Obstetrics and Gynecology [facility] 13th [place] [address] Jeanna Garcia RN 01/26/2025 Orders Only [facility] Obstetrics and Gynecology [address] [place] [address] 13th [place] [address] Jeanna Garcia, RN Malignant neoplasm of left ovary (HCC) (Primary Dx); Anemia due to chemotherapy 01/25/2025 Telephone [facility] Cardiology [address] [facility] [address] [place] [address] Jaylyn Ibarra MD 01/25/2025 Telephone [facility] Primary Care [address] [place] [address] [place] [phone] Morteza Shah Jr., MD Xarelto -- 90 day supply 01/11/2025 Orders Only [facility] Obstetrics and Gynecology [address] [place] [address] Medicine 13th [place] [address] Jeanna Garcia, RN Malignant neoplasm of left ovary (HCC) (Primary Dx); Encounter for antineoplastic chemotherapy; Dark urine 01/10/2025 10:28 AM CDT - 01/10/2025 5:49 PM CDT Hospital Encounter [facility] Advanced Medicine ([facility]) [address] [place] [phone] Dehydration (Primary Dx); Nausea; Other vascular headache; Anemia associated with chemotherapy; Malignant neoplasm of left ovary (HCC); Hypomagnesemia Discharge Disposition: Discharge to home or self care 01/10/2025 Orders Only [facility] Obstetrics and Gynecology [address] [place], [place] [address]th [place] [address] Jeanna Garcia RN 01/10/2025 Orders Only [facility] Advanced [facility] ([facility]) [address] [place] [address] Sandie Shepherd NP 01/09/2025 Results Follow-Up [facility] Obstetrics and Gynecology [address] [place], [place] [address]th [place] [address] Patti Preston MD CBC with auto differential, Comprehensive metabolic panel, Magnesium, CA 125 01/06/2025 12:00 PM CDT [facility] Advanced Medicine Gynecologic Oncology [facility] Advanced [facility] ([facility]) [address] [place] [address] Malignant neoplasm of left ovary (HCC) (Primary Dx); Ovarian cancer, bilateral (HCC); Encounter for antineoplastic chemotherapy; Anemia due to chemotherapy 01/06/2025 Orders Only [facility] Obstetrics and Gynecology [address] [place] [address] 13th [place] [address] Jeanna Garcia RN 01/06/2025 Orders Only [facility] Obstetrics and Gynecology [address] [facility] 13th [place] [address] [place] [address] Jeanna Garcia RN Ovarian cancer, bilateral (HCC) (Primary Dx); Encounter for antineoplastic chemotherapy; Anemia due to chemotherapy 01/05/2025 Orders Only [facility] Obstetrics and Gynecology [address] [facility] 13th [place] [address] [place] [address] Jeanna Garcia RN Hypomagnesemia (Primary Dx); Hypokalemia; Malignant neoplasm of left ovary (HCC) 12/30/2024 Orders Only [facility] Health Information Management [address] [place] [address] Scanning, Provider from Last 3 Months Immunizations Immunization Administration [...] (HCC) Osteoarthritis Heart disease Ovarian cancer (HCC) GERD (gastroesophageal reflux disease) Cataract 2021 Stroke (HCC) Family History Medical History Relation Name Comments Cancer Brother Stanley Obrien Sr Heart disease Brother Stanley Obrien Sr Arthritis Father [place]ita Obrien Diabetes Father Hood Obrine Gout Father Hood Obrien Hearing loss Father Hood Obrien Hypertension Father Hood Obrien Learning disabilities Father Hood Obrien Memory loss Father Hood Obrien Prostate cancer Father Hood Obrien Vision loss Father Hood Obrien Cancer Maternal Grandfather [place] francois Arthritis Mother Hood Obrien Breast cancer Mother Hood Obrien CHF Mother Hood Obrien Cancer Mother Hood Obrien Depression Mother Hood Obrien Heart disease Mother Hood Obrien Heart failure Mother Hood Obrien Family hist ory of congestive heart failure - (Added by TW Conv) Hypertension Mother Hood Obrien Osteoporosis Mother Hood Obrien Thyroid disease Mother Hood Obrien Varicose Veins Mother Hood Obrien Cancer Mother's Brother Damir Clint Cancer Mother's Sister Miley Johnson Cancer Other Family history of Cancer, unknown; Stroke Paternal Grandmother Melanie Ambrose Mental illness Sister Jyoti Benavides Asthma Son Jeffry sosa Relation Name Status Comments Brother Stanley Obrien Sr Father Hood Obrien Alive Maternal Grandfather [place] francois Mother Hood Obrien Alive Mother's Brother Damir Clint Mother's Sister Miley Johnson Other Paternal Grandmother Melanie Ambrose Sister Jyoti Benavides Son Jeffry sosa Social History Tobacco Use Types Packs/Day Years Used Date Smoking Tobacco: Never Smokeless Tobacco: Never Tobacco Cessation:Counseling Given: Not Answered Alcohol Use Standard Drinks/Week Comments No 0 (1 standard drink = 0.6 oz pur e alcohol) AUDIT-C Answer Date Recorded Frequency of Alcohol Consumption Not on file 03/30/2025 Q2: How many drinks containi ng alcohol do you have on a typical day when you are drinking? Patient does not drink Frequency of Binge Drinking Not on file 03/19 PHQ-2 Answer Date Recorded PHQ-2 Total Score (If total score is 3 or more points, staff should administer the PHQ-9) 1 03/30/2025 Hunger Vital Sign Answer Date Recorded Within the past 12 months, y ou worried that your food would run out before you got the money to buy more. Never true 01/07/20 25 Within the past 12 months, t he food you bought just didn't last and you didn't have money to get more. Never true 01/06/2025 PHQ-9 Answer Date Recorded PHQ-9 Total Score 0 09/26/2024 Personal Safety Answer Date Recorded Have you ever been in or are you currently in a harmful physical or emotional relationship or is someone making you feel afraid or unsafe? 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1 cm (5' 5) 03/30/2025 2:41 PM CDT Body Mass Index 38.61 03/30/2025 2:41 PM CDT Plan of Treatment Health Maintenance Due Date Last Done Comments Osteoporosis Screening-Bone Density Scan 1960 Zoster Vaccine (1 of 2) 1978 Breast Cancer Screening-Mammogram 07/15/2025 024, 01/24/2022 Well Visit 65+ 09/26/2025 09/26/2024, 10/16/2022 Fall Risk Assessment 10/07/2025 10/07/2024, 09/26/20 24 Depression Screening 03/30/2026 03/30/2025, 09/26/2024, 08/19/2024, Additional history exists Colon Cancer Screening-Colonoscopy 10/02/20302019 DTaP/Tdap/Td Vaccine (3 - Td or Tdap) 06/06/2034 06/06/2024, 10/19/2020 Hepatitis B Screening Completed 09/08/2017 , 04/08/2017, 03/05/2017 Hepatitis C Screening Completed 01/18/2022 Influenza Vaccine Completed 07/08/2024, , 09/21/2022, Additional history exists Pneumococcal vaccine 65+ Completed 09/26/2024, 09/19 Medical Devices Implanted Type Area Director Operating Room Device Identifier Shelf Expiration Date Model / Serial / Lot [employer] [id number] System 6-12fr Mvp Venous Closure Vascade - [id number] - [id number] Implanted:Qty: 1 on 08/02/2021 by Abdiel Gibbons MD at [facility] Collagen [employer] 05/20/2023 800-612C- 10U / [id number] 09A / [id number] [employer] [id number] System 6-12fr Mvp Venous Closure Vascade - [id number] - [id number] Implanted:Qty: 1 on 08/02/2021 by Abdiel Gibbons MD at [facility] Collagen [employer] 05/20/2023 800-612C- 10U / [id number] 09A / [id number] [id number] [employer] [id number] Vascade 6/7fr Bioabsorbable Vascular System Compression Collagen - [id number] - [id number] Implanted:Qty: 1 on 08/02/2021 by Abdiel Gibbons MD at [facility] Collagen [employer] 05/20/2023 [id number]- 05U / [id number] 04A / [id number] [id number] [employer] [id number] System 6-12fr Mvp Venous Closure Vascade - [id number] - [id number] Implanted:Qty: 1 on 08/02/2021 by Abdiel Gibbons MD at [facility] Collagen [employer] 04/17/2023 800-612C- 10U / [id number] 07A / [id number] [id number] Medtronic Cardiac Rhythm Mgmt 5076-52 Capsurefix Novus 6.2fr 2mm 52cm Bipolar Screw In Implantable Latex Free - [id number] - [id number] Implanted:Qty: 1 on 03/04/2019 by Abdiel Gibbons MD at [facility] Lead Medtronic Cardiac Rhythm Mgmt [id number] 01/07/2021 5076-52 / [id number] / Medtronic Cardiac Rhythm Mgmt 5076-45 Capsurefix Novus Od6.2 Fr; Odsec2 Mm L45 Cm Bipolar; Screw In; Im - [id number] - [id number] Implanted:Qty: 1 on 03/04/2019 by Abdiel Gibbons MD at [facility] Lead Medtronic Cardiac Rhythm Mgmt [id number] 01/11/2021 5076-45 / [id number] / Medtronic Cardiac Rhythm Mgmt [id number] Stephanie S Mri Surescan 50.8x46.6mm 2 Chamber 7.4mm Pacemaker 22.5gm - [id number] - [id number] Implanted:Qty: 1 on 03/04/2019 by Abdiel Gibbons MD at [facility] Pacemaker Medtronic Cardiac Rhythm Mgmt [id number] 07/02/2020 [id number] / [id number] / Angio [employer] Xcela Power Port 8fr [id number] - [id number] Implanted:Qty: 1 on 10/07/2024 at [facility] Angio Dynamics 04/03/2029 [id number] / / [id number] Explanted Type Area Director Operating Room Device Identifier Shelf Expiration Date Model / Serial / Lot Medtronic Cardiac Rhythm Mgmt Linqsys Reveal Linq Mycarelink Insertable Loop Recorder Automatic - [id number] - [id number] Implanted:Qty : 1 on 01/18/2019 at [facility] Explanted:Qty : 1 on 03/04/2019 at [facility] Implantable Loop Recorder Left: Chest Wall Medtronic Cardiac Rhythm Mgmt [id number] 11/15/2019 LINADENIKE / [id number] / Procedures Procedure Name Priority Date/Time Associated Diagnosis Comments DEVICE CHECK - REMOTE Routine 03/20/2025 9:28 AM CDT SSS (sick sinus syndrome) (HCC) URINALYSIS, MICROSCOPIC ONLY Routine 03/09/2025 3:26 PM CDT Dysuria URINALYSIS AND REFLEX TO MICROSCOPIC AND CULTURE Routine 03/09/2025 3:26 PM CDT Dysuria TRANSFUSE RED BLOOD CELLS Timed 03/03/2025 1:32 PM CDT Malignant neoplasm of left ovary (HCC) Anemia associated with chemotherapy TYPE AND SCREEN STAT 03/03/2025 11:09 AM CDT Malignant neoplasm of left ovary (HCC) Anemia due to chemotherapy PREPARE RBC Routine 03/03/2025 11:06 AM CDT Malignant neoplasm of left ovary (HCC) Anemia associated with chemotherapy CT CHEST ABDOMEN PELVIS W CONTRAST Schedule Routine, Read Routine (OP Routine) 03/03/2025 10:40 AM CDT Malignant neoplasm of left ovary (HCC) CA 125 Routine 02/28/2025 3:01 PM CDT Malignant neoplasm of left ovary (HCC) MAGNESIUM Routine 02/28/2025 3:01 PM CDT Malignant neoplasm of left ovary (HCC) COMPREHENSIVE METABOLIC PANEL Routine 02/28/2025 3:01 PM CDT Malignant neoplasm of left ovary (HCC) CBC WITH AUTO DIFFERENTIAL Routine 02/28/2025 3:01 PM CDT Malignant neoplasm of left ovary (HCC) TRANSTHORACIC ECHO (TTE) COMPLETE W DOPPLER/CF WO CONTRAST Routine 02/24/2025 8:35 AM CDT PAF (paroxysmal atrial fibrillation) (HCC) CEVALLOS (dyspnea on exertion) History of atrial myxoma POCT LIPID PANEL Routine 02/08/2025 3:01 PM CDT Lipid screening CA 125 Routine 02/07/2025 8:33 AM CDT Malignant neoplasm of left ovary (HCC) MAGNESIUM Routine 02/07/2025 8:33 AM CDT Malignant neoplasm of left ovary (HCC) COMPREHENSIVE METABOLIC PANEL Routine 02/07/2025 8:33 AM CDT Malignant neoplasm of left ovary (HCC) CBC WITH AUTO DIFFERENTIAL Routine 02/07/2025 8:33 AM CDT Malignant neoplasm of left ovary (HCC) DIFFERENTIAL AUTO STAT 01/27/2025 6:4 2 AM CDT Malignant neoplasm of left ovary (HCC) Anemia due to chemotherapy CBC WITH AUTO DIFFERENTIAL STAT 01/27/2025 6:42 AM CDT Malignant neoplasm of left ovary (HCC) Anemia due to chemotherapy CA 125 Routine 01/19/2025 7:21 AM CDT Malignant neoplasm of left ovary (HCC) MAGNESIUM Routine 01/19/2025 7:21 AM CDT Malignant neoplasm of left ovary (HCC) COMPREHENSIVE METABOLIC PANEL Routine 01/19/2025 7:21 AM CDT Malignant neoplasm of left ovary (HCC) CBC WITH AUTO DIFFERENTIAL Routine 01/19/2025 7:21 AM CDT Malignant neoplasm of left ovary (HCC) TRANSFUSE RED BLOOD CELLS Timed 01/10/2025 12:58 PM CDT Anemia associated with chemotherapy Malignant neoplasm of left ovary (HCC) PREPARE RBC Timed 01/10/2025 11:50 AM CDT Anemia associated with chemotherapy Malignant neoplasm of left ovary (HCC) URINALYSIS, MICROSCOPIC ONLY Routine 01/10/2025 11:12 AM CDT URINE CULTURE Routine 01/10/2025 11:12 AM CDT URINALYSIS AND REFLEX TO MICROSCOPIC AND CULTURE Routine 01/10/2025 11:12 AM CDT EGFR STAT 01/10/2025 11:07 AM CDT DIFFERENTIAL AUTO STAT 01/10/2025 11:07 AM CDT TYPE AND SCREEN STAT 01/10/2025 11:07 AM CDT MAGNESIUM STAT 01/10/2025 11:07 AM CDT COMPREHENSIVE METABOLIC PANEL STAT 01/10/2025 11:07 AM CDT CBC WITH AUTO DIFFERENTIAL STAT 01/10/2025 11:07 AM CDT TYPE AND SCREEN Routine 01/06/2025 4:17 PM CDT Ovarian cancer, bilateral (HCC) Encounter for antineoplastic chemotherapy Anemia due to chemotherapy CA 125 Routine 01/04/2025 9:02 AM CDT Malignant neoplasm of left ovary (HCC) MAGNESIUM Routine 01/04/2025 9:02 AM CDT Malignant neoplasm of left ovary (HCC) COMPREHENSIVE METABOLIC PANEL Routine 01/04/2025 9:02 AM CDT Malignant neoplasm of left ovary (HCC) CBC WITH AUTO DIFFERENTIAL Routine 01/04/2025 9:02 AM CDT Malignant neoplasm of left ovary (HCC) SCAN - RADIOLOGY/IMAGING 12/30/2024 SCREENING MAMMOGRAM BILATERAL W ALPHONSO Schedule Routine, Read Routine (OP Routine) 07/15/2024 4:19 PM CDT Screening mammogram, encounter for HEPATITIS C ANTIBODY Routine 01/18/2022 9:34 AM CDT Preventative health care from Last 3 Months or Most Recently Relevant to Health Maintenance Results * DEVICE CHECK - REMOTE (03/20/2025 9:28 AM CDT) Anatomical Region Laterality Modality Other Narrative 03/21/2025 10:41 AM CDT Table formatting from the original result was not included. PM CHECK (REMOTE) Patient ID: Esperanza Benavides is a 64 y.o. female This patient received a Medtronic Pacemaker. They had a routine remote transmission on 03/20/2025. Device implant indications: Sick sinus syndrome Interrogation of the patient's device demonstrates the following: Presenting EGM: A sensed V sensed @ 90 bpm Original Device Settings Right Atrium Right Ventricle Sensitivity (mV) 0.3 mV 1.2 mV Pacing Outputs 1.5 V @ 0.4 ms 2.0 V @ 0.4 ms Testing Measurements Right Atrium Right Ventricle Sensitivity (mV) 1.4 mV 9.9 mV Impedence (Ohms) 361 ohms 399 ohms Pace Threshold 0.625 V @ 0.4 ms 0.75 V @ 0.4 ms Pacing % 32.4 % Less than 0.1 % Battery Status: 8.6 years to JUANITA Episodes last 90 days/Comments: AF [place] 0 %, longest duration 0. There were 4 episodes classified as nonsustained VT EGMs show what appear to be tachycardia is atrial in origin rates from the 150s to 170s the longest lasting approximately 7 seconds. There were 3 episodes classified as SVT/sinus tachycardia always rates in the 150s, EGMs do show SVT versus sinus tach the longest lasting 2 minutes 39 seconds. There was also 1 episode classified as fast a and V EGMs again show SVT at a rate in the 150s lasting approximately 20 seconds. NORMAL DEVICE FUNCTION PROGRAMMED MEDICATIONS: Anti-coagulant(s): Xarelto 20 mg daily, aspirin 81 mg daily Anti-arrhythmic(s): Cardizem CD 360 mg daily, Toprol-XL 25 mg daily PLAN: 1) Medtronic Pacemaker evaluation 2) Medtronic remote transmission scheduled in 3 months. 3) Programming appropriate for device measurements Victor M M. Biermann, RN us Abdiel Gibbons MD [facility] PRO CEDURES Final Result * (ABNORMAL) Urinalysis reflex to microscopic and culture Urine, bladder (03/09/2025 3:26 PM CDT) Color, ur Red(A) Yellow Clarity, ur Turbid(A) Clear [facility] Specific gravity, ur 1.016 1.003 - 1.030 [facility] pH, urine 6.0 [facility] Comment: Interpretive Data U rine pH is affected by diet, medications, systemic acid-base disturbances, and renal tubular function. pH may affect urinary stone formation. For example, urine pH below 6.0 may help reduce the tendency for calcium phosphate stones and pH greater than 6.0 may reduce the tendency for uric acid stone formation. Source: [facility] [employer] Current Interpretive Data was last revised on 2017 Protein, ur ql 2+(A) Negative [facility] Glucose, ur ql Negative Negative [facility] Ketones, ur Negative Negative [facility] Bilirubin, ur Negative Negative [facility] Blood, ur 3+(A) Negative [facility] Urobilinogen, ur <2.0 <2.0 mg/dL [facility] Nitrite, ur Negative Negative [facility] Leukocyte esterase, ur Negative Negative [facility] UA reflex comment Reflex to microscopic UA will be performed. [facility] Urine, bladder 03/09/2025 3: 26 PM CDT 03/09/2025 7:11 PM CDT us Patti Preston MD LAB MICROBIOLOGY - [facility] [place] [address] [address] [place] [address] * (ABNORMAL) Urinalysis, microscopic only (03/09/2025 3:26 PM CDT) WBC, ur 6-10(A) 0 - 5 /HPF RBC, ur >50(A) 0 - 2 /HPF [facility] Epithelial cells, squamous, ur 1-5 0 - 5 /HPF [facility] Bacteria, ur Trace(A) [facility] Mucous, ur Present(A) [facility] Culture Reflex Comment Reflex conditions for urine culture (WBC >10) not met. [facility] Urine, bladder 03/09/2025 3: 26 PM CDT 03/09/2025 7:11 PM CDT Patti Preston MD LAB URINE ORDERABLES Fi nal Result Performing Organization Address City/[facility]/ZIP Co de Phone Number VIKRAM [address] [address] Department of [address] [place] [address] * Transfuse RBC (03/03/2025 3:55 PM CDT) Blood Patti Preston MD BLOOD TRANSFUSION ORDER MONIKA Final Result Performing Organization Address [facility] Co de Phone Number [facility] [employer] [place] [address] * Type and screen (03/03/2025 11:09 AM CDT) Lai, indirect Negative ABO Rh O Positive [facility] Blood 03/03/2025 11:0 9 AM CDT 03/03/2025 11:23 AM CDT Narrative [facility] - 03/03/2025 12:16 PM CDT Has the patient had Daratumumab or Isatuximab in the past 6 months?->Unknown Patti Preston MD LAB BLOOD BANK TEST ORD ERABLES Final Result Performing Organization Address [facility] [place] [address] * Prepare RBC: 1 Units (03/03/2025 11:06 AM CDT) Product code [id number] Unit Number [id number] [facility] Product Blood Type OPOS [facility] Dispense Status PRESUMED TRANSFUSED [facility] Blood 03/03/2025 11:0 6 AM CDT 03/03/2025 11:06 AM CDT Narrative [facility] PATRICK - 03/04/2025 12:56 AM CDT Are special requirements needed? (All products are leukoreduced and CMV- safe)- >No Date required:-[id number] LRRBC # of Ssoyt-[id number] Reasons:-BMT/ONC, Hgb <8 g/dL} us Patti Preston MD BLOOD BANK PRODUCT ORDE KATE Final Result [facility] [place] [address] * CT Chest Abdomen Pelvis W Contrast (03/03/2025 10:40 AM CDT) Anatomical Region Laterality Modality Body N/A Computed Tomogra phy 03/03/2025 11:5 3 AM CDT Impressions 03/03/2025 11:57 AM CDT 1. No findings compatible with metastatic malignant disease. 2. Redemonstrated hypoattenuating lesions of the liver, similar in appearance to comparison examinations. Dictated by: Kati Jimenez M.D. The radiology attending physician has personally reviewed this study, and had reviewed and/or edited this written report and agrees with it. Electronically signed by: Kristen Kramer M.D. Narrative 03/03/2025 11:57 AM CDT EXAMINATION: CT CHEST ABDOMEN PELVIS W CONTRAST HISTORY: 64-year-old female, history of ovarian cancer. TECHNIQUE: Transaxial computed tomographic images of the chest, abdomen, and pelvis were obtained with intravenous contrast according to the standard protocol after the uneventful administration of 96 mL Opti-Ray 350 intravenous contrast. COMPARISON: Multiple prior examinations, including CT Abdomen/Pelvis dated 06/23/[address] Chest PE dated 05/23/2018. FINDINGS: Chest: No pleural effusion or pneumothorax. Postsurgical changes of pacemaker and port placement. Cardiac size is normal. Calcifications of aorta within the chest and abdomen. Hypoattenuating lesions of the left hemithyroid. Abdomen/Pelvis: Liver: Hepatic steatosis. Normal appearance of the splenic, hepatic, and portal veins. Hypoattenuating liver lesions of the mid and left liver are redemonstrated. Lesion of the mid liver is similar in appearance from CT examination dated 2018, while left-sided lesion is unchanged from examination dated 2023; these foci are stable and not thought to represent metastatic disease. Pancreas: Normal appearance of the pancreas. No pancreatic ductal dilatation. Adrenal: Normal appearance of the bilateral adrenal glands. Kidney/Bladder: Normal appearance of the left kidney. Tiny right renal cyst. The urinary bladder is decompressed. Small and Large Bowel: Normal appearance of the small and large bowel. No intra-abdominal free air. No intra-abdominal free fluid or ascites. Postsurgical changes of hysterectomy. Degenerative disc disease of the lumbar spine. Procedure Note Kristen Kramer MD - 03/03/2025 EXAMINATION: CT CHEST ABDOMEN PELVIS W CONTRAST HISTORY: 64-year-old female, history of ovarian cancer. TECHNIQUE: Transaxial computed tomographic images of the chest, abdomen, and pelvis were obtained with intravenous contrast according to the standard protocol after the uneventful administration of 96 mL Opti-Ray 350 intravenous contrast. COMPARISON: Multiple prior examinations, including CT Abdomen/Pelvis dated 06/23/[address] Chest PE dated 05/23/2018. FINDINGS: Chest: No pleural effusion or pneumothorax. Postsurgical changes of pacemaker and port placement. Cardiac size is normal. Calcifications of aorta within the chest and abdomen. Hypoattenuating lesions of the left hemithyroid. Abdomen/Pelvis: Liver: Hepatic steatosis. Normal appearance of the splenic, hepatic, and portal veins. Hypoattenuating liver lesions of the mid and left liver are redemonstrated. Lesion of the mid liver is similar in appearance from CT examination dated 2018, while left-sided lesion is unchanged from examination dated 2023; these foci are stable and not thought to represent metastatic disease. Pancreas: Normal appearance of the pancreas. No pancreatic ductal dilatation. Adrenal: Normal appearance of the bilateral adrenal glands. Kidney/Bladder: Normal appearance of the left kidney. Tiny right renal cyst. The urinary bladder is decompressed. Small and Large Bowel: Normal appearance of the small and large bowel. No intra-abdominal free air. No intra-abdominal free fluid or ascites. Postsurgical changes of hysterectomy. Degenerative disc disease of the lumbar spine. IMPRESSION: 1. No findings compatible with metastatic malignant disease. 2. Redemonstrated hypoattenuating lesions of the liver, similar in appearance to comparison examinations. Dictated by: Kati Jimenez M.D. The radiology attending physician has personally reviewed this study, and had reviewed and/or edited this written report and agrees with it. Electronically signed by: Kristen Kramer M.D. Patti Preston MD [facility] [place] PROCEDURES Final Result * (ABNORMAL) CBC with auto differential (02/28/2025 3:01 PM CDT) WBC 4.9 3.8 - 10.8 Thousand/u L [facility] RBC, POC 2.52(L) 3.80 - 5.10 Million/uL [facility] Hgb 7.7(L) 11.7 - 15.5 g/dL [facility] Hct 24.3(L) 35.0 - 45.0 % [facility] MCV 96.4 80.0 - 100.0 fL [facility] MCH 30.6 27.0 - 33.0 pg [facility] MCHC 31.7(L) 32.0 - 36.0 g/dL [facility] Comment: For adults, a slight decrease in the calculated MCHC value (in the range of 30 to 32 g/dL) is most likely not clinically significant; however, it should be interpreted with caution in correlation with other red cell parameters and the patient's clinical condition. Rdw 15.8(H) 11.0 - 15.0 % [facility] Platelets 79(L) 140 - 400 Thousand/u L [facility] MPV 10.4 7.5 - 12.5 fL [facility] Neutrophils, abs 2,401 1,500 - 7,800 cells/uL [facility] Lymphocytes, abs 2,004 850 - 3,900 cells/uL [facility] Monocyte abs 353 200 - 950 cells/uL [facility] Eosinophils, abs 123 15 - 500 cells/uL [facility] Basophils, abs 20 0 - 200 cells/uL [facility] Neutrophils 49 % [facility] Lymphocyte pct 40.9 % [facility] Monocytes 7.2 % [facility] Eosinophils 2.5 % [facility] Basophils 0.4 % [facility] Blood 02/28/2025 3:01 PM CDT 02/28/2025 3:01 PM CDT Result [facility] Patti Preston MD LAB BLOOD ORDERABLES Fi nal Result Performing Organization Address City/[facility]/ZIP Co de Phone Number [facility] [employer] [facility] [address] [phone] * CA 125 (02/28/2025 3:01 PM CDT) CA 125 ag 8 <35 U/mL [employer] Comment: This test was performed using the Siemens Chemiluminescent method. Values obtained from different assay methods cannot be used interchangeably. CA 125 levels, regardless of value, should not be interpreted as absolute evidence of the presence or absence of disease. Blood 02/28/2025 3:01 PM CDT 02/28/2025 3:01 PM CDT Patti Preston MD LAB BLOOD ORDERABLES Fi nal Result Performing Organization Address City/[facility] Co de Phone Number [facility] [employer] [facility] [address] [place] [address] * (ABNORMAL) Magnesium (02/28/2025 3:01 PM CDT) Magnesium 1.2(L) 1.5 - 2.5 mg/dL [employer] [facility] Blood 02/28/2025 3:01 PM CDT 02/28/2025 3:01 PM CDT Result [facility] Patti Preston MD LAB BLOOD ORDERABLES Fi nal Result Performing Organization Address City/[facility]/ZIP Co de Phone Number [facility] [employer] [facility] [address] [place] [phone] * (ABNORMAL) Comprehensive metabolic panel (02/28/2025 3:01 PM CDT) Glucose 106(H) 65 - 99 mg/dL [facility] Comment: Fasting reference interval For someone without known diabetes, a glucose value between 100 and 125 mg/dL is consistent with prediabetes and should be confirmed with a follow-up test. BUN 19 7 - 25 mg/dL [facility] melinda Bishop Creatinine 0.84 0.50 - 1.05 mg/dL [facility]ila Finalta[facility]idhi melinda Bishop eGFR 77 > OR = 60 mL/min/1.7 3m2 [employer] BUN/creat ratio SEE NOTE: 6 - 22 (calc) Kamila [facility] lawrence [facility]ario Comment: Not Reported: BUN and Creatinine are within reference range. Sodium 141 135 - 146 mmol/L [employer] mel[facility] Bishop Potassium, pl 3.5 3.5 - 5.3 mmol/L [employer] melinda Bishop Chloride 104 98 - 110 mmol/L Kamila FinaltaS melinda Bishop CO2 27 20 - 32 mmol/L Kamila FinaltaVidhi melinda Bishop Calcium 8.7 8.6 - 10.4 mg/dL [employer] melinda Bishop Protein, sr 6.6 6.1 - 8.1 g/dL [employer] mel[facility] Bishop Albumin 4.1 3.6 - 5.1 g/dL Kamila NSL [employer] Bishop GLOBULIN 2.5 1.9 - 3.7 g/dL (calc) [facility] Alb/glob ratio 1.6 1.0 - 2.5 (calc) [employer] mel[facility] Bishop Bilirubin, total 0.3 0.2 - 1.2 mg/dL Kamila FinaltaS melinda Bishop Alk phos 70 37 - 153 U/L [employer] AST 15 10 - 35 U/L [facility] mel[facility] Bishop ALT (SGPT) 18 6 - 29 U/L [employer] mel[facility] Bishop Blood 02/28/2025 3:01 PM CDT 02/28/2025 3:01 PM CDT us Patti Preston MD LAB BLOOD ORDERABLES Fi nal [facility] [address] [place] [address] * TRANSTHORACIC ECHO (TTE) COMPLETE W DOPPLER/CF WO CONTRAST (02/24/2025 8:35 AM CDT) EF Mod BP 60 % CONS SCIMAGE Anatomical Region Laterality Modality Ultrasound 02/24/2025 8:12 AM CDT Narrative 02/24/2025 12:56 PM CDT [facility] [address], [address], [place] [address] P:[phone] P:[phone] Echocardiographic Report Patient Name: ESPERANZA BENAVIDES E : 1960 Study Date: 02/24/2025 8:12:50 AM Gender: F Tech: Location: [facility] Ref Provider: JAYLYN IBARRA Height(Cm): 165 BSA: 2.19 Weight(Kg): 104.3 Heart Rate: 91 BP: 143 / 68 Quality: Good Order Provider: JYALYN IBARRA PROCEDURES: Echocardiographic Report: Transthoracic echocardiogram with complete 2D, M-Mode, and color Doppler examination. With Strain Analysis. INDICATIONS: History of Atrial Myxoma, CEVALLOS, Pacemaker, and I48.0 Paroxysmal atrial fibrillation. MEASUREMENTS: 2D/MM Value Range Doppler Value Range EF Mod BP 60 % [ 54 - 74 ] INNA Vmax 2.76 cm2 [ 2.00 - 4.00 ] EF Teich MM 60 % [ 54 - 74 ] AV Mean PG 6 mmHg LVIDd 2D 4.83 cm [ 3.80 - 5.20 ] AV Peak Joel 1.57 m/s [ 1.00 - 1.70 ] LVIDd MM 4.76 cm [ 3.80 - 5.20 ] AV Peak PG 10 mmHg LVIDs 2D 3.45 cm [ 2.20 - 3.50 ] AV VTI 32.18 cm LVIDs MM 3.23 cm [ 2.20 - 3.50 ] LVOT Diam 2.05 cm [ 1.70 - 2.10 ] LVPWd 2D 1.15 cm [ 0.60 - 0.90 ] LVOT Peak Joel 1.20 m/s [ 0.70 - 1.10 ] LVPWd MM 1.07 cm [ 0.60 - 0.90 ] LVOT VTI 26.68 cm IVSd 2D 1.19 cm [ 0.60 - 0.90 ] MV E Peak Joel 1.07 m/s [ 0.60 - 1.30 ] IVSd MM 1.24 cm [ 0.60 - 0.90 ] MV A Peak Joel 0.49 m/s [ 1.00 - 1.20 ] LA Dimension MM 3.92 cm [ 2.70 - 3.80 ] MV Decel Time 225 msec [ 104 - 258 ] AoR Diam MM 3.60 cm [ 2.70 - 3.70 ] PV Peak Joel 1.10 m/s [ 0.40 - 0.80 ] LA Volume Index 44 cc/m2 [ 16 - 34 ] TR Peak Joel 2.36 m/s [ 1.00 - 2.80 ] ACS MM 2.45 cm TR Peak PG 22 mmHg RVSP 30.00 mmHg [ 10.00 - 36.00 ] Lateral E` 0.14 m/s [ 0.10 - 0.15 ] E/E` 8 2D/MM Value Range Doppler Value Range - FINDINGS: Interpretation Site: Exam was interpreted at [facility]. Left Ventricle: Normal left ventricular size. Mild concentric left ventricular hypertrophy. Normal global left ventricular systolic function. Paradoxical septal motion consistent with RV pacemaker. Impaired diastolic relaxation Grade I. Ejection fraction is measured at 60 %. Global Longitudinal Strain is -15 %. Right Ventricle: Normal right ventricular size. Linear artifact in right ventricle suggestive of catheter(s), pacemaker lead(s), or ICD lead(s). Left Atrium: The left atrium is normal in size. Right Atrium: The right atrium is normal in size. Linear artifact in right atrium suggestive of catheter(s), pacemaker lead(s), or ICD lead(s). Atrial Septum: Somewhat redundant and hypermobile atrial septum. Mitral Valve: Normal appearance of the mitral valve. Aortic Valve: Normal appearance of the aortic valve. Tricuspid Valve: Normal appearance of the tricuspid valve. Estimated peak RVSP is 31 mmHg. Mild tricuspid regurgitation. Pulmonic Valve: Normal appearance of the pulmonic valve. Mild pulmonic regurgitation. Pericardium: Normal pericardium with no significant pericardial effusion. Aorta: Normal aortic root. IVC: Normal size and normal respiratory collapse consistent with normal right atrial pressure (<5 mmHg). Pulmonary Artery: Normal pulmonary artery size. CONCLUSIONS: Normal left ventricular size. Mild concentric left ventricular hypertrophy. Normal global left ventricular systolic function. Paradoxical septal motion consistent with RV pacemaker. Impaired diastolic relaxation Grade I. Ejection fraction is measured at 60 %. Global Longitudinal Strain is -15 %. Somewhat redundant and hypermobile atrial septum. Pacemaker leads noted. Electronically Signed By: Morteza Davison MD, [facility] 02/24/2025 12:55:24 PM CDT Procedure Note Morteza Davison MD - 02/24/2025 [facility] Cardiology [address], [address], [place] [address] P:[phone] P:[phone] Echocardiographic Report Patient Name: ESPERANZA BENAVIDES E : 1960 Study Date: 02/24/2025 8:12:50 AM Gender: F Tech: Location: [facility] Ref Provider: JAYLYN IBARRA Height(Cm): 165 BSA: 2.19 Weight(Kg): 104.3 Heart Rate: 91 BP: 143 / 68 Quality: Good Order Provider: JAYLYN IBARRA PROCEDURES: Echocardiographic Report: Transthoracic echocardiogram with complete 2D, M-Mode, and color Dopplerexamination. With Strain Analysis. INDICATIONS: History of Atrial Myxoma, CEVALLOS, Pacemaker, and I48.0 Paroxysmal atrialfibrillation. MEASUREMENTS: 2D/MM Value Range Doppler ValueRange EF Mod BP 60 % [ 54 - 74 ] INNA Vmax 2.76cm2 [ 2.00 - 4.00 ] EF Teich MM 60 % [ 54 - 74 ] AV Mean PG 6mmHg LVIDd 2D 4.83 cm [ 3.80 - 5.20 ] AV Peak Joel 1.57m/s [ 1.00 - 1.70 ] LVIDd MM 4.76 cm [ 3.80 - 5.20 ] AV Peak PG 10mmHg LVIDs 2D 3.45 cm [ 2.20 - 3.50 ] AV VTI 32.18cm LVIDs MM 3.23 cm [ 2.20 - 3.50 ] LVOT Diam 2.05 cm[ 1.70 - 2.10 ] LVPWd 2D 1.15 cm [ 0.60 - 0.90 ] LVOT Peak Joel 1.20m/s [ 0.70 - 1.10 ] LVPWd MM 1.07 cm [ 0.60 - 0.90 ] LVOT VTI 26.68cm IVSd 2D 1.19 cm [ 0.60 - 0.90 ] MV E Peak Joel 1.07m/s [ 0.60 - 1.30 ] IVSd MM 1.24 cm [ 0.60 - 0.90 ] MV A Peak Joel 0.49m/s [ 1.00 - 1.20 ] LA Dimension MM 3.92 cm [ 2.70 - 3.80 ] MV Decel Time 225msec [ 104 - 258 ] AoR Diam MM 3.60 cm [ 2.70 - 3.70 ] PV Peak Joel 1.10m/s [ 0.40 - 0.80 ] LA Volume Index 44 cc/m2 [ 16 - 34 ] TR Peak Joel 2.36m/s [ 1.00 - 2.80 ] ACS MM 2.45 cm TR Peak PG 22mmHg RVSP 30.00 mmHg [ 10.00 - 36.00 ] Lateral E` 0.14 m/s [ 0.10 - 0.15 ] E/E` 8 2D/MM Value Range Doppler ValueRange - FINDINGS: Interpretation Site: Exam was interpreted at [facility]. Left Ventricle: Normal left ventricular size. Mild concentric left ventricularhypertrophy. Normal global left ventricular systolic function. Paradoxical septal motion consistentwith RV pacemaker. Impaired diastolic relaxation Grade I. Ejection fraction ismeasured at 60 %. Global Longitudinal Strain is -15 %. Right Ventricle: Normal right ventricular size. Linear artifact in right ventriclesuggestive of catheter(s), pacemaker lead(s), or ICD lead(s). Left Atrium: The left atrium is normal in size. Right Atrium: The right atrium is normal in size. Linear artifact in right atriumsuggestive of catheter(s), pacemaker lead(s), or ICD lead(s). Atrial Septum: Somewhat redundant and hypermobile atrial septum. Mitral Valve: Normal appearance of the mitral valve. Aortic Valve: Normal appearance of the aortic valve. Tricuspid Valve: Normal appearance of the tricuspid valve. Estimated peak RVSP is 31 mmHg.Mild tricuspid regurgitation. Pulmonic Valve: Normal appearance of the pulmonic valve. Mild pulmonic regurgitation. Pericardium: Normal pericardium with no significant pericardial effusion. Aorta: Normal aortic root. IVC: Normal size and normal respiratory collapse consistent with normal rightatrial pressure (<5 mmHg). Pulmonary Artery: Normal pulmonary artery size. CONCLUSIONS: Normal left ventricular size. Mild concentric left ventricularhypertrophy. Normal global left ventricular systolic function. Paradoxical septal motion consistentwith RV pacemaker. Impaired diastolic relaxation Grade I. Ejection fraction ismeasured at 60 %. Global Longitudinal Strain is -15 %. Somewhat redundant and hypermobile atrial septum. Pacemaker leads noted. Electronically Signed By: Morteza Davison MD, [facility] 02/24/2025 12:55:24 PM CDT us Jaylyn Ibarra MD CV ECHO PROCEDURES Final Result * POCT lipid panel (02/08/2025 3:01 PM CDT) Cholesterol, POC 212 mg/dL HDL, POC 38 mg/dL Triglycerides, POC 213 mg/dL LDL Cholesterol POC 131 mg/dL Chol/HDL Ratio, POC 3.4 Non-HDL Cholesterol, POC 174 mg/dL Cholesterol Total, POC 212 mg/dL Capillary blood 02/08/2025 3 :01 PM CDT Jaylyn Ibarra MD POINT OF CARE TEST ORDERA BLES Final Result * (ABNORMAL) CBC with auto differential (02/07/2025 8:33 AM CDT) WBC 3.7(L) 3.8 - 10.8 Thousand/u L [facility] RBC, POC 2.77(L) 3.80 - 5.10 Million/uL [facility] Hgb 8.4(L) 11.7 - 15.5 g/dL [facility] Hct 26.6(L) 35.0 - 45.0 % [facility] MCV 96.0 80.0 - 100.0 fL [facility] MCH 30.3 27.0 - 33.0 pg [facility] MCHC 31.6(L) 32.0 - 36.0 g/dL [facility] Comment: For adults, a slight decrease in the calculated MCHC value (in the range of 30 to 32 g/dL) is most likely not clinically significant; however, it should be interpreted with caution in correlation with other red cell parameters and the patient's clinical condition. Rdw 16.7(H) 11.0 - 15.0 % [facility] Platelets 165 140 - 400 Thousand/u L [facility] MPV 10.4 7.5 - 12.5 fL [facility] Neutrophils, abs 1,824 1,500 - 7,800 cells/uL [facility] Lymphocytes, abs 1,365 850 - 3,900 cells/uL [facility] Monocyte abs 296 200 - 950 cells/uL [facility] Eosinophils, abs 196 15 - 500 cells/uL [facility] Basophils, abs 19 0 - 200 cells/uL [facility] Neutrophils 49.3 % [facility] Lymphocyte pct 36.9 % [facility] Monocytes 8.0 % [facility] Eosinophils 5.3 % [facility] Basophils 0.5 % [facility] Bishop Blood 02/07/2025 8:33 AM CDT 02/07/2025 8:34 AM CDT Narrative [facility] - 02/08/2025 2:09 AM CDT FASTING:NO FASTING: NO Patti Preston MD LAB BLOOD ORDERABLES Fi nal Result Performing Organization Address City/[facility]/ZIP Co de Phone Number [facility] [address] [place] [address] * CA 125 (02/07/2025 8:33 AM CDT) CA 125 ag 7 <35 U/mL [facility] Comment: This test was performed using the Siemens Chemiluminescent method. Values obtained from different assay methods cannot be used interchangeably. CA 125 levels, regardless of value, should not be interpreted as absolute evidence of the presence or absence of disease. Blood 02/07/2025 8:33 AM CDT 02/07/2025 8:34 AM CDT Narrative [facility] - 02/08/2025 2:09 AM CDT FASTING:NO FASTING: NO Patti Preston MD LAB BLOOD ORDERABLES Fi nal Result Performing Organization Address [facility] Co de Phone Number [facility] [address] [place] [address] * Magnesium (02/07/2025 8:33 AM CDT) Pathologist [facility] Magnesium 1.5 1.5 - 2.5 mg/dL [facility] Blood 02/07/2025 8:33 AM CDT 02/07/2025 8:34 AM CDT Narrative [facility] - 02/08/2025 2:09 AM CDT FASTING:NO FASTING: NO Patti Preston MD LAB BLOOD ORDERABLES Fi nal Result [facility] [address] [place] [address] * (ABNORMAL) Comprehensive metabolic panel (02/07/2025 8:33 AM CDT) Glucose 110 65 - 139 mg/dL Kamila [facility]dugoMass Vector[facility]idhi Bishop Comment: Non-fasting reference interval BUN 18 7 - 25 mg/dL Kamila VerdugoVidhi Bishop Creatinine 0.76 0.50 - 1.05 mg/dL Kamila FinaltaVidhi Bishop eGFR 87 > OR = 60 mL/min/1.7 3m2 Kamila VerdugoMass VectorVidhi Bishop BUN/creat ratio SEE NOTE: (calc) Kamila FinaltaVidhi Bishop Comment: Not Reported: BUN and Creatinine are within reference range. Sodium 141 135 - 146 mmol/L Kamila FinaltaVidhi Bishop Potassium, pl 3.4(L) 3.5 - 5.3 mmol/L Kamila VerdugoMass Vector[facility]idhi Bishop Chloride 106 98 - 110 mmol/L Kamila FinaltaVidhi Bishop CO2 28 20 - 32 mmol/L [facility] Bishop Calcium 9.2 8.6 - 10.4 mg/dL Kamila FinaltaVihdi Bishop Protein, sr 6.7 6.1 - 8.1 g/dL Kamila FinaltaVidhi Bishop Albumin 4.3 3.6 - 5.1 g/dL Kamila FinaltaVidhi Bishop GLOBULIN 2.4 1.9 - 3.7 g/dL (calc) Kamila VerdugoMass VectorVidhi Bishop Alb/glob ratio 1.8 1.0 - 2.5 (calc) [facility] Bishop Bilirubin, total 0.3 0.2 - 1.2 mg/dL Kamila FinaltaVidhi Bishop Alk phos 69 37 - 153 U/L Kamila NSL [employer] Bishop AST 18 10 - 35 U/L [facility] Bishop ALT (SGPT) 20 6 - 29 U/L [facility] Blood 02/07/2025 8:33 AM CDT 02/07/2025 8:34 AM CDT Narrative [facility] - 02/08/2025 2:09 AM CDT FASTING:NO FASTING: NO us Patti Preston MD LAB BLOOD ORDERABLES Fi nal Result [facility] [address] [place] [address] * Differential, auto (01/27/2025 6:42 AM CDT) Neutrophil abs 2.10 1.50 - 6.50 K/cumm Imm gran abs 0.03 0.00 - 0.10 K/cumm [facility] Lymphocyte abs 1.53 0.80 - 3.30 K/cumm [facility] Monocyte abs 0.40 0.20 - 0.80 K/cumm [facility] Eosinophil abs 0.07 0.00 - 0.50 K/cumm [facility] Basophil abs 0.02 0.00 - 0.10 K/cumm [facility] Neutrophil pct 50.6 % [facility] Comment: Interpretive Data Percent cell count reference ranges are not reported, since discordance with absolute values may lead to misinterpretation of CBC data. Current Interpretive Data was last revised on 2018. Imm gran pct 0.7 % [facility] Comment: Interpretive Data Percent cell count reference ranges are not reported, since discordance with absolute values may lead to misinterpretation of CBC data. Current Interpretive Data was last revised on 2018. Lymphocyte pct 36.9 % [facility] Comment: Interpretive Data Percent cell count reference ranges are not reported, since discordance with absolute values may lead to misinterpretation of CBC data. Current Interpretive Data was last revised on 2018. Monocyte pct 9.6 % [facility] Comment: Interpretive Data Percent cell count reference ranges are not reported, since discordance with absolute values may lead to misinterpretation of CBC data. Current Interpretive Data was last revised on 2018. Eosinophil pct 1.7 % [facility] Comment: Interpretive Data Percent cell count reference ranges are not reported, since discordance with absolute values may lead to misinterpretation of CBC data. Current Interpretive Data was last revised on 2018. Basophil pct 0.5 % [facility] Comment: Interpretive Data Percent cell count reference ranges are not reported, since discordance with absolute values may lead to misinterpretation of CBC data. Current Interpretive Data was last revised on 2018. Blood 01/27/2025 6:42 AM CDT 01/27/2025 6:59 AM CDT Patti Preston MD LAB BLOOD ORDERABLES Fi nal Result Performing Organization Address City/[facility] Co de Phone Number [facility] [place] [address] * (ABNORMAL) CBC with auto differential (01/27/2025 6:42 AM CDT) WBC 4.15 3.80 - 9.90 K/cumm Hgb 8.1(L) 11.9 - 15.5 g/dL [facility] Hct 25.0(L) 35.6 - 45.5 % [facility] Plt 87(L) 150 - 400 K/cumm [facility] MPV 10.6 9.1 - 12.3 fL [facility] RBC 2.77(L) 3.90 - 5.20 M/cumm [facility] MCV 90.3 81.3 - 96.4 fL [facility] MCH 29.2 27.1 - 33.3 pg [facility] MCHC 32.4 32.3 - 35.7 g/dL [facility] RDW CV 16.5(H) 11.1 - 14.9 % [facility] RDW SD 53.5(H) 35.7 - 48.1 fL [facility] NRBC abs 0.00 0.00 - 0.01 K/cumm [facility] Blood 01/27/2025 6:42 AM CDT 01/27/2025 6:59 AM CDT Patti Preston MD LAB BLOOD ORDERABLES Fi nal Result [facility] [place] [address] * (ABNORMAL) CBC with auto differential (01/19/2025 7:21 AM CDT) WBC 1.5(L) 3.8 - 10.8 Thousand/u L [facility] RBC, POC 2.70(L) 3.80 - 5.10 Million/uL [facility] Hgb 7.9(L) 11.7 - 15.5 g/dL [facility] Hct 25.6(L) 35.0 - 45.0 % [facility] MCV 94.8 80.0 - 100.0 fL [facility] MCH 29.3 27.0 - 33.0 pg [facility] MCHC 30.9(L) 32.0 - 36.0 g/dL [facility] Comment: For adults, a slight decrease in the calculated MCHC value (in the range of 30 to 32 g/dL) is most likely not clinically significant; however, it should be interpreted with caution in correlation with other red cell parameters and the patient's clinical condition. Rdw 16.0(H) 11.0 - 15.0 % [facility] Platelets 129(L) 140 - 400 Thousand/u L [facility] MPV 9.9 7.5 - 12.5 fL [facility] Neutrophils, abs 195(LL) 1,500 - 7,800 cells/uL [facility] Lymphocytes, abs 1,110 850 - 3,900 cells/uL [facility] Monocyte abs 195(L) 200 - 950 cells/uL [facility] Eosinophils, abs 0(L) 15 - 500 cells/uL [facility] Basophils, abs 0 0 - 200 cells/uL [facility] Neutrophils 13 % [facility] Lymphocyte pct 74 % [facility] Monocytes 13 % [facility] Eosinophils 0 % [facility] Basophils 0 % [facility] Comment [facility] Comment: The smear has been manually reviewed and the manual differential has been reported. Tear-drop cells 1 + Anisocytosis 1 + Review of the peripheral smear reveals decreased numbers of platelets. Blood 01/19/2025 7:21 AM CDT 01/19/2025 7:22 AM CDT Narrative [facility] - 01/20/2025 2:17 AM CDT FASTING:YES FASTING: YES Patti Preston MD LAB BLOOD ORDERABLES Fi nal Result Performing Organization Address City/[facility] Co de Phone Number [facility] [address] [place] [address] * CA 125 (01/19/2025 7:21 AM CDT) CA 125 ag 7 <35 U/mL [facility] Comment: This test was performed using the Siemens Chemiluminescent method. Values obtained from different assay methods cannot be used interchangeably. CA 125 levels, regardless of value, should not be interpreted as absolute evidence of the presence or absence of disease. Blood 01/19/2025 7:21 AM CDT 01/19/2025 7:22 AM CDT Narrative [facility] - 01/20/2025 2:17 AM CDT FASTING:YES FASTING: YES Patti Preston MD LAB BLOOD ORDERABLES Fi nal Result Performing Organization Address [facility] Co de Phone Number [facility] [address] [place] [address] * Magnesium (01/19/2025 7:21 AM CDT) [facility] Magnesium 1.5 1.5 - 2.5 mg/dL [facility] Blood 01/19/2025 7:21 AM CDT 01/19/2025 7:22 AM CDT Narrative [facility] - 01/20/2025 2:17 AM CDT FASTING:YES FASTING: YES Patti Preston MD LAB BLOOD ORDERABLES Fi nal Result Performing Organization Address City/[facility] Co de Phone Number [facility] [address] [place] [address] * Comprehensive metabolic panel (01/19/2025 7:21 AM CDT) Pathologist [facility] Glucose 91 65 - 99 mg/dL [facility] Comment: Fasting reference interval BUN 18 7 - 25 mg/dL Kamila Bishop Creatinine 0.71 0.50 - 1.05 mg/dL Kamila Bishop eGFR 94 > OR = 60 mL/min/1.7 3m2 Kamila [facility] Bishop BUN/creat ratio SEE NOTE: 6 - 22 (calc) Kamila Verdugo-Vidhi Bishop Comment: Not Reported: BUN and Creatinine are within reference range. Sodium 140 135 - 146 mmol/L Kamila Bishop Potassium, pl 3.5 3.5 - 5.3 mmol/L Kamila Bishop Chloride 106 98 - 110 mmol/L Kamila Bishop CO2 25 20 - 32 mmol/L Kamila Bishop Calcium 9.0 8.6 - 10.4 mg/dL Kamila Bishop Protein, sr 6.5 6.1 - 8.1 g/dL Kamila Bishop Albumin 4.0 3.6 - 5.1 g/dL Kamila Bishop GLOBULIN 2.5 1.9 - 3.7 g/dL (calc) Kamila Bishop Alb/glob ratio 1.6 1.0 - 2.5 (calc) Kamila Bishop Bilirubin, total 0.3 0.2 - 1.2 mg/dL Kamila Bishop Alk phos 64 37 - 153 U/L Kamila Bishop AST 15 10 - 35 U/L Kamila Bishop ALT (SGPT) 20 6 - 29 U/L Kamila Bishop Blood 01/19/2025 7:21 AM CDT 01/19/2025 7:22 AM CDT Narrative [facility] - 01/20/2025 2:17 AM CDT FASTING:YES FASTING: YES Patti Preston MD LAB BLOOD ORDERABLES Fi nal Result KAMILA Bishop [address] [place] [address] * Transfuse RBC (01/10/2025 2:42 PM CDT) Blood Patti Preston MD BLOOD TRANSFUSION ORDER MONIKA Final Result Performing Organization Address [facility] [place] [address] * Prepare RBC: 1 Units (01/10/2025 11:50 AM CDT) Product code [id number] Unit Number [id number] * [facility] Product Blood Type OPOS [facility] Dispense Status PRESUMED TRANSFUSED [facility] Blood 01/10/2025 11:5 0 AM CDT 01/10/2025 11:49 AM CDT Narrative [facility] - 01/11/2025 12:55 AM CDT Are special requirements needed? (All products are leukoreduced and CMV- safe)- >Yes Date required:-[id number] Special Req 1:-Irradiated LRRBC # of [id number] Reasons:-BMT/ONC, Hgb <8 g/dL} us Patti Preston MD BLOOD BANK PRODUCT ORDE RABLES Final Result Performing Organization Address [facility] [place] [address] * (ABNORMAL) Urinalysis reflex to microscopic and culture Urine, clean voided (01/10/2025 11:12 AM CDT) Pathologist [facility] Color, ur Mer Yellow Clarity, ur Cloudy(A) Clear [facility] Specific gravity, ur 1.027 1.003 - 1.030 [facility] pH, urine 6.0 [facility] Comment: Interpretive Data U rine pH is affected by diet, medications, systemic acid-base disturbances, and renal tubular function. pH may affect urinary stone formation. For example, urine pH below 6.0 may help reduce the tendency for calcium phosphate stones and pH greater than 6.0 may reduce the tendency for uric acid stone formation. Source: [facility] [employer] Current Interpretive Data was last revised on 2017 Protein, ur ql 3+(A) Negative [facility] Glucose, ur ql Trace(A) Negative [facility] Ketones, ur Trace Negative [facility] Bilirubin, ur Negative Negative [facility] Blood, ur 3+(A) Negative [facility] Urobilinogen, ur <2.0 <2.0 mg/dL [facility] Nitrite, ur Negative Negative [facility] Leukocyte esterase, ur Negative Negative [facility] UA reflex comment Reflex to microscopic UA will be performed. [facility] Urine, clean voided 01/10/2025 11:12 AM CDT 01/10/2025 11:23 AM CDT Sandie Shepherd [employer] LAB MICROBIOLOGY - GENERAL ORDERABLES Final Result Performing Organization Address [facility] de Phone Number [facility] [address] [place] [address] * (ABNORMAL) Urinalysis, microscopic only (01/10/2025 11:12 AM CDT) WBC, ur 11-20(A) 0 - 5 /HPF RBC, ur >50(A) 0 - 2 /HPF [facility] Bacteria, ur 2+(A) [facility] Culture Reflex Comment Reflex to urine culture will be performed. [facility] Urine, clean voided 01/10/2025 11:12 AM CDT 01/10/2025 11:23 AM CDT Sandie Shepherd [employer] LAB URINE ORDERABLES Final Result Performing Organization Address [facility] de Phone Number [facility] [place] [address] * (ABNORMAL) Urine culture Urine, clean voided (01/10/2025 11:12 AM CDT) Report Final Report: Greater than or equal to 100,000 colonies/mL of Escherichia coli Plus growth of clinically insignificant bacterial billy. (.) Organism ESCHERICHIA COLI [facility] Organism PLUS GROWTH OF CLINICALLY INSIGNIFICANT BILLY. [facility] Urine, clean voided 01/10/2025 11:12 AM CDT 01/10/2025 12:04 PM CDT Narrative VIKRAM GALINDO - 01/12/2025 1:27 PM CDT Urine culture reflexed based upon urinalysis results. Testing performed by [facility] ([phone]) Organism Antibiotic Method Susceptibility Escherichia coli Ampicillin INTERPRETATION Resistant Escherichia coli Cefazolin INTERPRETATION Susceptible Escherichia coli Nitrofurantoin INTERPRETATION Susceptible Escherichia coli Gentamicin INTERPRETATION Susceptible Escherichia coli Trimethoprim with Sulfamethoxazole IN TERPRETATION Susceptible Escherichia coli Meropenem INTERPRETATION Susceptible Escherichia coli Cefepime INTERPRETATION Susceptible Escherichia coli Ciprofloxacin INTERPRETATION Susceptible Escherichia coli Ceftazidime INTERPRETATION Susceptible Escherichia coli Ceftriaxone INTERPRETATION Susceptible Escherichia coli Piperacillin/Tazobactam INTERPRETATIO N Susceptible Escherichia coli Cephalexin INTERPRETATION Susceptible Escherichia coli Cefuroxime-axetil INTERPRETATION Susceptible Escherichia coli Cefdinir INTERPRETATION Susceptible us Sandie Shepherd [employer] OPERATOR LAB MICROBIOLOGY - GENERAL ORDERABLES Final Result [facility] [place] [address] * eGFR (01/10/2025 11:07 AM CDT) eGFR 76 >=60 mL/min/1. 73 m2 Comment: Interpretive Data [...] interpretive data was last reviewed 2021. Blood 01/10/2025 11:0 7 AM CDT 01/10/2025 11:24 AM CDT us Sandie Shepherd [employer] LAB BLOOD ORDERABLES Final Result [facility] [place] [address] * (ABNORMAL) Differential, auto (01/10/2025 11:07 AM CDT) Neutrophil abs 3.2 1.5 - 6.5 K/cumm Imm gran abs 0.0 0.0 - 0.1 K/cumm [facility] [facility] Lymphocyte abs 1.0 0.8 - 3.3 K/cumm [facility] Monocyte abs 0.1(L) 0.2 - 0.8 K/cumm [facility] Eosinophil abs 0.2 0.0 - 0.5 K/cumm [facility] Basophil abs 0.0 0.0 - 0.1 K/cumm [facility] Neutrophil pct 71.2 % [facility] Comment: Interpretive Data Percent cell count reference ranges are not reported, since discordance with absolute values may lead to misinterpretation of CBC data. Current Interpretive Data was last revised on 2018. Imm gran pct 0.4 % [facility] Comment: Interpretive Data Percent cell count reference ranges are not reported, since discordance with absolute values may lead to misinterpretation of CBC data. Current Interpretive Data was last revised on 2018. Lymphocyte pct 23.1 % [facility] Comment: Interpretive Data Percent cell count reference ranges are not reported, since discordance with absolute values may lead to misinterpretation of CBC data. Current Interpretive Data was last revised on 2018. Monocyte pct 1.1 % [facility] Comment: Interpretive Data Percent cell count reference ranges are not reported, since discordance with absolute values may lead to misinterpretation of CBC data. Current Interpretive Data was last revised on 2018. Eosinophil pct 3.8 % [facility] Comment: Interpretive Data Percent cell count reference ranges are not reported, since discordance with absolute values may lead to misinterpretation of CBC data. Current Interpretive Data was last revised on 2018. Basophil pct 0.4 % [facility] Comment: Interpretive Data Percent cell count reference ranges are not reported, since discordance with absolute values may lead to misinterpretation of CBC data. Current Interpretive Data was last revised on 2018. Blood 01/10/2025 11:0 7 AM CDT 01/10/2025 11:25 AM CDT Sandie Shepherd SHUFFLE BOARD OPERATOR LAB BLOOD ORDERABLES Final Result [facility] [place] [address] * (ABNORMAL) CBC with auto differential (01/10/2025 11:07 AM CDT) WBC 4.5 3.8 - 9.9 K/cumm Hgb 8.0(L) 11.9 - 15.5 g/dL [facility] Hct 23.5(L) 35.6 - 45.5 % [facility] Plt 99(L) 150 - 400 K/cumm [facility] MPV 10.2 9.1 - 12.3 fL [facility] RBC 2.71(L) 3.90 - 5.20 M/cumm [facility] MCV 86.7 81.3 - 96.4 fL [facility] MCH 29.5 27.1 - 33.3 pg [facility] MCHC 34.0 32.3 - 35.7 g/dL [facility] RDW CV 16.2(H) 11.1 - 14.9 % [facility] RDW SD 51.4(H) 35.7 - 48.1 fL [facility] NRBC abs 0.00 0.00 - 0.01 K/cumm [facility] Blood 01/10/2025 11:0 7 AM CDT 01/10/2025 11:25 AM CDT Sandie Shepherd SHUFFLE BOARD OPERATOR LAB BLOOD ORDERABLES Final Result Performing Organization Address [facility] [place] [address] * Type and screen (01/10/2025 11:07 AM CDT) Pathologist [facility] ABO Rh O Positive Lai, indirect Negative [facility] Blood 01/10/2025 11:0 7 AM CDT 01/10/2025 11:26 AM CDT Narrative [facility] - 01/10/2025 12:27 PM CDT Has the patient had Daratumumab or Isatuximab in the past 6 months?->Unknown Sandie Shepherd SHUFFLE BOARD OPERATOR LAB BLOOD BANK TEST ORDERA BLES Final Result Performing Organization Address [facility] [place] [address] * (ABNORMAL) Magnesium (01/10/2025 11:07 AM CDT) [facility] Magnesium 1.1(L) 1.4 - 2.5 mg/dL Blood 01/10/2025 11:0 7 AM CDT 01/10/2025 11:24 AM CDT Sandie Shepherd SHUFFLE BOARD OPERATOR LAB BLOOD ORDERABLES Final Result Performing Organization Address [facility] [place] [address] * Comprehensive metabolic panel (01/10/2025 11:07 AM CDT) [facility] Sodium 139 135 - 145 mmol/L Potassium, pl 3.7 3.3 - 4.9 mmol/L [facility] Chloride 101 97 - 110 mmol/L [facility] CO2 26 22 - 32 mmol/L [facility] Anion gap 12 2 - 15 mmol/L [facility] BUN 17 6 - 25 mg/dL [facility] Creatinine 0.85 0.60 - 1.10 mg/dL [facility] Glucose 150 70 - 199 mg/dL [facility] Comment: Interpretive Data Fasting glucose >/= 126 [...] interpretive data was last revised 2022. Calcium 9.3 8.5 - 10.3 mg/dL [facility] Bilirubin, total 0.4 0.1 - 1.2 mg/dL [facility] Protein, pl 6.9 6.5 - 8.5 g/dL [facility] Albumin 3.8 3.5 - 5.0 g/dL [facility] Alk phos 65 40 - 130 Units/L [facility] ALT 38 7 - 45 Units/L [facility] AST 23 10 - 45 Units/L [facility] Blood 01/10/2025 11:0 7 AM CDT 01/10/2025 11:24 AM CDT Sandie Shepherd SHUFFLE BOARD OPERATOR LAB BLOOD ORDERABLES Final Result [facility] [place] [address] * Type and screen (01/06/2025 4:17 PM CDT) Lai, indirect Negative ABO Rh O Positive [facility] Blood 01/06/2025 4:17 PM CDT 01/06/2025 4:47 PM CDT Narrative [facility] - 01/06/2025 6:16 PM CDT Has the patient had Daratumumab or Isatuximab in the past 6 months?->Unknown us Patti Preston MD LAB BLOOD BANK TEST ORD ERABLES Final Result [facility] [place] [address] * (ABNORMAL) CBC with auto differential (01/04/2025 9:02 AM CDT) WBC 5.9 3.8 - 10.8 Thousand/u L [facility] RBC, POC 3.12(L) 3.80 - 5.10 Million/uL [facility] Hgb 8.8(L) 11.7 - 15.5 g/dL [facility] Hct 28.5(L) 35.0 - 45.0 % [facility] MCV 91.3 80.0 - 100.0 fL [facility] MCH 28.2 27.0 - 33.0 pg [facility] MCHC 30.9(L) 32.0 - 36.0 g/dL [facility] Comment: For adults, a slight decrease in the calculated MCHC value (in the range of 30 to 32 g/dL) is most likely not clinically significant; however, it should be interpreted with caution in correlation with other red cell parameters and the patient's clinical condition. Rdw 16.9(H) 11.0 - 15.0 % [facility] Platelets 137(L) 140 - 400 Thousand/u L [facility] MPV 9.9 7.5 - 12.5 fL [facility] Neutrophils, abs 3,587 1,500 - 7,800 cells/uL [facility] Lymphocytes, abs 1,705 850 - 3,900 cells/uL [facility] Monocyte abs 431 200 - 950 cells/uL [facility] Eosinophils, abs 148 15 - 500 cells/uL [facility] Basophils, abs 30 0 - 200 cells/uL [facility] Neutrophils 60.8 % [facility] Lymphocyte pct 28.9 % [facility] Monocytes 7.3 % [facility] Eosinophils 2.5 % [facility] Basophils 0.5 % [facility] Blood 01/04/2025 9:02 AM CDT 01/04/2025 9:02 AM CDT Narrative [facility] - 01/05/2025 4:48 AM CDT FASTING:NO FASTING: NO Patti Preston MD LAB BLOOD ORDERABLES Fi nal Result [facility] [address] [place] [address] * CA 125 (01/04/2025 9:02 AM CDT) CA 125 ag 8 <35 U/mL [facility] Comment: This test was performed using the Siemens Chemiluminescent method. Values obtained from different assay methods cannot be used interchangeably. CA 125 levels, regardless of value, should not be interpreted as absolute evidence of the presence or absence of disease. Blood 01/04/2025 9:02 AM CDT 01/04/2025 9:02 AM CDT Narrative [facility] - 01/05/2025 4:48 AM CDT FASTING:NO FASTING: NO Patti Preston MD LAB BLOOD ORDERABLES Fi nal Result Performing Organization Address [facility] Co de Phone Number [facility] [address] [place] [address] * (ABNORMAL) Magnesium (01/04/2025 9:02 AM CDT) Pathologist [facility] Magnesium 1.1(L) 1.5 - 2.5 mg/dL [facility] Blood 01/04/2025 9:02 AM CDT 01/04/2025 9:02 AM CDT Narrative [facility] - 01/05/2025 4:48 AM CDT FASTING:NO FASTING: NO Patti Preston MD LAB BLOOD ORDERABLES Fi nal Result [facility] [address] [place] [address] * (ABNORMAL) Comprehensive metabolic panel (01/04/2025 9:02 AM CDT) Glucose 128 65 - 139 mg/dL [facility] Comment: Non-fasting reference interval BUN 16 7 - 25 mg/dL [facility] Creatinine 0.79 0.50 - 1.05 mg/dL [facility] eGFR 83 > OR = 60 mL/min/1.7 3m2 [facility] BUN/creat ratio SEE NOTE: 6 - 22 (calc) [facility] Comment: Not Reported: BUN and Creatinine are within reference range. Sodium 139 135 - 146 mmol/L [facility] Potassium, pl 3.4(L) 3.5 - 5.3 mmol/L [facility] Chloride 103 98 - 110 mmol/L [facility] CO2 27 20 - 32 mmol/L [facility] Calcium 8.8 8.6 - 10.4 mg/dL [facility] Protein, sr 7.0 6.1 - 8.1 g/dL [facility] Albumin 4.3 3.6 - 5.1 g/dL [facility] GLOBULIN 2.7 1.9 - 3.7 g/dL (calc) [facility] Alb/glob ratio 1.6 1.0 - 2.5 (calc) [facility] Bilirubin, total 0.3 0.2 - 1.2 mg/dL [facility] Alk phos 68 37 - 153 U/L [facility] AST 16 10 - 35 U/L [facility] ALT (SGPT) 18 6 - 29 U/L [facility] Blood 01/04/2025 9:02 AM CDT 01/04/2025 9:02 AM CDT Narrative [facility] - 01/05/2025 4:48 AM CDT FASTING:NO FASTING: NO us Patti Preston MD LAB BLOOD ORDERABLES Fi nal Result [facility] [address] [place] [address] * SCAN - RADIOLOGY/IMAGING (12/30/2024) Anatomical Region Laterality Modality Other us Provider Scanning Final Result * Screening Mammogram Bilateral W Alphonso (07/15/2024 [...] age 40, based on guidelines of the [place] [employer] (ACR Practice Parameter for the Performance of Screening and Diagnostic Mammography) and [place] [employer]. For women [...] CDT) Hep C Ab Nonreactive Nonreactive [facility] Comment: Interpretive Data Nonreactive: Antibodies to HCV [...] Stephany Rosales MD LAB MICROBIOLOGY - GENERAL ORDE KATE Final Result [facility] [address] [facility] Department [place] [address] from Last 3 Months or Most Recently Relevant to Health [place] [address] [facility] Address: [address] [address] [place] [address] [employer] [facility] MEDICARE [employer]AGE [facility] Address: [address] [address] [place] [address] FOR LIFE FOR LIFE Advance Directives For more information, please contact: [phone] * Full Code (Latest Code Status on File) Date Activated Date Inactivated Comments 10/07/2024 7:34 AM 10/08/2024 5:09 AM * Full Code Date Activated Date Inactivated Comments 08/06/2021 7:32 AM 08/06/2021 1:54 PM * Full Code Date Activated Date Inactivated Comments 01/18/2019 9:07 AM 01/19/2019 8:13 PM * Full Code Date Activated Date Inactivated Comments 01/16/2019 2:40 PM 01/18/2019 9:07 AM Care Teams Gluer And Slicer Hand Relationship Specialty Start Date End Date Morteza Shah Jr., MD [address] [place] [address] [id number] PCP - General Internal Medicine 08/01/22 Prasanth Falk MD Cardiology 01/19/19 Abdiel Gibbons MD Consulting Physician Cardiology 01/19/19 Andreas Montoya DO [address] [place] [address] Consulting Physician Gastroenterology 10/16/22
--- OUTSIDE RECORDS SUMMARY | 2025-03-31 02:08 | XMS_ITS | Patient Health Record ---
Author Organization [facility] Address [address] [facility] [address] [place] [address] Care Team Providers Care Service Transformer Repair Supervisor Name Role Phone JEFFREY CARBAJAL Unavailable [phone] Reason For Referral No Information Plan Of Treatment No Information Insurance Providers Payer Name Payer Address Payer Phone Subscriber Number Group Number Insured Name Patient Relationship to Insured Coverage Start Date Coverage End Date [employer]HAY PRIME [address] [place], [place] [id number] Esperanza Hsu Self - patient is the insured 2
--- OUTSIDE RECORDS SUMMARY | 2025-03-31 02:08 | XMS_ITS ---
Author Organization [facility] Address [address] [place] [address] Care Team Providers Care Notcher Name Role Phone Prasanth Falk MD Unavailable [phone] Abdiel Gibbons MD Unavailable [phone] Pablo Lay MD, Morteza Goldman Primary Care Provide r Andreas Montoya DO Unavailable [phone] Active Problems Problem Noted Date Diagnosed Date ROBIN (obstructive sleep apnea) 03/30/2025 Assessment & Plan (03/30/2025 3:07 PM CDT): Following pul for this and has been dx for years about this Uses CPAP Will try to get zepbound Hypomagnesemia 03/03/2025 History of atrial myxoma 02/08/2025 Anemia associated with chemotherapy 01/05/2025 Malignant neoplasm of left ovary 09/26/2024 Assessment & Plan (09/26/2024 3:43 PM BOOM STICK MAN): S/p resection Following hem/onc, appreciate recommendations Class 2 severe obesity due t o excess calories with serious comorbidity and body mass index (BMI) of 38.0 to 38.9 in adult 07/14/2023 Assessment & Plan (03/30/2025 3:07 PM CDT): Atifing to get taianound approve for ROBIN Assessment & Plan (07/14/2023 12:32 PM CDT): Will look into resources for wegovy Chronic diastolic congestive heart failure 07/11 Assessment & Plan (03/30/2025 3:07 PM CDT): Chronic stable Well controlled Continue current prescribed medications losartan metorpolol at current dose Follows cardiology Assessment & Plan (09/26/2024 3:41 PM BOOM STICK MAN): Chronic stable Well controlled Continue current prescribed medications losartan metorpolol at current dose Follows cardiology Assessment & Plan (10/16/2022 4:07 PM BOOM STICK MAN): Chronic stable Well controlled Continue current medications at current dose Precordial pain 05/12/2022 Restless legs 05/01/2022 Benign neoplasm 02/03/2022 Other primary thrombocytopenia 01/22/2022 Assessment & Plan (03/30/2025 3:07 PM CDT): Monitor levels Assessment & Plan (09/26/2024 3:41 PM BOOM STICK MAN): Monitor levels Pacemaker 03/04/2019 Overview (03/04/2019): Medtronic [...] xarelto Assessment & Plan (09/26/2024 3:42 PM BOOM STICK MAN): Follows cardiology Cotninue metporlol,dilta and xarelto Assessment & Plan (12/11/2021 7:24 PM BOOM STICK MAN): On xarelto Referral requested for cards- placed [...] metoprolol Assessment & Plan (09/26/2024 3:42 PM BOOM STICK MAN): Follows cardiology Continue dilt and metoprolol Assessment & Plan (12/11/2021 7:24 PM BOOM STICK MAN): S/p ppm History of CVA (cerebrovascular accident) 2014 Overview (01/23/2017): Stroke Assessment & Plan (03/30/2025 3:08 PM CDT): Continue lipitor and aspirin Assessment & Plan (09/26/2024 3:41 PM BOOM STICK MAN): Continue lipitor and aspirin Assessment & Plan (12/11/2021 7:26 PM BOOM STICK MAN): Is on statin Needs lipids checked Assessment & Plan (02/18/2019 1:16 PM CDT): Recent right MCA infarct, cardioembolic Myxoma 12/26/2014 Overview (12/11/2021): Left atrial myxoma- resected in 2012 Assessment & Plan (02/18/2019 1:16 PM CDT): History of left atrial myxoma resection in 2012 Primary hypertension Assessment & Plan (12/11/2021 7:24 PM BOOM STICK MAN): Controlled, cont losartan Rheumatoid arthritis involvi ng multiple sites with positive rheumatoid factor Assessment & Plan (03/30/2025 3:08 PM CDT): Takes celebrax, well controlled Assessment & Plan (09/26/2024 3:44 PM BOOM STICK MAN): Takes celebrax, well controlled Assessment & Plan (12/11/2021 7:25 PM BOOM STICK MAN): Never on mtx, celebrex prn. She is unsure of the dx but thinks in the '70s was told this Ordering RA labs, exam is unremarkable for signs of RA Preventative health care Assessment & Plan (09/26/2024 3:41 PM BOOM STICK MAN): Reviewed previous labs and diagnostic test results. [...] and establishing or updating healthcare power of claim attorney document and providing our office with a copy. Assessment & Plan (10/16/2022 4:07 PM BOOM STICK MAN): Discussed vaccines Labs will get drawn in January Will come back for a weight check Assessment & Plan (12/11/2021 7:27 PM BOOM STICK MAN): Recommend shingrix Recommend flu shot utd on cscope- she will try to find date and get this to us utd on covid vax mammo ordered Current Treatment and Therapy Plans Adult BMT/ONC - Blood and/or Platelet Administration for Outpatient* Plan Start Date:01/10/2025 Plan Provider:Patti Preston MD Linked Problems Anemia associated with chemo therapyMalignant neoplasm of left ovary (HCC) Treatment Medications No medications scheduled. Electrolyte Replacement* Plan Start Date:03/03/2025 Plan Provider:Patti Preston MD Linked Problems HypomagnesemiaMalignant neop lasm of left ovary (HCC) Treatment Medications No medications scheduled. IV Maintenance Therapy Plan* Plan Start Date:10/07/2024 Plan Provider:Aisha Peres RN Linked Problems Malignant neoplasm of left o vary (HCC) Treatment Medications No medications scheduled. Past Treatment and Therapy Plans Oncology Chemotherapy Treatment Plan Name Start Date Discontinue Date Treatment Medications Discontinue Reason Plan Provider Cycles Albumin-bound PACLItaxel (Abraxane) / CARBOplatin 21 Day Cycles - STONE ROUGHER 5 03/09/2025 albumin-bound PACLItaxel (ABRAXANE)albu min-bound PACLItaxel (ABRAXANE) 5 mg/mLCARBOplat in (by AUC:GOG) (PARAPLATIN)CA RBOplatin (PARAPLATIN) IVPB in 250 mL (by AUC: GOG) Therapy Complete Patti Preston MD 5 of 7 cycles started PACLItaxel / CARBOplatin (AUC 5) 21 Day Cycles - STONE ROUGHER 10/04/20 24 10/17/2024 CARBOplatin (by AUC:GOG) (PARAPLATIN)CA [...] 700.87 mGy 2 mGy 698.87 mGy DLP 3,000 mGycm 3,000 mGycm 0 mGycm Resolved Problems Problem Noted Date Diagnosed Date Resolved Date CEVALLOS (dyspnea on exertion) 02/08/2025 Other thrombophilia 09/26/2024 09/26/20 24 Mass of uterine adnexa 08/25/202409/26 Class 2 obesity due to exces s calories without serious comorbidity with body mass index (BMI) of 38.0 to 38.9 in adult 10/16/2022 Assessment & Plan (10/16/2022 4:07 PM BOOM STICK MAN): Wants to start wegovy, understands supply issue, [...] 022 Assessment & Plan (12/11/2021 7:27 PM BOOM STICK MAN): Likely dependent, recommend compression stockings Podiatry referral placed as pt requested BMI 39.0-39.9,adult 10/16/20 22 Assessment & Plan (12/11/2021 7:28 PM BOOM STICK MAN): Diet and excercise
--- OUTSIDE RECORDS SUMMARY | 2025-03-31 02:08 | XMS_ITS | Encounter Summary ---
Author Organization [facility] Address [address] [place] [address] Phone Care Team Providers Care Jack Spooler Tender Name Role Phone Prasanth Falk MD Unavailable [phone] Abdiel Gibbons MD Unavailable Pablo Lay MD, Morteza Goldman Primary Care Provide r Andreas Montoya DO Unavailable [phone] Encounter Details Date Type Department Care Team (Late st Contact Info) Description 11/30/2024 Treatment [facility] Obstetrics and Gynecology [address] 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 difficile suspected 01/10/2025 01/10/202501/11 3:05 AM CDT documented as of this encounter Care Teams Jack Spooler Tender Relationship Specialty Start Date End Date Morteza Shah Jr., MD [address] [place] [address] PCP - General Internal Medicine 08/01/22 Prasanth Falk MD Cardiology 01/19/19 Abdiel Gibbons MD Consulting Physician Cardiology 01/19/19 Andreas Montoya DO [address] [place] [address] Consulting Physician Gastroenterology 10/16/22 documented as of this encounter
--- OUTSIDE RECORDS SUMMARY | 2025-03-31 02:08 | XMS_ITS | Clinical Summary ---
Author Organization [facility] Address [address] [place] [address] Phone Care Team Providers Care Arc Furnace Operator Name Role Phone (Excluded Provider) Rolly Davis MD Primar y Care Provider Unavailable Allergies Active Allergy Reactions Criticality Noted Date Comments Adhesive Other (See Comments) Low 03/15/2021 Tape pulls skin off and causes bleeding at site Morphine Unknown 01/22/2017 [place] Anaphylaxis High 04/16/2009 Arch[facility]ta Sherbert- lips swelled up, eyes swelled up, [...] Encounters Date Type Department Care Team Description 03/09/2025 External Device Data [facility] ABSTRACTION Provider, Abstract 03/08/2025 External Device Data [facility] ABSTRACTION Provider, Abstract 03/07/2025 External Device Data [facility] ABSTRACTION Provider, Abstract 01/04/2025 External Device Data ST[facility] ABSTRACTION Provider, Abstract [...] 2:16 PM CDT Height 167.6 cm (5' 6) 08/05/2024 2:16 PM CDT Body Mass Index [...] OSTEOPOROSIS SCREENING 2024 BREAST CANCER SCREENING 07/15/2025 07/15/20 24, 07/15/2024, 01/24/2022, Additional history exists DTAP/TDAP/TD VACCINES (3 - T d or Tdap) 06/06/2034 06/06/2024, 10/19/2020 RSV VACCINE (60+ or ) (1 - 1-dose 75+ series) 2034 PNEUMOCOCCAL VACCINE 50+ YEARS Completed 10/16/2022 INFLUENZA VACCINE Completed 07/08/2024, , 09/02/2022, Additional history exists Insurance [facility] Care Teams Arc Furnace Operator Relationship Specialty Start Date End Date (Excluded Provider) Rolly Davis MD PCP - General Internal Medicine 01/22/17
--- OUTSIDE RECORDS SUMMARY | 2025-03-31 02:08 | XMS_ITS | Referral Summary ---
Author Organization [facility] Address [address] [place] [address] Care Team Providers Care Director Law Enforcement Name Role Phone Prasanth Falk MD Unavailable [phone] Abdiel Gibbons MD Unavailable [phone] Pablo Lay MD, Morteza Goldman Primary Care Provide r Andreas Montoya DO Unavailable [phone] Encounters Date Type Department Care Team Description 03/30/2025 Orders Only [facility] [address] [address] Abdiel Gibbons MD 03/30/2025 Telephone [facility] [address] [address] Abdiel Gibbons MD Medtronic alert for fast v rates during AT/AF 03/30/2025 2:30 PM CDT Office Visit [facility] Primary Care [address] [place] [address] Morteza Shah Jr., MD ROBIN (obstructive sleep [...] to chemotherapy; History of CVA (cerebrovascular accident) 03/28/2025 2:00 PM CDT Clinical Support [address] 1st [place] [address] Belinda Costello, PhD 03/20/2025 Orders Only [facility] [address] [place] [address] [place] [phone] Abdiel Gibbons MD SSS (sick sinus syndrome) (HCC) (Primary Dx) 03/20/2025 7:15 AM CDT Ancillary Procedure [facility] [address] [place] [address] [place] [phone] Pacemaker (Primary Dx); SSS (sick sinus syndrome) (HCC) 03/09/2025 3:26 PM CDT - 03/09/2025 11:59 PM CDT Hospital Encounter [facility] [address] [place] [address] Dysuria Discharge Disposition: Discharge to home or self care 03/09/2025 3:30 PM CDT Lab [facility] Outpatient Lab at [address] [address] 03/09/2025 Orders Only [facility] Obstetrics and Gynecology [address] [place] [address] 13th [place] [address] Jeanna Garcia RN Dysuria (Primary Dx) 03/03/2025 Documentation [facility]etric[facility] Gynecology [address] [place] [address] Advanced Medicine 13th [place] [address] Jeanna Garcia RN 03/03/2025 Orders Only [facility]etrics [facility] Gynecology [address] [place] [address] Advanced Medicine 13th [place] [address] Jeanna Garcia RN Malignant neoplasm of left ovary (HCC) (Primary Dx); Anemia due to chemotherapy 03/03/2025 Results Follow-Up [facility] Cardiology [address] [place] [address] Jaylyn Ibarra MD Transthoracic Echo (TTE) Complete W Doppler/CF 03/03/2025 12:00 PM CDT [facility] [address] [place] [address] Hypomagnesemia (Primary Dx); Malignant neoplasm of left ovary (HCC); Anemia due to chemotherapy; Anemia associated with chemotherapy 03/03/2025 1:00 PM CDT Office Visit [facility] Ob[facility]etrics and Gynecology [address] [place] [address] 13th [place] [address] Patti Preston MD Malignant neoplasm of left ovary (HCC) (Primary Dx); Peri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; Anemia due to chemotherapy; Chemotherapy-induced thrombocytopenia 03/03/2025 9:47 AM CDT - 03/03/2025 11:59 PM CDT [facility] ([facility]) [address] [place] [address] Patti Preston MD Malignant neoplasm of left ovary (HCC) Discharge Disposition: Discharge to home or self care 03/02/2025 11:30 AM CDT Clinical Support [address] 1st [place] [address] Belinda Costello, PhD 03/01/2025 Results Follow-Up [facility] Obstetrics and Gynecology [facility] 13th [place] [address] Patti Preston MD CBC with auto differential, Comprehensive metabolic panel, Magnesium, CA 125 02/27/2025 Telephone [facility] Cardiology [address] [place] [address] Jaylyn Ibarra MD 02/24/2025 8:15 AM CDT Ancillary Procedure [facility] Cardiology at [address] [place] [address] PAF (paroxysmal atrial fibrillation) (HCC); CEVALLOS (dyspnea on exertion); History of atrial myxoma 02/17/2025 10:00 AM CDT Clinical Support [address] 1st [place] [address] Belinda Costello, PhD Malignant neoplasm of left ovary (HCC) 02/10/2025 Orders Only [facility] Gynecology [address] [place] [address] 13th [place] [address] Patti Preston MD Malignant neoplasm of left ovary (HCC) (Primary Dx) 02/10/2025 10:00 AM CDT [facility] Advanced [facility] Gynecologic Oncology [facility] Advanced [facility] ([facility]) [address] [place] [address] Malignant neoplasm of left ovary (HCC) (Primary Dx) 02/09/2025 Orders Only [facility] Gynecology [address] [place] [address] 13th [place] [address] Jeanna Garcia RN Malignant neoplasm of left ovary (HCC) (Primary Dx) 02/08/2025 Results Follow-Up [facility] Ob[facility]etrics and Gynecology [facility] 13th [place] [address] [place] [address] Patti Preston MD CBC with auto differential, Comprehensive metabolic panel, Magnesium, CA 125 02/08/2025 3:15 PM CDT Office Visit [facility] Cardiology [address] [facility] [address] [place] [address] Jaylyn Ibarra MD PAF (paroxysmal atrial fibrillation) (HCC) (Primary Dx); Chronic diastolic congestive heart failure (HCC); Pacemaker; Primary hypertension; Anticoagulation management encounter; CEVALLOS (dyspnea on exertion); History of atrial myxoma; Lipid screening 01/30/2025 Orders Only [facility]s [facility] Gynecology [address] [facility] Medicine 13th [place] [address] [place] [address] Jeanna Garcia RN Malignant neoplasm of left ovary (HCC) (Primary Dx) 01/27/2025 Orders Only [facility]s [facility] Gynecology [address] [facility] 13th [place] [address] Jeanna Garcia RN Malignant neoplasm of left ovary (HCC) (Primary Dx) 01/27/2025 6:25 AM CDT Lab [facility] Advanced Medicine ([facility]) [address] [place] [phone] Malignant neoplasm of left ovary (HCC); Anemia due to chemotherapy 01/27/2025 8:20 AM CDT Office Visit [facility]s [facility] Gynecology [address] [place] [address] 13th [place] [address] Patti Preston MD Encounter for antineoplastic chemotherapy (Primary Dx); Ovarian cancer, bilateral (HCC); Peri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; Anemia due to chemotherapy; Malignant neoplasm of left ovary (HCC) 01/26/2025 Telephone [facility] Gynecology [address] [facility] 13th [place] [address] Jeanna Garcia RN 01/26/2025 Orders Only [facility] Ob[facility]etrics and Gynecology [facility] 13th [place] [address] Jeanna Garcia RN Malignant neoplasm of left ovary (HCC) (Primary Dx); Anemia due to chemotherapy 01/25/2025 Telephone [facility] Cardiology [address] [place] [address] Jaylyn Ibarra MD 01/25/2025 Telephone [facility] Primary Care [address] [place] [address] [place] [phone] Morteza Shah Jr., MD Xarelto -- day supply 01/11/2025 Orders Only [facility] Ob[facility]etrics [facility] Gynecology [address] [facility] Advanced Medicine 13th [place] [address] Jeanna Garcia, RN Malignant neoplasm of left ovary (HCC) (Primary Dx); Encounter for antineoplastic chemotherapy; Dark urine 01/10/2025 Orders Only [facility]s [facility] Gynecology [address] [place] [address] 13th [place] [address] Jeanna Garcia, RN 01/10/2025 Orders Only [facility] Advanced Medicine ([facility]) [address] [place] [address] Sandie Shepherd NP 01/10/2025 10:28 AM CDT - 01/10/2025 5:49 PM CDT Hospital Encounter [facility] Advanced [facility] ([facility]) [address] [place] [address] Dehydration (Primary Dx); Nausea; Other vascular headache; Anemia associated with chemotherapy; Malignant neoplasm of left ovary (HCC); Hypomagnesemia Discharge Disposition: Discharge to home or self care 01/09/2025 Results Follow-Up [facility] Ob[facility]etrics and Gynecology [address] [place], [place] [address]th [place] [address] Patti Preston MD CBC with auto differential, Comprehensive metabolic panel, Magnesium, CA 125 01/06/2025 Orders Only [facility]s [facility] Gynecology [address] [place] [address] 13th [place] [address] Jeanna Garcia, KALYANI 01/06/2025 Orders Only [facility]s [facility] Gynecology [address] [place] [address] 13th [place] [address] Jeanna Garcia, RN Ovarian cancer, bilateral (HCC) (Primary Dx); Encounter for antineoplastic chemotherapy; Anemia due to chemotherapy 01/06/2025 12:00 PM CDT Infusion [facility] Gynecologic Oncology [facility] ([facility]) [address] [place] [address] Malignant neoplasm of left ovary (HCC) (Primary Dx); Ovarian cancer, bilateral (HCC); Encounter for antineoplastic chemotherapy; Anemia due to chemotherapy 01/05/2025 Orders Only [facility] Ob[facility]s [facility] Gynecology [address] [facility] 13th [place] [address] [place] [address] Jeanna Garcia RN Hypomagnesemia (Primary Dx); Hypokalemia; Malignant neoplasm of left ovary (HCC) 12/30/2024 Orders Only [facility] Health Information Management [address] [place] [address] Scanning, Provider from Last 3 Months Allergies Active Allergy Reactions Criticality Noted Date Comments Adhesive Other (See comments) Low 03/15/2021 Tape pulls skin off and causes bleeding at site Morphine Other (See comments),Hallucinatio ns Medium 01/22/2017 Reaction: Unknown, , Mcdaniel Anaphylaxis High 04/16/2009 Mcdaniel Sherbert- lips swelled up, eyes swelled up, [...] or as directed by MD. 30 patch 022 2024 Active methocarbamoL (ROBAXIN) 750 mg tabletIndications [...] for nausea or vomiting 30 tablet 3 Active ondansetron (ZOFRAN) 8 mg tabletIndications :Malignant [...] with simethicone-diphe nhydramine-lidoca ine (MAGIC MOUTHWASH) suspension 4-5-3Xmknisgjgjs: Chemotherapy-Ilana ramon Mucositis Swish and swallow 15 [...] total) by mouth daily 30 capsule 3 Active Additional Information Patient not taking.Reported on 02/08/2025 potassium chloride ER (KLOR-CON) 20 mEq CR tabletIndications :Hypomagnesemia,H ypokalemia Take 1 tablet (20 mEq total) by mouth 2 (two) times a day 60 tablet Active losartan (COZAAR) 50 mg tabletIndications :Primary [...] mg total) by mouth daily 30 capsule 025 2025 Active famotidine (PEPCID) 40 mg tabletIndications :Gastroesophageal reflux disease with esophagitis without hemorrhage Take 1 tablet (40 mg total) by mouth daily 90 tablet 3 025 2025 Active tirzepatide, weight loss, (ZEPBOUND) 2.5 mg/0.5 mL pen injectorIndicatio ns:Class 2 severe obesity due to excess calories with serious comorbidity and body mass index (BMI) of 38.0 to 38.9 in adult (HCC) Inject 0.5 mL (2.5 mg total) under the skin every 7 days 2 mL Active pregabalin (LYRICA) 100 mg capsuleIndication s:chemotherapy asscociated peripheral neuropathy Take 1 capsule (100 mg total) by mouth 3 (three) times a day 90 capsule 025 Active metoprolol XL (TOPROL-XL) 25 mg extended release tabletIndications :PAF (paroxysmal atrial fibrillation) (HCC) Take 2 tablets (50 mg total) by [...] (paroxysmal atrial fibrillation) (HCC) Take 1 tablet (25 mg total) by [...] 09/26/2024 Assessment & Plan (09/26/2024 3:43 PM CONTINUOUS IMPROVEMENT INTERN): S/p resection Following hem/onc, appreciate recommendations Class 2 severe obesity due t o excess calories with serious comorbidity and body mass index (BMI) of 38.0 to 38.9 in adult 07/14/2023 Assessment & Plan (03/30/2025 3:07 PM CDT): Trtying to get zepbound approve for ROBIN Assessment & Plan (07/14/2023 12:32 PM CDT): Will look into resources for weteshay Chronic diastolic congestive heart failure 07/11 Assessment & Plan (03/30/2025 3:07 PM CDT): Chronic stable Well controlled Continue current prescribed medications losartan metorpolol at current dose Follows cardiology Assessment & Plan (09/26/2024 3:41 PM CONTINUOUS IMPROVEMENT INTERN): Chronic stable Well controlled Continue current prescribed medications losartan metorpolol at current dose Follows cardiology Assessment & Plan (10/16/2022 4:07 PM CONTINUOUS IMPROVEMENT INTERN): Chronic stable Well controlled Continue current medications at current dose Precordial pain 05/12/2022 Restless legs 05/01/2022 Benign neoplasm 02/03/2022 Other primary thrombocytopenia 01/22/2022 Assessment & Plan (03/30/2025 3:07 PM CDT): Monitor levels Assessment & Plan (09/26/2024 3:41 PM CONTINUOUS IMPROVEMENT INTERN): Monitor levels Pacemaker 03/04/2019 Overview (03/04/2019): Medtronic [...] xarelto Assessment & Plan (09/26/2024 3:42 PM CONTINUOUS IMPROVEMENT INTERN): Follows cardiology Cotninue metporlol,dilta and xarelto Assessment & Plan (12/11/2021 7:24 PM CONTINUOUS IMPROVEMENT INTERN): On xarelto Referral requested for cards- placed [...] metoprolol Assessment & Plan (09/26/2024 3:42 PM CONTINUOUS IMPROVEMENT INTERN): Follows cardiology Continue dilt and metoprolol Assessment & Plan (12/11/2021 7:24 PM CONTINUOUS IMPROVEMENT INTERN): S/p ppm History of CVA (cerebrovascular accident) 2014 Overview (01/23/2017): Stroke Assessment & Plan (03/30/2025 3:08 PM CDT): Continue lipitor and aspirin Assessment & Plan (09/26/2024 3:41 PM CONTINUOUS IMPROVEMENT INTERN): Continue lipitor and aspirin Assessment & Plan (12/11/2021 7:26 PM CONTINUOUS IMPROVEMENT INTERN): Is on statin Needs lipids checked Assessment & Plan (02/18/2019 1:16 PM CDT): Recent right MCA infarct, cardioembolic Myxoma 12/26/2014 Overview (12/11/2021): Left atrial myxoma- resected in 2012 Assessment & Plan (02/18/2019 1:16 PM CDT): History of left atrial myxoma resection in 2012 Primary hypertension Assessment & Plan (12/11/2021 7:24 PM CONTINUOUS IMPROVEMENT INTERN): Controlled, cont losartan Rheumatoid arthritis involvi ng multiple sites with positive rheumatoid factor Assessment & Plan (03/30/2025 3:08 PM CDT): Takes celebrax, well controlled Assessment & Plan (09/26/2024 3:44 PM CONTINUOUS IMPROVEMENT INTERN): Takes celebrax, well controlled Assessment & Plan (12/11/2021 7:25 PM CONTINUOUS IMPROVEMENT INTERN): Never on mtx, celebrex prn. She is unsure of the dx but thinks in the '70s was told this Ordering RA labs, exam is unremarkable for signs of RA Preventative health care Assessment & Plan (09/26/2024 3:41 PM CONTINUOUS IMPROVEMENT INTERN): Reviewed previous labs and diagnostic test results. [...] and establishing or updating healthcare power of patent prosecution attorney document and providing our office with a copy. Assessment & Plan (10/16/2022 4:07 PM CONTINUOUS IMPROVEMENT INTERN): Discussed vaccines Labs will get drawn in January Will come back for a weight check Assessment & Plan (12/11/2021 7:27 PM CONTINUOUS IMPROVEMENT INTERN): Recommend shingrix Recommend flu shot utd on [...] 10/16/2022 Assessment & Plan (10/16/2022 4:07 PM CONTINUOUS IMPROVEMENT INTERN): Wants to start wegovy, understands supply issue, [...] 022 Assessment & Plan (12/11/2021 7:27 PM CONTINUOUS IMPROVEMENT INTERN): Likely dependent, recommend compression stockings Podiatry referral placed as pt requested BMI 39.0-39.9,adult 10/16/20 22 Assessment & Plan (12/11/2021 7:28 PM CONTINUOUS IMPROVEMENT INTERN): Diet and excercise Immunizations Immunization Administration Dates [...] on file Legal Sex Female 2:56 AM CONTINUOUS IMPROVEMENT INTERN Gender Identity Female 03/07/2021 1:17 PM CDT Sexual Orientation Straight 03/07/2021 1: 17 PM CDT 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 Not on file Not on file [...] 03/30/2025 2:41 PM CDT Plan of Treatment Not on file Medical Devices Implanted Type Area Combatant Diver Officer Device Identifier Shelf Expiration Date Model / Serial / Lot [employer] [id number] System 6-12fr Mvp Venous Closure Vascade - [id number] - [id number] Implanted:Qty: 1 on 08/02/2021 by Abdiel Gibbons MD at [facility] Collagen [employer] 05/20/2023 800-612C- 10U / [id number] 09A / [id number] [employer] [id number] System 6-12fr Mvp Venous Closure Vascade - [id number] - [id number] Implanted:Qty: 1 on 08/02/2021 by Abdiel Gibbons MD at [facility] Collagen [employer] 05/20/2023 800-612C- 10U / [id number] 09A / [id number] 09A [employer] [id number] Vascade 6/7fr Bioabsorbable Vascular System Compression Collagen - [id number] - [id number] Implanted:Qty: 1 on 08/02/2021 by Abdiel Gibbons MD at [facility] Collagen [employer] 05/20/2023 700-580I- 05U / [id number] 04A / [id number] 04A [employer] [id number] System 6-12fr Mvp Venous Closure Vascade - [id number] - [id number] Implanted:Qty: 1 on 08/02/2021 by Abdiel Gibbons MD at [facility] Collagen [employer] 04/17/2023 800-612C- 10U / [id number] 07A / [id number] 07A Medtronic Cardiac Rhythm Mgmt 5076-52 Capsurefix Novus 6.2fr 2mm 52cm Bipolar Screw In Implantable Latex Free - [id number] - [id number] Implanted:Qty: 1 on 03/04/2019 by Abdiel Gibbons MD at [facility] Lead Medtronic Cardiac Rhythm Mgmt [id number] 01/07/2021 5076-52 / [id number] / Medtronic Cardiac Rhythm Mgmt 5076-45 Capsurefix Novus Od6.2 Fr; Odsec2 Mm L45 Cm Bipolar; Screw In; Im - [id number] - [id number] Implanted:Qty: 1 on 03/04/2019 by Abdiel Gibbons MD at [facility] Lead Medtronic Cardiac Rhythm Mgmt [id number] 01/11/2021 5076-45 / [id number] / Medtronic Cardiac Rhythm Mgmt [id number] Hospers S Mri Surescan 50.8x46.6mm 2 Chamber 7.4mm Pacemaker 22.5gm - [id number] - [id number] Implanted:Qty: 1 on 03/04/2019 by Abdiel Gibbons MD at [facility] Pacemaker Medtronic Cardiac Rhythm Mgmt [id number] 07/02/2020 W3DR01 / [id number] / Angio [employer] Xcela Power Port 8fr [id number] - [id number] Implanted:Qty: 1 on 10/07/2024 at [facility] Angio Dynamics 04/03/2029 [id number] / / [id number] Explanted Type Area Combatant Diver Officer Device Identifier Shelf Expiration Date Model / Serial / Lot Medtronic Cardiac Rhythm Mgmt Linqsys Reveal Linq Mycarelink Insertable Loop Recorder Automatic - [id number] - [id number] Implanted:Qty : 1 on 01/18/2019 at [facility] Explanted:Qty : 1 on 03/04/2019 at [facility] Implantable Loop Recorder Left: Chest Wall Medtronic Cardiac Rhythm Mgmt [id number] 11/15/2019 LINQSYS / [id number] / Procedures Procedure Name Priority Date/Time [...] to JUANITA Episodes last 90 days/Comments: AF Bokeelia 0 %, longest duration 0. There were [...] Programming appropriate for device measurements Victor M Pineda, RN us Abdiel Gibbons MD CV CARDIAC [...] tendency for uric acid stone formation. Source: SKINNYprice Current Interpretive Data was last revised on [...] Reflex to microscopic UA will be performed. [facility] Urine, bladder 03/09/2025 3: 26 PM CDT 03/09/2025 7:11 PM CDT Patti Preston MD LAB MICROBIOLOGY - GENE RAL ORDERABLES Final Result Performing Organization Address City/[facility]/ZIP Co de Phone Number VIKRAM OSMAN [address] [place] [address] * (ABNORMAL) Urinalysis, microscopic only (03/09/2025 3:26 PM CDT) WBC, ur 6-10(A) 0 - 5 /HPF RBC, ur >50(A) 0 - 2 /HPF [facility] Epithelial cells, squamous, ur 1-5 0 - 5 /HPF [facility] Bacteria, ur Trace(A) [facility] Mucous, ur Present(A) [facility] Culture Reflex Comment Reflex conditions for urine culture (WBC >10) not met. [facility] Urine, bladder 03/09/2025 3: 26 PM CDT 03/09/2025 7:11 PM CDT Patti Preston MD LAB URINE ORDERABLES Fi nal Result VIKRAM DAWSON [address] Department [email or web address] [address] * Transfuse RBC (03/03/2025 3:55 PM CDT) Blood Patti Preston MD BLOOD TRANSFUSION ORDER MONIKA Final Result VIKRAM [facility] [place] [address] * Type and screen (03/03/2025 11:09 AM CDT) Lai, indirect Negative ABO Rh O Positive [facility] Blood 03/03/2025 11:0 9 AM CDT 03/03/2025 11:23 AM CDT Narrative [facility] - 03/03/2025 12:16 PM CDT Has the patient had Daratumumab or Isatuximab in the past 6 months?->Unknown Patti Preston MD LAB BLOOD BANK TEST ORD ERABLES Final Result Performing Organization Address City/[facility]/ZIP Co de Phone Number [facility] [email or web address] [address] * Prepare RBC: 1 Units (03/03/2025 11:06 AM CDT) Product code [id number] Unit Number [id number] [facility] Product Blood Type [facility] Dispense Status PRESUMED TRANSFUSED [facility] Blood 03/03/2025 11:0 6 AM CDT 03/03/2025 11:06 AM CDT Narrative [facility] - 03/04/2025 12:56 AM CDT Are special requirements needed? (All products are leukoreduced and CMV- safe)- >No Date required:-[id number] LRRBC # of Aipqr-1-Lwbih Reasons:-BMT/ONC, Hgb <8 g/dL} Patti Preston MD BLOOD BANK PRODUCT ORDE RABLES Final Result Performing Organization Address City/[facility]/ZIP Co de Phone Number [facility] [email or web address] [address] * CT Chest Abdomen Pelvis W Contrast [...] similar in appearance from CT examination dated 2017, while left-sided lesion is unchanged from examination [...] similar in appearance from CT examination dated 2017, while left-sided lesion is unchanged from examination [...] by: Kristen Kramer M.D. Patti Preston MD [facility] CT PROCEDURES Final Result * (ABNORMAL) CBC with auto differential (02/28/2025 3:01 PM CDT) WBC 4.9 3.8 - 10.8 Thousand/u L [facility] RBC, POC 2.52(L) 3.80 - 5.10 Million/uL [facility] Hgb 7.7(L) 11.7 - 15.5 g/dL [facility] Hct 24.3(L) 35.0 - [...] ORDERABLES Fi nal Result [facility] [address] [place] [address] * CA 125 (02/28/2025 3:01 PM CDT) CA 125 ag 8 <35 U/mL [facility] Comment: This test was performed using the Siemens Chemiluminescent method. Values obtained from different assay methods cannot be used interchangeably. CA 125 levels, regardless of value, should not be interpreted as absolute evidence of the presence or absence of disease. Blood 02/28/2025 3:01 PM CDT 02/28/2025 3:01 PM CDT Patti Preston MD LAB BLOOD ORDERABLES Fi nal Result [facility] [address] [place] [address] * (ABNORMAL) Magnesium (02/28/2025 3:01 PM CDT) Pathologist [facility] Magnesium 1.2(L) 1.5 - 2.5 mg/dL [facility] Blood 02/28/2025 3:01 PM CDT 02/28/2025 3:01 PM CDT Patti Preston MD LAB BLOOD ORDERABLES Fi nal Result Performing Organization Address [facility] Co de Phone Number [facility] [address] [place] [address] * (ABNORMAL) Comprehensive metabolic panel (02/28/2025 3:01 PM CDT) Glucose 106(H) 65 - 99 mg/dL [facility]book[facility]idhi [facility] Comment: Fasting reference interval For someone without known diabetes, a glucose value between 100 and 125 mg/dL is consistent with prediabetes and should be confirmed with a follow-up test. BUN 19 7 - 25 mg/dL [facility] melinda Bishop Creatinine 0.84 0.50 - 1.05 mg/dL [facility] melinda Bihsop eGFR 77 > OR = 60 mL/min/1.7 3m2 [facility] melinda Bishop BUN/creat ratio SEE NOTE: 6 - 22 (calc) [facility] melinda Bishop Comment: Not Reported: BUN and Creatinine are within reference range. Sodium 141 135 - 146 mmol/L [facility] mel[facility] Potassium, pl 3.5 3.5 - 5.3 mmol/L [facility] mel[facility] Chloride 104 98 - 110 mmol/L [facility] melinda [facility] CO2 27 20 - 32 mmol/L [facility] Calcium 8.7 8.6 - 10.4 mg/dL [facility] Protein, sr 6.6 6.1 - 8.1 g/dL [facility] Albumin 4.1 3.6 - 5.1 g/dL [facility] GLOBULIN 2.5 1.9 - 3.7 g/dL (calc) [facility] Alb/glob ratio 1.6 1.0 - 2.5 (calc) [facility] Bilirubin, total 0.3 0.2 - 1.2 mg/dL [facility] Alk phos 70 37 - 153 U/L [facility] AST 15 10 - 35 U/L [facility] ALT (SGPT) 18 6 - 29 U/L [facility] Blood 02/28/2025 3:01 PM CDT 02/28/2025 3:01 PM CDT us Patti Preston MD LAB BLOOD ORDERABLES nal Result [facility] [address] [place] [address] * TRANSTHORACIC ECHO (TTE) COMPLETE W DOPPLER/CF WO CONTRAST (02/24/2025 8:35 AM CDT) EF Mod BP 60 % CONS SCIMAGE Anatomical Region Laterality Modality Ultrasound 02/24/2025 8:12 AM CDT Narrative 02/24/2025 12:56 PM CDT [facility] [address], [address], [place] [address] P:[phone] P:[phone] Echocardiographic Report Patient Name: ESPERANZA BENAVIDES E : 1960 Study Date: 02/24/2025 8:12:50 AM Gender: F Tech: SW Location: EDW Ref Provider: JULIO,JAYLYN Height(Cm): 165 BSA: 2.19 Weight(Kg): 104.3 Heart [...] FINDINGS: Interpretation Site: Exam was interpreted at [facility]. Left Ventricle: Normal left ventricular size. Mild [...] noted. Electronically Signed By: Morteza Davison MD, [facility] 02/24/2025 12:55:24 PM CDT Procedure Note Morteza Davison MD - 02/24/2025 [facility] [address], [address], [place] [address] P:[phone] P:[phone] Echocardiographic Report Patient Name: ESPERANZA BENAVIDES E [...] FINDINGS: Interpretation Site: Exam was interpreted at [facility]. Left Ventricle: Normal left ventricular size. Mild [...] noted. Electronically Signed By: Morteza Davison MD, [facility] 02/24/2025 12:55:24 PM CDT Jaylyn Ibarra MD CV ECHO PROCEDURES Final Result * POCT lipid panel (02/08/2025 3:01 PM CDT) [facility] Cholesterol, POC 212 mg/dL HDL, POC 38 mg/dL Triglycerides, POC 213 mg/dL LDL Cholesterol POC 131 mg/dL Chol/HDL Ratio, POC 3.4 Non-HDL Cholesterol, POC 174 mg/dL Cholesterol Total, POC 212 mg/dL Capillary blood 02/08/2025 3 :01 PM CDT Jaylyn Ibarra MD POINT OF CARE TEST ORDERA BLES Final Result * (ABNORMAL) CBC with auto differential (02/07/2025 8:33 AM CDT) [facility] WBC 3.7(L) 3.8 - 10.8 Thousand/u L [...] 0.5 % [facility] Blood 02/07/2025 8:33 AM CDT 02/07/2025 8:34 AM CDT [facility] - 02/08/2025 2:09 AM CDT FASTING:NO FASTING: NO Patti Preston MD LAB BLOOD ORDERABLES nal Result [facility] [address] [place] [address] * CA 125 (02/07/2025 8:33 AM CDT) CA 125 ag 7 <35 U/mL [facility] Comment: This [...] ORDERABLES Fi nal Result Performing Organization Address City/[facility]/ZIP Co de Phone Number [facility] [address] [place] [address] * Magnesium (02/07/2025 8:33 AM CDT) Magnesium 1.5 1.5 - 2.5 mg/dL [facility] Blood 02/07/2025 8:33 AM CDT 02/07/2025 8:34 AM CDT Narrative [facility] - 02/08/2025 2:09 AM CDT FASTING:NO FASTING: NO Patti Preston MD LAB BLOOD ORDERABLES Fi nal Result Performing Organization Address City/[facility]/ZIP Co de Phone Number [facility] [address] [place] [address] * (ABNORMAL) Comprehensive metabolic panel (02/07/2025 8:33 AM CDT) Glucose 110 65 - 139 mg/dL [facility] melinda [facility] Comment: Non-fasting reference interval BUN 18 7 - 25 mg/dL [facility] mel[facility] Bishop Creatinine 0.76 0.50 - 1.05 mg/dL [facility] melinda Bishop eGFR 87 > OR = 60 mL/min/1.7 3m2 [facility] melinda Bishop BUN/creat ratio SEE NOTE: (calc) [facility] melinda Bishop Comment: Not Reported: BUN and Creatinine are within reference range. Sodium 141 135 - 146 mmol/L [facility] mel[facility] Bishop Potassium, pl 3.4(L) 3.5 - 5.3 mmol/L [facility] melinda Bishop Chloride 106 98 - 110 mmol/L [facility] mel[facility] Bishop CO2 28 20 - 32 mmol/L [facility] melinda Bishop Calcium 9.2 8.6 - 10.4 mg/dL [facility] t [facility] Protein, sr 6.7 6.1 - 8.1 g/dL [facility] [facility] Albumin 4.3 3.6 - 5.1 g/dL [facility] GLOBULIN 2.4 1.9 - 3.7 g/dL (calc) [facility] Alb/glob ratio 1.8 1.0 - 2.5 (calc) [facility] Bilirubin, total 0.3 0.2 - 1.2 mg/dL [facility] [employer] [employer] [facility] Alk phos 69 37 - 153 U/L [facility] [facility] AST 18 10 - 35 U/L [facility] t [facility] ALT (SGPT) 20 6 - 29 U/L [facility] Blood 02/07/2025 8:33 AM CDT 02/07/2025 8:34 AM CDT Narrative [facility] - 02/08/2025 2:09 AM CDT FASTING:NO FASTING: NO Patti Preston MD LAB BLOOD ORDERABLES nal Result [facility] [address] [place] [address] * Differential, auto (01/27/2025 6:42 AM CDT) Neutrophil abs 2.10 1.50 - 6.50 K/cumm Imm gran abs 0.03 0.00 - 0.10 K/cumm [facility] Lymphocyte abs 1.53 0.80 - 3.30 K/cumm [facility] Monocyte abs 0.40 0.20 - 0.80 K/cumm [facility] Eosinophil abs 0.07 0.00 - 0.50 K/cumm [facility] Basophil abs 0.02 0.00 - 0.10 K/cumm [facility] Neutrophil pct 50.6 % [facility] Comment: Interpretive Data Percent cell count reference ranges are not reported, since discordance with absolute values may lead to misinterpretation of CBC data. Current Interpretive Data was last revised on 2018. Imm gran pct 0.7 % [facility] Comment: Interpretive Data Percent cell count reference ranges are not reported, since discordance with absolute values may lead to misinterpretation of CBC data. Current Interpretive Data was last revised on 2018. Lymphocyte pct 36.9 % [facility] Comment: Interpretive Data Percent cell count reference ranges are not reported, since discordance with absolute values may lead to misinterpretation of CBC data. Current Interpretive Data was last revised on 2018. Monocyte pct 9.6 % [facility] Comment: Interpretive Data Percent cell count reference ranges are not reported, since discordance with absolute values may lead to misinterpretation of CBC data. Current Interpretive Data was last revised on 2018. Eosinophil pct 1.7 % [facility] Comment: Interpretive Data Percent cell count reference ranges are not reported, since discordance with absolute values may lead to misinterpretation of CBC data. Current Interpretive Data was last revised on 2018. Basophil pct 0.5 % [facility] Comment: Interpretive Data Percent cell count reference ranges are not reported, since discordance with absolute values may lead to misinterpretation of CBC data. Current Interpretive Data was last revised on 2018. Blood 01/27/2025 6:42 AM CDT 01/27/2025 6:59 AM CDT Patti Preston MD LAB BLOOD ORDERABLES Fi nal Result [facility] [place] [address] * (ABNORMAL) CBC with auto differential (01/27/2025 6:42 AM CDT) WBC 4.15 3.80 - 9.90 K/cumm Hgb 8.1(L) 11.9 - 15.5 g/dL [facility] Hct 25.0(L) 35.6 - 45.5 % [facility] Plt 87(L) 150 - 400 K/cumm [facility] MPV 10.6 9.1 - 12.3 fL [facility] RBC 2.77(L) 3.90 - 5.20 M/cumm [facility] MCV 90.3 81.3 - 96.4 fL [facility] MCH 29.2 27.1 - 33.3 pg [facility] MCHC 32.4 32.3 - 35.7 g/dL [facility] RDW CV 16.5(H) 11.1 - 14.9 % [facility] RDW SD 53.5(H) 35.7 - 48.1 fL [facility] NRBC abs 0.00 0.00 - 0.01 K/cumm [facility] Blood 01/27/2025 6:42 AM CDT 01/27/2025 6:59 AM CDT Patti Preston MD LAB BLOOD ORDERABLES Fi nal Result [facility] [place] [address] * (ABNORMAL) CBC with auto differential (01/19/2025 7:21 AM CDT) Pathologist [facility] WBC 1.5(L) 3.8 - 10.8 Thousand/u L [...] MPV 9.9 7.5 - 12.5 fL [facility] Neutrophils, abs 195(LL) 1,500 - 7,800 cells/uL [facility] Lymphocytes, abs 1,110 850 - 3,900 cells/uL [facility] Monocyte abs 195(L) 200 - 950 cells/uL [facility] Eosinophils, abs 0(L) 15 - 500 cells/uL [facility] Basophils, abs 0 0 - 200 cells/uL [facility] Neutrophils 13 % [facility] Lymphocyte pct 74 % [facility] Monocytes 13 % [facility] Eosinophils 0 % [facility] Basophils 0 % [facility] Comment [facility] Comment: The smear has been manually reviewed and the manual differential has been reported. Tear-drop cells 1 + Anisocytosis 1 + Review of the peripheral smear reveals decreased numbers of platelets. Blood 01/19/2025 7:21 AM CDT 01/19/2025 7:22 AM CDT Narrative [facility] - 01/20/2025 2:17 AM CDT FASTING:YES FASTING: YES Patti Preston MD LAB BLOOD ORDERABLES Fi nal Result [facility]IL[facility] [address] [place] [address] * CA 125 (01/19/2025 7:21 AM CDT) CA 125 ag 7 <35 U/mL [facility] Comment: This test was performed using [...] MD LAB BLOOD ORDERABLES Fi nal Result [facility] [address] [place] [address] * Magnesium (01/19/2025 7:21 AM CDT) Pathologist [facility] Magnesium 1.5 1.5 - 2.5 mg/dL [facility] Blood 01/19/2025 7:21 AM CDT 01/19/2025 7:22 AM CDT Narrative [facility] - 01/20/2025 2:17 AM CDT FASTING:YES FASTING: YES Patti Preston MD LAB BLOOD ORDERABLES Fi nal Result Performing Organization Address City/[facility]/ZIP Co de Phone Number [facility] [address] [place] [address] * Comprehensive metabolic panel (01/19/2025 7:21 AM CDT) Pathologist [facility] Glucose 91 65 - 99 mg/dL [facility] Comment: Fasting reference interval BUN 18 7 - 25 mg/dL [facility] Creatinine 0.71 0.50 - 1.05 mg/dL [facility] eGFR 94 > OR = 60 mL/min/1.7 3m2 [facility] BUN/creat ratio SEE NOTE: 6 - 22 (calc) [facility] [employer] [facility] Comment: Not Reported: BUN and Creatinine are within reference range. Sodium 140 135 - 146 mmol/L [facility] Potassium, pl 3.5 3.5 - 5.3 mmol/L [facility] Chloride 106 98 - 110 mmol/L [facility] CO2 25 20 - 32 mmol/L [facility] Calcium 9.0 8.6 - 10.4 mg/dL [facility] Protein, sr 6.5 6.1 - 8.1 g/dL [facility] Albumin 4.0 3.6 - 5.1 g/dL [facility] GLOBULIN 2.5 1.9 - 3.7 g/dL (calc) [facility] Alb/glob ratio 1.6 1.0 - 2.5 (calc) [facility] Bilirubin, total 0.3 0.2 - 1.2 mg/dL [facility] Alk phos 64 37 - 153 U/L [facility] AST 15 10 - 35 U/L [facility] ALT (SGPT) 20 6 - 29 U/L [facility] Blood 01/19/2025 7:21 AM CDT 01/19/2025 7:22 AM CDT Narrative [facility] - 01/20/2025 2:17 AM CDT FASTING:YES FASTING: YES Patti Preston MD LAB BLOOD ORDERABLES Fi nal Result [facility] [address] [place] [address] * Transfuse RBC (01/10/2025 2:42 PM CDT) Blood Patti Preston MD BLOOD TRANSFUSION ORDER MONIKA Final Result Performing Organization Address City/[facility]/ZIP Co de Phone Number [facility] [place] [address] * Prepare RBC: 1 Units (01/10/2025 11:50 AM CDT) Product code [id number] Unit Number [id number] * [facility] Product Blood Type OPOS [facility] Dispense Status PRESUMED TRANSFUSED [facility] Blood 01/10/2025 11:5 0 AM CDT 01/10/2025 11:49 AM CDT Narrative [facility] - 01/11/2025 12:55 AM CDT Are special requirements needed? (All products are leukoreduced and CMV- safe)- >Yes Date required:-[id number] Special Req 1:-Irradiated LRRBC # of [id number] Reasons:-BMT/ONC, Hgb <8 g/dL} us Patti Preston MD BLOOD BANK PRODUCT CASSANDRA LOVE Final Result [facility] [place] [address] * (ABNORMAL) Urinalysis reflex to microscopic and culture Urine, clean voided (01/10/2025 11:12 AM CDT) Color, ur Mer Yellow Clarity, ur Cloudy(A) Clear [facility] Specific gravity, ur 1.027 1.003 - 1.030 [facility] pH, urine 6.0 [facility] Comment: Interpretive Data U rine pH is affected by diet, medications, systemic acid-base disturbances, and renal tubular function. pH may affect urinary stone formation. For example, urine pH below 6.0 may help reduce the tendency for calcium phosphate stones and pH greater than 6.0 may reduce the tendency for uric acid stone formation. Source: [facility] Current Interpretive Data was last revised on 2017 Protein, ur ql 3+(A) Negative [facility] Glucose, ur ql Trace(A) Negative [facility] Ketones, ur Trace Negative [facility] Bilirubin, ur Negative Negative [facility] Blood, ur 3+(A) Negative [facility] Urobilinogen, ur <2.0 <2.0 mg/dL [facility] Nitrite, ur Negative Negative [facility] Leukocyte esterase, ur Negative Negative [facility] UA reflex comment Reflex to microscopic UA will be performed. [facility] Urine, clean voided 01/10/2025 11:12 AM CDT 01/10/2025 11:23 AM CDT us Sandie Shepherd NP LAB MICROBIOLOGY - GENERAL ORDERABLES Final Result Performing Organization Address City/[facility]/ZIP Co de Phone Number [facility] [place] [address] * (ABNORMAL) Urinalysis, microscopic only (01/10/2025 11:12 AM CDT) WBC, ur 11-20(A) 0 - 5 /HPF RBC, ur >50(A) 0 - 2 /HPF [facility] Bacteria, ur 2+(A) [facility] Culture Reflex Comment Reflex to urine culture will be performed. [facility] Urine, clean voided 01/10/2025 11:12 AM CDT 01/10/2025 11:23 AM CDT Sandie Shepherd [employer] LAB URINE ORDERABLES Final Result Performing Organization Address [facility]/ZIP Co de Phone Number [facility] [place] [address] * (ABNORMAL) Urine culture Urine, clean voided (01/10/2025 11:12 AM CDT) Report Final Report: Greater than or equal to 100,000 colonies/mL of Escherichia coli Plus growth of clinically insignificant bacterial billy. (.) Organism ESCHERICHIA COLI [facility] Organism PLUS GROWTH OF CLINICALLY INSIGNIFICANT BILLY. [facility] Urine, clean voided 01/10/2025 11:12 AM CDT 01/10/2025 12:04 PM CDT Narrative [facility] - 01/12/2025 1:27 PM CDT Urine culture reflexed based upon urinalysis results. Testing performed by [facility] Microbiology Laboratory ([phone]) Organism Antibiotic Method Susceptibility Escherichia coli Ampicillin [...] INTERPRETATION Susceptible Escherichia coli Cefdinir INTERPRETATION Susceptible Sandie Shepherd [employer] LAB MICROBIOLOGY - GENERAL ORDERABLES Final Result [facility] [place] [address] * eGFR (01/10/2025 11:07 AM CDT) eGFR [...] CDT 01/10/2025 11:24 AM CDT Sandie Shepherd NP LAB BLOOD ORDERABLES Final Result [facility] [place] [address] * (ABNORMAL) Differential, auto (01/10/2025 11:07 AM CDT) Pathologist [facility] Neutrophil abs 3.2 1.5 - 6.5 K/cumm Imm gran abs 0.0 0.0 - 0.1 K/cumm [facility] Lymphocyte abs 1.0 0.8 - 3.3 K/cumm [facility] Monocyte abs 0.1(L) 0.2 - 0.8 K/cumm [facility] Eosinophil abs 0.2 0.0 - 0.5 K/cumm [facility] Basophil abs 0.0 0.0 - 0.1 K/cumm [facility] Neutrophil pct 71.2 % [facility] Comment: Interpretive Data Percent cell count reference ranges are not reported, since discordance with absolute values may lead to misinterpretation of CBC data. Current Interpretive Data was last revised on 2018. Imm gran pct 0.4 % [facility] Comment: Interpretive Data Percent cell count reference ranges are not reported, since discordance with absolute values may lead to misinterpretation of CBC data. Current Interpretive Data was last revised on 2018. Lymphocyte pct 23.1 % [facility] Comment: Interpretive Data Percent cell count reference ranges are not reported, since discordance with absolute values may lead to misinterpretation of CBC data. Current Interpretive Data was last revised on 2018. Monocyte pct 1.1 % [facility] Comment: Interpretive Data Percent cell count reference ranges are not reported, since discordance with absolute values may lead to misinterpretation of CBC data. Current Interpretive Data was last revised on 2018. Eosinophil pct 3.8 % [facility] Comment: Interpretive Data Percent cell count reference ranges are not reported, since discordance with absolute values may lead to misinterpretation of CBC data. Current Interpretive Data was last revised on 2018. Basophil pct 0.4 % [facility] Comment: Interpretive Data Percent cell count reference ranges are not reported, since discordance with absolute values may lead to misinterpretation of CBC data. Current Interpretive Data was last revised on 2018. Blood 01/10/2025 11:0 7 AM CDT 01/10/2025 11:25 AM CDT us Sandie Shepherd [employer] LAB BLOOD ORDERABLES Final Result VIKRAM PATRICK [facility] [place] [address] * (ABNORMAL) CBC with auto differential (01/10/2025 11:07 AM CDT) WBC 4.5 3.8 - 9.9 K/cumm Hgb 8.0(L) 11.9 - 15.5 g/dL [facility] Hct 23.5(L) 35.6 - 45.5 % [facility] Plt 99(L) 150 - 400 K/cumm [facility] MPV 10.2 9.1 - 12.3 fL [facility] RBC 2.71(L) 3.90 - 5.20 M/cumm [facility] MCV 86.7 81.3 - 96.4 fL [facility] MCH 29.5 27.1 - 33.3 pg [facility] MCHC 34.0 32.3 - 35.7 g/dL [facility] RDW CV 16.2(H) 11.1 - 14.9 % [facility] RDW SD 51.4(H) 35.7 - 48.1 fL [facility] NRBC abs 0.00 0.00 - 0.01 K/cumm [facility] Blood 01/10/2025 11:0 7 AM CDT 01/10/2025 11:25 AM CDT Sandie Shepherd [employer] LAB BLOOD ORDERABLES Final Result Performing Organization Address City/[facility] Co de Phone Number [facility] [email or web address] [address] * Type and screen (01/10/2025 11:07 AM CDT) ABO Rh O Positive Lai, indirect Negative [facility] Blood 01/10/2025 11:0 7 AM CDT 01/10/2025 11:26 AM CDT Narrative [facility] - 01/10/2025 12:27 PM CDT Has the patient had Daratumumab or Isatuximab in the past 6 months?->Unknown Sandei Shepherd [employer] LAB BLOOD BANK TEST ORDERA BLES Final Result [facility] [email or web address] [address] * (ABNORMAL) Magnesium (01/10/2025 11:07 AM CDT) Magnesium 1.1(L) 1.4 - 2.5 mg/dL Blood 01/10/2025 11:0 7 AM CDT 01/10/2025 11:24 AM CDT Sandie Shepherd [employer] LAB BLOOD ORDERABLES Final Result [facility] [place] [address] * Comprehensive metabolic panel (01/10/2025 11:07 AM CDT) Pathologist [facility] Sodium 139 135 - 145 mmol/L Potassium, pl 3.7 3.3 - 4.9 mmol/L [facility] Chloride 101 97 - 110 mmol/L [facility] CO2 26 22 - 32 mmol/L [facility] Anion gap 12 2 - 15 mmol/L [facility] BUN 17 6 - 25 mg/dL [facility] Creatinine 0.85 0.60 - 1.10 mg/dL [facility] Glucose 150 70 - 199 mg/dL [facility] Comment: Interpretive Data Fasting glucose >/= [...] 2022. Calcium 9.3 8.5 - 10.3 mg/dL [facility] Bilirubin, total 0.4 0.1 - 1.2 mg/dL [facility] Protein, pl 6.9 6.5 - 8.5 g/dL [facility] Albumin 3.8 3.5 - 5.0 g/dL [facility] Alk phos 65 40 - 130 Units/L [facility] ALT 38 7 - 45 Units/L [facility] AST 23 10 - 45 Units/L [facility] Blood 01/10/2025 11:0 7 AM CDT 01/10/2025 11:24 AM CDT Sandie Shepherd [employer] LAB BLOOD ORDERABLES Final Result Performing Organization Address [facility] Co de Phone Number [facility] [place] [address] * Type and screen (01/06/2025 4:17 PM CDT) [facility] Lai, indirect Negative ABO Rh O Positive [facility] Blood 01/06/2025 4:17 PM CDT 01/06/2025 4:47 PM CDT Narrative [facility] - 01/06/2025 6:16 PM CDT Has the patient had Daratumumab or Isatuximab in the past 6 months?->Unknown Patti Preston MD LAB BLOOD BANK TEST ORD ERABLES Final Result Performing Organization Address [facility] de Phone Number [facility] [place] [address] * (ABNORMAL) CBC with auto differential (01/04/2025 9:02 AM CDT) [facility] WBC 5.9 3.8 - 10.8 Thousand/u L [...] cells/uL [facility] Lymphocytes, abs 1,705 850 - 3,900 cells/uL [...] 9:02 AM CDT 01/04/2025 9:02 AM CDT [facility] - 01/05/2025 4:48 AM CDT FASTING:NO FASTING: NO Patti Preston MD LAB BLOOD ORDERABLES nal Result [facility] [address] [place] [address] * CA 125 (01/04/2025 9:02 AM CDT) CA 125 ag 8 <35 U/mL [facility] Comment: This [...] MD LAB BLOOD ORDERABLES Fi nal Result [facility] [address] [place] [address] * (ABNORMAL) Magnesium (01/04/2025 9:02 AM CDT) Magnesium 1.1(L) 1.5 - 2.5 mg/dL [facility] Blood 01/04/2025 9:02 AM CDT 01/04/2025 9:02 AM CDT Narrative [facility] - 01/05/2025 4:48 AM CDT FASTING:NO FASTING: NO Patti Preston MD LAB BLOOD ORDERABLES Fi nal Result [facility] [address] [place] [address] * (ABNORMAL) Comprehensive metabolic panel (01/04/2025 9:02 AM CDT) Glucose 128 65 - 139 mg/dL [facility]book[facility]idhi Bishop Comment: Non-fasting reference interval BUN 16 7 - 25 mg/dL [facility] Creatinine 0.79 0.50 - 1.05 mg/dL [facility] melinda Bishop eGFR 83 > OR = 60 mL/min/1.7 3m2 ebook[facility]S melinda Bishop BUN/creat ratio SEE NOTE: 6 - 22 (calc) [facility] mel[facility] Bishop Comment: Not Reported: BUN and Creatinine are within reference range. Sodium 139 135 - 146 mmol/L [facility] melinda Bishop Potassium, pl 3.4(L) 3.5 - 5.3 mmol/L [facility] mel[facility] Bishop Chloride 103 98 - 110 mmol/L [facility] melinda Bishop CO2 27 20 - 32 mmol/L [facility] melinda Bishop Calcium 8.8 8.6 - 10.4 mg/dL [facility] [employer]Vidhi Bishop Protein, sr 7.0 6.1 - 8.1 g/dL [facility] Albumin 4.3 3.6 - 5.1 g/dL [facility] GLOBULIN 2.7 1.9 - 3.7 g/dL (calc) [facility] Alb/glob ratio 1.6 1.0 - 2.5 (calc) [facility] Bilirubin, total 0.3 0.2 - 1.2 mg/dL [facility] [employer]Vidhi Bishop Alk phos 68 37 - 153 U/L [facility] AST 16 10 - 35 U/L [facility] [employer]id[facility] ALT (SGPT) 18 6 - 29 U/L [employer] Kartik-Vidhi Bishop Blood 01/04/2025 9:02 AM CDT 01/04/2025 9:02 AM CDT Narrative [facility] - 01/05/2025 4:48 AM CDT FASTING:NO FASTING: NO Patti Preston MD LAB BLOOD ORDERABLES Fi nal Result [facility] [address] [place] [address] * SCAN - RADIOLOGY/IMAGING (12/30/2024) Anatomical Region Laterality Modality Other Provider Scanning Final Result * Screening Mammogram [...] age 40, based on guidelines of the [employer] [place] [employer] (ACR Practice Parameter for the Performance of Screening and Diagnostic Mammography) and [place] [employer] Obstetricians and Gynecologists. For women [...] GENERAL CASSANDRA LOVE Final Result VIKRAM TAVARES [id number] [facility] Department [place] [address] from Last 3 Months or Most Recently Relevant to Health Maintenance Insurance [facility] MEDICARE ADVANTAGE FOR LIFE [facility] MEDICARE ADVANTAGE FOR LIFE [employer] FOR LIFE Advance Directives For more information, please contact: [phone] * Full Code (Latest Code Status on File) Date Activated Date Inactivated Comments 10/07/2024 7:34 AM 10/08/2024 5:09 AM * Full Code Date Activated Date Inactivated Comments 08/06/2021 7:32 AM 08/06/2021 1:54 PM * Full Code Date Activated Date Inactivated Comments 01/18/2019 9:07 AM 01/19/2019 8:13 PM * Full Code Date Activated Date Inactivated Comments 01/16/2019 2:40 PM 01/18/2019 9:07 AM Care Teams Director Law Enforcement Relationship Specialty Start Date End Date Morteza Shah Jr., MD [address] [place] [address] PCP - General Internal Medicine 08/01/22 Prasanth Falk MD Cardiology 01/19/19 Abdiel Gibbons MD Consulting Physician Cardiology 01/19/19 Andreas Montoya DO [address] [place] [address] Consulting Physician Gastroenterology 10/16/22
--- OUTSIDE RECORDS SUMMARY | 2025-03-31 02:09 | XMS_ITS | Encounter Summary ---
Author Organization [facility] Healthcare Address [address] [place] [address] Care Team Providers Care Program Manager Slp Name Role Phone Prasanth Falk MD Unavailable [phone] Abdiel Gibbons MD Unavailable [phone] Pabol Lay MD, Morteza Goldman Primary Care Provide r Andreas Montoya DO Unavailable [phone] Encounter Details Date Type Department Care Team (Latest Contact Info) Description 03/03/2025 Results Follow-Up [facility] Medical Group Cardiology [address] [place] [address] Azael Ibarra MD [address] [facility] [place] [address] [facility], [place] [address] [place] [address] Transthoracic Echo (TTE) Complete W Doppler/CF Social History Tobacco Use Types Packs/Day Years [...] staff should administer the PHQ-9) 0 09/26/2024 Hunger Vital Sign Answer Date Recorded Within [...] on file Legal Sex Female 2:56 AM ENVIRONMENTAL AID Gender Identity Female 03/07/2021 1:17 PM CDT Sexual Orientation Straight 03/07/2021 1: 17 PM CDT 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 Not on file Not on file Not on file documented as of this encounter Plan of Treatment Not on file documented as of this encounter Visit Diagnoses Not on filedocumented in this encounter Care Teams Program Manager Slp Relationship Specialty Start Date End Date Morteza Shah Jr., MD [address] [place] [address] [id number] PCP - General Internal Medicine 08/01/22 Prasanth Falk MD Cardiology 01/19/19 Abdiel Gibbons MD Consulting Physician Cardiology 01/19/19 Andreas Montoya DO [address] [place] [address] Consulting Physician Gastroenterology 10/16/22 documented as of this encounter
--- OUTSIDE RECORDS SUMMARY | 2025-03-31 02:09 | XMS_ITS | Encounter Summary ---
Author Organization [facility] Healthcare Address [address] [place] [address] Care Team Providers Care Senior Mobile Developer Name Role Phone Prasanth Falk MD Unavailable [phone] Abdiel Gibbons MD Unavailable Pablo Lay MD, Morteza Goldman Primary Care Provide r Andreas Montoya DO Unavailable [phone] Reason for Visit * Reason Onset Date Comments Medtronic alert for fast v rates during AT/AF Encounter Details Date Type Department Care Team (Late st Contact Info) Description 03/30/2025 Telephone [facility]ia [facility] [address] [facility] [address] [address] Abdiel Gibbons MD [address] [facility] [address], [place] [address] Medtronic alert for fast v rates during AT/AF Social History Tobacco Use Types Packs/Day Years [...] on file 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 Gender Identity Female 03/07/2021 1:17 PM CDT Sexual Orientation Straight 03/07/2021 1: 17 PM CDT 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 Increased dose of metoprolol sent to pharmacy. * Telephone Encounter - Russell Thorpe MA - 03/30/2025 8:31 AM CDT Images from the original note were not included. Medtronic alert for fast v rates during AT/AF: Since last remote check on 20-Mar-2025 there are several AT/AF, SVT-ST, and VT- NS episodes noted between 22-Mar-2025 - Mar-2025 with average ventricular rates between 113 -154 bpm. The last/longest is an AT/AF episode on 29-Mar-2025 with average v rate of 122 bpm for 8 hours 30 minutes 18 seconds. Presenting EGM shows /AP/VS at 82 bpm w/ conducted PACs. Spoke with patient who reports taking medications as directed, some dizziness otherwise asymptomatic. Of note: See cardiac tab for detailed report. documented in this encounter Plan of Treatment Not on file documented as of this encounter Visit Diagnoses Diagnosis PAF (paroxysmal atrial fibrillation) (HCC) Atrial fibrillation documented in this encounter Discontinued Medications Medication Sig Discontinue Reason Start Date End Da te metoprolol XL (TOPROL-XL) 25 mg extended release tabletIndications:PAF (paroxysmal atrial fibrillation) (HCC) Take 1 tablet (25 mg total) by mouth daily 01/25/2025 03/30/2025 documented as of this encounter Care Teams Senior Mobile Developer Relationship Specialty Start Date End Date Morteza Shah Jr., MD [facility] [id number] PCP - General Internal Medicine 08/01/22 Prasanth Falk MD Cardiology 01/19/19 Abdiel Gibbons MD Consulting Physician Cardiology 01/19/19 Andreas Montoya DO [facility] [address] Consulting Physician Gastroenterology 10/16/22 documented as of this encounter
--- OUTSIDE RECORDS SUMMARY | 2025-03-31 02:09 | XMS_ITS | Encounter Summary ---
Author Organization [facility] Healthcare Address [address] [place] [address] Care Team Providers Care Environmental Field Services Technician Name Role Phone Prasanth Falk MD Unavailable [phone] Abdiel Gibbons MD Unavailable [phone] Pablo Lay MD, Morteza Goldman Primary Care Provide r Andreas Montoya DO Unavailable [phone] Encounter Details Date Type Department Care Team (Late st Contact Info) Description 03/30/2025 Orders Only Arrhythmia Center [address] [facility] [address] [place] [phone] Abdiel Gibbons MD [address] [facility] [address], [place] [address] Social History Tobacco Use Types Packs/Day Years [...] on file 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 Gender Identity Female 03/07/2021 1:17 PM CDT Sexual Orientation Straight 03/07/2021 1: 17 PM CDT 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 Not on file Not on file Not on file documented as of this encounter Plan of Treatment Pending Results Name Type Priority Associated Diagnoses Date /Time DEVICE CHECK - REMOTE Cardiac Services Routine 03/30/2025 1:44 AM CDT documented as of this encounter Visit Diagnoses Not on filedocumented in this encounter Care Teams Environmental Field Services Technician Relationship Specialty Start Date End Date Morteza Shah Jr., MD [address] [place] [address] [id number] PCP - General Internal Medicine 08/01/22 Prasanth Falk MD Cardiology 01/19/19 Abdiel Gibbons MD Consulting Physician Cardiology 01/19/19 Andreas Montoya DO [address] [place] [address] Consulting Physician Gastroenterology 10/16/22 documented as of this encounter
--- OUTSIDE RECORDS SUMMARY | 2025-03-31 02:09 | XMS_ITS | Encounter Summary ---
Author Organization [facility] Address [address] [place] [address] Phone Care Team Providers Care Marine Chronometer Assembler Name Role Phone Prasanth Falk MD Unavailable [phone] Abdiel Gibbons MD Unavailable Pablo Lay MD, Morteza Goldman Primary Care Provide r Andreas Montoya DO Unavailable [phone] Encounter Details Date Type Department Care Team (Late st Contact Info) Description 02/08/2025 Results Follow-Up [facility] Obstetrics and Gynecology [address] 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 file Not on file Not on file documented as of this encounter Plan of Treatment Not on file documented as of this encounter Visit Diagnoses Not on filedocumented in this encounter Care Teams Marine Chronometer Assembler Relationship Specialty Start Date End Date Morteza Shah Jr., MD [address] [place] [address] PCP - General Internal Medicine 08/01/22 Prasanth Falk MD Cardiology 01/19/19 Abdiel Gibbons MD Consulting Physician Cardiology 01/19/19 Andreas Montoya DO [address] [place] [address] Consulting Physician Gastroenterology 10/16/22 documented as of this encounter
--- OUTSIDE RECORDS SUMMARY | 2025-03-31 02:09 | XMS_ITS | Encounter Summary ---
Author Organization [facility] Address [address] [place] [address] Phone Care Team Providers Care Real Estate Site Analyst Name Role Phone Prasanth Falk MD Unavailable [phone] Abdiel Gibbons MD Unavailable [phone] Pablo Lay MD, Morteza Goldman Primary Care Provide r Andreas Montoya DO Unavailable [phone] Encounter Details Date Type Department Care Team (Late st Contact Info) Description 03/01/2025 Results Follow-Up [facility] Obstetrics and Gynecology [address] [facility] Advanced Medicine 13th [place] [address] [place] [address] Patti Preston MD [address] [place] [phone] [place] [address] CBC with auto differential, Comprehensive [...] on file Legal Sex Female 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 Gender Identity Female 03/07/2021 1:17 PM CDT Sexual Orientation Straight 03/07/2021 1: 17 PM CDT 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 Not on file Not on file Not on file documented as of this encounter Plan of Treatment Not on file documented as of this encounter Visit Diagnoses Not on filedocumented in this encounter Care Teams Real Estate Site Analyst Relationship Specialty Start Date End Date Morteza Shah Jr., MD [address] [place] [address] PCP - General Internal Medicine 08/01/22 Prasanth Falk MD Cardiology 01/19/19 Abdiel Gibbons MD Consulting Physician Cardiology 01/19/19 Andreas Montoya DO [address] [place] [address] Consulting Physician Gastroenterology 10/16/22 documented as of this encounter
--- OUTSIDE RECORDS SUMMARY | 2025-03-31 02:09 | XMS_ITS | Encounter Summary ---
Author Organization [facility] Healthcare Address [address] [place] [address] Care Team Providers [facility] Supervisor Name Role Phone Prasanth Falk MD Unavailable [phone] Abdiel Gibbons MD Unavailable Pablo Lay MD, Morteza Goldman Primary Care Provide r Andreas Montoya DO Unavailable [phone] Reason for Visit * Reason Comments Follow-up Encounter Details Date Type Department Care Team (Latest Contact Info) Description 03/30/2025 2:30 PM CDT Office Visit [facility] [address] [place] [phone] Morteza Shah Jr., MD [address] [place] [id number] ROBIN (obstructive sleep apnea) (Primary Dx); Gastroesophageal [...] to chemotherapy; History of CVA (cerebrovascular accident) Social History Tobacco Use Types Packs/Day Years [...] on file 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 Gender Identity Female 03/07/2021 1:17 PM CDT Sexual Orientation Straight 03/07/2021 1: 17 PM CDT 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 Not on file Not on file Not on file documented as of this encounter Last Filed Vital Signs Vital Sign Reading [...] Mass Index 38.61 03/30/2025 2:41 PM CDT documented in this encounter Functional Status documented as of this encounter Ordered Prescriptions Prescription Sig Dispense Quantity Refills Last Filled Start Date End Date pregabalin (LYRICA) 100 mg capsuleIndications :chemotherapy asscociated peripheral neuropathy Take 1 capsule (100 mg total) by mouth 3 (three) times a day 90 capsule 03/30/2025 tirzepatide, weight loss, (ZEPBOUND) 2.5 mg/0.5 mL pen injectorIndication s:Class 2 severe obesity due to excess calories with serious comorbidity and body mass index (BMI) of 38.0 to 38.9 in adult (HCC) Inject 0.5 mL (2.5 mg total) under the skin every 7 days 2 mL 03/30/2025 famotidine (PEPCID) 40 mg tabletIndications: Gastroesophageal reflux disease with esophagitis without hemorrhage Take 1 tablet (40 mg total) by mouth daily 90 tablet 3 03/30/2025 documented in this encounter Progress Notes * Morteza Shah Jr., MD - 03/30/2025 2:30 PM CDT Images from the original note were not included. Patient ID: Esperanza Hsu is a 64 y.o. female. Chief Complaint. Chief Complaint Patient presents with Follow-up HPI. Patient is a 64 y.o. female Discussed her weight, and neuropathy mainly today Will try to get zepbound approved Message hem/onc for approval with her treatment plan Also only taking 75 mg BID of lyrtica for neuropathy, will go up to 100 mg TID Current Medications: Outpatient Encounter Medications as of 03/30/2025 Medication Sig Dispense Refill al & mag hydroxide with pqlreypbmiw-pgpbmtwjfevnphs-dbhljuwgi (MAGIC MOUTHWASH) suspension 1-1-1 Swish and swallow 15 mL every 4 (four) hours as needed (mucositis) 500 mL 3 ascorbic acid (VITAMIN C) 500 mg tablet,chewable Take 1 tablet/chew tab (500 mg total) by mouth daily aspirin 81 mg chewable tablet Take 1 tablet (81 mg total) by mouth daily 90 tablet 3 atorvastatin (LIPITOR) 40 mg tablet TAKE 1 TABLET NIGHTLY (NEED TO SCHEDULE AN APPOINTMENT. DUE FOROFFICE VISIT IN JANUARY) 90 tablet 3 celecoxib (CeleBREX) 200 mg capsule Take 1 capsule (200 mg total) by mouth 2 (two) times a day 180 capsule 3 cholecalciferol (VITAMIN D-3) 25 mcg (1,000 unit) tablet Take 2 tablets (2,000 Units total) by mouth daily diltiaZEM CD (Cardizem CD) 360 mg 24 hr capsule Take 1 capsule (360 mg total) by mouth daily [address] (CYMBALTA) 30 mg capsule Take 1 capsule (30 mg total) by mouth daily 30 capsule 11 lidocaine (LIDODERM) 5 % Place 1 patch on the skin daily Remove & discard patch within 12 hoursor as directed by MD. 30 patch 0 LORazepam (ATIVAN) 0.[address] 1 tablet (0.5 mg total) under the tongue every 6 (six) hoursas needed (nausea or vomiting) 30 tablet 0 losartan (COZAAR) 50 mg tablet TAKE 1 TABLET(50 MG) BY MOUTH DAILY 90 tablet 3 metoprolol XL (TOPROL-XL) 25 mg extended release tablet Take 1 tablet (25 mg total) by mouth daily 90 tablet 3 ondansetron (ZOFRAN) 8 mg tablet Take 1 tablet (8 mg total) by mouth every 8 (eight) hours as needed for nausea or vomiting 30 tablet 3 potassium chloride ER (KLOR-CON) 20 mEq CR tablet Take 1 tablet (20 mEq total) by mouth 2 (two) times a day 60 tablet 0 prochlorperazine (Compazine) 10 mg tablet Take 1 tablet (10 mg total) by mouth every 6 (six) hours as needed for nausea or vomiting 30 tablet 3 pyridoxine (VITAMIN B-6) 100 mg tablet Take 1 tablet (100 mg total) by mouth daily 30 tablet 11 rivaroxaban (Xarelto) 20 mg tablet Take 1 tablet (20 mg total) by mouth daily with dinner 90 tablet3 [DISCONTINUED] famotidine (PEPCID) 40 mg tablet Take 1 tablet (40 mg total) by mouth daily 90 tablet 3 [DISCONTINUED] pregabalin (LYRICA) 75 mg capsule Take 1 capsule (75 mg total) by mouth 2 (two) times a day 60 capsule 3 alpha lipoic acid 600 mg capsule Take 1 capsule (600 mg total) by mouth daily (Patient not taking: Reported on 02/08/2025) 30 capsule 3 dexAMETHasone (DECADRON) 4 mg tablet Take 2 tablets (8 mg) by mouth once daily on Day 2, 3, and 4 of each cycle. (Patient not taking: Reported on 03/30/2025) 20 tablet 3 famotidine (PEPCID) 40 mg tablet Take 1 tablet (40 mg total) by mouth daily 90 tablet 3 lidocaine-prilocaine cream Apply topically as needed for pain Apply 1 hour prior to IV access and cover. (Patient not taking: Reported on 03/30/2025) 30 g 1 methocarbamoL (ROBAXIN) 750 mg tablet Take 1 tablet (750 mg total) by mouth 4 (four) times a day asneeded for muscle spasms Only takes occasionally (Patient not taking: Reported on 03/30/2025) 30 tablet 3 pregabalin (LYRICA) 100 mg capsule Take 1 capsule (100 mg total) by mouth 3 (three) times a day 90 capsule 0 tirzepatide, weight loss, (ZEPBOUND) 2.5 mg/0.5 mL pen injector Inject 0.5 mL (2.5 mg total) under the skin every 7 days 2 mL 0 [DISCONTINUED] nitrofurantoin monohydrate (MACROBID) 100 mg capsule Take 1 capsule (100 mg total) by mouth 2 (two) times a day (Patient not taking: Reported on 03/30/2025) 14 capsule 0 No facility-administered encounter medications on file as of 03/30/2025. Review of Systems: Constitutional symptoms: No complaints of recent weight loss/gain, no fever/chills, no lethargy/changes in sleep pattern HEENT: No recent trauma, no changes in vision, no changes in hearing or new onset of hearing loss, no changes in smell, no dysphagia or soreness of throat Cardiovascular: No new chest pains, palpitations Respiratory: No new SOB, dyspnea or cough or wheeze Abdominal: No changes in BM, hematochezia, or abdominal pain : No dysuria, hematuria or incontinence MSK: No joint pain, myalgia or new onset of weakness Skin: No new lesions including changes in moles, rashes Neuro: No new neurological deficits Psych: No complaints of depression, SI, HI or hallucinations BP 122/70 (BP Location: Left arm, Patient Position: Sitting) Pulse 106 Temp 36.7 ??C (98.1 ??F) Resp 16 Ht 165.1 cm (5' 5) Wt 105.2 kg (232 lb) LMP (LMP Unknown) SpO2 96% BMI 38.61 kg/m?? Physical Exam: General Appearance: NAD, patient is AOx3. HEENT: Atraumatic, PEERLA Cardiovascular: RRR, S1 and S2 normal, no murmur or gallops Respiratory: CTAB, no wheezing, no rales MSK: Strength in all four ext 4/4 EXT: Pulses equal throughout, no cyanosis or clubbing noted Skin: Normal turgor, color and temperature Neuro: No focal or motor deficits noted. Psych: Normal speech pattern, orientation, and mood Assessment & Plan: Diagnoses and all orders for this visit: ROBIN (obstructive sleep apnea) (Primary) Assessment & Plan: Following pulm for this and has been dx for years about this Uses CPAP Will try to get zepbound Gastroesophageal reflux disease with esophagitis without hemorrhage - famotidine (PEPCID) 40 mg tablet; Take 1 tablet (40 mg total) by mouth daily Chronic diastolic congestive heart failure ([facility]) Assessment & Plan: Chronic stable Well controlled Continue current prescribed medications losartan metorpolol at current dose Follows cardiology Rheumatoid arthritis involving multiple sites with positive rheumatoid factor ([facility]) Assessment & Plan: Takes celebrax, well controlled Other primary thrombocytopenia ([facility]) Assessment & Plan: Monitor levels Class 2 severe obesity due to excess calories with serious comorbidity and body mass index (BMI) of38.0 to 38.9 in adult ([facility]) Assessment & Plan: Trtying to get zepbound approve for ROBIN Orders: - tirzepatide, weight loss, (ZEPBOUND) 2.5 mg/0.5 mL pen injector; Inject 0.5 mL (2.5 mg total) under the skin every 7 days PAF (paroxysmal atrial fibrillation) ([facility]) Assessment & Plan: Follows cardiology [place] metporlol,dilta and xarelto SSS (sick sinus syndrome) ([facility]) Assessment & Plan: Follows cardiology Continue dilt and metoprolol Malignant neoplasm of left ovary (HCC) - pregabalin (LYRICA) 100 mg capsule; Take 1 capsule (100 mg total) by mouth 3 (three) times a day Ovarian cancer, bilateral (HCC) - pregabalin (LYRICA) 100 mg capsule; Take 1 capsule (100 mg total) by mouth 3 (three) times a day Peri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 - pregabalin (LYRICA) 100 mg capsule; Take 1 capsule (100 mg total) by mouth 3 (three) times a day History of CVA (cerebrovascular accident) Assessment & Plan: Continue lipitor and aspirin Morteza Shah Jr., MD documented in this encounter Miscellaneous Notes * Assessment & Plan Note - Morteza Shah Jr., MD - 03/30/2025 3:08 PM CDT Associated Problem(s): History of CVA (cerebrovascular accident) Continue lipitor and aspirin * Assessment & Plan Note - Morteza Shah Jr., MD - 03/30/2025 3:08 PM CDT Associated Problem(s): Rheumatoid arthritis involving multiple sites with positive rheumatoid factor (HCC) Takes celebrax, well controlled * Assessment & Plan Note - Morteza Shah Jr., MD - 03/30/2025 3:07 PM CDT Associated Problem(s): PAF (paroxysmal atrial fibrillation) (HCC) Follows cardiology [place] metporlol,dilta and xarelto * Assessment & Plan Note - Morteza Shah Jr., MD - 03/30/2025 3:07 PM CDT Associated Problem(s): Class 2 severe obesity due to excess calories with serious comorbidity and body mass index (BMI) of 38.0 to 38.9 in adult (HCC) Trtying to get zepbound approve for ROBIN * Assessment & Plan Note - Morteza Shah Jr., MD - 03/30/2025 3:07 PM CDT Associated Problem(s): SSS (sick sinus syndrome) (HCC) Follows cardiology Continue dilt and metoprolol * Assessment & Plan Note - Morteza Shah Jr., MD - 03/30/2025 3:07 PM CDT Associated Problem(s): Other primary thrombocytopenia (HCC) Monitor levels * Assessment & Plan Note - Morteza Shah Jr., MD - 03/30/2025 3:07 PM CDT Associated Problem(s): Chronic diastolic congestive heart failure (HCC) Chronic stable Well controlled Continue current prescribed medications losartan metorpolol at current dose Follows cardiology * Assessment & Plan Note - Morteza Shah Jr., MD - 03/30/2025 2:53 PM CDT Associated Problem(s): ROBIN (obstructive sleep apnea) Following pulm for this and has been dx for years about this Uses CPAP Will try to get zepbound documented in this encounter Plan of Treatment Not on file documented as of this encounter Visit Diagnoses Diagnosis ROBIN (obstructive sleep apnea)- Primary Obstructive sleep apnea (adult) (pediatric) Gastroesophageal reflux disease with esophagitis without hemorrhage Chronic diastolic congestive heart failure (HCC) Rheumatoid arthritis involving multiple sites with positive rheumatoid factor (HCC) Other primary thrombocytopenia (HCC) Other primary thrombocytopenia Class 2 severe obesity due to excess calories with serious comorbidity and body mass index (BMI) of 38.0 to 38.9 in adult (HCC) PAF (paroxysmal atrial fibrillation) (HCC) Atrial fibrillation SSS (sick sinus syndrome) (HCC) Sinoatrial node dysfunction Malignant neoplasm of left ovary (HCC) Ovarian cancer, bilateral (HCC) Peri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 History of CVA (cerebrovascular accident) Transient ischemic attack (TIA), and cerebral infarction without residual deficits documented in this encounter Discontinued Medications Medication Sig Discontinue Reason Start Date End Da te nitrofurantoin monohydrate (MACROBID) 100 mg capsuleIndications:Urina ry Tract/Genitourinary Infection Take 1 capsule (100 mg total) by mouth 2 (two) times a day 03/09/2025 03/30/2025 famotidine (PEPCID) 40 mg tabletIndications:Gastro esophageal reflux disease with esophagitis without hemorrhage Take 1 tablet (40 mg total) by mouth daily Reorder 09/26/2024 03/30/2025 pregabalin (LYRICA) 75 mg capsuleIndications:chemo therapy asscociated peripheral neuropathy Take 1 capsule (75 mg total) by mouth 2 (two) times a day 12/28/2024 03/30/2025 documented as of this encounter Care Teams [employer] Supervisor Relationship Specialty Start Date End Date Morteza Shah Jr., MD [address] [place] [id number] PCP - General Internal Medicine 08/01/22 Prasanth Falk MD Cardiology 01/19/19 Abdiel Gibbons MD Consulting Physician Cardiology 01/19/19 Andreas Montoya DO [facility] [address] Consulting Physician Gastroenterology 10/16/22 documented as of this encounter
[2025-03-31 07:00] VITALS: BP 114/60; PULSE 78; RESP 16; TEMP 37.1; O2SAT 100
[2025-03-31] MEDS: LACTATED RINGERS 1,000 ML 30 ML IV CONT (08:30)
--- NOTE | 2025-03-31 09:08 | WPDHPUPDATE1 ---
History and Physical Update Update Date/Time: 03/31/25 09:08 History and Physical has been reviewed, including an updated exam of the patient. There are NO changes in the patient's condition. Risks, benefits, and alternatives have been discussed and questions answered. Patient agrees to proceed with procedure.
--- NOTE | 2025-03-31 09:24 | P.PNAN_ITS ---
Anes - Initial Pre Proc Eval Procedure: Operation Date: 03/31/25 09:00 Proposed Procedures p Cystoscopy with Bladder Biopsy - Saul Olivares MD Date/Time: 03/31/25 09:24 Surgeon: Saul Olivares MD Pre Op Diagnosis: Gross Hematuria Patient Data Age: 64 Gender: F Height: 1.65 m Weight: 102.2 kg Last Vital Signs Temp 37.1 C 03/31/25 07:00 Pulse 78 03/31/25 07:00 Resp 16 03/31/25 07:00 BP 114/60 03/31/25 07:00 Pulse Ox 100 03/31/25 07:00 O2 Del Method Room Air 03/31/25 07:00 Allergies Allergy/AdvReac Type Severity Reaction Status Date / Time paclitaxel (From Taxol) Allergy Severe Anaphylactic Verified 03/31/25 08:07 Shock morphine Allergy Intermediate Hallucinati Verified 03/31/25 08:07 ng sulfamethoxazole Allergy Intermediate Rash Verified 03/31/25 08:07 trimethoprim Allergy Intermediate Rash Verified 03/31/25 08:07 Home Medications ?Medication ?Instructions ?Recorded ?Confirmed ?Type diltiazem HCl 360 mg 360 mg PO DAILY 11/25/22 03/31/25 History capsule,extended release 24 hr metoprolol succinate 50 mg 50 mg PO DAILY 11/25/22 03/31/25 History tablet,extended release 24 hr rivaroxaban 20 mg tablet (Xarelto) 20 mg PO DAILY 11/25/22 03/31/25 History ascorbic acid (vitamin C) 500 mg 500 mg PO DAILY 07/19/24 03/31/25 History capsule celecoxib 200 mg capsule 200 mg PO BID 07/19/24 03/31/25 History cholecalciferol (vitamin D3) 62.5 62.5 mcg PO DAILY 07/19/24 03/31/25 History mcg (2,500 unit) capsule losartan 50 mg tablet 50 mg PO DAILY 07/19/24 03/31/25 History aspirin 81 mg capsule 81 mg PO DAILY 03/20/25 03/31/25 History pyridoxine (vitamin B6) 50 mg 25 mg PO DAILY 03/20/25 03/31/25 History tablet Patient hx anesthesia problems: none Family hx anesthesia problems: none Results Review: All pre-operative results and documents have been reviewed as part of the pre- operative evaluation. [facility] Past Medical History Medical History History of pacemaker History of gastroesophageal reflux (GERD) Myxoma Social History Social History Smoking status: Never smoker Living arrangements: with family Spiritual care concerns: No Anes - Eval Final PreProcedure Day of Procedure 03/31/25 09:24 Patient weight: obese Heart: regular rate and rhythm Lungs: decreased breath sounds Airway: Mallampati scale class III Neurological: alert and oriented Last oral intake: >/= 8 hours ASA classification: IV Emergent: no Anesthetic plan: proceed Anesthesia type and monitoring: general LMA and standard monitoring Results Review: All pre-operative results and documents have been reviewed as part of the pre- operative evaluation. Informed Consent: The patient's anesthetic plan and its attendant risks and benefits were discussed with the patient/family/POA. Questions were solicited and answers provided to the satisfaction of the patient/family/POA.
[2025-03-31] MEDS: ceFAZolin 2 GM/D5W 50 ML 2 GM/50 ML BAG IVPB (09:57)
[2025-03-31] MEDS: LIDOCAINE 2% GEL UROJET 10 ML PKG MUCOUS MEM (10:06)
[2025-03-31 10:33] VITALS: BP 108/49; PULSE 72; RESP 12; O2SAT 98
--- NOTE | 2025-03-31 10:35 | W.PM.PROC2 ---
Procedure Note - Detailed Date of Procedure 03/31/25 Pre-op Diagnosis Gross Hematuria Post-op Diagnosis Same Procedure Performed Cystoscopy, left retrograde pyelogram, left ureteroscopy diagnostic Surgeon Saul Olivares MD Anesthesia MAC and Local Indications This looks gross hematuria. She is chronically anticoagulated. She presents for mastication of her gross hematuria. Office cystoscopy was not successful due to gross hematuria I could not get a good visualization of her bladder Findings Bleeding coming from left kidney. No tumor or abnormality seen on ureteroscopy Description of Procedure She was correctly identified. Informed consent obtained. From the operating room. She was given monitored anesthesia care. She was given lidocaine Uro jet. Time-out performed. Cystoscopy was performed. Upon entering the bladder there was bloody urine. This was drained. The bladder was washed out. The bladder was examined. There was no abnormalities of the bladder. There was no tumors. There was no stones. There was no abnormal red patches. There was no foreign bodies. Ureteral orifices were normal. I examined the renal orifices. Bloody urine was seen to come from the left ureteral orifice. I did a retrograde pyelogram on the left. There is no extravasation or hydronephrosis. No filling defects seen. I placed a guidewire into the kidney. I dilated the orifice with the 810 dilator atraumatically. I then performed flexible ureteroscopy. I could outline renal anatomy with retrograde pyelogram. I checked all calices. I checked the upper pole calices. Middle pole calices. Lower pole calices. There was no tumors or abnormalities seen in the renal pelvis or calices. I re-examined the ureter on the way out. There was no tumors or abnormality seen in the ureter. There was no etiology for the bleeding from a urologic standpoint. The bleeding seems to be renal in origin and likely associated her blood thinner. There was minimal trauma to the ureter. I elected to not leave a stent. She was awakened transferred to PACU in stable condition. Implants None Estimated Blood Loss 1 Drains No Packing No Pathology None sent Condition Stable Disposition PACU
[2025-03-31 11:00] VITALS: BP 128/66; PULSE 70; RESP 17
[2025-03-31 11:25] VITALS: BP 125/68; PULSE 84; RESP 16
[2025-03-31 11:55] VITALS: BP 101/65; PULSE 69; RESP 18
== END 2025-03-31 12:00 | disposition home or self-care (01) ==
PROVIDERS: PCP Hospitalist; Visit Provider Urology
PROC: 0TBB8ZX Excision of Bladder, Via Natural or Artificial Opening Endoscopic, Diagnostic (ICD-10-PCS; CPT 52204; principal; 2025-03-31 09:00)
DX: R31.0 Gross hematuria (principal); K21.9 Gastro-esophageal reflux disease without esophagitis; E66.9 Obesity, unspecified; Z68.37 Body mass index [BMI] 37.0-37.9, adult; Z79.01 Long term (current) use of anticoagulants; Z79.1 Long term (current) use of non-steroidal anti-inflammatories (NSAID); Z79.82 Long term (current) use of aspirin; Z95.0 Presence of cardiac pacemaker
CPT/HCPCS: 52351; 74420; C1769; J0690; J2003; J2250; J2704; J3010; J7120; Q9966

== ENCOUNTER 2025-07-13 13:32 | Outpatient (CLI) | payer MEDICARE, OTHER, SELFPAY ==
--- NOTE | ~2025-07-13 | XR_ITS ---
Examination: XR shoulder LT min 2V, XR hand LT min 3V, XR wrist LT min 3V Clinical History: M79.642 - Pain in left hand Comparison: None Technique: 4 views left shoulder, 4 views left wrist, 3 views left hand Findings/impression: Left shoulder: 1. No fracture or dislocation left shoulder. 2. No significant degenerative changes glenohumeral joint. 3. Mild degenerative changes AC joint. Left wrist: 1. No fracture or dislocation. Left hand: 1. No fracture or dislocation. 2. Degenerative changes fifth finger DIP joint. Reviewed, dictated and finalized at location R.
== END 2025-07-13 13:33 | disposition home or self-care (01) ==
PROVIDERS: PCP Nurse Practitioner Family; Visit Provider Nurse Practitioner Family
DX: M25.512 Pain in left shoulder (principal); M25.532 Pain in left wrist; Z09 Encounter for follow-up examination after completed treatment for conditions other than malignant neoplasm; W19.XXXA Unspecified fall, initial encounter; M19.042 Primary osteoarthritis, left hand
CPT/HCPCS: 73030; 73110; 73130